=== PATIENT | male | born 1950 | race Caucasian/White ===

== ENCOUNTER 2019-05-10 00:56 | Emergency (ER) | payer OTHER, SELFPAY ==
--- NOTE | ~2019-05-10 | XR_ITS ---
EXAMINATION: XR chest 2V DATE: 05/10/2019 01:45 INDICATION: Left-sided chest pain TECHNIQUE: PA and lateral views of the chest are obtained. COMPARISON: 01/15/2016 FINDINGS: The lungs are free of acute opacities. There is no pleural effusion or pneumothorax. The ca rdiomediastinal silhouette is normal. There is mild thoracic spondylosis. IMPRESSION: 1. No acute cardiopulmonary abnormality. Reviewed, dictated and finalized at location A. 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
--- NOTE | 2019-05-10 01:11 | ECG_ITS ---
Measurements Intervals [place] Rate: 75 P: 42 MT: 184 QRS: -68 QRSD: 162 T: 20 QT: 414 QTc: 463 Interpretive Statements SINUS RHYTHM RIGHT BUNDLE BRANCH BLOCK LEFT ANTERIOR FASCICULAR BLOCK VOLTAGE CRITERIA FOR LVH CANNOT RULE OUT SEPTAL INFARCT, AGE INDETERMINATE LATERAL INFARCT, AGE INDETERMINATE BASELINE ARTIFACT- V6 ABNORMAL ECG Electronically Signed On 05-10-2019 7:11:28 WIRE TRANSFER CLERK by Sid Chen D.O.
[2019-05-10 01:12] VITALS: BP 138/76; PULSE 84; RESP 18; TEMP 36.6; O2SAT 98
[2019-05-10] MEDS: ASPIRIN 81 MG CHEWABLE TABLET 324 MG PO (01:23)
--- NOTE | 2019-05-10 01:23 | ED.CHESTPAIN ---
HPI - Chest Pain General Chief Complaint: Chest Pain <Melchor Deal MD - Last Filed: 05/10/19 01:37> Stated Complaint: electrical chest pains <Melchor Deal MD - Last Filed: 05/10/19 01:37> Time Seen by Provider: 05/10/19 01:20 <Melchor Deal MD - Last Filed: 05/10/19 01:37> Source: patient and RN notes reviewed <Melchor Deal MD - Last Filed: 05/10/19 01:37> Mode of arrival: ambulatory <Melchor Deal MD - Last Filed: 05/10/19 01:37> Limitations: no limitations <Melchor Deal MD - Last Filed: 05/10/19 01:37> History of Present Illness HPI narrative: Pt is an 69 male who presents to the ED with c/o left-sided chest pain which began at 2030 tonight. He states he was going to bed when the pain occurred. However, the pain lasted for about 6-10 seconds and radiated to his LUE before alleviating. He reports he just went to bed. Pt states he woke up at 0030 with the same chest pain occurring which prompted him to come to the ED. He denies SOB, nausea, or vomiting. He also denies any chest pain currently in the ED bed. Pt reports he has recently had a surgery performed 3 days ago for his cancer. Pt reports his PCP is Dr. Igor Ashton in [place]. Pt reports a PMHx of hyperlipidemia and HTN. <Melchor Deal MD - Last Filed: 05/10/19 01:37> MD complaint: chest pain (left-sided) <Melchor Deal MD - Last Filed: 05/10/19 01:37> Pertinent past history: coronary artery disease <Melchor Deal MD - Last Filed: 05/10/19 01:37> Onset (ago): hour(s) (first episode occurred at 2030 tonight) <Melchor Deal MD - Last Filed: 05/10/19 01:37> Timing of current episode: episodic <Melchor Deal MD - Last Filed: 05/10/19 01:37> Prior episodes: No <Melchor Deal MD - Last Filed: 05/10/19 01:37> Onset: during rest (going into bed) <Melchor Deal MD - Last Filed: 05/10/19 01:37> Pain location: left chest <Melchor Deal MD - Last Filed: 05/10/19 01:37> Pain radiation: left arm <Melchor Deal MD - Last Filed: 05/10/19 01:37> Relieving factors: nothing <Melchor Deal MD - Last Filed: 05/10/19 01:37> Exacerbating factors: nothing <Melchor Deal MD - Last Filed: 05/10/19 01:37> Associated symptoms: other (none) <Melchor Deal MD - Last Filed: 05/10/19 01:37> Related Data Allergies/Adverse Reactions: Allergies Allergy/AdvReac Type Severity Reaction Status Date / Time No Known Allergies Allergy Unverified 10/28/14 11:41 <Melchor Deal MD - Last Filed: 05/10/19 01:37> Review of Systems Review of Systems: All systems reviewed & are unremarkable except as noted in HPI and below <Melchor Deal MD - Last Filed: 05/10/19 01:37> Cardiovascular: Cardiovascular: Reports chest pain (left-sided chest pain ) and Reports radiating jaw, neck or arm pain (radiating into LUE) <Melchor Deal MD - Last Filed: 05/10/19 01:37> Respiratory: Respiratory: Denies dyspnea <Melchor Deal MD - Last Filed: 05/10/19 01:37> Gastrointestinal: Gastrointestinal: Denies nausea and Denies vomiting <Melchor Deal MD - Last Filed: 05/10/19 01:37> PMFSH Past Medical History Medical History: Medical History (Updated 05/10/19 @ 05:04 by Kimo Claire MD) Diabetes Hypercholesterolemia Hypertension <Melchor Deal MD - Last Filed: 05/10/19 01:37> Surgical History Surgical History: Surgical History (Updated 05/10/19 @ 01:31 by Deysi Childs) H/O cardiac catheterization <Melchor Deal MD - Last Filed: 05/10/19 01:37> Social History Social History: Social History (Updated 05/10/19 @ 01:31 by Deysi Childs) Smoking status: Never smoker Gender identity (if verbalized by the patient): Male <Melchor Deal MD - Last Filed: 05/10/19 01:37> Exam Narrative: Exam Narrative: GENERAL: Well-appearing, well-nourished, and in no acute distress. HEAD: Normocephalic, atraumatic. EYES: PER
[2019-05-10 01:28] LABS: Basophils Absolute Auto 0.1 K/mm3 (0.0-0.1); Basophils Percent Auto 0.8 % (0.2-1.2); Eosinophils Absolute Auto 0.1 K/mm3 (0-0.3); Eosinophils Percent Auto 1.2 % (0-4.4); Hematocrit 43.8 % (42.0-52.0); Hemoglobin 14.7 g/dL (14.0-18.0); Immature Granulocyte Absolute 0.03 K/mm3 (0.00-0.031); Immature Granulocyte Percent A 0.5 % (0-0.5); Lymphocytes Absolute Auto 1.35 K/mm3 (0.9-3.2); Mean Corpuscular HGB Conc 33.6 g/dl (32-36); Mean Corpuscular Hemoglobin 30.1 pg (26-34); Mean Corpuscular Volume 89.8 fl (80-100); Mean Platelet Volume 11.3 fl (7.4-10.4); Monocytes Absolute Auto 0.6 K/mm3 (0.1-0.6); Monocytes Percent Auto 9.8 % (2.6-8.5); Neutrophils Absolute Auto 4.3 K/mm3 (1.3-6.7); Neutrophils Percent Auto 66.7 % (45.5-73.1); Platelet Count Result 186 k/mm3 (150-375); Red Blood Count 4.88 M/mm3 (4.6-6.20); Red Cell Distribution Width 12.5 % (11.5-14.5); White Blood Count 6.4 K/mm3 (4.5-10.0)
[2019-05-10 01:32] LABS: INR 0.9; Partial Thromboplastin Time 25.8 SECONDS (22.3-36.8); Prothrombin Time 11.7 Seconds (11.1-14.7)
[2019-05-10 01:34] LABS: Blood Urea Nitrogen 21 mg/dL (9-20); Calcium 9.9 mg/dL (8.4-10.2); Carbon Dioxide 30 mmol/L (22-30); Chloride 98 mmol/L (98-107); Estimated Glomerular Filt Rate > 60; Glucose 140 mg/dL (75-110); Potassium 3.7 mmol/L (3.4-5.0); Sodium 140 mmol/L (137-145)
[2019-05-10 01:46] LABS: Troponin I < 0.012 ng/mL (0.000-0.034)
[2019-05-10 02:47] VITALS: BP 143/89; PULSE 84; RESP 14; O2SAT 98
[2019-05-10 04:38] LABS: Troponin I < 0.012 ng/mL (0.000-0.034)
[2019-05-10 05:02] VITALS: BP 122/77; PULSE 77; RESP 18; O2SAT 98
== END 2019-05-10 05:08 | disposition home or self-care (01) ==
PROVIDERS: Emergency Medicine; Emergency Provider Family Medicine
DX: R07.2 Precordial pain (principal); C80.1 Malignant (primary) neoplasm, unspecified; E11.9 Type 2 diabetes mellitus without complications; E78.00 Pure hypercholesterolemia, unspecified; I10 Essential (primary) hypertension; I45.2 Bifascicular block; R94.31 Abnormal electrocardiogram [ECG] [EKG]; I25.10 Atherosclerotic heart disease of native coronary artery without angina pectoris
CPT/HCPCS: 36415; 71046; 80048; 84484; 85025; 85610; 85730; 93005; 99284; A9270

== ENCOUNTER 2021-07-21 12:33 | Emergency (ER) | payer MEDICARE, SELFPAY ==
[2021-07-21 12:42] VITALS: BP 150/78; PULSE 112; RESP 18; TEMP 36.4; O2SAT 98
--- NOTE | 2021-07-21 13:25 | ED.HA ---
HPI - Headache General Chief Complaint: Headache Stated Complaint: pain in face Time Seen by Provider: 07/21/21 12:53 Source: patient History of Present Illness HPI Narrative: Patient presents with jaw pain. Reports he has jaw pain for the past few days. When initially started he went to his dentist was told his teeth look good and was treated for a sinus infection. Since then his pain is gotten progressively worse and his pain is localizing around his left upper molar and he notes that when pushing on the tooth and when chewing. His pain is now radiating to his left face he was concerned so he came to the ER for further evaluation. Denies any fevers, chills, nausea, vomiting, difficulty breathing, difficulty swallowing Related Data Allergies Allergy/AdvReac Type Severity Reaction Status Date / Time No Known Allergies Allergy Unverified 10/28/14 11:41 Review of Systems Review of Systems: CONSTITUTIONAL: Denies fever, chills, or sweats. EYES: Denies visual changes, redness, or discharge. ENT: Denies rhinorrhea, congestion, sore throat, or otalgia. CARDIOVASCULAR: Denies chest pain, palpitations, or edema. RESPIRATORY: Denies cough or dyspnea. GASTROINTESTINAL: Denies abdominal pain, nausea, vomiting, or diarrhea. GENITOURINARY: Denies dysuria or hematuria. SKIN: Denies rash or itching. MUSCULOSKELETAL: Denies back pain, joint pain, or myalgia. NEUROLOGIC: Denies headache, numbness, dizziness, or weakness. PSYCHIATRIC: Denies anxiety or depression. All systems reviewed & are unremarkable except as noted in HPI and below PMFSH Past Medical History Medical History Diabetes Hypercholesterolemia Hypertension Surgical History Surgical History H/O cardiac catheterization Social History Social History Smoking status: Never smoker Gender identity (if verbalized by the patient): Male Exam Narrative: GENERAL: Well-appearing, well-nourished, and in no acute distress. HEAD: Normocephalic, atraumatic. EYES: PERRLA and EOMI. ENT: Nares clear, no rhinorrhea or epistaxis. Mucous membranes moist. Pain is palpation on tooth 15 no obvious swelling or edema around the tooth there is mild erythema on the left cheek. No tenderness to percussion on his sinuses EXTREMITIES: Normal range of motion. No edema. SKIN: Warm, dry, no rash. NEURO: No focal deficits. Alert and oriented x3. PSYCH: Normal mood and affect. Course Vital Signs Vital signs: Vital Signs Temperature 36.4 C L 07/21/21 12:42 Pulse Rate 112 H 07/21/21 12:42 Respiratory Rate 18 07/21/21 12:42 Blood Pressure 150/78 H 07/21/21 12:42 Pulse Oximetry 98 07/21/21 12:42 Temperature 36.4 C L 07/21/21 12:42 Pulse Rate 112 H 07/21/21 12:42 Respiratory Rate 18 07/21/21 12:42 Blood Pressure 150/78 H 07/21/21 12:42 Pulse Oximetry 98 07/21/21 12:42 MDM - Headache MDM Narrative Medical decision making narrative: H&P as above, vss, pt looks clinically well, exam with tenderness to tooth 15, labs/img considered, symptomatic relief available as needed, on reevaluation pt continues to looks clinically well. Suspect dental abscess, dns necrotizing soft tissue infection, severe sepsis, airway compromise, low with angina plan to tx/monitor as op w/ dental f/u findings/plan discussed with pt, pt agree/comfortable with plan, return precautions given Discharge Plan Discharge Clinical Impression: Dental abscess Patient Disposition: Home, Self-Care Condition: Improved Instructions: Antibiotic Form, Dental Abscess (ED) Additional Instructions: Please return if your symptoms worsen or fail to improve. If you develop a fever, can not eat/drink anything or if you have any other concerns. Please follow-up with your dentist for repeat evaluation Prescriptions: New amoxicillin-pot cla
== END 2021-07-21 13:40 | disposition home or self-care (01) ==
PROVIDERS: Emergency Provider Emergency Medicine
DX: K04.7 Periapical abscess without sinus (principal); E11.9 Type 2 diabetes mellitus without complications; E78.00 Pure hypercholesterolemia, unspecified; I10 Essential (primary) hypertension
CPT/HCPCS: 99283

== ENCOUNTER 2021-07-30 07:14 | Emergency (ER) | payer MEDICARE, SELFPAY ==
--- NOTE | ~2021-07-30 | CT_ITS ---
EXAMINATION: CT abdomen pelvis w con EXAM DATE: 07/30/2021 08:14 INDICATION: LLQ abd pain TECHNIQUE: Spiral CT of the abdomen and pelvis was performed following intravenous injection of 100 m L Omnipaque 350. Axial, coronal and sagittal images of the abdomen and pelvis were reviewed. The do se-length product (DLP) for this examination was 1162.95 mGy-cm. The exposure was tailored according to patient size (auto mA exposure control), and iterative reconstruction (ASIR) was used as addition al dose reduction technique. Comparison is made to prior examination from 10/22/2012. FINDINGS: There is rather extensive left perinephric fat stranding, mild to moderate right perinephri c fat stranding. Equivocal enhancing left renal pelvic urothelium. Correlate with urinalysis for poss ible upper urinary tract infection. Findings could also be from recently passed left ureteral stone g iven the 3 mm bladder stone in dependent aspect. The liver, spleen, adrenal glands and pancreas are u nremarkable. Gallbladder is unremarkable. No biliary obstruction. There is mild prostatomegaly. Sma ll bilateral inguinal fat-containing hernias. There is no retroperitoneal or pelvic lymphadenopathy. There is mild scattered arteriosclerotic disease. The appendix is normal. The stomach and small bowel are unremarkable. There is expected amount of c olonic stool. No free intraperitoneal gas. The heart is normal in size. There are no pericardial or pleural effusions. The lung bases are unremarkable. There are no osteoblastic or osteolytic les ions identified. Chronic L5 spondylolysis with grade 2 anterolisthesis L5 on S1. IMPRESSION: 1. Left perinephric fat stranding, mild UPJ urothelial enhancement, and small bladder stone. Could b e recently passed stone or upper UTI, correlate with urinalysis. 2. Mild prostatomegaly. 3. Small inguinal hernias. 4. Chronic L5 spondylolysis, spondylolisthesis. Reviewed, dictated and finalized at location A. IMPRESSION: 1. Left perinephric fat stranding, mild UPJ urothelial enhancement, and small bladder stone. Could be recently passed stone or upper UTI, correlate with urin alysis. 2. Mild prostatomegaly. 3. Small inguinal hernias. 4. Chronic L5 spondylolysis, spondylolisthesis.
[2021-07-30 07:19] VITALS: BP 158/73; PULSE 61; RESP 18; TEMP 36.3; O2SAT 100
--- NOTE | 2021-07-30 07:33 | ED.ABDPAIN ---
HPI - Abdominal Pain General Chief Complaint: Abdominal Pain Stated Complaint: Abdominal pain with nausea Time Seen by Provider: 07/30/21 07:26 Source: patient History of Present Illness HPI narrative: Patient presents with left lower quadrant abdominal pain has been present for approximately 7 hours and appears to be getting worse. Symptoms are associated with nausea. He also reports a sensation of needing to go to the bathroom is not able to do so he denies any diarrhea or urinary symptoms denies any fevers or chills reports yesterday he was feeling well or recent travel outside the area. He has no known sick contacts. Related Data Home Medications Medication Instructions Recorded Confirmed amlodipine 10 mg DAILY 07/30/21 07/30/21 atorvastatin 40 mg DAILY 07/30/21 07/30/21 diltiazem HCl 240 mg PO DAILY 07/30/21 07/30/21 hydrochlorothiazide 25 mg DAILY 07/30/21 07/30/21 metformin 1,000 mg BID 07/30/21 07/30/21 nateglinide 120 mg DAILY 07/30/21 07/30/21 Allergies Allergy/AdvReac Type Severity Reaction Status Date / Time No Known Allergies Allergy Verified 07/30/21 07:29 Review of Systems Review of Systems: CONSTITUTIONAL: Denies fever, chills, or sweats. EYES: Denies visual changes, redness, or discharge. ENT: Denies rhinorrhea, congestion, sore throat, or otalgia. CARDIOVASCULAR: Denies chest pain, palpitations, or edema. RESPIRATORY: Denies cough or dyspnea. GASTROINTESTINAL: Abdominal pain and nausea GENITOURINARY: Denies dysuria or hematuria. SKIN: Denies rash or itching. MUSCULOSKELETAL: Denies back pain, joint pain, or myalgia. NEUROLOGIC: Denies headache, numbness, dizziness, or weakness. PSYCHIATRIC: Denies anxiety or depression. All systems reviewed & are unremarkable except as noted in HPI and below PMFSH Past Medical History Medical History Diabetes Hypercholesterolemia Hypertension Surgical History Surgical History H/O cardiac catheterization Social History Social History Smoking status: Never smoker Gender identity (if verbalized by the patient): Male Exam Narrative: GENERAL: Well-appearing, well-nourished, and in no acute distress. HEAD: Normocephalic, atraumatic. EYES: PERRLA and EOMI. ENT: Nares clear, no rhinorrhea or epistaxis. Mucous membranes moist. NECK: Supple. No masses. No JVD CHEST: Clear to auscultation. No respiratory distress. No wheezes rales or rhonchi HEART: Regular rate and rhythm. No murmur heard. Normal peripheral pulses. ABDOMEN: Mild tenderness with palpation in the left lower quadrant no rebound or guarding soft, nondistended, EXTREMITIES: Normal range of motion. No edema. SKIN: Warm, dry, no rash. NEURO: No focal deficits. Alert and oriented x3. PSYCH: Normal mood and affect. Course Reevaluation(s) Reevaluation #1: Patient reported feeling much improved at the time of CT scan labs and imaging reviewed with patient. Patient is comfortable with outpatient plan Date: 07/30/21 Time: 08:34 Vital Signs Vital signs: Vital Signs Temperature 36.3 C L 07/30/21 07:19 Pulse Rate 61 07/30/21 07:19 Respiratory Rate 18 07/30/21 07:19 Blood Pressure 158/73 H 07/30/21 07:19 Pulse Oximetry 100 07/30/21 07:19 Temperature 36.3 C L 07/30/21 07:19 Pulse Rate 61 07/30/21 07:19 Respiratory Rate 18 07/30/21 07:19 Blood Pressure 158/73 H 07/30/21 07:19 Pulse Oximetry 100 07/30/21 07:19 MDM - Abdominal Pain MDM Narrative Medical decision making narrative: H&P as above, vss, pt looks clinically well, exam with left-sided abdominal pain, labs with hematuria otherwise clinically unremarkable, img with stone in the bladder and inflammation left kidney, additional labs/img considered, symptomatic relief available as needed, on reevaluation pt continues to looks clinically well. Vinicio
[2021-07-30] MEDS: SODIUM CHLORIDE 0.9% IV 1,000 ML 999 ML IV CONT (07:36)
[2021-07-30 07:48] LABS: Basophils Absolute Auto 0.1 K/mm3 (0.0-0.1); Basophils Percent Auto 0.6 % (0.2-1.2); Eosinophils Absolute Auto 0.1 K/mm3 (0-0.3); Eosinophils Percent Auto 0.6 % (0-4.4); Hematocrit 47.1 % (42.0-52.0); Hemoglobin 15.3 g/dL (14.0-18.0); Immature Granulocyte Absolute 0.04 K/mm3 (0.00-0.031); Immature Granulocyte Percent A 0.5 % (0-0.5); Lymphocytes Absolute Auto 0.99 K/mm3 (0.9-3.2); Lymphocytes Percent Auto 11.5 % (18.3-44.2); Mean Corpuscular HGB Conc 32.5 g/dl (32-36); Mean Corpuscular Hemoglobin 30.3 pg (26-34); Mean Corpuscular Volume 93.3 fl (80-100); Mean Platelet Volume 10.8 fl (7.4-10.4); Monocytes Absolute Auto 0.6 K/mm3 (0.1-0.6); Monocytes Percent Auto 6.8 % (2.6-8.5); Neutrophils Absolute Auto 6.9 K/mm3 (1.3-6.7); Platelet Count Result 159 k/mm3 (150-375); Red Blood Count 5.05 M/mm3 (4.6-6.20); Red Cell Distribution Width 12.4 % (11.5-14.5); White Blood Count 8.6 K/mm3 (4.5-10.0)
[2021-07-30 07:53] LABS: Alanine Aminotransferase 18 U/L (4-50); Albumin Level 4.5 g/dL (3.5-5.1); Alkaline Phosphatase 59 U/L (38-126); Anion Gap 9 mmol/L (8-16); Aspartate Amino Transferase 24 U/L (17-59); Bilirubin,Total 0.7 mg/dL (0.2-1.3); Blood Urea Nitrogen 19 mg/dL (9-20); Calcium 9.5 mg/dL (8.4-10.2); Carbon Dioxide 29 mmol/L (22-30); Chloride 100 mmol/L (98-107); Estimated CRCL calculation 57 ml/min; Estimated Glomerular Filt Rate 55; Glucose 178 mg/dL (65-110); Lipase 41 U/L (23-300); Potassium 3.9 mmol/L (3.4-5.0); Sodium 138 mmol/L (137-145)
[2021-07-30 08:14] LABS: Appearance Urine Slightly Cloudy (Clear); Bilirubin Urine Negative (Negative); Blood Urine 2+ (Negative); Color Urine Yellow (Yellow); Glucose Urine UA Negative (Negative); Ketones Urine Trace mg/dL (Negative); Leukocyte Esterase Ur Negative LEU/UL (Negative); Nitrate Urine Negative (Negative); Protein Urine 1+ mg/dL (Negative); Specific Grav Ur >= 1.030 (1.001-1.035); Urobilinogen Urine 0.2 mg/dL (<2.0)
[2021-07-30] MEDS: KETOROLAC 15 MG/ML VIAL (*BKC) IV PUSH (08:14)
[2021-07-30 08:31] LABS: Calcium Oxalate Crystals Urine Present /hpf; RBC Urine 21-50 /hpf (0-2); WBC Urine 0-3 /hpf
[2021-07-30 08:32] LABS: Add Urine Microscopic? YES
== END 2021-07-30 08:48 | disposition home or self-care (01) ==
PROVIDERS: Emergency Provider Emergency Medicine
DX: N20.0 Calculus of kidney (principal); E11.9 Type 2 diabetes mellitus without complications; E78.00 Pure hypercholesterolemia, unspecified; I10 Essential (primary) hypertension; Z79.84 Long term (current) use of oral hypoglycemic drugs; N40.0 Benign prostatic hyperplasia without lower urinary tract symptoms; K40.90 Unilateral inguinal hernia, without obstruction or gangrene, not specified as recurrent; M43.16 Spondylolisthesis, lumbar region
CPT/HCPCS: 36415; 74177; 80053; 81001; 83690; 85025; 96374; 99284; J1885; J7030; Q9967

== ENCOUNTER 2022-02-02 13:56 | Emergency (ER) | payer MEDICARE, SELFPAY ==
--- NOTE | ~2022-02-02 | CT_ITS ---
EXAMINATION: CT facial & cervical spine wo DATE: 02/02/2022 15:54 INDICATION: Fullness spine the left ear and neck pain TECHNIQUE: Computed tomography (CT) of the maxillofacial region and cervical spine was performed with out intravenous contrast. The dose-length product (DLP) was 420.03 mGy-cm. Automated exposure control and iterative reconstruction technique were employed. COMPARISON: 12/01/2015 FINDINGS: MAXILLOFACIAL CT: No facial fracture is identified. The facial soft tissues are unremarkable. No correlate is identifie d for the patient's reported pain behind the left ear. CERVICAL SPINE CT: There is no fracture, dislocation, or subluxation. The vertebral body heights are normal. There are u nchanged mild loss of intervertebral disc space height at C5-6. The odontoid is intact. Small degener ative osteophytes project from the anterior endplates of multiple vertebral bodies. There is mild mul tilevel facet and uncovertebral joint osteoarthritis. IMPRESSION: 1. No acute facial abnormality and no CT correlate is identified for the patient's reported left ear pain. 2. Mild cervical spondylosis without acute findings. Reviewed, dictated and finalized at location F. IMPRESSION: 1. No acute facial abnormality and no CT correlate is identified for the patien t's reported left ear pain. 2. Mild cervical spondylosis without acute findings.
--- NOTE | ~2022-02-02 | CT_ITS ---
EXAMINATION: CT brain wo con INDICATION: Sensation of fullness behind the left ear at the base of the skull with neck pain COMPARISON: 12/01/2015 TECHNIQUE: Standard unenhanced head CT. The dose-length product (DLP) was 605.33 mGy-cm. The mA was a djusted according to patient size. Iterative reconstruction technique was employed. FINDINGS: There is no acute intraparenchymal hemorrhage. No evidence of mass lesion. No evidence of a cute infarction. There is mild periventricular and subcortical hypodensity probably related to small vessel ischemic disease. There is mild prominence of the sulci and ventricles related to cerebral atr ophy. Intracranial calcified cerebral atherosclerosis is noted. There are no extra-axial collections. There is no mass effect or midline shift. The orbits and soft tissues are unremarkable. The visualiz ed sinuses and mastoid air cells are well aerated. No specific correlate is identified for the patien t's reported left ear pain. IMPRESSION: 1. No acute intracranial abnormality. 2. Age related findings. 2. No specific correlate identified for the patient's left ear pain. Reviewed, dictated and finalized at location F.
[2022-02-02 14:04] VITALS: BP 150/70; PULSE 66; RESP 20; TEMP 36.6; O2SAT 100
--- NOTE | 2022-02-02 15:31 | ED.NECK ---
HPI - Neck Pain/Injury General Chief Complaint: Neck Pain/Injury Stated Complaint: sharp pain in left neck Time Seen by Provider: 02/02/22 14:28 History of Present Illness HPI Narrative: Patient is a healthy 72-year-old male here for evaluation of intermittent throbbing/sharp sensation behind his left ear for the past 3 days. States the patient was at rest when he developed the pain. Denies inciting event including recent exertion. Pain will come at random times without warning and last for seconds at a time and then resolved without intervention. He has not attempted any medication for the pain. He denies any fevers, chills, nausea, vomiting, dizziness, headaches, vision changes. Has never had a similar sensation in the past. Patient did have his left ear irrigated at [facility] 2 weeks ago for cerumen impaction. Related Data Home Medications Medication Instructions Recorded Confirmed amlodipine 10 mg tablet 10 mg DAILY 07/30/21 07/30/21 atorvastatin 40 mg tablet 40 mg DAILY 07/30/21 07/30/21 diltiazem HCl 240 mg 240 mg PO DAILY 07/30/21 07/30/21 capsule,extended release 24 hr hydrochlorothiazide 25 mg tablet 25 mg DAILY 07/30/21 07/30/21 metformin 500 mg tablet 1,000 mg BID 07/30/21 07/30/21 nateglinide 120 mg tablet 120 mg DAILY 07/30/21 07/30/21 Allergies Allergy/AdvReac Type Severity Reaction Status Date / Time No Known Allergies Allergy Verified 07/30/21 07:29 Review of Systems Review of Systems: Gen.: Denies fevers or chills Eyes: Denies eye pain or visual change ENT: Denies congestion Respiratory: Denies shortness of breath or cough CV: Denies chest pain or palpitations GI: Denies abdominal pain nausea, emesis or diarrhea denies burning, urgency, frequency or hematuria Musculoskeletal: Reports left-sided neck pain. Denies back pain or muscle pain Neuro: Denies numbness, tingling, weakness or focal weakness Skin: Denies rash Except as documented, all other systems reviewed and negative [facility] Past Medical History Medical History Diabetes Hypercholesterolemia Hypertension Surgical History Surgical History H/O cardiac catheterization Social History Social History Smoking status: Never smoker Gender identity (if verbalized by the patient): Male Exam Narrative: APPEARANCE: Well appearing, no pain in distress, well-nourished. Head: No tenderness over area of reported pain. Normocephalic and atraumatic. EYES: PERRLA/EOMI, conjunctivae clear NOSE: No nasal drainage EARS: TMs are clear bilaterally. No mastoid tenderness. External ear normal in appearance THROAT: Oropharynx is clear. Mucous membranes are moist. NECK: No midline tenderness along C-spine. Supple. No adenopathy, no masses. RESPIRATORY: Airway patent, respirations nonlabored. Clear to auscultation bilaterally, no rales, rhonchi, wheezing. CARDIOVASCULAR: Regular rate and rhythm without murmurs, rubs, or gallops. ABDOMINAL: Normoactive bowel sounds. Soft, nontender, nondistended. No rebound tenderness or guarding. MUSCULOSKELETAL: Extremities are warm and well-perfused. Moves all extremities well. No edema. NEURO: Normal speech. No focal neurologic deficits. SKIN: Skin is warm and dry. No rashes. PSYCHIATRIC: Normal affect/mood.. Course Vital Signs Vital signs: Vital Signs Temperature 97.9 F 02/02/22 14:04 Pulse Rate 66 02/02/22 14:04 Respiratory Rate 20 02/02/22 14:04 Blood Pressure 150/70 H 02/02/22 14:04 Pulse Oximetry 100 02/02/22 14:04 Oxygen Delivery Room Air 02/02/22 14:04 Temperature 97.9 F 02/02/22 14:04 Pulse Rate 66 02/02/22 14:04 Respiratory Rate 20 02/02/22 14:04 Blood Pressure 150/70 H 02/02/22 14:04 Pulse Oximetry 100 02/02/22 14:04 Oxygen Delivery Room Air 02/02/22 14:04
== END 2022-02-02 17:15 | disposition home or self-care (01) ==
PROVIDERS: Emergency Provider Emergency Medicine
DX: R51.9 Headache, unspecified (principal); E11.9 Type 2 diabetes mellitus without complications; E78.00 Pure hypercholesterolemia, unspecified; I10 Essential (primary) hypertension; Z79.84 Long term (current) use of oral hypoglycemic drugs; M47.812 Spondylosis without myelopathy or radiculopathy, cervical region
CPT/HCPCS: 70450; 70486; 72125; 99284

== ENCOUNTER 2022-12-14 00:17 | Emergency (ER) | payer MEDICARE, SELFPAY ==
--- NOTE | ~2022-12-14 | XR_ITS ---
EXAMINATION: XR chest 1V portable INDICATION: Cough TECHNIQUE: Portable AP chest at 0427 hours COMPARISON: 05/10/2019 FINDINGS: There are minimal airspace opacities of the right lung base. No pleural effusion or pneumot horax. The cardiomediastinal silhouette is normal. IMPRESSION: 1. Minimal right basilar airspace opacity, consistent with atelectasis versus pneumonia. Reviewed, dictated and finalized at location A. IMPRESSION: 1. Minimal right basilar airspace opacity, consistent with atelectasis versus p neumonia.
[2022-12-14 00:38] VITALS: BP 145/84; PULSE 95; RESP 16; TEMP 36.9; O2SAT 98
[2022-12-14 02:31] VITALS: O2SAT 99
[2022-12-14 02:35] VITALS: BP 147/96; PULSE 90; RESP 18; O2SAT 100
[2022-12-14 02:46] VITALS: BP 148/84; PULSE 89; RESP 21; O2SAT 94
[2022-12-14 03:34] LABS: Influenza A QL RT-PCR Positive (Negative); Influenza B QL RT-PCR Negative (Negative); RSV RNA, RT-PCR Negative (Negative); SARS-CoV-2 RNA PCR Negative (Negative)
--- NOTE | 2022-12-14 04:03 | ECG_ITS ---
Measurements Intervals [place] Rate: 86 P: 22 [place]: 178 QRS: -73 QRSD: 166 T: 18 QT: 389 QTc: 465 Interpretive Statements SINUS RHYTHM RIGHT BUNDLE BRANCH BLOCK LEFT ANTERIOR FASCICULAR BLOCK VOLTAGE CRITERIA FOR LVH CANNOT RULE OUT SEPTAL INFARCT, AGE INDETERMINATE BASELINE ARTIFACT- II, III, AVF ABNORMAL ECG COMPARED TO ECG 05/10/2019 01:02:41 NO SIGNIFICANT CHANGES Electronically Signed On 12-14-2022 7:19:26 CDT by Sid Chen D.O.
--- NOTE | 2022-12-14 04:51 | ED.GENADULT ---
HPI - General Adult General Chief complaint: Upper Respiratory Infection Stated complaint: URI Time Seen by Provider: 12/14/22 03:10 History of Present Illness HPI narrative: 72-year-old male presenting ED with chief complaint of flu-like symptoms. Patient was on a cruise in [place], 36 hours ago he started to have headaches sore throat cough body aches and fatigue. Denies fever chills, shortness of breath abdominal pain nausea vomiting or diarrhea. Related Data Home Medications Medication Instructions Recorded Confirmed amlodipine 10 mg tablet 10 mg DAILY 07/30/21 07/30/21 atorvastatin 40 mg tablet 40 mg DAILY 07/30/21 07/30/21 diltiazem HCl 240 mg 240 mg PO DAILY 07/30/21 07/30/21 capsule,extended release 24 hr hydrochlorothiazide 25 mg tablet 25 mg DAILY 07/30/21 07/30/21 metformin 500 mg tablet 1,000 mg BID 07/30/21 07/30/21 nateglinide 120 mg tablet 120 mg DAILY 07/30/21 07/30/21 Allergies Allergy/AdvReac Type Severity Reaction Status Date / Time No Known Allergies Allergy Verified 07/30/21 07:29 [facility] Past Medical History Medical History Diabetes Hypercholesterolemia Hypertension Surgical History Surgical History H/O cardiac catheterization Social History Social History Smoking status: Never smoker Gender identity (if verbalized by the patient): Male Exam Narrative: APPEARANCE: No apparent distress. well-appearing Head: atraumatic. EYES: EOMI, NOSE: Atraumatic NECK: Trachea midline RESPIRATORY: No increased rate of breathing , CTAB CARDIOVASCULAR: RRR, no peripheral edema ABDOMINAL: Non-distended soft nontender no guarding rebound MUSCULOSKELETAl: No obvious deformities NEURO: Alert. Moving 4/4 extremities SKIN:: Warm, dry. Normal color PSYCHIATRIC: Normal affect Course Vital Signs Vital signs: Vital Signs Temperature 98.5 F 12/14/22 00:38 Pulse Rate 95 12/14/22 00:38 Respiratory Rate 16 12/14/22 00:38 Blood Pressure 145/84 H 12/14/22 00:38 Pulse Oximetry 98 12/14/22 00:38 Oxygen Delivery Room Air 12/14/22 00:38 Temperature 98.5 F 12/14/22 00:38 Pulse Rate 89 12/14/22 02:46 Respiratory Rate 21 H 12/14/22 02:46 Blood Pressure 148/84 H 12/14/22 02:46 Pulse Oximetry 94 12/14/22 02:46 Oxygen Delivery Room Air 12/14/22 02:31 Medical Decision Making MDM Narrative Medical decision making narrative: -Course: 72-year-old male presenting with flu-like symptoms. Found to have flu A. discussed risks of benefits of Tamiflu and the patient has opted to take the medication. Vital signs are stable and he is well appearing. Patient will be discharged with symptomatic treatment and return precautions. 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 Independent EKG interpretation: Rhythm [sinus], Rate [86], [place] -[normal], [place] -[178ms], QRS [ Wide], QTC [normal], T waves -[negative for concerning inversions], ST Segments - [Negative for concerning elevations] Final interpretations: [Normal Sinus Rhythm] -Shared decision making / Disposition: Discharged -RX Tamiflu, Motrin, Tylenol, Robitussin, zyrtec Vital Signs Vital Signs: Vital Signs Temperature 98.5 F 12/14/22 00:38 Pulse Rate 95 12/14/22 00:38 Respiratory Rate 16 12/14/22 00:38 Blood Pressure 145/84 H 12/14/22 00:38 Pulse Oximetry 98 12/14/22 00:38 Oxygen Delivery Room Air 12/14/22 00:38 Temperature 98.5 F 12/14/22 00:38 Pulse Rate 89 12/14/22 02:46 Respiratory Rate 21 H 12/14/22 02:46 Blood Pressure 148
[2022-12-14 04:53] VITALS: BP 133/91; PULSE 88; RESP 15; O2SAT 100
== END 2022-12-14 06:14 | disposition home or self-care (01) ==
PROVIDERS: Emergency Provider Emergency Medicine
DX: J10.1 Influenza due to other identified influenza virus with other respiratory manifestations (principal); Z20.822 Contact with and (suspected) exposure to COVID-19; E11.9 Type 2 diabetes mellitus without complications; E78.00 Pure hypercholesterolemia, unspecified; I10 Essential (primary) hypertension; Z79.84 Long term (current) use of oral hypoglycemic drugs; I45.2 Bifascicular block; R94.31 Abnormal electrocardiogram [ECG] [EKG]
CPT/HCPCS: 71045; 87637; 93005; 99283

== ENCOUNTER 2024-04-06 15:34 | Emergency (ER) | payer MEDICARE, SELFPAY ==
--- NOTE | ~2024-04-06 | XR_ITS ---
EXAMINATION: XR chest 2V DATE: 04/06/2024 18:49 INDICATION: Upper respiratory infection. TECHNIQUE: Frontal and lateral views of the chest were obtained. COMPARISON: Chest single view 12/14/2022 FINDINGS: There is no pneumonia, pleural effusion, or pneumothorax. The heart size is normal. IMPRESSION: 1. No acute cardiopulmonary disease. Reviewed, dictated and finalized at location A. ING ENGINEER
[2024-04-06 15:36] VITALS: BP 149/63; PULSE 114; RESP 18; TEMP 36.7; O2SAT 98
[2024-04-06 17:59] VITALS: BP 142/70; PULSE 109; RESP 18; TEMP 37; O2SAT 99
--- NOTE | 2024-04-06 18:31 | ED_ITS ---
HPI - Nausea/Vomiting/Diarrhea General Chief complaint: Nausea/Vomiting/Diarrhea Stated complaint: flulike s/s onset today Time Seen by Provider: 04/06/24 17:40 Source: patient Mode of arrival: ambulatory Limitations: no limitations History of Present Illness HPI Narrative: Patient is a 74-year-old male who presents to the with report of body aches. Patient reports he woke up this morning feeling unwell. Reports having diffuse myalgias, malaise, decreased appetite. Did also have an episode of emesis prior to arrival. Denies currently feeling nauseous. Reports some minimal abdominal discomfort. Reports very mild cough. Denies congestion, sore throat, known fevers. Denies chest pain or shortness of breath. Did take Tylenol earlier today without improvement. Has had some sick contacts. Related Data Home Medications ?Medication ?Instructions ?Recorded ?Confirmed ?Last Taken ?Type amlodipine 10 mg tablet 10 mg DAILY 07/30/21 07/30/21 Unknown History atorvastatin 40 mg tablet 40 mg DAILY 07/30/21 07/30/21 Unknown History diltiazem HCl 240 mg 240 mg PO DAILY 07/30/21 07/30/21 Unknown History capsule,extended release 24 hr hydrochlorothiazide 25 mg tablet 25 mg DAILY 07/30/21 07/30/21 Unknown History metformin 500 mg tablet 1,000 mg BID 07/30/21 07/30/21 Unknown History nateglinide 120 mg tablet 120 mg DAILY 07/30/21 07/30/21 Unknown History Allergies Allergy/AdvReac Type Severity Reaction Status Date / Time No Known Allergies Allergy Verified 07/30/21 07:29 Review of Systems 2 Review of Systems: All systems reviewed & are unremarkable except as noted in HPI. All systems reviewed & are unremarkable except as noted in HPI and below PMFSH Past Medical History Medical History Diabetes Hypertension Hypercholesterolemia Surgical History Surgical History H/O cardiac catheterization Social History Social History Smoking status: Never smoker Gender identity (if verbalized by the patient): Male Exam 2 Narrative: GENERAL: Elderly but well appearing, well-nourished, non-toxic, in no acute distress. HEAD: Normocephalic, atraumatic. RESPIRATORY: Airway patent, respirations nonlabored. Clear to auscultation bilaterally, no rales, rhonchi, wheezing. No focal lung sounds. CARDIOVASCULAR: Tachycardic with regular rhythm without murmurs, rubs, or gallops. ABDOMINAL: Soft, no significant tenderness throughout abdomen, nondistended. Normoactive BS. MUSCULOSKELETAL: Moves all extremities. No gross deformities. SKIN: Warm, dry, normal color. NEURO: A&O X3. Speech clear. Cranial nerves II-XII grossly intact. Steady gait. No ataxic movements. No focal deficits. PSYCHIATRIC: Appropriate mood and affect. Normal interaction. Course Vital Signs Vital signs: Vital Signs Temperature 98.0 F 04/06/24 15:36 Pulse Rate 114 H 04/06/24 15:36 Respiratory Rate 18 04/06/24 15:36 Blood Pressure 149/63 H 04/06/24 15:36 Pulse Oximetry 98 04/06/24 15:36 Oxygen Delivery Room Air 04/06/24 15:36 Temperature 98.3 F 04/06/24 19:47 Pulse Rate 98 04/06/24 19:47 Respiratory Rate 20 04/06/24 19:47 Blood Pressure 120/65 04/06/24 19:47 Pulse Oximetry 97 04/06/24 19:47 Oxygen Delivery Room Air 04/06/24 15:36 MDM - Nausea/Vomiting/Diarrhea MDM Narrative Medical decision making narrative: Patient presented to ED feeling unwell since this morning, reporting diffuse body aches, malaise, decreased appetite, nausea with 1 episode of vomiting. Patient tachycardic upon arrival. Afebrile. Laboratory studies are fairly unremarkable. No leukocytosis. Differential does show 87% neutrophils with 3% bands. Stable H&H. Electrolytes are mostly stable. Sodium slightly low. Stable kidney function. Fluids ongoing. Lactic minimal at 2.1. UA is clear. No signs of infection. EKG with normal sinus rhythm, right bundle-branch block, no significant ST changes. Patient denies any chest pain or shortness of breath. Viral swabs are negative. Chest x-ray is clear. Discussed lab and imaging findings, overall reassuring workup with patient and family at bedside. Patient is feeling significantly better after fluids and Tylenol. His heart rate did normalize. Vital signs have remained stable. Discussed likelihood of viral infection, possible early covid or flu. Feel patient is safe for discharge home with close outpatient follow-up. Discussed supportive therapy, [id number] therapies to try, recommended follow-up with PCP for further evaluation. Patient given strict return precautions. Patient is in agreement with this plan, he feels very reassured by the workup. Discharged in stable condition. Medical Records Attestation: I reviewed the patient's medical records. Lab Data Attestation: I reviewed the patient's lab results. 04/06/24 18:24 04/06/24 18:24 Labs: Lab Results 04/06/24 Range/Units 18:24 WBC 7.7 (4.5-10.0) K/mm3 RBC 4.82 (4.6-6.20) M/mm3 Hgb 14.4 (14.0-18.0) g/dL Hct 42.1 (42.0-52.0) % MCV 87.3 (80-100) fl MCH 29.9 (26-34) pg MCHC 34.2 (32-36) g/dl RDW 12.7 (11.5-14.5) % Plt Count 170 (150-375) k/mm3 MPV 10.6 H (7.4-10.4) fl Immature Gran % (Auto) Not Reportable Neut % (Auto) Not Reportable Lymph % (Auto) Not Reportable [place] % (Auto) Not Reportable Eos % (Auto) Not Reportable Baso % (Auto) Not Reportable Lymph # (Auto) Not Reportable [place] # (Auto) Not Reportable Eos # (Auto) Not Reportable Baso # (Auto) Not Reportable Abs Immat Gran (auto) Not Reportable Absolute Neuts (auto) Not Reportable Absolute Nucleated RBC Not Reportable Total Counted 100 Neutrophils % (Manual) 87 H (46-73) % Band Neutrophils % 3 (0-6) % Lymphocytes % (Manual) 6.0 L (18-44) % Monocytes % (Manual) 4 (3-9) % Nucleated RBC % Not Reportable Abs Neuts (Manual) 6.93 H (1.3-6.7) K/mm3 Abs Lymphs (Manual) 0.46 L (1.1-4.5) K/mm3 Abs Monocytes (Manual) 0.30 (0.1-0.90) K/mm3 Platelet Estimate Adequate (Adequate) Schistocytes None seen Sodium 134 L (137-145) mmol/L Potassium 3.7 (3.4-5.0) mmol/L Chloride 103 (98-107) mmol/L Carbon Dioxide 24 (22-30) mmol/L Anion Gap 7 (4-12) mmol/L BUN 20 (9-20) mg/dL Creatinine 1.20 (0.7-1.3) mg/dL Estim Creat Clear Calc 54 ml/min Estimated GFR 60 (59 - ) Glucose 170 H (65-110) mg/dL Lactic Acid 2.1 H (0.7-2.0) mmol/L Calcium 9.9 (8.4-10.2) mg/dL Total Bilirubin 1.1 (0.2-1.3) mg/dL AST 22 (17-59) U/L ALT 20 (6-50) U/L Alkaline Phosphatase 60 (38-126) U/L Total Protein 8.0 (6.3-8.2) g/dL Albumin 4.7 (3.5-5.1) g/dL Lipase 168 (23-300) U/L Urine Color Dark yellow (Yellow) Urine Appearance Clear (Clear) Urine pH 5.0 (5.0-9.0) Ur Specific [place] 1.027 (1.001-1.035) Urine Protein Trace (Negative) mg/dL Urine Glucose (UA) Negative (Negative) mg/dL Urine Ketones Negative (Negative) mg/dL Ur Blood (Man) Negative (Negative) Urine Nitrate Negative (Negative) Urine Bilirubin 1+ H (Negative) Urine Urobilinogen 0.2 (<2.0) mg/dL Leukocyte Esterase Rfl Negative (Negative) [place]/UL Urine RBC 0-2 (0-2) /hpf Urine WBC 0-5 (0-3) /hpf Ur Squamous Epith Cells None seen (Few) /hpf Urine Bacteria None seen /hpf Urine Casts 0-2 Influenza A (RT-PCR) Negative (Negative) Influenza B (RT-PCR) Negative (Negative) RSV (RT-PCR) Negative (Negative) SARS-CoV-2 RNA (RT-PCR) Negative (Negative) Imaging Data Attestation: I personally reviewed and interpreted this imaging study as follows: Radiologist's impression: ITS Impressions Chest X-Ray 04/06/24 18:52 IMPRESSION: 1. No acute cardiopulmonary disease. ECG Data EKG #1: Attestation: I personally reviewed and interpreted this ECG as follows: ECG completion date: 04/06/24 ECG completion time: 19:42 EKG Interpretation: normal rate (94), sinus rhythm, non-specific ST changes and RBBB Discharge Plan Discharge Clinical Impression: Myalgia, Acute viral syndrome, Dehydration Patient Disposition: Home, Self-Care Condition: Stable Instructions: Antibiotic Form, Dehydration (ED), Upper Respiratory Infection (ED), Viral Syndrome (ED) Additional Instructions: Your workup here was reassuring. It is possible you may have a viral infection. Continue to monitor symptoms. Stay well-hydrated at home. Recommend electrolyte rich fluids, Gatorade, Pedialyte, body armor. Zofran as needed for nausea. Tessalon Perles as needed for cough. Tylenol and Ibuprofen for discomfort and/or fevers. Recommend [id number] cough and cold medicines for symptom relief, Delsym, Mucinex, DayQuil, NyQuil, Sudafed, Robitussin, TheraFlu. Follow with primary care doctor upon resolution of symptoms. Return to the ED if you experience chest pain, difficulty breathing, unable to keep down food or drink, severe pain, persistent fevers, or any other symptoms of concern. Patient Language: Thai Prescriptions: New benzonatate 200 mg capsule 200 mg PO TID PRN (Reason: cough) Qty: 15 0RF ondansetron 4 mg tablet,disintegrating 4 mg PO Q8H PRN (Reason: nausea and vomiting) Qty: 15 0RF No Action nateglinide 120 mg tablet 120 mg DAILY atorvastatin 40 mg tablet 40 mg DAILY metformin 500 mg tablet 1,000 mg BID diltiazem HCl 240 mg capsule,extended release 24hr 240 mg PO DAILY amlodipine 10 mg tablet 10 mg DAILY hydrochlorothiazide 25 mg tablet 25 mg DAILY Robitussin Cough-Chest [place] DM 10-200 mg capsule 1 tab-cap PO ONCE PRN (Reason: cough) Qty: 18 0RF acetaminophen 500 mg tablet 1,000 mg PO TID PRN (Reason: veronika) 7 Days Qty: 42 0RF Zyrtec 10 mg capsule 10 mg PO DAILY PRN (Reason: allergy symptoms) Qty: 14 0RF oseltamivir [Tamiflu] 75 mg capsule 75 mg PO Q12H 5 Days Qty: 10 0RF ibuprofen 800 mg tablet 800 mg PO TID PRN (Reason: pain) 7 Days Qty: 21 0RF Follow-up/Referrals: PHYSICIAN,SENIOR ACCOUNT DIRECTOR [Primary Care Provider] - Time of Disposition: 20:44
[2024-04-06 18:34] LABS: Hematocrit 42.1 % (42.0-52.0); Hemoglobin 14.4 g/dL (14.0-18.0); Mean Corpuscular HGB Conc 34.2 g/dl (32-36); Mean Corpuscular Hemoglobin 29.9 pg (26-34); Mean Corpuscular Volume 87.3 fl (80-100); Mean Platelet Volume 10.6 fl (7.4-10.4); Platelet Count Result 170 k/mm3 (150-375); Red Blood Count 4.82 M/mm3 (4.6-6.20); Red Cell Distribution Width 12.7 % (11.5-14.5); White Blood Count 7.7 K/mm3 (4.5-10.0)
[2024-04-06] MEDS: SODIUM CHLORIDE 0.9% IV 1,000 ML 999 ML IV CONT (18:35)
--- NOTE | 2024-04-06 18:35 | ECG_ITS ---
Test Date: 2024-04-06 19:42:19 Measurements Intervals [place] Rate: 94 P: 42 MT: 194 QRS: -72 QRSD: 165 T: 50 QT: 399 QTc: 499 Interpretive Statements SINUS RHYTHM RIGHT BUNDLE BRANCH BLOCK [120+ ms QRS DURATION, UPRIGHT V1, 40+ ms S IN I/aVL/V4/V5/V6] LEFT ANTERIOR FASCICULAR BLOCK [QRS AXIS <= -45, QR IN I, RS IN II] MODERATE VOLTAGE CRITERIA FOR LVH, CONSIDER NORMAL VARIANT [MEETS CRITERIA IN ONE OF: R(aVL), S(V1), R(V5), R(V5/V6)+S(V1)] No previous ECG available for comparison Electronically Signed On 04-06-2024 20:37:49 DISTRICT BRANCH MANAGER by Alexander Bingham M.D.
[2024-04-06 18:48] LABS: Alanine Aminotransferase 20 U/L (6-50); Albumin Level 4.7 g/dL (3.5-5.1); Alkaline Phosphatase 60 U/L (38-126); Anion Gap 7 mmol/L (4-12); Aspartate Amino Transferase 22 U/L (17-59); Bilirubin,Total 1.1 mg/dL (0.2-1.3); Blood Urea Nitrogen 20 mg/dL (9-20); Calcium 9.9 mg/dL (8.4-10.2); Carbon Dioxide 24 mmol/L (22-30); Chloride 103 mmol/L (98-107); Estimated CRCL calculation 54 ml/min; Estimated Glomerular Filt Rate 60; Glucose 170 mg/dL (65-110); Lipase 168 U/L (23-300); Potassium 3.7 mmol/L (3.4-5.0); Sodium 134 mmol/L (137-145)
[2024-04-06 18:50] LABS: Lactic Acid Reflex 2.1 mmol/L (0.7-2.0)
[2024-04-06 18:51] LABS: Add Urine Microscopic? YES; Appearance Urine Clear (Clear); Bacteria Urine None Seen /hpf; Band Neutrophils Percent 3 % (0-6); Bilirubin Urine 1+ (Negative); Blood Urine Negative (Negative); Color Urine Dark Yellow (Yellow); Glucose Urine UA Negative (Negative); Ketones Urine Negative (Negative); Leukocyte Esterase Ur Negative LEU/UL (Negative); Lymphocytes Absolute Manual 0.46 K/mm3 (1.1-4.5); Monocytes Percent Manual 4 % (3-9); Neutrophils Absolute Manual 6.93 K/mm3 (1.3-6.7); Neutrophils Percent Manual 87 % (46-73); Nitrate Urine Negative (Negative); Non Pathogenic Casts 0-2; Platelet Estimate Adequate (Adequate); Protein Urine Trace mg/dL (Negative); RBC Urine 0-2 /hpf (0-2); Specific Grav Ur 1.027 (1.001-1.035); Squamous Epithelial Cell Urine None Seen /hpf (Few); Total Cells Counted 100; Urobilinogen Urine 0.2 mg/dL (<2.0); WBC Urine 0-5 /hpf (0-3)
[2024-04-06 18:52] LABS: Schistocytes None Seen
[2024-04-06 19:11] LABS: Influenza A QL RT-PCR Negative (Negative); Influenza B QL RT-PCR Negative (Negative); RSV RNA, RT-PCR Negative (Negative); SARS-CoV-2 RNA PCR Negative (Negative)
[2024-04-06] MEDS: ACETAMINOPHEN 500 MG TABLET 1000 MG PO (19:44)
[2024-04-06 19:47] VITALS: BP 120/65; PULSE 98; RESP 20; TEMP 36.8; O2SAT 97
[2024-04-06 21:31] LABS: Reflex Lactic Acid Yes or No Add Lactic
--- OUTSIDE RECORDS SUMMARY | 2024-04-13 18:30 | XMS_ITS | Data Portability ---
Author Organization [place] [facility], [place] [facility] Address [address] [place] [address] Assessment Encounter Date Assessment Date Assessment LastModified by Organization Details LastModified Time 01/20/2022 01/20/2022 70 year old male patient presents with right peroneal brevis insertional tendonitis. The patient reports a history of an old injury in 2002. Pain has been increasing within the last 2 weeks. On exam, pain to palpation at the level of the fifth metatarsal base. Pain with resisted eversion. Prominent 5th metatarsal base noted. Right foot x-rays showed no fractures or dislocations noted. Educated patient on current diagnosis, prognosis and treatment options. 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 Reviewed with patient RICE therapy (rest, ice, compression, elevation), NSAIDs, steroids, Tylenol. Educated patient on proper shoe-gear with arch support. Patient would be good candidate for CFOs in the future which will help to realign the foot structure. Recommended to patient that due to fifth metatarsal base being prominent, would recommend shoes with a wide toe box to reduce pressure to the site. Recommended stretching exercises to reduce stress and strain of the peroneal tendons at the site. Corticosteroid injection was completed at the level of the fifth metatarsal base of the right foot. The patient tolerated the procedure well. Dispensed ankle brace for right foot to be worn during periods of ambulation for next 2 weeks and then slowly wean off. Restart stretching exercises tomorrow as tolerated. Follow up in 3 weeks 30 minutes total time on the date of this encounter including the tmvh-xs-jzmr and awr-wqqo-mr-face time physician personally spent before, during, and after the visit on the same day. Time included: care coordination, counseling and educating the patient about Peroneal tendonitis , documenting clinical information in the electronic health record, reviewing and/or getting separately obtained history from patient, performing medically appropriate exam and evaluation. [email or web address] Not available 01/20/2022 13:31:41 02/13/2023 02/13/2023 73-year-old male patient presents with right foot pain due to porokeratotic lesions. On exam, note 2 mm (X4) nucleated lesions to the plantar aspect of the fifth metatarsal base. Pain with lateral compression. Disruption of skin lines present. Prominent fifth metatarsal base, right. No pain noted along the dorsal lateral aspect of the fifth metatarsal base. Pain noted to be centralized to the nucleated lesions. Discussed diagnosis, prognosis, treatment options and alternative for dermal/epidermal lesions today. Differentiate pressure lesions (porokeratosis) vs true viral warts vs other skin lesions (neoplasm, fibrous, inflammatory, cystic). Options include shave removal, curettage, chemo cautery, cryosurgery. Recalcitrant lesion or recurrent lesion treatments include electrosurgery, needling technique, surgical excision and flap. Discuss the procedure, post op course and risks, performed curettage with application of Salinocaine. Immediate improvement noted. Site was dressed with Salinocaine with occlusive moleskin dressing. Dressing to remain clean dry and intact for 3 days. Then wash with soap and water. If note an open lesion then cover with antibiotic ointment and a Band-Aid. If not, okay to open to air. Educated patient that he may note peeling to the site which is normal. Discussed calluses being formed from biomechanical deformity and abnormal weight bearing pressure. Recommend trimming the calluses at home wtih an emery board when they are dry or using a pumice stone when they are wet. Recommend daily applications of moisturing cream/lotion and urea after bathing. Recommend getting new supportive shoes with good biomechanical control for activites and not walking barefoot to reduce biomechanical friction on the foot surfaces. Educated patient that it is important to provide accommodative shoe gear due to prominent fifth metatarsal base. Follow up in 4 weeks 30 minutes total time on the date of this encounter including the hgli-lp-shba and tld-mbiz-ob-face time physician personally spent before, during, and after the visit on the same day. Time included: care coordination, counseling and educating the patient about porokeratosis, prominent fifth metatarsal base, right foot pain, documenting clinical information in the electronic health record, reviewing and/or getting separately obtained history from pcp, performing medically appropriate exam and evaluation, and communicating with PCP [email or web address] Not available 02/15/2023 15:54:10 07/20/2023 07/20/2023 73 yo DMII male patient presents with right great toe pain due to transverse split of the nail. On exam, R1 nail noted to be thick and dystrophic. transverse split noted to distal-medial aspect of nail. POP. Onycholysis noted distally. Nail noted to be very elongated. NO erythema or edema. No drainage. Debrided distal aspect of R1 nail at site of onycholysis and split. Patient tolerated procedure well. Educated to patient that split was likely the result of his elongated nails pushing against the end of his shoes. Recommended regular debridement of nails for prevention. I discussed the effects of diabetes with the patient and stressed regular visits for screening of foot pathology or deformities, to evaluate for any neurological changes, to check for any circulatory changes, patient instruction sheet on footcare was given. Discuss diabetes, the triad of angiopathy, neuropathy and structural issues, the risk of loss of the extremities, slow healing, Charcot collapse, etc. Sugar control is paramount to slowing the progression of the disease itself and lower extremity related complications. Should check feet daily including plantar and between toes. If any s/s infection, call immediately. Follow up annually for diabetic foot exam. 30 minutes total time on the date of this encounter including the vmkf-vw-xybf and uaa-eqdm-rh-face time physician personally spent before, during, and after the visit on the same day. Time included: care coordination, counseling and educating the patient about Transverse Split of Nail, Pain in R1 , documenting clinical information in the electronic health record, reviewing and/or getting separately obtained history from pcp, performing medically appropriate exam and evaluation, and communicating with PCP [email or web address] Not available 07/23/2023 00:24:17 12/21/2023 12/21/2023 73-year-old male patient presents with right foot pain due to porokeratotic lesions. On exam, note 2 mm (X3) nucleated lesions to the plantar aspect of the fifth metatarsal base. Pain with lateral compression. Disruption of skin lines present. Prominent fifth metatarsal base, right. No pain noted along the dorsal lateral aspect of the fifth metatarsal base. Pain noted to be centralized to the nucleated lesions. Discussed diagnosis, prognosis, treatment options and alternative for dermal/epidermal lesions today. Differentiate pressure lesions (porokeratosis) vs true viral warts vs other skin lesions (neoplasm, fibrous, inflammatory, cystic). Options include shave removal, curettage, chemo cautery, cryosurgery. Recalcitrant lesion or recurrent lesion treatments include electrosurgery, needling technique, surgical excision and flap. Discuss the procedure, post op course and risks, performed curettage with application of Salinocaine. Immediate improvement noted. Site was dressed with Salinocaine with occlusive moleskin dressing. Dressing to remain clean dry and intact for 24 hours. Discussed calluses being formed from biomechanical deformity and abnormal weight bearing pressure. Recommend trimming the calluses at home wtih an emery board when they are dry or using a pumice stone when they are wet. Recommend daily applications of moisturing cream/lotion and urea after bathing. Recommend getting new supportive shoes with good biomechanical control for activites and not walking barefoot to reduce biomechanical friction on the foot surfaces. Educated patient that it is important to provide accommodative shoe gear due to prominent fifth metatarsal base. Follow up in 2-3 weeks 30 minutes total time on the date of this encounter including the qpgw-aa-pppo and eij-futi-eb-face time physician personally spent before, during, and after the visit on the same day. Time included: care coordination, counseling and educating the patient about porokeratosis, prominent fifth metatarsal base, right foot pain, documenting clinical information in the electronic health record, reviewing and/or getting separately obtained history from pcp, performing medically appropriate exam and evaluation, and communicating with PCP Not available 12/31/2023 00:39:14 01/20/2024 01/20/2024 73-year-old male patient presents for f/u of right foot pain due to porokeratotic lesions. Patient is status post Salinocaine treatment. Patient also presents with NEW PROBLEM of Planter fasciitis to the right foot. POROKERATOSIS S/p Salinocaine treatment. Patient reports he is doing well. Denies pain to lesion sites. He states that there are some callus at the site with peeling but he states he feels a lot better. Post debridement noted 100% epithelialized tissue with no nucleated lesions identified. Discussed calluses being formed from biomechanical deformity and abnormal weight bearing pressure. Recommend trimming the calluses at home wtih an emery board when they are dry or using a pumice stone when they are wet. Recommend daily applications of moisturing cream/lotion and urea after bathing. Recommend getting new supportive shoes with good biomechanical control for activities and not walking barefoot to reduce biomechanical friction on the foot surfaces. Educated patient that it is important to provide accommodative shoe gear due to prominent fifth metatarsal base. RT PLANTAR FASCIITIS On exam, pain to palpation to the plantar medial and central calcaneal tubercle. Ankle joint range of motion decreased with knee extended no pain to palpation with activation of the windlass mechanism or maximum dorsiflexion of the foot. Right foot x-rays previously obtained at last visit was negative for fractures and dislocations, but noted small calcaneal spur. Educated patient on plantar fasciitis as well as prognosis and available treatment options. Reviewed with patient plantar fasciitis as well as conservative treatment options including stretching, ice, rest, orthotics, supportive shoes, night splint, physical therapy and corticosteriod injections. Dispensed patient information sheet with exercises included. Will consider corticosteroid injection in the future. Follow-up in 2 weeks. 30 minutes total time on the date of this encounter including the wzom-ld-mutj and thr-swye-vc-face time physician personally spent before, during, and after the visit on the same day. Time included: care coordination, counseling and educating the patient about Plantar fasciitis, porokeratosis, prominent fifth metatarsal base, right foot pain, documenting clinical information in the electronic health record, reviewing and/or getting separately obtained history from pcp, performing medically appropriate exam and evaluation, and communicating with PCP [email or web address] Not available 02/10/2024 02:13:53 Plan of Treatment Reminders Order Date Submit Date Provider Last Modified By Organization Details Last Modified Time Details Appointments None record ed. Lab None record ed. Referral None record ed. Procedures None record ed. Surgeries None record ed. Imaging None record ed. Medication Orders None record ed. Patient TargetsNo targets recorded. Patient Instructions Encounter Date Encounter Id Patient Instructions Last Modified By Organization Details Last Modified Time 01/20/2022 [id number] peroneal tendon strain: rehab exercises [email or web address] Not available 01/20/2022 13:34:54 07/20/2023 [id number] type 2 diabetes: care instructions [email or web address] Not available 07/23/2023 00:24:57 01/20/2024 [id number] plantar fasciitis: care instructions [email or web address] Not available 02/10/2024 02:14:53 plantar fasciitis: exercises [email or web address] Not available 02/10/2024 02:14:53 Reason for Referral None Reported. Results Created Date Observation Date Name Description Value Unit Range Abnormal Flag Note LastModifiedBy Organization Detail LastModifiedTime 01/17/2001/15/2022 XR, foot, 3 or more view No observ ation record ed. [email or web address] [place] [address] [address], [address], 01/20/2022 14:59:42 01/21/20 22 XR, foot, 3 or more view No observ ation record ed. [email or web address] [facility] [address], [address], 01/20/2022 01:52:18 01/21/20 22 XR, foot, 3 or more view No observ ation record ed. [email or web address] [facility] [address], [address], 01/20/2022 01:52:19 01/21/20 22 XR, foot, 3 or more view No observ ation record ed. [email or web address] [facility] [address] [place], [address], 01/20/2022 01:52:19 01/21/20 22 XR, foot, 3 or more view No observ ation record ed. [email or web address] [facility] [address] [place], [address], 01/20/2022 01:52:20 01/21/20 22 XR, foot, 3 or more view No observ ation record ed. [facility] [address] [place], [address], 01/20/2022 01:52:20 01/21/20 22 XR, foot, 3 or more view No observ ation record ed. [email or web address] [facility] [address] [place], [address], 01/20/2022 01:52:21 Result Notes None recorded. Problems Name Problem SNOMED Code Status Onset Date Resolution Date Notes Provider Name and Address Organization Details Recorded Time Peroneal tendiniti s of right lower limb 783954031897 109 Completed 202007/22/2023 Destinee Greer DPM [address] [facility], [place], [address], [facility] 4 00:23:08 Closed fracture of fifth metatarsa l bone 55261014 Completed 202007/22/2023 Destinee Greer DPM [address] [facility], [place], [address], [facility] 4 00:22:58 Pain in right foot 437974509494 107 Completed 202007/22/2023 Destinee Greer DPM [address] [facility], [place], [address], [facility] 4 00:23:05 Porokerat osis 018649849 Completed 202207/22/2023 Destinee Greer DPM [address] [facility], [place], [address], [facility] 4 00:23:16 Disorder of bone 79051717 Completed 202207/22/2023 Destinee Greer DPM [address] [facility], [place], [address], [place] [facility] 4 00:23:03 Transvers e split nail 858140578 Active 2023 Destinee Greer DPM [address], [place], [address], [facility] 4 00:23:19 Pain of toe of right foot 726419140220 101 Active 2023 MEOL Ledesma [place], [place], [address], [facility] 4 00:23:21 Problem Notes None recorded. Procedures Surgical History Date Name Laterality Status Provider Name and Address Organization Details Recorded Time 12/21/19 24 31023 Wart-Curettage completed Destinee Greer DPM [address] [place], [address], [facility] 12/31/2023 00:39:47 02/14/20 23 59475 Wart-Curettage completed MELO Ledesma [place], [place], [address], [facility] 02/15/2023 15:49:23 01/21/20 22 L1906- Multiligamentous ankle brace completed Destinee Greer DPM [address] [place], [address], [facility] 01/20/2022 13:26:46 01/21/20 22 87404 Tendon Injection [place], [address], [facility] 01/20/2022 13:25:16 01/11/20 21 61485 X-rays 2v Feet Normal completed MELO Ledesma [place], [place], [address], [facility] 01/15/2021 01:46:42 09/30/ Tendon Injection completed Destinee Greer DPM [address] [facility], [place], [address], [place] [facility] 01/15/2021 01:48:59 01/21/20 03 Foot Surgery completed Destinee Greer DPM [address] [facility], [place], [address], [facility] 01/14/2021 22:14:07 11/20/18 91 Other completed Destinee Greer DPM [address] [facility], [place], [address], [facility] 01/14/2021 22:14:07 Imaging Results Imaging Date Name Status LastModified by Kari [facility] Details LastModified Time 01/15/2022 XR, foot, 3 or more view completed [email or web address] [facility] [address] [place] [address], [address], 01/20/2022 14:59:42 01/20/2022 XR, foot, 3 or more view completed [email or web address] [facility] [address] [place], [address], 01/20/2022 01:52:18 01/20/2022 XR, foot, 3 or more view completed [email or web address] [facility] [address] [place], [address], 01/20/2022 01:52:19 01/20/2022 XR, foot, 3 or more view completed [email or web address] [facility] [address] [address], [address], 01/20/2022 01:52:19 01/20/2022 XR, foot, 3 or more view completed [email or web address] [facility] [address] [place], [address], 01/20/2022 01:52:20 01/20/2022 XR, foot, 3 or more view completed [facility] [address] [place], [address], 01/20/2022 01:52:20 01/20/2022 XR, foot, 3 or more view completed [facility] [address] [facility], [place], [address], 01/20/2022 01:52:21 Procedure Notes None recorded. Medical Equipment None Reported. Allergies No known drug allergies Medications Name Sig Start Date Stop Date Status Note LastModified by Organization Details LastModified Time nateglinide 120 mg tablet TAKE 1 TABLET BY MOUTH EVERY DAY active Not Available Not Available No t Available atorvastatin 40 mg tablet TAKE 1 TABLET BY MOUTH EVERY DAY active Not Available Not Available No t Available metformin 500 mg tablet 2 tablets by oral route. active Not Available Not Available No t Available ketoconazole 2 % shampoo USE ON TRUNK DAILY DIRECTED active Not Available Not Available Not Available sildenafil 50 mg tablet 3 tablets as needed by oral route. 2020 active Not Available Not Available Not Avai lable cetirizine 10 mg tablet TAKE 1 TABLET BY MOUTH ONCE DAILY NEEDED FOR ALLERGY SYMPTOMS. active Not Available Not Available No t Available azithromycin 250 mg tablet TAKE 2 TABLETS BY MOUTH TODAY, THEN TAKE 1 TABLET DAILY FOR 4 DAYS DIRECTED active Not Available Not Available No t Available ibuprofen 800 mg tablet TAKE 1 TABLET BY MOUTH THREE TIMES DAILY FOR 7 DAYS NEEDED FOR PAIN active Not Available Not Available No t Available Lidocaine Viscous 2 % mucosal solution SWISH & SPIT 5 ML EVERY 6 HOURS *MAY USE UP TO 4 TIMES DAILY FOR TOOTH PAIN DO NOT SWALLOW active Not Available Not Available No t Available diltiazem CD 240 mg capsule,exte nded release 24 hr active Not Available Not Available Not Available famotidine 40 mg tablet TAKE 1 TABLET BY MOUTH NIGHTLY NEEDED FOR HEARTBURN. active Not Available Not Available N ot Available fluorouracil 5 % topical cream active Not Available Not Available Not Available clobetasol 0.05 % topical cream APPLY TO SCALP DAILY active Not Available Not Available Not Available triamcinolon e acetonide 0.5 % topical ointment APPLY 1 APPLICATION ONTO THE AFFECTED AREA(S) ON THE SKIN TWICE DAILY active Not Available Not Available Not Available acyclovir 400 mg tablet TAKE 1 TABLET BY MOUTH TWICE A DAY active Not Available Not Available No t Available valacyclovir 500 mg tablet TAKE 1 TABLET BY MOUTH TWICE A DAY FOR 7 DAYS. DRINK PLENTY OF FLUIDS, START OF DAY OF TREATMENT active Not Available Not Available No t Available hydrocodone 10 mg-acetamino phen 325 mg tablet TAKE ONE-HALF (1/2) TABLET BY MOUTH EVERY 6 HOURS NEEDED FOR PAIN active Not Available Not Available No t Available tramadol 50 mg tablet TAKE 1 TABLET BY MOUTH EVERY 4 TO 6 HOURS NEEDED FOR PAIN active Not Available Not Available No t Available acetaminophe n 500 mg tablet TAKE 2 TABLETS BY MOUTH THREE TIMES DAILY NEEDED FOR PAIN. active Not Available Not Available No t Available chlorpromazi ne 10 mg tablet TAKE 1 TABLET BY MOUTH THREE TIMES A DAY NEEDED active Not Available Not Available No t Available terbinafine HCl 250 mg tablet TAKE 1 TABLET BY MOUTH EVERY DAY FOR 7 DAYS active Not Available Not Available No t Available methocarbamo l 750 mg tablet TAKE 1 TABLET (750 MG TOTAL) BY MOUTH 2 (TWO) TIMES A DAY NEEDED FOR MUSCLE SPASMS active Not Available Not Available No t Available oxycodone-ac etaminophen 10 mg-325 mg tablet TAKE 1 TABLET BY MOUTH TWICE A DAY MAX DAILY DOSE OF 2 TABS FOR CHRONIC PAIN active Not Available Not Available No t Available tamsulosin 0.4 mg capsule TAKE 1 CAPSULE BY MOUTH EVERYDAY AT BEDTIME active Not Available Not Available No t Available amlodipine 10 mg tablet 1 tablet by oral route. active Not Available Not Available Not Available benzonatate 100 mg capsule TAKE 1 CAPSULE BY MOUTH THREE TIMES A DAY NEEDED FOR COUGH active Not Available Not Available No t Available econazole 1 % topical cream APPLY TO FEET TWICE DAILY active Not Available Not Available No t Available oseltamivir 75 mg capsule TAKE 1 CAPSULE BY MOUTH EVERY 12 HOURS FOR 5 DAYS active Not Available Not Available N ot Available clotrimazole -betamethaso ne 1 %-0.05 % topical cream APPLY TOPICALLY 2 TIMES A DAY X2 WEEKS active Not Available Not Available No t Available lidocaine 5 % topical patch PLACE 1 PATCH ON THE SKIN DAILY REMOVE & DISCARD PATCH WITHIN 12 HOURS OR DIRECTED BY active Not Available Not Available No t Available gabapentin 300 mg capsule TAKE 1 CAPSULE BY MOUTH EVERY DAY FOR CHRONIC PAIN active Not Available Not Available No t Available hydroxyzine HCl 25 mg tablet TAKE 1 TABLET BY MOUTH THREE TIMES A DAY active Not Available Not Available Not Available bisacodyl 5 mg tablet,delay ed release 4 TABS ORALLY DIRECTED active Not Available Not Available No t Available hydrochlorot hiazide 25 mg tablet 1 tablet every day by oral route. active Not Available Not Available No t Available Baby Aspirin 81 mg chewable tablet 1 tablet every day by oral route. 2017 active Not Available Not Available Not Avai lable mupirocin 2 % topical ointment APPLY TO SPOT TWICE DAILY active Not Available Not Available No t Available methylpredni solone 4 mg tablets in a dose pack TAKE 6 TABLETS ON DAY 1 DIRECTED ON PACKAGE AND DECREASE BY 1 TAB EACH DAY FOR A TOTAL OF 6 DAYS active Not Available Not Available No t Available ketoconazole 2 % topical cream APPLY TO AFFECTED AREA TWICE A DAY active Not Available Not Available No t Available fluticasone propionate 50 mcg/actuatio n nasal spray,suspen taylor INSTILL 2 SPRAYS INTO EACH NOSTRIL ONCE A DAY NEEDED active Not Available Not Available No t Available metronidazol e 0.75 % topical gel active Not Available Not Available Not Available doxycycline hyclate 100 mg tablet TAKE 1 TABLET BY MOUTH EVERY DAY active Not Available Not Available No t Available diazepam 5 mg tablet TAKE 1 TABLET BY MOUTH EVERY 6 HOURS NEEDED FOR MUSCLE SPASMS. active Not Available Not Available No t Available amoxicillin 875 mg-potassium clavulanate 125 mg tablet TAKE 1 TABLET BY MOUTH TWICE A DAY UNTIL GONE active Not Available Not Available No t Available clindamycin 1 % lotion APPLY TO SCALP EVERY DAY active Not Available Not Available No t Available atorvastatin active Not Available Not Available Not Available GaviLyte-G 236 gram-22.74 gram-6.74 gram-5.86 gram oral solution TAKE DIRECTED active Not Available Not Available No t Available OneTouch Verio test strips USE TO CHECK BLOOD SUGAR TWICE A DAY active Not Available Not Available No t Available OneTouch Delica Plus Lancet 33 gauge USE TO CHECK BLOOD SUGAR TWICE A DAY active Not Available Not Available No t Available ID NOW COVID-19 Test Kit TEST DIRECTED active Not Available Not Available No t Available COVID-19 test specimen collection TEST DIRECTED active Not Available Not Available No t Available Ozempic 1 mg/dose (4 mg/3 mL) subcutaneous pen injector 1 mg every week by sub-q route. active Not Available Not Available No t Available Vitals Date Recorded Body height Body mass index (BMI) Body weight Provider Name and Address Organization Details Last Updated DateTime 01/20/2022 182.88 cm 30.1 kg/m2 582681.51 g Raya Schwab [facility] 01/20/2022 10:08:48 Date Recorded Body height Body mass index (BMI) Body weight Provider Name and Address Organization Details Last Updated DateTime 02/13/2023 182.88 cm 30.1 kg/m2 366083.51 g Amarilys Lang [facility] 02/13/2023 09:14:20 Date Recorded Body height Body mass index (BMI) Body weight Provider Name and Address Organization Details Last Updated DateTime 07/20/2023 182.88 cm 30.1 kg/m2 650300.51 g Amarilys Lang [facility] 07/20/2023 12:09:05 Date Recorded Body height Body mass index (BMI) Body weight Provider Name and Address Organization Details Last Updated DateTime 12/21/2023 182.88 cm 30.1 kg/m2 035071.51 g Tawnya Contreras [facility] 12/21/2023 14:14:19 Date Recorded Body height Body mass index (BMI) Body weight Provider Name and Address Organization Details Last Updated DateTime 01/20/2024 182.88 cm 30.1 kg/m2 188958.51 g Leslie Raycraft [facility] 01/20/2024 12:30:03 Social History Question Answer Notes LastModified by Organizat ion Details LastModified Time Tobacco Smoking Status Never Smoker Destinee Greer DPM [address] [place], [address] 01/14/2021 22:14:01 Which Illicit Or Recreational Drugs Have You Used? None [email or web address] Information not available 01/14/2021 What Is Your Occupation? Retired Information not available 01/14/2021 Size Of Shoes 12 [email or web address] Information not available 01/14/2021 What Types Of Sporting Activities Do You Participate In? Exercise Weights Biking [employer] Information not available 01/14/2021 Sex: Unknown Functional Status Question Answer Note LastModified by Organization D etails LastModified Time What is your exercise level? Heavy Information not available 01/14/2021 Mental Status None recorded. Family History Relationship Description Onset Age of this Age Resolved Age Notes LastModified by Organization Details LastModified Time Father No current problems or disability [email or web address] Not available 01/19 12:27:05 Father Heart disease 62 90 [email or web address] Not available 2020 22:13:48 Mother No current problems or disability [email or web address] Not available 01/19 12:27:05 Mother Heart disease 80 85 Not available 2020 22:13:48 Medical History Condition Response Tuberculosis or TB N Coronary Artery Disease N HIV or AIDS N Ulcers on Legs or Feet N Heart Problems N Gout N Seizure Disorder N High Blood Pressure Y Clot in Lung or Pulmonary Embolism N Menopause N Lung Condition N Phlebitis or Venous Blood Clot N Migraines N Depression N Pacemaker N Anemia N Back Pain Y Sciatica N Neurologic Disease N Heart Attack (NE) N Anxiety Disorder N Urinary Tract Infections N Diabetes Y Bleeding Disorder N Arthritis Y Abuse of Alcohol or Drugs N Back injury N Ear Problems N Cancer N Stroke N Eye Problems N Dementia N Stomach Problems N Peripheral Vascular Disease N Sinus Conditions N High Cholesterol Y Thyroid Disorder N Broken Bone N Hepatitis N Liver Disease N Heart Disease N Rheumatoid Arthritis N Rash N Osteoporosis N Kidney Disease N Past Encounters Encounter ID Performer Location Encounter Start Date Encounter Closed Date Diagnosis/Indication Diagnosis SNOMED-CT Code Diagnosis ICD10 Code [id number] MELO Ledesma [address] [place] [address] 01/10/2021 10:22:23 01/10/2021 11:03:12 Peroneal tendinitis of right lower limb 1176132000 28170 M76.71 Closed fra cture of fifth metatarsal bone 54975142 S92.354A Pain in right foot 31518 86132 41979 M79.671 [id number] MELO Ledesma [address] [place] [address] 02/26/2021 11:26:01 02/26/2021 11:51:47 Pain in right foot 1267084926 52211 M79.671 Peroneal t endinitis of right lower limb 3508901532 70583 M76.71 Closed fra cture of fifth metatarsal bone 74313610 S92.354K [id number] CHIRAG MOTA DPM [address] [address] 10/17/2021 10:47:13 10/17/2021 11:01:33 Sciatica 18101129 M54.32 Left foot neuritis 56504 69303 35415 G57.82 [id number] Destinee Greer DPM [address] [place] [address] 01/20/2022 09:59:03 01/20/2022 10:58:33 Pain in right foot 4874725129 85293 M79.671 Peroneal t endinitis of right lower limb 9663771377 73111 M76.71 [id number] MELO Ledesma [address] [place] [address] 02/13/2023 08:52:27 02/13/2023 09:37:41 Pain in right foot 9123931988 57496 M79.671 Disorder of bone 8389710 3 M89.9 Porokeratosis 340536215 L85.1 [id number] SVEN LedesmaBella KOHLI [address]RA [address] [place] [address] 07/20/2023 12:06:03 07/20/2023 12:26:41 Pain of toe of right foot 4066739198 67042 M79.674 Transverse split nail 29 4234018 L60.8 Type 2 eb betes mellitus without complication 476665440 E11.9 [id number] SVEN LedesmaBella GRIFFINCOLLEEN [address] [place] [address] 12/21/2023 14:10:34 12/21/2023 14:42:29 Porokeratosis 751720417 L85.1 Disorder of bone 8945965 3 M89.9 Pain in right foot 78198 37320 71823 M79.671 [id number] MELO Ledesma [address] [place] [address] 01/20/2024 12:26:55 01/20/2024 12:41:34 Pain in right foot 7538830248 10549 M79.671 Porokeratosis 993799494 L85.1 Plantar fasciitis 417837 003 M72.2 Health Concerns Section Related Observation LastModified by Organization Detai ls LastModified Time None Recorded Concern Status LastModified by Organization Details LastModified Time None Recorded Advance Directives Directive None Recorded Payers Encounter Date Sequence Insurance Name Policy Number Policy Samuel Covered Member ID Samuel Member ID Guarantor Name 01/20/2022 1 [facility] (MEDICARE REPLACEMENT/A DVANTAGE - PPO) Jeffrey Grajeda [id number] Jeffrey Grajeda 02/13/2023 1 [employer] (MEDICARE REPLACEMENT PPO) [id number] 1 Jeffrey Grajeda [id number] Jeffrey Grajeda 07/20/2023 1 [employer] (MEDICARE REPLACEMENT PPO) [id number] Jeffrey Grajeda [id number] Jeffrey Grajeda 12/21/2023 1 [employer] (MEDICARE REPLACEMENT PPO) [id number] 1 Jeffrey Grajeda [id number] Jeffrey Grajeda 01/20/2024 1 [employer] (MEDICARE REPLACEMENT PPO) [id number] 1 Jeffrey Grajeda [id number] Jeffrey Grajeda Notes Date Note Type Note Provider Name and Address Organization Details Recorded Time 01/20/2022 text/html Foot Pain--Repor ross bypatient.Location:r ight midfoot at the lateral side Quality:aching; sharp; worsening Severity:moderate; pain level 6/10 Duration:2.5 weeks; Increasing pain within the last 6 weeks. Timing:abrupt when ; daytime when active walking Context:abrupt; Patient reports history of injury to the right foot in 2002. Alleviating Factors:rest; stretching Aggravating Factors:cannot identify; walking; weightbearing; pressure Associated Symptoms:swelling;ac john Previous Surgery:none Prior Imaging:none Previous Injections:helped temporarily Previous Treatments:helped significantly (Corticosteriod injection 01/10/21) Destinee Greer DPM [address] [place], [address], [facility] 01/20/2022 13:34:57 02/13/2023 text/html Foot Pain--Repor ross bypatient.Location:r ight midfoot at the lateral side Quality:aching; sharp; worsening Severity:moderate; pain level 6/10 Duration:2.5 weeks Timing:abrupt when ; daytime when active walking Context:abrupt; Patient reports history of injury to the right foot in 2002. Alleviating Factors:rest; stretching Aggravating Factors:cannot identify; walking; weightbearing; pressure Associated Symptoms:swelling;ac john Previous Surgery:none Prior Imaging:none Previous Injections:helped temporarily Previous Treatments:helped significantly (Corticosteriod injection 01/10/21)Notes: 3 - Patient presents with returning right foot pain. Patient states he received cortisone injections in the past, which helped a lot. He states that it feels very hard underneath the site.[place]/ Callus / UlcersReported bypatient.Location:f oot: right: midfoot Quality:aching; raised; firm Current Severity:moderate Duration:x weeks Onset/Timing:pain: worse with weightbearing Context:deformity (prominent 5th metatarsal base.); discomfort Aggravating factors:standing; going from sit to stand; pressure; walking; weightbearing; shoes Alleviating factors:rest Destinee Greer DPM [facility] [place], [address], [facility] 02/15/2023 15:55:08 07/20/2023 text/html Nails--Reported bypatient.Location:t oenails right 1, , , , Nature:occasional sharp or shooting pain Severity:mild Duration:A couple days Onset:all shoes apply uncomfortable pressure Aggravating Factors:pressure Course:getting worse Previous Treatment:self trimmingNotes:07/20/23 - Patient presents with R1 toenail pain. Patient states his nail split going across and now he's in a lot of pain, making it hard to wear tennis shoes and play golf. Destinee Greer DPM [address] [place], [address], [facility] 07/23/2023 00:25:00 12/21/2023 text/html [place]/ Callus / UlcersReported bypatient.Location:f oot: right: midfoot (lateral) Quality:aching; raised; firm; deep Current Severity:moderate Duration:x weeks Onset/Timing:pain: worse with weightbearing Context:deformity (prominent 5th metatarsal base.); discomfort Aggravating factors:standing; going from sit to stand; pressure; walking; weightbearing; shoes Alleviating factors:rest Destinee Greer DPM [address] [place], [address], [facility] 12/31/2023 00:42:44 01/20/2024 text/html Heel Pain--Repor ross bypatient.Location:r ight bottom of the heel Nature of Pain:sharp and stabbing; pain level /10 Duration:2 weeks Onset:denies any injury; just started to hurt all of the sudden one day; Playing golf Aggravating Factors:weightbearin g; barefoot; pain is worst when getting up out of bed in the morning; standing up after a period of rest Allevating Factors:rest Prior Imaging:noneCorn/ Callus / UlcersReported bypatient.Location:f oot: right: midfoot (lateral) Quality:aching; raised; firm; deep Current Severity:moderate Duration:x weeks Onset/Timing:pain: worse with weightbearing Context:deformity (prominent 5th metatarsal base.); discomfort Aggravating factors:standing; going from sit to stand; pressure; walking; weightbearing; shoes Alleviating factors:restNotes: - Patient presents s/p Salinocaine treatment. Reports no issues. States pain resolved. Destinee Greer DPM [address] [place], [address], [facility] 02/10/2024 02:14:56
--- OUTSIDE RECORDS SUMMARY | 2024-04-13 18:30 | XMS_ITS ---
Author Organization [facility] qagan tayagungin-Andres Address [facility] [place] [address] Care Team Providers Care Physician Interventional Cardiologist Name Role Phone Igor Ferrera Primary Care Provider UnavailNancy Nolan Unavailable [phone] REASON FOR VISIT 6 mos f/u Encounters Encounter Location Date Provider Diagnosis [facility] [address] [place] [address] 05/13/2023 Nancy Srivastava Plan Of Treatment No Information Progress Notes * Jeffrey GRAJEDADOB:[birth year] (74 yo M)Acc No.[id number]:05/13/2023 Progress Notes Patient:?Jeffrey GRAJEDA Provider:?Nancy Srivastava MD :1950???Age:73 Y???Sex:Male Ambrosio e:05/13/2023 [address] [facility] Pcp:Igor Ferrera Subjective: * Chief Complaints: * ???1. 6 mos f/u. * Medical History:? Objective: * Vitals:? Assessment: Plan: * Treatment: * * Electronic signature of Andres Srivastava MD on 04/13/2024 at 01:48 PM CRYOGENICS ENGINEER Sign off status: Pending * Provider:José Miguel Srivastava MD Date:?04/15 Generated for Krissy gould/Radha/eTransmitting on:?04/13/2024 01:48 PM CRYOGENICS ENGINEER
--- OUTSIDE RECORDS SUMMARY | 2024-04-13 18:30 | XMS_ITS | Patient Health Record ---
Author Organization [facility] Address [address] [place] [address] Care Team Providers Care Vascular Technologist Sonographer Name Role Phone Iban Igor Primary Care Provider Nancy Pickard Unavailable [phone] Allergies No Known Allergies Reason For Referral No Information Medications Medication SIG (Take, Route, Frequency, Duration) Notes Start Date End Date Status Doxycycline Hyclate 100 MG 1 capsule Ora lly Once a day for 10 day(s) Active dilTIAZem HCl ER Coated Bead s 240 MG TAKE 1 CAPSULE BY MOUTH ONCE DAILY for 90 Active Acyclovir 400 MG 1 tablet Oral Twice a day Active Tamsulosin HCl 0.4 MG 1 capsule Orally O nce a day Active Ozempic (1 MG/DOSE) 4 MG/3ML as directed Subcutaneous Active hydroCHLOROthiazide 25 MG 1 tablet in th e morning Orally Once a day Active Sildenafil Citrate 100 MG 1 tablet as ne eded Orally Once a day prn Active Atorvastatin Calcium 40 MG 1 tablet Oral ly Once a day Active metFORMIN HCl 500 MG 2 tablet a meal Ora lly bid Active Nateglinide 60 MG 1 tablet before meal s Orally Three times a day Unknown Aspirin 81 MG 1 tablet Orally Once a day for 30 day(s) Active Problems Problem Type SNOMED Code ICD Code Onset Dates Problem Status W/U Status Risk Notes Problem Hyperglycemia due to type 2 diabetes mellitus (641821008759769) Type 2 diabetes mellitus with hyperglycemia (E11.65) Active confirmed Problem Essential hypertension (46551364) Essential (primary) hypertension (I10) Active confirmed Plan Of Treatment Pending Test Test Name Order Date Stress Mibi [place] 05/23/2019 Stress Mibi [place] 05/20/2021 Echocardiogram 09/15/2022 Echocardiogram 05/20/2021 EKG 05/20/2021 Magnesium, Serum 05/20/2021 Lipid Panel 05/20/2021 CBC, BMP 05/20/2021 TSH reflex to T4F 05/20/2021 Insurance Providers Payer Name Payer Address Payer Phone Subscriber Number Group Number Insured Name Patient Relationship to Insured Coverage Start Date Coverage End Date [employer] MEDICARE PPO [address] [place] [phone] [id number] Jeffrey Davis Self - patient is the insured Medical (General) History Medical History History ICD Code Chest pain, unspecified R07.9 Sciatica, left side M54.32 Nocturia R35.1 Male erectile dysfunction, unspecified N 52.9 Hyperlipidemia, unspecified E78.5 Essential (primary) hypertension I10 Type 2 diabetes mellitus without complic ations E11.9 Obesity, unspecified E66.9 Surgical History Surgery Date(Month/Year) hemorrhoid surgery knee arthroscopic surgery right & left tonsillectomy R Hand Cancer Removal
--- OUTSIDE RECORDS SUMMARY | 2024-04-13 18:31 | XMS_ITS | Encounter Summary ---
Author Organization [facility] Address [address] [place] [address] Care Team Providers Care Drafter Seismograph Name Role Phone Unavailable Primary Care Provider Unavailabl e Encounter Details Date Type Department Care Team (Late st Contact Info) Description 05/08/2023 Lab Requisition [facility] [address] [facility] [place] [address] Sunitha Portillo MD [address] DEPT [place] [address] Social History Tobacco Use Types Packs/Day Years Used Date Smoking Tobacco: Never Smokeless Tobacco: Never Alcohol Use Standard Drinks/Week Comments Yes 0 (1 standard drink = 0.6 oz pur e alcohol) Socially Sex and Gender Information Value Date Recorded Sex Assigned at Not on file Gender Identity Not on file Sexual Orientation Not on file documented as of this encounter Plan of Treatment Not on file documented as of this encounter Procedures Procedure Name Priority Date/Time Associated Diagnosis Comments DERMATOPATHOLOGY Routine 05/08/2023 9:14 AM CONCRETE PLACEMENT EQUIPMENT OPERATOR documented in this encounter Results * DERMATOPATHOLOGY (05/08/2023 9:14 AM CONCRETE PLACEMENT EQUIPMENT OPERATOR) Case Report Dermatopathology Report ? Case: [id number] ? Authorizing Provider: ??Sunitha Portillo MD ? Collected: ? 05/08/2023 09:14 AM ? Ordering Location: ? [facility] DermPath Lab ? Received: ?05/11/2023 12:54 PM ? Pathologist: ? Bobbi Hickey, ? MD ? Specimen: ?Skin, mid ant scalp ? 4 4:19 PM [facility] DERMATOPATHOLOGY LABORATORY Final Diagnosis Specimen A. SKIN, mid ant scalp: SQUAMOUS PROLIFERATION (D48.5) (see microscopic description and comment) 4 4:19 PM [facility] DERMATOPATHOLOGY LABORATORY Clinical History R/O HAK vs. SCC 4 4:19 PM [facility] DERMATOPATHOLOGY LABORATORY Gross Description Specimen A: Received is one formalin filled container labeled with the patient's name and designated mid ant scalp. The specimen consists of a shave biopsy measuring [id number] mm. Jar 0. 4 4:19 PM [facility] DERMATOPATHOLOGY LABORATORY Microscopic Description Specimen A. SKIN, mid ant scalp: Sections show a small focus of epidermis demonstrating maturational disarray and nuclear pleomorphism of keratinocytes extending throughout the full thickness of the specimen. Overlying the epidermis there is scale-crust and foci of parakeratosis and orthokeratosis. The base of this lesion is not visualized. Additional deeper sections were obtained and reviewed. COMMENT: The histological differential diagnosis includes an irritated and inflamed benign keratosis, an actinic keratosis, and squamous cell carcinoma. 4 4:19 PM [facility] DERMATOPATHOLOGY LABORATORY Disclaimer An external and internal positive and negative controls are appropriate for the histochemical, immunohistochemical and immunofluorescence stain(s) in this case (if any), except where stated explicitly. The performance characteristics of the stain(s) cited in this report were developed and its performance characteristic determined by the Dermatopathology Laboratory at [facility], directed by Dr. Parker Mir. These tests need not be, and therefore are not, approved by the [place] Food and Drug Administration. The tests are used for clinical purposes. Billing Codes Specimen Charges Stain Charges 50741 1 4 4:19 PM [facility] DERMATOPATHOLOGY LABORATORY Embedded Images 4 4:19 PM [facility] DERMATOPATHOLOGY LABORATORY Pathology/Cytolo gy TISSUE SPECIMEN FROM SKIN / Unknown 05/08/2023 9:14 AM CONCRETE PLACEMENT EQUIPMENT OPERATOR 05/11/2023 12:54 PM CONCRETE PLACEMENT EQUIPMENT OPERATOR Sunitha Portillo MD LAB - PATHOLOGY/CYT OLOGY ORDERABLES DERMATOPATHOLOGY LABORATORY [facility] Department of Dermatology [address], [address] [phone] documented in this encounter Visit Diagnoses Not on filedocumented in this encounter
--- OUTSIDE RECORDS SUMMARY | 2024-04-13 18:31 | XMS_ITS | Encounter Summary ---
Author Organization [facility] Address [address] [place] [address] Care Team Providers Care Pattern Finisher Name Role Phone Unavailable Primary Care Provider Unavailabl e Encounter Details Date Type Department Care Team (Late st Contact Info) Description 04/10/2021 1:30 PM HOG KILLER Rapid Evaluation [place] [facility] [address] [address] Social History Tobacco Use Types Packs/Day Years Used Date Smoking Tobacco: Never Assessed Sex and Gender Information Value Date Recorded Sex Assigned at Not on file Legal Sex Male 1:23 PM HOG KILLER Gender Identity Not on file Sexual Orientation Not on file documented as of this encounter Plan of Treatment Not on file documented as of this encounter Visit Diagnoses Not on filedocumented in this encounter
--- OUTSIDE RECORDS SUMMARY | 2024-04-13 18:31 | XMS_ITS | Encounter Summary ---
Author Organization [facility] Address [facility] [place] [address] Care Team Providers Care Insurance Agency Owner Name Role Phone Unavailable Primary Care Provider Unavailabl e Reason for Visit * Reason Comments Establish Care Ear Problem Hearing Problem WAX IN EAR Encounter Details Date Type Department Care Team (Late st Contact Info) Description 01/14/2022 10:00 AM CDT Office Visit [facility] [address] [place] [id number] Victor M Zamarripa, MEAL PACKER-[facility] [address] [facility] [address] [place] [address] Chronic diffuse otitis externa of both ears (Primary Dx); Impacted cerumen of left ear; Excessive cerumen in ear canal, right; Ear itching; Ear fullness, left Social History Tobacco Use Types Packs/Day Years Used Date Smoking Tobacco: Never Smokeless Tobacco: Never Alcohol Use Standard Drinks/Week Comments Yes 0 (1 standard drink = 0.6 oz pur e alcohol) Socially Sex and Gender Information Value Date Recorded Sex Assigned at Not on file Gender Identity Not on file Sexual Orientation Not on file documented as of this encounter Last Filed Vital Signs Vital Sign Reading Time Taken Comments Blood Pressure 138/69 01/14/2022 10:10 AM CDT Pulse 62 01/14/2022 10:10 AM CDT Temperature - - Respiratory Rate - - Oxygen Saturation - - Inhaled Oxygen Concentration - - Weight 105.2 kg (232 lb) 01/14/2022 10:10 AM CDT Height 180.3 cm (5' 11 ) 01/14/2022 10:10 AM CDT Body Mass Index 32.36 01/14/2022 10:10 AM CDT documented in this encounter Patient Instructions * Patient Instructions* Jenni Hdz - 01/14/2022 10:15 AM CDT Thank you for visiting [facility]. We appreciate your confidence in allowing us to participate in your health care. You may receive a survey about your visit with us today. Making our patients happy isn???t just happy talk; it???s ourmission. Please tell us if we made the right impression on you- and how we can serve you better. Please SAVE the information below, it will assist you when it???s time for you to contact us. To MAKE - CHANGE - CANCEL an office appointment If you become ill, need to be seen before your next scheduled appointment, or need to cancel or reschedule an appointment, please call our office at [phone] Thursday through Thursday from 8:30 am to4:30 pm. You can also request a routine appointment through your [employer] account. Prescription Refills Contact your pharmacy to request all refills. The pharmacy will need to fax the request to us at . Please allow a minimum of 48-72 hours for your prescription to be completed. Your pharmacy will notify you when your prescription is ready to be picked up. Medical Emergency / After Hours Contact Information If you have a medical emergency, please call 911 or go to the nearest emergency room. For urgent medical calls which cannot wait until the office opens, please call the medical exchangeat and ask the temperature logging operator to page the ENT physician educational assistant. *Caller ID blocking service will need to be turned off for your call to be returned. We also specialize in Hearing Aids, Allergy testing, swallowing disorders, voice problems, cancer diagnosis, and so much more. Visit our website at [email or web address] for information about our practice and an interactive health encyclopedia. Thank you for visiting [facility]. We appreciate your confidence in allowing us to participate in your health care. You may receive a survey about your visit with us today. Making our patients happy isn???t just happy talk; it???s ourmission. Please tell us if we made the right impression on you- and how we can serve you better. Please SAVE the information below, it will assist you when it???s time for you to contact us. To MAKE - CHANGE - CANCEL an office appointment If you become ill, need to be seen before your next scheduled appointment, or need to cancel or reschedule an appointment, please call our office at [phone] Thursday through Thursday from 8:00 am to4:30 pm. You can also request a routine appointment through your [employer] account. Prescription Refills Contact your pharmacy to request all refills. The pharmacy will need to fax the request to us at . Please allow a minimum of 48-72 hours for your prescription to be completed. Medical Emergency / After Hours Contact Information If you have a medical emergency, please call 911 or go to the nearest emergency room. For urgent medical calls, which cannot wait until the office opens, please call the medical exchange at and ask the temperature logging operator to page the ENT physician educational assistant. *Caller ID blocking service will need to be turned off for your call to be returned. We also specialize in Hearing Aids, Allergy testing, swallowing disorders, voice problems, cancer diagnosis, and so much more. Visit our website at [email or web address] for information about our practice and an interactive health encyclopedia. Thank you for visiting [facility]. We appreciate your confidence in allowing us to participate in your health care. You may receive a survey about your visit with us today. Making our patients happy isn???t just happy talk; it???s ourmission. Please tell us if we made the right impression on you- and how we can serve you better. Please SAVE the information below, it will assist you when it???s time for you to contact us. To MAKE - CHANGE - CANCEL an office appointment If you become ill, need to be seen before your next scheduled appointment, or need to cancel or reschedule an appointment, please call our office at [phone] Thursday through Thursday from 8:00 am to4:30 pm. You can also request a routine appointment through your [employer] account. Prescription Refills Contact your pharmacy to request all refills. The pharmacy will need to fax the request to us at . Please allow a minimum of 48-72 hours for your prescription to be completed. Medical Emergency / After Hours Contact Information If you have a medical emergency, please call 911 or go to the nearest emergency room. For urgent medical calls, which cannot wait until the office opens, please call the medical exchange at and ask the temperature logging operator to page the ENT physician educational assistant. *Caller ID blocking service will need to be turned off for your call to be returned. We also specialize in Hearing Aids, Allergy testing, swallowing disorders, voice problems, cancer diagnosis, and so much more. Visit our website at [email or web address] for information about our practice and an interactive health encyclopedia. documented in this encounter Progress Notes * Victor M Zamarripa, MEAL PACKER-IMPREGNATING TANK OPERATOR - 01/14/2022 9:48 AM CDT Images from the original note were not included. Chief Complaint: Left ear fullness History of Present Illness: 71 year old with a h/o T2DM, HTN, HLD who presents for 1) Left ear fullness 2) Left ear itching 3) Left muffled hearing 4) Bilateral non-pulsatile tinnitus This is a new pt (very pleasant) who reports left aural fullness, muffled hearing and non-pulsatiletinnitus after waking up Thursday morning 01/10/2022. Also reports left ear itching. Went to an who tried irrigating both ears with partial success. Since then he does report some improvement in hissymptoms but continues to have left ear fullness, intermittent non-pulsatile tinnitus and itching. Uses q-tips intermittently. No OTC ear drops. Does not use ear phones or ear pods. Denies otalgia, otorrhea, or vertigo. 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 No past medical history on file. PSH: has no past surgical history on file. Current Outpatient Medications Medication Sig Dispense Refill ??? acyclovir (Zovirax) 400 MG tablet Take 400 mg by mouth once daily ??? aspirin EC (Ecotrin) 81 MG tablet Take 81 mg by mouth once daily ??? atorvastatin (Lipitor) 40 MG tablet Take 40 mg by mouth once daily ??? dilTIAZem coated beads 24hr (Cardizem CD) 240 MG capsule Take 240 mg by mouth once daily ??? doxycycline hyclate (Vibramycin) 100 MG tablet Take 100 mg by mouth once daily ??? hydroCHLOROthiazide (Hydrodiuril) 25 MG tablet Take 25 mg by mouth once daily ??? metFORMIN (Glucophage) 500 MG tablet Take 500 mg by mouth 2 times daily ??? metroNIDAZOLE (Metrogel) 0.75 % gel ??? nateglinide (Starlix) 120 MG tablet Take 120 mg by mouth as needed ??? OneTouch Verio test strip ??? sildenafil (Revatio) 20 MG tablet Take 100 mg by mouth as needed ??? tamsulosin (Flomax) 0.4 MG capsule Take 0.4 mg by mouth once daily No current facility-administered medications for this visit. Allergies Patient has no known allergies. Social History Tobacco Use ??? Smoking status: Never Smoker ??? Smokeless tobacco: Never Used Vaping Use ??? Vaping Use: Never used Substance Use Topics ??? Alcohol use: Yes Comment: Socially ??? Drug use: Never No family history on file. BP 138/69 Pulse 62 Ht 5' 11 (1.803 m) Wt 232 lb (105.2 kg) Physical Exam: Constitutional: Alert, No acute Distress; Well developed/well nourished Neuro:cranial nerves III-XII grossly intact CV/Pulm: Normal respirations and peripheral pulses. Eyes: PERRL, EOMI Face/Skin: normal appearance, no lesions/masses Ears: Right Ear: Mastoid and tragus non-tender, pinna WNL without lesion, EAC with excessive cerumen buildup, TM intact with appropriate landmarks, middle ear space aerated Left Ear: Mastoid non-tender and tragus, pinna WNL without lesion, EAC with complete cerumen impaction (see procedure note) Nose: patent bilaterally,Turbinates intact, Mucosal membranes intact, septum is midline externally Mouth and oropharynx: symmetric tongue mobility, no lesions/masses/ulcers, no erythema or exudate Neck: supple, no lymphadenopathy, no masses Voice: strong MusculoSkeletal: moves all extremities well Due to the findings on physical examination, in correlation with the patient's symptomatology, the decision was made to perform a procedure today in clinic. Consent obtained prior to starting procedure. Procedure note: Pre Op Dx: Impacted cerumen, bilateral Post Op: same Procedure: Cerumen removal, bilateral with microscope and instrumentation Clinician: MURIEL Zamarripa After consent was obtained, the microscope was introduced and an shena speculum of appropriate size was placed. Using a combination of a wax curette and micro-suction, the cerumen was carefully removed under direct visualization. The bilateral TM's were found to be intact. KATIUSKA bilaterally. Boric acid powder applied bilaterally. I (Victor M Zamarripa NP), was present for the entire procedure and can verify that the patient tolerated the procedure well. Audiogram 01/14/2022: Normal Hearing Bilaterally, Tymps: Type As bilaterally, WRS: 100/100 Assessment and Plan: Jeffrey Grajeda is a 71 year old male who presented today with 1) Left cerumen impaction 2) Rightexcessive cerumen builup 3) Bilateral low grade chronic otitis externa After explaining the contributing factors in the differential diagnosis, the disease process was explained in great detail. All questions were answered. -Applied boric acid powder one time application to bilateral ears for chronic low grade otitis externa -The importance of aural toilet were discussed in detail with the patient. The patient understands that a vera aspect of this otologic therapy is keeping the ear dry and to avoid q-tips. The patient will utilize a cotton ball with Vaseline on both sides whenever the ear may get wet and to abstain from swimming. Additionally, they will utilize a men's custom hair piece consultant for 20-30 seconds on low/medium heat afterremoving the cotton ball to control any moisture. Follow up as needed Victor M Zamarripa APRN-IMPREGNATING TANK OPERATOR 01/14/2022 11:14 AM documented in this encounter Procedure Notes * Victor M Zamarripa APRN-CNP - 01/14/2022 10:55 AM CDTAssociated Order(s): PROC CERUMEN REMOVAL Procedure(s): DE REMOVE CERUMEN IMPACTED W INSTR ALONSO Pre-Procedure Diagnose(s): Impacted cerumen of left ear; Excessive cerumen in ear canal, right; Earitching; Ear fullness, left Due to the findings on physical examination, in correlation with the patient's symptomatology, the decision was made to perform a procedure today in clinic. Consent obtained prior to starting procedure. Procedure note: Pre Op Dx: Impacted cerumen, bilateral Post Op: same Procedure: Cerumen removal, bilateral with microscope and instrumentation Clinician: MURIEL Zamarripa After consent was obtained, the microscope was introduced and an shena speculum of appropriate size was placed. Using a combination of a wax curette and micro-suction, the cerumen was carefully removed under direct visualization. The bilateral TM's were found to be intact. KATIUSKA bilaterally. Boric acid powder applied bilaterally. I (Victor M Zamarripa NP), was present for the entire procedure and can verify that the patient tolerated the procedure well. documented in this encounter Plan of Treatment Not on file documented as of this encounter Procedures Procedure Name Priority Date/Time Associated Diagnosis Comments DE REMOVE CERUMEN IMPACTED W INSTR ALONSO Routine 01/14/2022 10:55 AM CDT Impacted cerumen of left ear Excessive cerumen in ear canal, right Ear itching Ear fullness, left documented in this encounter Results * DE REMOVE CERUMEN IMPACTED W INSTR ALONSO (01/14/2022 10:55 AM CDT) Narrative Victor M Zamarripa APRN-CNP - 01/14/2022 10:55 AM CDT Victor M Zamarripa APRN-CNP ? 01/14/2022 11:14 AM Due to the findings on physical examination, in correlation with the patient's symptomatology, the decision was made to perform a procedure today in clinic. Consent obtained prior to starting procedure. Procedure note: Pre Op Dx: Impacted cerumen, bilateral Post Op: same Procedure: Cerumen removal, bilateral with microscope and instrumentation Clinician: MURIEL Zamarripa After consent was obtained, the microscope was introduced and an shena speculum of appropriate size was placed. Using a combination of a wax curette and micro-suction, the cerumen was carefully removed under direct visualization. The bilateral TM's were found to be intact. KATIUSKA bilaterally. Boric acid powder applied bilaterally. I (Victor M Zamarripa NP), was present for the entire procedure and can verify that the patient tolerated the procedure well. Victor M Zamarripa MEAL PACKER-IMPREGNATING TANK OPERATOR PROCEDURE/ MINOR SURGICAL ORDERABLES documented in this encounter Visit Diagnoses Diagnosis Chronic diffuse otitis externa of both ears- Primary Impacted cerumen of left ear Impacted cerumen Excessive cerumen in ear canal, right Ear itching Unspecified pruritic disorder Ear fullness, left documented in this encounter
--- OUTSIDE RECORDS SUMMARY | 2024-04-13 18:31 | XMS_ITS | Continuity of Care Document ---
Author Organization [facility] Address [address] [facility] [address] [place] [address] Insurance Providers Payer Plan Claims Address Claims Phone Policy Number Group Number Relation Employer Guarantor Name Guarantor Guarantor Address Guarantor Phone [employer] [facility] [employer], [address] [address], [place] [address] tel:[phone] Self Jeffrey Grajeda 1950 [address], [place] [address] [employer] GENER [place] [id number] Self Jeffrey Grajeda 1950 [address], [place] [address] [employer] [address], [place] [address] tel:[phone] Self Jeffrey Grajeda 1950 [address], [place] [address] Problems Condition ICD9 code ICD10 code SNOMED code Start Date End Date S tatus Encounter for screening for malignant neoplasm of colon Z12.11 Working Results No Results Allergies, adverse reactions, alerts No known allergies and adverse reactions Medications No administered medications reported Vital Signs No vital signs reported Social History No smoking Hx information available
--- OUTSIDE RECORDS SUMMARY | 2024-04-13 18:31 | XMS_ITS | Encounter Summary ---
Author Organization [facility] Address [address] [place] [address] Care Team Providers Care Senior Software Project Manager Name Role Phone Unavailable Primary Care Provider Unavailabl e Encounter Details Date Type Department Care Team (Late st Contact Info) Description 04/11/2020 8:30 AM AUTO TUNE UP MECHANIC Rapid Evaluation [place] [facility] [address] [address] Social History Tobacco Use Types Packs/Day Years Used Date Smoking Tobacco: Never Assessed Sex and Gender Information Value Date Recorded Sex Assigned at Not on file Legal Sex Male 1:23 PM AUTO TUNE UP MECHANIC Gender Identity Not on file Sexual Orientation Not on file documented as of this encounter Plan of Treatment Not on file documented as of this encounter Visit Diagnoses Not on filedocumented in this encounter
--- OUTSIDE RECORDS SUMMARY | 2024-04-13 18:31 | XMS_ITS | Encounter Summary ---
Author Organization [facility] Address [address] [place] [id number] Care Team Providers Care Fig Bar Machine Operator Name Role Phone Unavailable Primary Care Provider Unavailabl e Encounter Details Date Type Department Care Team (Late st Contact Info) Description 03/07/2020 Lab Requisition [facility] Community Testing [facility] [address] [place] [address] [place] [address] [place] [address] Social History Tobacco Use Types Packs/Day Years Used Date Smoking Tobacco: Never Assessed Sex and Gender Information Value Date Recorded Sex Assigned at Not on file Legal Sex Male 1:23 PM GROUP RESERVATIONS COORDINATOR Gender Identity Not on file Sexual Orientation Not on file documented as of this encounter Plan of Treatment Not on file documented as of this encounter Procedures Procedure Name Priority Date/Time Associated Diagnosis Comments SARS-COV-2 PCR [facility] ONLY Routine 03/07/2020 1:25 PM GROUP RESERVATIONS COORDINATOR documented in this encounter Visit Diagnoses Not on filedocumented in this encounter
--- OUTSIDE RECORDS SUMMARY | 2024-04-13 18:31 | XMS_ITS | Encounter Summary ---
Author Organization [facility] Address [address] [place] [address] Care Team Providers Care Grain Weigher Name Role Phone Unavailable Primary Care Provider Unavailabl e Encounter Details Date Type Department Care Team (Late st Contact Info) Description 08/03/2023 Lab Requisition [facility] [address] [facility] [place] [address] Sunitha Portillo MD [address] [place] [address] Social History Tobacco Use Types Packs/Day Years [...] Priority Date/Time Associated Diagnosis Comments DERMATOPATHOLOGY Routine 08/03/2023 8:11 AM CDT documented in this encounter Results * DERMATOPATHOLOGY (08/03/2023 8:11 AM CDT) Case Report Dermatopathology Report ? Case: [id number] ? Authorizing Provider: ??Sunitha Portillo MD ? Collected: ? 08/03/2023 08:11 AM ? Ordering Location: ? [facility] - ??Received: ?08/04/2023 12:37 PM ? DermPath Lab ? Pathologist: ? Kourtney Jain MD ? Specimen: ?Skin, anterior mid scalp ? 4 3:06 PM CDT DERMATOPATHOLOGY LABORATORY Final Diagnosis Specimen A. SKIN, anterior mid scalp: ULCER WITH SUPERFICIAL DERMAL NECROSIS AND IMPETIGINIZED INFLAMED SERUM SCALE CRUST WITH FUNGAL YEAST FORMS (L98.499) FIBROSING GRANULATION TISSUE (L90.5) DERMAL SCAR SQUAMOUS CELL CARCINOMA NOT IDENTIFIED (L90.5) (see microscopic description and comment) 4 3:06 PM CDT DERMATOPATHOLOGY LABORATORY Clinical History R/O SCC, growing. 4 3:06 PM CDT DERMATOPATHOLOGY LABORATORY Gross Description Specimen A: Received is one formalin filled container labeled with the patient's name and designated anterior mid scalp. The specimen consists of a shave biopsy measuring 30a99d6 mm. Jar 0. 4 3:06 PM CDT DERMATOPATHOLOGY LABORATORY Microscopic Description Specimen A. SKIN, anterior mid scalp: There is an ulcer, beneath which there are vascular proliferation, fibroblasts, and an edematous stroma. The overlying inflamed serum scale crust contains collections of bacteria highlighted by a Gram stain as well as fungal yeast forms that are highlighted by a GMS stain. There are an increased number of fibroblasts and collagen bundles oriented parallel to the skin surface, dilated blood vessels some of which are oriented perpendicular to the skin surface, and a mixed inflammatory cell infiltrate in an edematous stroma. No squamous cell carcinoma is identified. Mib-1 stain highlights proliferating keratinocytes confined to the basilar epidermis. Additional deeper sections were obtained and reviewed. 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 4 3:06 PM CDT DERMATOPATHOLOGY LABORATORY Disclaimer An external and internal positive and negative controls are appropriate for the histochemical, immunohistochemical and immunofluorescence stain(s) in this case (if any), except where stated explicitly. The performance characteristics of the stain(s) cited in this report were developed and its performance characteristic determined by the Dermatopathology Laboratory at [facility], directed by Dr. Parker Mir. These tests need not be, and therefore are not, approved by the [place] Food and Drug Administration. The tests are used for clinical purposes. Billing Codes Specimen Charges Stain Charges 09579 1 [id number] 1 1 1 4 3:06 PM CDT DERMATOPATHOLOGY LABORATORY Embedded Images 4 3:06 PM CDT DERMATOPATHOLOGY LABORATORY Pathology/Cytolo gy TISSUE SPECIMEN FROM SKIN / Unknown 08/03/2023 8:11 AM CDT 08/04/2023 12:37 PM CDT Sunitha Portillo MD LAB - PATHOLOGY/CYT OLOGY ORDERABLES DERMATOPATHOLOGY LABORATORY [facility] - Department of Dermatology [address] [phone] documented in this encounter Visit Diagnoses Not on filedocumented in this encounter
--- OUTSIDE RECORDS SUMMARY | 2024-04-13 18:31 | XMS_ITS | Encounter Summary ---
Author Organization [facility] Address [address] [facility] [address] Care Team Providers Care Migratory Farm Hand Name Role Phone Unavailable Primary Care Provider Unavailabl e Encounter Details Date Type Department Care Team (Late st Contact Info) Description 01/14/2022 10:30 AM CDT Testing Visit [facility] [address] [facility], [place] [phone] Kaylie Kunz AuD [address] [facility] [address] [place] [address] Tinnitus of both ears Social History Tobacco Use Types Packs/Day Years [...] Procedure Name Priority Date/Time Associated Diagnosis Comments AUDIOLOGY/TYMPANOME TRY ORDER Routine 01/14/2022 10:43 AM CDT documented in this encounter Results * AUDIOLOGY/TYMPANOMETRY ORDER (01/14/2022 10:43 AM CDT) Narrative Kaylie Kunz AuD - 01/14/2022 11:03 AM CDT History: Jeffrey Grajeda arrived for a hearing evaluation. ??Patient reports issues with tinnitus. Prior to having his ears cleaned, he noticed hearing loss and a tunnel sound, particularly in the left ear. After wax removal, he felt he could hear much better and no longer was experiencing the tunnel sound. He denies dizziness and otalgia. There is a history of noise exposure. There is not a family history of hearing loss. ??There is not a history of surgery on either ear(s). Results: Puretone air/bone conduction testing revealed normal hearing in both ears. Speech understanding was excellent in the right ear and excellent in the left ear. ?? Immittance measures revealed a Type As tympanogram in the right ear, indicating shallow middle ear function. ??Results for the left ear revealed a Type As tympanogram, indicating shallow middle ear function in that ear. These results were discussed in detail with the patient and all pertinent questions were answered. Recommendations: 1) ENT consult. 2) Hearing evaluation per medical recommendation or if a change in hearing is suspected. Aileen Kumar. [facility] ([facility])-A Clinical Washerette Machine Operator [facility]-Department of Otolaryngology/Audiology [facility] [address] [place] [address] ([facility]) [place] [address] Kaylie Gallagher AUDIOLOGY SERVICES O HIRENERACORTNEY documented in this encounter Visit Diagnoses Diagnosis Tinnitus of both ears- Primary Unspecified tinnitus documented in this encounter
--- OUTSIDE RECORDS SUMMARY | 2024-04-13 18:31 | XMS_ITS | Encounter Summary ---
Author Organization [facility] Address [address] [place] [address] Care Team Providers Care Delineator Name Role Phone Unavailable Primary Care Provider Unavailabl e Encounter Details Date Type Department Care Team (Late st Contact Info) Description 03/07/2020 2:00 PM DATA DESIGNER Rapid Evaluation [place] [facility] Community Testing [facility] [address] [place] [address] Social History Tobacco Use Types Packs/Day Years Used Date Smoking Tobacco: Never Assessed Sex and Gender Information Value Date Recorded Sex Assigned at Not on file 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
--- OUTSIDE RECORDS SUMMARY | 2024-04-13 18:31 | XMS_ITS | Clinical Summary ---
Author Organization 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 Gender Identity Not on file Sexual Orientation Not on file Plan of Treatment Health Maintenance Due Date Last Done Comments Hepatitis C Virus (HCV) Screening 1950 Colonoscopy 01/23/1997 Colorectal Cancer Screening 01/23/1997 Cologuard 01/23/2002 Immunochemical Fecal Occult Blood 01/23/2002 Pneumococcal Immunization (50+ years) (1 of 1 - PCV) 01/23/2017 Zoster Immunization (2 of 2) 09/15/2017 07/21/2017 SARS-COV-2 Immunization ( season) 2022 11/28/2020, 06/15/2020, 05/18/2020 Influenza Immunization (Season Ended) 2023 12/21/2020, 02/13/2019, 12/31/2017, Additional history exists DTaP/Tdap/Td Immunization Discontinued 08/10/2015 TdaP Immunization Completed 08/10/2015 Hepatitis B Immunization Aged Out No longer eligible based on patient's age to complete this topic Meningococcal Immunization (ACWY) Aged Out No longer eligible based on patient's age to complete this topic Rotavirus Immunization Aged Out No lo nger eligible based on patient's age to complete this topic Insurance [employer] on file
--- OUTSIDE RECORDS SUMMARY | 2024-04-13 18:31 | XMS_ITS | Encounter Summary ---
Author Organization [facility] Address [address] [facility] [place] [address] Care Team Providers Care Snowmaker Name Role Phone Unavailable Primary Care Provider Unavailabl e Encounter Details Date Type Department Care Team (Late st Contact Info) Description 05/09/2019 Lab Requisition [facility] [address] [facility], [place] [phone] Wilda Gray MD [address] [facility] 3 [place] [address] Social History Tobacco Use Types Packs/Day Years Used Date Smoking Tobacco: Never Assessed Sex and Gender Information Value Date Recorded Sex Assigned at Not on file Gender Identity Not on file Sexual Orientation Not on file documented as of this encounter Plan of Treatment Not on file documented as of this encounter Procedures Procedure Name Priority Date/Time Associated Diagnosis Comments DERMATOPATHOLOGY Routine 05/06/2019 12:0 0 AM MARINE ENGINE MACHINIST APPRENTICE documented in this encounter Results * DERMATOPATHOLOGY (05/06/2019 12:00 AM MARINE ENGINE MACHINIST APPRENTICE) Case Report Dermatopathology Report ? Case: [id number] ? Authorizing Provider: ??Wilda Gray MD ?Collected: ? 05/06/2019 12:00 AM ? Ordering Location: ? [facility] ?Received: ?05/09/2019 07:01 AM ? Pathologist: ? Bella Mir MD ? Specimen: ?Skin, right dorsal hand ? 0 11:24 AM [facility] Final Diagnosis Specimen A. SKIN, right dorsal hand: DERMAL SCAR RESIDUAL SQUAMOUS CELL CARCINOMA NOT IDENTIFIED (L90.5) 0 11:24 AM [facility] Clinical History R/O SCC, well differentiated, bx proven. Previous Bx: [id number]. 0 11:24 AM [facility] Gross Description Specimen A: Received is one formalin filled container labeled with the patient's name and designated right dorsal hand.The specimen consists of an ellipse measuring [id number] and is oriented with the notch at the 12 o'clock position, not labeled on the requisition. The 12 to 6 o'clock margin is inked green. The 6 o'clock to 12 o'clock margin is inked black. The 12 o'clock tip is submitted in cassette 1. The 6 o'clock tip is submitted in cassette 2. The remainder of the ellipse is serially sectioned and submitted in cassettes 3-4. Jar 0. 0 11:24 AM [facility] Microscopic Description Specimen A. SKIN, right dorsal hand: There are fibroblasts and collagen bundles oriented parallel to the skin surface. There are elongated blood vessels, some of which are oriented perpendicular to the skin surface. No residual squamous cell carcinoma is identified. 0 11:24 AM [facility] Disclaimer An external and internal positive and negative controls are appropriate for the histochemical, immunohistochemical and immunofluorescence stain(s) in this case (if any), except where stated explicitly. The performance characteristics of the stain(s) cited in this report were developed and its performance characteristic determined by the Dermatopathology Laboratory at [facility], directed by Dr. Parker Mir. These tests need not be, and therefore are not, approved by the [place] Food and Drug Administration. The tests are used for clinical purposes. Billing Codes Specimen Charges Stain Charges 29154 1 0 11:24 AM [facility] Embedded Images 0 11:24 AM [facility] Pathology/Cytolog y TISSUE SPECIMEN FROM SKIN / Unknown 05/06/2019 05/09/2019 7:01 AM MARINE ENGINE MACHINIST APPRENTICE Wilda Gray MD LAB - PATHOLOGY/CYTO LOGY ORDERABLES DERMATOPATHOLOGY LABORATORY [facility] - Department of Dermatology [address] [facility], 5th [place] [address], [facility] [phone] documented in this encounter Visit Diagnoses Not on filedocumented in this encounter
--- OUTSIDE RECORDS SUMMARY | 2024-04-13 18:31 | XMS_ITS | Encounter Summary ---
Author Organization [facility] Address [address] [facility] [place] [address] Care Team Providers Care Rehab Manager Name Role Phone Unavailable Primary Care Provider Unavailabl e Encounter Details Date Type Department Care Team (Late st Contact Info) Description 03/30/2019 Lab Requisition [facility] [address] [facility], [place] [phone] Sunitha Portillo MD [address] [facility] 3 [place] [address] Social History Tobacco Use Types Packs/Day Years Used Date Smoking Tobacco: Never Assessed Sex and Gender Information Value Date Recorded Sex Assigned at Not on file Gender Identity Not on file Sexual Orientation Not on file documented as of this encounter Plan of Treatment Not on file documented as of this encounter Procedures Procedure Name Priority Date/Time Associated Diagnosis Comments DERMATOPATHOLOGY Routine 03/29/2019 12:0 0 AM TALENT RECRUITER documented in this encounter Results * DERMATOPATHOLOGY (03/29/2019 12:00 AM TALENT RECRUITER) Case Report Dermatopathology Report ? Case: [id number] ? Authorizing Provider: ??Sunitha Portillo MD ? Collected: ? 03/29/2019 12:00 AM ? Ordering Location: ? [facility] ?Received: ?03/30/2019 07:40 AM ? Pathologist: ? Kourtney Jain MD ? Specimen: ?Skin, right dorsal hand ? 11:07 AM [facility] DERMATOPATHOLOGY LABORATORY Final Diagnosis Specimen A. SKIN, right dorsal hand: SQUAMOUS CELL CARCINOMA, WELL DIFFERENTIATED (C44.622) 11:07 AM [facility] DERMATOPATHOLOGY LABORATORY Clinical History R/O SCC, irritated, non-healing. 11:07 AM [facility] DERMATOPATHOLOGY LABORATORY Gross Description Specimen A: Received is one formalin filled container labeled with the patient's name and designated right dorsal hand. The specimen consists of a shave measuring [id number]. Jar 0. 11:07 AM [facility] DERMATOPATHOLOGY LABORATORY Microscopic Description Specimen A. SKIN, right dorsal hand: Arising in the epidermis and extending into the dermis there are irregularly shaped aggregates of keratinocytes showing evidence of premature cornification. 11:07 AM [facility] DERMATOPATHOLOGY LABORATORY Disclaimer An external and internal positive and negative controls are appropriate for the histochemical, immunohistochemical and immunofluorescence stain(s) in this case (if any), except where stated explicitly. The performance characteristics of the stain(s) cited in this report were developed and its performance characteristic determined by the Dermatopathology Laboratory at [facility], directed by Dr. Parker Mir. These tests need not be, and therefore are not, approved by the [place] Food and Drug Administration. The tests are used for clinical purposes. Billing Codes Specimen Charges Stain Charges 79933 1 9 11:07 AM TALENT RECRUITER DERMATOPATHOLOGY LABORATORY Embedded Images 9 11:07 AM TALENT RECRUITER DERMATOPATHOLOGY LABORATORY Pathology/Cytolog y TISSUE SPECIMEN FROM SKIN / Unknown 03/29/2019 03/30/2019 7:40 AM TALENT RECRUITER Sunitha Portillo MD LAB - PATHOLOGY/CYT OLOGY ORDERABLES DERMATOPATHOLOGY LABORATORY [facility] - Department of Dermatology [address] [place] [address], 5th Floor Lab [address] [phone] documented in this encounter Visit Diagnoses Not on filedocumented in this encounter
--- OUTSIDE RECORDS SUMMARY | 2024-04-13 18:31 | XMS_ITS | Encounter Summary ---
Author Organization [facility] Address [address] [facility] [place] [address] Care Team Providers Care Teaching Artist Name Role Phone Unavailable Primary Care Provider Unavailabl e Encounter Details Date Type Department Care Team (Late st Contact Info) Description 05/27/2018 Lab Requisition [facility] [address] [facility], [place] [phone] Sunitha Portillo MD [address] [facility] 3 [place] [address] Social History Tobacco Use Types Packs/Day Years Used Date Smoking Tobacco: Never Assessed Sex and Gender Information Value Date Recorded Sex Assigned at Not on file Gender Identity Not on file Sexual Orientation Not on file documented as of this encounter Plan of Treatment Not on file documented as of this encounter Procedures Procedure Name Priority Date/Time Associated Diagnosis Comments DERMATOPATH TECHNICAL REPORT Routine 05/25/2018 12:00 AM BIN TRIPPER OPERATOR documented in this encounter Results * DERMATOPATH TECHNICAL REPORT (05/25/2018 12:00 AM BIN TRIPPER OPERATOR) Case Report Dermatopathology Report ? Case: [id number] ? Authorizing Provider: ??Sunitha Portillo MD ? Collected: ? 05/25/2018 12:00 AM ? Pathologist: ? Bella Mir MD ? Received: ?05/27/2018 07:17 AM ? Specimen: ?Skin, left cheek ? 2:33 PM [facility] DERMATOPATHOLOGY [facility]ORATORY Clinical History [facility] vs [facility] 2:33 PM [facility] DERMATOPATHOLOGY LABORATORY Gross Description Specimen A: Received is one formalin filled container labeled with the patient's name and designated left cheek. The specimen consists of a shave biopsy measuring 6x5x[address] [facility] Dermatopathology Laboratory performed the technical component only. 2:33 PM [facility] DERMATOPATHOLOGY LABORATORY Embedded Images 2:33 PM [facility] DERMATOPATHOLOGY LABORATORY DISCLAIMER An external and internal positive and negative controls are appropriate for the histochemical, immunohistochemical and immunofluorescence stain(s) in this case (if any), except where stated explicitly. The performance characteristics of the stain(s) cited in this report were developed and its performance characteristic determined by the Dermatopathology Laboratory at [facility], directed by Dr. Parker Mir. These tests need not be, and therefore are not, approved by the [place] Food and Drug Administration. The tests are used for clinical purposes. 2:33 PM [facility] DERMATOPATHOLOGY LABORATORY Pathology/Cytolog y TISSUE SPECIMEN FROM SKIN / Unknown 05/25/2018 05/27/2018 7:17 AM BIN TRIPPER OPERATOR Sunitha Portillo MD LAB - PATHOLOGY/CYT OLOGY ORDERABLES DERMATOPATHOLOGY LABORATORY [facility] - Department of Dermatology [address] [place] [address] [address] [phone] documented in this encounter Visit Diagnoses Not on filedocumented in this encounter
--- OUTSIDE RECORDS SUMMARY | 2024-04-13 18:31 | XMS_ITS | Clinical Summary ---
Author Organization [facility] Address [address] [facility] [place] [address] Care Team Providers Care Regional Branch Manager Name Role Phone Unavailable Primary Care Provider Unavailabl e Source Comments [facility],non-owned Affiliates and Associated Physician Practices is amultiple site organization consisting of ambulatory clinics and hospital sitesin [place], [place], [place] and [place]. This disclosure is being madepursuant to the Care Everywhere program and may not contain all information available regarding this patient. Last updated 18.[facility] Allergies No known active allergies Medications * Be aware that medications may not be up to date on this document. Alwaysverify current medications with the patient. Medication Sig Dispensed Refills Start Date End Date Status acyclovir (Zovirax) 400 MG tablet Take 400 mg by mouth once daily 12/09/2021 Active doxycycline hyclate (Vibramycin) 100 MG tablet Take 100 mg by mouth once daily 01/01/2022 Active aspirin EC (Ecotrin) 81 MG tablet Take 81 mg by mouth once daily Active atorvastatin (Lipitor) 40 MG tablet Take 40 mg by mouth once daily 10/29/2021 Active dilTIAZem coated beads 24hr (Cardizem CD) 240 MG capsule Take 240 mg by mouth once daily 05/20/2021 Active OneTouch Verio test strip 05/15/2021 Active hydroCHLOROthiazide (Hydrodiuril) 25 MG tablet Take 25 mg by mouth once daily 01/03/2022 Active metFORMIN (Glucophage) 500 MG tablet Take 500 mg by mouth 2 times daily Active metroNIDAZOLE (Metrogel) 0.75 % gel 05/20/2021 Act ayo nateglinide (Starlix) 120 MG tablet Take 120 mg by mouth as needed 12/09/2021 Active sildenafil (Revatio) 20 MG tablet Take 100 mg by mouth as needed Active tamsulosin (Flomax) 0.4 MG capsule Take 0.4 mg by mouth once daily 01/08/2022 Active Active Problems No known active problems Social History Tobacco Use Types Packs/Day Years Used Date Smoking Tobacco: Never Smokeless Tobacco: Never Alcohol Use Standard Drinks/Week Comments Yes 0 (1 standard drink = 0.6 oz pur e alcohol) Socially Sex and Gender Information Value Date Recorded Sex Assigned at Not on file Gender Identity Not on file Sexual Orientation Not on file Last Filed Vital Signs Vital Sign Reading [...] Mass Index 32.36 01/14/2022 10:10 AM CDT Plan of Treatment Health Maintenance Due Date Last Done Comments COLOGUARD (AGES 45-75) - COL ON CA SCREENING 1950 COLON MONITORING 1950 COLONOSCOPY - COLON CA SCREENING 1950 CT COLONOGRAPHY - COLON CA SCREENING 1950 Colorectal Cancer Screening 1950 FIT - COLON CA SCREENING 1950 FLEX SIG - COLON CA SCREENING 1950 HEPATITIS C SCREENING 01/19/1970 DTAP/TDAP/TD VACCINES (1 - Tdap) 01/23/1971 ZOSTER VACCINE (1 of 2) 01/23/2002 PNEUMOCOCCAL VACCINE 65+ (1 of 1 - PCV) 01/23/2017 SCREENING FOR DIABETES 01/14/2022 DEPRESSION SCREENING 04/13/2023 MEDICARE AWV ? CALENDAR YEAR 2023 COVID-19 VACCINE (1 - 2023-2 5 season) 2023 INFLUENZA VACCINE (#1) 2023 Respiratory Syncytial Virus (RSV) Vaccine Pt: or over 60 yrs (1 - 1-dose 75+ series) 01/23/2027 HEPATITIS B VACCINE Aged Out No longe r eligible based on patient's age to complete this topic HIB VACCINE Aged Out No longer eligi ble based on patient's age to complete this topic HPV VACCINE Aged Out No longer eligi ble based on patient's age to complete this topic MENINGOCOCCAL VACCINE Aged Out No marilee kavin eligible based on patient's age to complete this topic Jeffrey Grajeda Personal/Family Self 1950 [facility] [address] [place] [address]
--- OUTSIDE RECORDS SUMMARY | 2024-04-13 18:31 | XMS_ITS | Continuity of Care Document ---
Author Organization NICOLLE Grayson MD, Main Office Address [address] [place] [address] [address] [place] [address] Care Team Providers Care Gear Room Keeper Name Role Phone PREETI YANG Primary Care Provider Assessment No assessment recorded. Plan of Treatment Reminders Order Date Submit Date Provider Last Modified By Organization Details Last Modified Time Details Appointments [facility] 08:45A Bella Grayson M.D. Not available Not available Not available Lab None recorded. Referral None recorded. Procedures None recorded. Surgeries None recorded. Imaging None recorded. Medication Orders None recorded. Patient TargetsNo targets recorded. Patient InstructionsNo instructions recorded. Reason for Referral None Reported. Problems Name Problem SNOMED Code Status Onset Date Resolution Date Notes Provider Name and Address Organization Details Recorded Time Uncontrolled type 2 diabetes mellitus 752028629 Active 2017 NICOLLE Golden MD 8 12:39:38 Hypertensive disorder 59982615 Active 2017 NICOLLE Golden MD 8 12:39:43 Hyperlipidemia 13059807 Active 2017 NICOLLE Golden MD 8 12:39:48 Chronic low back pain 897326197 Active 2022 NICOLLE Bell MD 3 15:17:54 Problem Notes None recorded. Medical Equipment None Reported. Allergies No known drug allergies Medications Name Sig Start Date Stop Date Status Note LastModified by Organization Details LastModified Time amoxicillin 500 mg capsule 09/14 completed Not Available Not Available Not Available nateglinide 120 mg tablet TAKE 1 TABLET BY MOUTH WITH DINNER 01/28 completed Not Available Not Available Not Available atorvastati n 40 mg tablet TAKE 1 TABLET BY MOUTH EVERY DAY active Not Available Not Available No t Available metformin 500 mg tablet TAKE 1 TABLETS TWICE A DAY active Not Available Not Available No t Available prednisone 10 mg tablet 09/14 completed Not Available Not Available Not Available ketoconazol e 2 % shampoo USE ON TRUNK DAILY DIRECTED 09/14 completed Not Available Not Available Not Available tizanidine 2 mg tablet 09/14 completed Not Available Not Available Not Available cetirizine 10 mg tablet TAKE 1 TABLET BY MOUTH ONCE DAILY NEEDED FOR ALLERGY SYMPTOMS. 01/28 completed Not Available Not Available Not Available azithromyci n 250 mg tablet TAKE 2 TABLETS BY MOUTH TODAY, THEN TAKE 1 TABLET DAILY FOR 4 DAYS DIRECTED 03/08 completed Not Available Not Available Not Available ibuprofen 800 mg tablet TAKE 1 TABLET BY MOUTH THREE TIMES DAILY FOR 7 DAYS NEEDED FOR PAIN 01/28 completed Not Available Not Available Not Available Lidocaine Viscous 2 % mucosal solution SWISH & SPIT 5 ML EVERY 6 HOURS *MAY USE UP TO 4 TIMES DAILY FOR TOOTH PAIN DO NOT SWALLOW 01/28 completed Not Available Not Available Not Available diltiazem CD 240 mg capsule,ext ended release 24 hr active Not Available Not Available Not Available glipizide ER 10 mg tablet, extended release 24 hr 09/14 completed Not Available Not Available Not Available famotidine 40 mg tablet TAKE 1 TABLET BY MOUTH NIGHTLY NEEDED FOR HEARTBURN . 01/28 completed Not Available Not Available Not Available fluorouraci l 5 % topical cream active Not Available Not Available Not Available glipizide ER 5 mg tablet, extended release 24 hr 09/14 completed Not Available Not Available Not Available pimecrolimu s 1 % topical cream 09/14 completed Not Available Not Available Not Available clobetasol 0.05 % topical cream APPLY TO SCALP DAILY active Not Available Not Available No t Available triamcinolo ne acetonide 0.5 % topical ointment APPLY 1 APPLICATI ON ONTO THE AFFECTED AREA(S) ON THE SKIN TWICE DAILY active Not Available Not Available No t Available acyclovir 400 mg tablet TAKE 1 TABLET BY MOUTH TWICE A DAY active Not Available Not Available No t Available valacyclovi r 500 mg tablet 01/28 completed Not Available Not Available Not Available hydrocodone 10 mg-acetamin ophen 325 mg tablet TAKE ONE-HALF (1/2) TABLET BY MOUTH EVERY 6 HOURS NEEDED FOR PAIN 01/28 completed Not Available Not Available Not Available tramadol 50 mg tablet TAKE 1 TABLET BY MOUTH EVERY 4 TO 6 HOURS NEEDED FOR PAIN 01/28 completed Not Available Not Available Not Available acetaminoph en 500 mg tablet TAKE 2 TABLETS BY MOUTH THREE TIMES DAILY NEEDED FOR PAIN. 01/28 completed Not Available Not Available Not Available chlorpromaz ine 10 mg tablet TAKE 1 TABLET BY MOUTH THREE TIMES A DAY NEEDED 01/28 completed Not Available Not Available Not Available terbinafine HCl 250 mg tablet TAKE 1 TABLET BY MOUTH EVERY DAY FOR 7 DAYS active Not Available Not Available No t Available amoxicillin 875 mg tablet 09/14 completed Not Available Not Available Not Available methocarbam ol 750 mg tablet TAKE 1 TABLET (750 MG TOTAL) BY MOUTH 2 (TWO) TIMES A DAY NEEDED FOR MUSCLE SPASMS 01/28 completed Not Available Not Available Not Available oxycodone-a cetaminophe n 10 mg-325 mg tablet TAKE 1 TABLET BY MOUTH TWICE A DAY MAX DAILY DOSE OF 2 TABS FOR CHRONIC PAIN active Not Available Not Available No t Available tamsulosin 0.4 mg capsule TAKE 1 CAPSULE BY MOUTH EVERYDAY AT BEDTIME active Not Available Not Available No t Available amlodipine 10 mg tablet 01/28 completed Not Available Not Available Not Available benzonatate 100 mg capsule TAKE 1 CAPSULE BY MOUTH THREE TIMES A DAY NEEDED FOR COUGH 01/28 completed Not Available Not Available Not Available econazole 1 % topical cream APPLY TO FEET TWICE DAILY 09/14 completed Not Available Not Available Not Available oseltamivir 75 mg capsule TAKE 1 CAPSULE BY MOUTH EVERY 12 HOURS FOR 5 DAYS 01/28 completed Not Available Not Available Not Available clotrimazol e-betametha sone 1 %-0.05 % topical cream APPLY TOPICALLY 2 TIMES A DAY X2 WEEKS active Not Available Not Available No t Available lidocaine 5 % topical patch PLACE 1 PATCH ON THE SKIN DAILY REMOVE & DISCARD PATCH WITHIN 12 HOURS OR DIRECTED BY 01/28 completed Not Available Not Available Not Available valsartan 320 mg tablet 09/14 completed Not Available Not Available Not Available minocycline 50 mg capsule 01/28 completed Not Available Not Available Not Available gabapentin 300 mg capsule TAKE 1 CAPSULE BY MOUTH EVERY DAY FOR CHRONIC PAIN active Not Available Not Available No t Available hydroxyzine HCl 25 mg tablet TAKE 1 TABLET BY MOUTH THREE TIMES A DAY active Not Available Not Available No t Available bisacodyl 5 mg tablet,wesly yed release 4 TABS ORALLY DIRECTED active Not Available Not Available No t Available hydrochloro thiazide 25 mg tablet active Not Available Not Available No t Available mupirocin 2 % topical ointment APPLY TO SPOT TWICE DAILY 09/14 completed Not Available Not Available Not Available methylpredn isolone 4 mg tablets in a dose pack TAKE 6 TABLETS ON DAY 1 DIRECTED ON PACKAGE AND DECREASE BY 1 TAB EACH DAY FOR A TOTAL OF 6 DAYS active Not Available Not Available No t Available ketoconazol e 2 % topical cream APPLY TO AFFECTED AREA TWICE A DAY active Not Available Not Available No t Available fluticasone propionate 50 mcg/actuati on nasal spray,suspe nsion INSTILL 2 SPRAYS INTO EACH NOSTRIL ONCE A DAY NEEDED 01/28 completed Not Available Not Available Not Available metronidazo le 0.75 % topical gel 01/28 completed Not Available Not Available Not Available doxycycline hyclate 100 mg tablet TAKE 1 TABLET BY MOUTH EVERY DAY active Not Available Not Available No t Available diazepam 5 mg tablet TAKE 1 TABLET BY MOUTH EVERY 6 HOURS NEEDED FOR MUSCLE SPASMS. 01/28 completed Not Available Not Available Not Available amoxicillin 875 mg-potassiu m clavulanate 125 mg tablet TAKE 1 TABLET BY MOUTH TWICE A DAY UNTIL GONE 01/28 completed Not Available Not Available Not Available clindamycin 1 % lotion APPLY TO SCALP EVERY DAY active Not Available Not Available No t Available tadalafil 10 mg tablet 09/14 completed Not Available Not Available Not Available metronidazo le 1 % topical gel 09/14 completed Not Available Not Available Not Available ketoconazol e 2 % topical foam 09/14 completed Not Available Not Available Not Available Exforge HCT 10 mg-320 mg-25 mg tablet 09/14 completed Not Available Not Available Not Available GaviLyte-G 236 gram-22.74 gram-6.74 gram-5.86 gram oral solution TAKE DIRECTED active Not Available Not Available No t Available OneTouch Verio test strips USE TO CHECK BLOOD SUGAR TWICE A DAY active Not Available Not Available No t Available Ozempic 0.25 mg or 0.5 mg (2 mg/1.5 mL) subcutaneou s pen injector Inject 0.5 mg every week by subcutane ous route for 90 days. 01/28 completed Not Available Not Available Not Available OneTouch Delica Plus Lancet 33 gauge use to check bs bid active Not Available Not Available No t Available ID NOW COVID-19 Test Kit TEST DIRECTED 09/14 completed Not Available Not Available Not Available COVID-19 test specimen collection TEST DIRECTED TODAY 01/28 completed Not Available Not Available Not Available Athletic Standard COVID-19 Vaccine (PF) 30 mcg/0.3 mL IM susp (purple) ADMINISTE R 0.3ML IN THE MUSCLE DIRECTED 09/14 completed Not Available Not Available Not Available Ozempic 1 mg/dose (4 mg/3 mL) subcutaneou s pen injector INJECT 1MG SUBCUTANE OUSLY EVERY WEEK 2023 active Not Available Not Available Not Avai lable Vitals Date Recorded Body height Body mass index (BMI) Body weight Systolic blood pressure Diastolic blood pressure Provider Name and Address Organization Details Last Updated DateTime 01/29/2024 182.88 cm 29.2 kg/m2 23844.36 g 140 mm[Hg] 62 mm[Hg] Martine Grayson MD 11:39:08 Social History None recorded. Functional Status None recorded. Mental Status None recorded. Family History Nothing Reported. Medical History No medical history recorded. Immunizations Vaccine Type Date Status Note Provider Nam e and Address Organization Details Recorded Time SARS-COV-2 (COVID-19) vaccine, UNSPECIFIED 06/11/2020 completed NICOLLE Brooks MD 09/14/2020 12:57:25 Past Encounters Encounter ID Performer Location Encounter Start Date Encounter Closed Date Diagnosis/Indication Diagnosis SNOMED-CT Code Diagnosis ICD10 Code [id number] Martine Akers Main Office [address] [place] [address] 01/29/2024 09:44:22 01/29/2024 10:33:17 Uncontrolled type 2 diabetes mellitus 190933582 E11.65 Hypertensive disorder 38 646171 I10 Hyperlipidemia 94501867 E78.2 Chronic low back pain 27 5219321 M54.50 Health Concerns Section Related Observation LastModified by Organization Detai ls LastModified Time None Recorded Concern Status LastModified by Organization Details LastModified Time None Recorded Payers Encounter Date Sequence Insurance Name Policy Number Policy Samuel Covered Member ID Samuel Member ID Guarantor Name 01/29/2024 1 [employer] ([employer]) [id number] 1 Jeffrey Grajeda [id number] Jeffrey Grajeda Notes Date Note Type Note Provider Name and Address Organization Details Recorded Time 01/29/2024 text/html Diabetes F/UReported bypatient.Contex t:normal range of home blood sugars (in the low 100s); seeing eye doctor regularly; checking feet regularly Associated Symptoms:no weight gain; no weight loss; no dizziness; no sweats; no headaches; no confusion; no increased thirst; no increased appetite; no increased urination; no blurred vision; no numbness of feet; no calluses on feet NICOLLE Rodriguez - Ann Grayson MD 01/29/2024 11:42:08
--- OUTSIDE RECORDS SUMMARY | 2024-04-13 18:31 | XMS_ITS | Encounter Summary ---
Author Organization [facility] Address [address] [place] [id number] Care Team Providers Care Adoption Social Worker Name Role Phone Unavailable Primary Care Provider Unavailabl e Encounter Details Date Type Department Care Team (Late st Contact Info) Description 04/10/2021 Lab Requisition [facility] Testing [facility] [address] [place] [address] James Tripathi MD [address] [place] [address] [place] [address] Social History Tobacco Use Types Packs/Day Years Used Date Smoking Tobacco: Never Assessed Sex and Gender Information Value Date Recorded Sex Assigned at Not on file Legal Sex Male 1:23 PM [employer] Gender Identity Not on file Sexual Orientation Not on file documented as of this encounter Plan of Treatment Not on file documented as of this encounter Procedures Procedure Name Priority Date/Time Associated Diagnosis Comments SARS-COV-2 PCR [facility] ONLY Routine 04/10/2021 1:52 PM [employer] documented in this encounter Visit Diagnoses Not on filedocumented in this encounter
--- OUTSIDE RECORDS SUMMARY | 2024-04-13 18:31 | XMS_ITS | Data Portability ---
Author Organization NICOLLE Grayson MD, [facility] Address [address] [facility] NICOLLE Paz [address] Care Team Providers Care Spray Ii Painter Name Role Phone TREYUSPREETI Primary Care Provider [phone] Assessment Encounter Date Assessment Date Assessment LastModified by Organization Details LastModified Time 01/09/2023 01/09/2023 Patient is here for follow up of DM, he is doing well with BS levels. He lost 7lbs since last visit. Explained to patient to keep his weight between 200-250 and not to go below 200. Has increased chronic lower back pain due to spinal stenosis and Dihydropyrimidine dehydrogenase deficiency . Now seeing pain management doctor. Not available 01/12/2023 15:17:34 04/03/2023 04/03/2023 Patient is doing very well with following meal plan, also HbA1c now below 6.0. Will adjust medication dose. Not available 04/03/2023 12:44:32 10/09/2023 10/09/2023 For short period of time was on a temporary dose of prednisone after had a bee sting which increased hi BS level. Otherwise doing well and no increase in weight since last visit. [email or web address] Not available 10/09/2023 12:12:53 Plan of Treatment Reminders Order Date Submit Date Provider Last Modified By Organization Details Last Modified Time Details Appointments Reggie Appointme nts 2024 08:45A Bella Grayson M.D. Not available Not available Not available Lab glucose, fingersti ck, blood 2022 023 [place]appingto [place]1 [place], [address] [facility], [address], [place], [address], 01/12/2023 15:24:06 HbA1c (hemoglob in A1c), blood 2022 023 [place], [address], [address], [place], [address], 01/12/2023 15:24:06 glucose, fingersti ck, blood 2022 023 [place], [address], [address], [place], [address], 04/03/2023 12:45:27 HbA1c (hemoglob in A1c), blood 2022 023 [place], [address], [address], [place], [address], 04/03/2023 12:45:28 Referral None recorded. Procedures None recorded. Surgeries None recorded. Imaging None recorded. Medication Orders metformin 500 mg tablet [address] [facility] [place], [address], 07/06/2023 10:40:32 Ozempic 1 mg/dose (4 mg/3 mL) subcutane ous pen injector [address] [facility], [place], [address], 07/06/2023 10:40:32 Patient TargetsNo targets recorded. Patient Instructions Encounter Date Encounter Id Patient Instructions Last Modified By Organization Details Last Modified Time 07/03/2023 [id number] type 2 diabetes: care instructions [email or web address] Not available 07/06/2023 10:40:30 Reason for Referral None Reported. Results Created Date Observation Date Name Description Value Unit Range Abnormal Flag Note LastModifiedBy Organization Detail LastModifiedTime 01/13/20 23 01/12/2023 HbA1c (hemo globi n A1c), blood HbA1c 6.0 [place] [address] [facility] [address], [place], [address], 01/12/2023 15:18:59 01/13/20 23 01/12/2023 gluco se, finge rstic k, blood Glucose 132 [place] [address] [facility] [address], [place], [address], 01/12/2023 15:18:58 04/03/20 23 04/03/2023 HbA1c (hemo globi n A1c), blood HbA1c 5.7 [place] [address] [facility] [address], [place], [address], 04/03/2023 12:45:00 04/03/20 23 04/03/2023 gluco se, finge rstic k, blood Glucose 127 [place] [address] [facility] [address], [place], [address], 04/03/2023 12:44:59 Result Notes None recorded. Problems Name Problem SNOMED Code Status Onset Date Resolution Date Notes Provider Name and Address Organization Details Recorded Time Uncontrolled type 2 diabetes mellitus 275250290 Active 2017 NICOLLE Golden MD 8 12:39:38 Hypertensive disorder 54840709 Active 2017 NICOLLE Golden MD 8 12:39:43 Hyperlipidemia 56902982 Active 2017 NICOLLE Golden MD 8 12:39:48 Chronic low back pain 875160324 Active 2022 NICOLLE Bell MD 15:17:54 Problem Notes None recorded. Medical Equipment [...] completed Not Available Not Available Not Available [employer] COVID-19 Vaccine (PF) 30 mcg/0.3 mL IM [...] and Address Organization Details Last Updated DateTime 01/09/2023 182.88 cm 27.9 kg/m2 55780.03 g 134 mm[Hg] 70 mm[Hg] Mya Grayson MD 3 15:12:37 Date Recorded Body height Body mass index (BMI) Body weight Systolic blood pressure Diastolic blood pressure Provider Name and Address Organization Details Last Updated DateTime 04/03/2023 182.88 cm 28.3 kg/m2 36677.81 g 134 mm[Hg] 82 mm[Hg] Mya Grayson MD 3 12:43:51 Date Recorded Body height Body mass index (BMI) Body weight Systolic blood pressure Diastolic blood pressure Provider Name and Address Organization Details Last Updated DateTime 07/03/2023 182.88 cm 28.5 kg/m2 72897.4 g 122 mm[Hg] 65 mm[Hg] Josephine Grayson MD 4 10:38:28 Date Recorded Body height Body mass index (BMI) Body weight Systolic blood pressure Diastolic blood pressure Provider Name and Address Organization Details Last Updated DateTime 10/09/2023 182.88 cm 28.5 kg/m2 99736.4 g 118 mm[Hg] 70 mm[Hg] Cher Yeager NICOLLE Grayson MD 4 12:10:46 Date Recorded Body height Body mass index (BMI) Body weight Systolic blood pressure Diastolic blood pressure Provider Name and Address Organization Details Last Updated DateTime 01/29/2024 182.88 cm 29.2 kg/m2 38677.36 g 140 mm[Hg] 62 mm[Hg] Martine Akers NICOLLE Grayson MD 4 11:39:08 Social History None recorded. Functional Status [...] Diagnosis/Indication Diagnosis SNOMED-CT Code Diagnosis ICD10 Code [id number] Ann Grayson MD Main Office [address] [place] [address] 03/12/2018 09:48:59 03/12/2018 10:51:56 Uncontrolled type 2 diabetes mellitus 054773157 E11.65 Hypertensive disorder 38 117249 I10 Hyperlipidemia 77701605 E78.2 16188 MD Paola Matt. Peters [address] [facility] [address] [facility] [address] [place] [address] 03/18/2018 15:03:45 03/18/2018 16:27:20 Uncontrolled type 2 diabetes mellitus 257680824 E11.65 59588 Ann Grayson MD Main Office [address] [place] [address] 04/23/2018 09:47:44 04/23/2018 10:20:09 Uncontrolled type 2 diabetes mellitus 244626905 E11.65 99639 Ann Grayson MD Main Office [email or web address] [place] [address] 06/11/2018 09:56:15 06/11/2018 11:03:38 Uncontrolled type 2 diabetes mellitus 865195331 E11.65 94786 Ann Grayson MD Main Office [address] [place] [address] 09/17/2018 09:49:32 09/17/2018 10:44:16 Uncontrolled type 2 diabetes mellitus 960776433 E11.65 32439 Ann Grayson MD Main Office [address] [place] [address] 12/17/2018 10:01:11 12/17/2018 10:25:29 Uncontrolled type 2 diabetes mellitus 457520894 E11.65 45898 Ann Grayson MD Main Office [address] [place] [address] 03/21/2019 11:51:19 03/21/2019 13:31:58 Uncontrolled type 2 diabetes mellitus 743492074 E11.65 42495 Ann Grayson MD Main Office [email or web address] [place] [address] 07/01/2019 10:42:24 07/01/2019 11:51:59 Uncontrolled type 2 diabetes mellitus 080215144 E11.65 93328 Ann Grayson MD [place] [address] [facility] [address] [place] [address] 10/06/2019 16:40:35 10/06/2019 17:11:05 Uncontrolled type 2 diabetes mellitus 764137606 E11.65 40275 Ann Grayson MD Main Office [address] [place] [address] 01/06/2020 09:44:22 01/06/2020 10:51:45 Uncontrolled type 2 diabetes mellitus 659818121 E11.65 96630 Ann Grayson MD Main Office [email or web address] [place] [address] 04/20/2020 09:43:18 04/20/2020 10:36:18 Uncontrolled type 2 diabetes mellitus 499607122 E11.65 50249 Ann Grayson MD Main Office [address] [place] [address] 09/14/2020 10:35:57 09/14/2020 10:56:55 Uncontrolled type 2 diabetes mellitus 823634972 E11.65 Hypertensive disorder 38 677032 I10 Hyperlipidemia 43035095 E78.2 47866 Ann Grayson MD Main Office [address] [place] [address] 12/21/2020 10:21:09 12/21/2020 10:55:01 Uncontrolled type 2 diabetes mellitus 476610827 E11.65 38707 Ann Grayson MD Main Office [address] [place] [address] 03/22/2021 09:46:52 03/22/2021 10:12:42 Uncontrolled type 2 diabetes mellitus 985838727 E11.65 58543 Maggie Clayton Main Office [address] [place] [address] 06/21/2021 10:20:22 06/21/2021 10:52:25 Uncontrolled type 2 diabetes mellitus 469410612 E11.65 10797 Ann Grayson MD Main Office [address] [place] [address] 09/27/2021 11:12:13 09/27/2021 11:13:45 Uncontrolled type 2 diabetes mellitus 831825274 E11.65 Hypertensive disorder 38 002620 I10 Hyperlipidemia 00392950 E78.2 01542 Maggie Clayton Main Office [address] [place] [address] 12/30/2021 10:59:00 12/30/2021 11:38:21 Uncontrolled type 2 diabetes mellitus 921069816 E11.65 02332 Maggie Clayton Main Office [address] [place] [address] 03/28/2022 10:17:44 03/28/2022 11:22:36 Uncontrolled type 2 diabetes mellitus 650190070 E11.65 62950 Ann Grayson MD Main Office [address] [place] [address] 06/27/2022 09:50:57 06/27/2022 10:31:47 Uncontrolled type 2 diabetes mellitus 488360803 E11.65 93974 Ann Grayson MD Main Office [address] [place] [address] 10/10/2022 10:45:26 10/10/2022 11:33:44 Uncontrolled type 2 diabetes mellitus 731458008 E11.65 32036 Ann Grayson MD Main Office [address] [place] [address] 01/09/2023 10:41:41 01/09/2023 11:20:19 Uncontrolled type 2 diabetes mellitus 624097095 E11.65 Hypertensive disorder 38 482043 I10 Hyperlipidemia 87158220 E78.2 57781 Ann Grayson MD Main Office [address] [place] [address] 04/03/2023 10:38:39 04/03/2023 11:08:47 Uncontrolled type 2 diabetes mellitus 878753838 E11.65 Hypertensive disorder 38 753000 I10 Hyperlipidemia 14355487 E78.2 97283 Josephine Marie Main Office [address] [place] [address] 07/03/2023 10:46:01 07/03/2023 11:33:14 Uncontrolled type 2 diabetes mellitus 503184712 E11.65 57455 Cher Yeager Main Office [address] [place] [address] 10/09/2023 10:43:47 10/09/2023 11:15:44 Uncontrolled type 2 diabetes mellitus 562722015 E11.65 Hypertensive disorder 38 667239 I10 Hyperlipidemia 24342133 E78.2 Chronic low back pain 27 9530410 M54.50 25390 Martine Akers Main Office [address] [place] [address] 01/29/2024 09:44:22 01/29/2024 10:33:17 Uncontrolled type 2 diabetes mellitus 544494282 E11.65 Hypertensive disorder 38 892334 I10 Hyperlipidemia 58931897 E78.2 Chronic low back pain 27 0193648 M54.50 Health Concerns Section Related Observation LastModified by Organization Detai ls LastModified Time None Recorded Concern Status LastModified by Organization Details LastModified Time None Recorded Advance Directives Directive None Recorded Payers Encounter Date Sequence Insurance Name Policy Number Policy Samuel Covered Member ID Samuel Member ID Guarantor Name 01/09/2023 1 [employer] (PPO) [id number] 1 Jeffrey Grajeda [id number] Jeffrey Grajeda 04/03/2023 1 [employer] (PPO) [id number] 1 Jeffrey Grajeda [id number] Jeffrey Grajeda 07/03/2023 1 [employer] (PPO) [id number] 1 Jeffrey Grajeda [id number] Jeffrey Grajeda 10/09/2023 1 [employer] (PPO) [id number] 1 Jeffrey Grajeda [id number] Jeffrey Grajeda 01/29/2024 1 [employer] (PPO) [id number] 1 Jeffrey Grajeda [id number] Jeffrey Grajeda Notes Date Note Type Note Provider Name and Address Organization Details Recorded Time 07/03/2023 text/html DiabetesReported bypatient.Control:usua lly well controlled; improved since last visit; normal range of home blood sugars (in the low 100s) Compliance:compliant with medications; compliant with follow-up visits; compliant with diet; compliant with home glucose monitoring Self Care:monitoring glucose ; seeing eye doctor regularly; checking feet regularly Associated Symptoms:no weight gain; no weight loss; no dizziness; no sweats; no headaches; no confusion; no increased thirst; no increased appetite; no increased urination; no blurred vision; no numbness of feet; no calluses on feet NICOLLE Nicholson MD 07/06/2023 10:41:36 10/09/2023 text/html DiabetesReported bypatient.Control:usua lly well controlled; improved since last visit; normal range of home blood sugars (in the low 100s) Compliance:compliant with medications; compliant with follow-up visits; compliant with diet; compliant with home glucose monitoring Self Care:monitoring glucose ; seeing eye doctor regularly; checking feet regularly Associated Symptoms:no weight gain; no weight loss; no dizziness; no sweats; no headaches; no confusion; no increased thirst; no increased appetite; no increased urination; no blurred vision; no numbness of feet; no calluses on feet NICOLLE Grant MD 10/09/2023 12:15:52 01/29/2024 text/html Diabetes F/URepo rted bypatient.Context:norm al range of home blood sugars (in the low 100s); seeing eye doctor regularly; checking feet regularly Associated Symptoms:no weight gain; no weight loss; no dizziness; no sweats; no headaches; no confusion; no increased thirst; no increased appetite; no increased urination; no blurred vision; no numbness of feet; no calluses on feet NICOLLE Rodriguez MD 01/29/2024 11:42:08
--- OUTSIDE RECORDS SUMMARY | 2024-04-13 18:31 | XMS_ITS | Continuity of Care Document ---
Author Organization [place] [facility], [employer] Address [address] [place] [address] Assessment Encounter Date Assessment Date Assessment LastModified by Organization Details LastModified Time 01/20/2024 01/20/2024 73-year-old male patient presents for [...] the date of this encounter including the thnh-pe-qgir and dsc-iexd-pd-face time physician personally spent before, during, and after the visit on the same day. Time included: care coordination, counseling and educating the patient about Plantar fasciitis, porokeratosis, prominent fifth metatarsal base, right foot pain, documenting clinical information in the electronic health record, reviewing and/or getting separately obtained history from pcp, performing medically appropriate exam and evaluation, and communicating with PCP [email or web address] Not available 02/10/2024 02:13:53 Plan of Treatment [...] Modified By Organization Details Last Modified Time 01/20/2024 [id number] plantar fasciitis: care instructions Not available 02/10/2024 02:14:53 plantar fasciitis: exercises [email or web address] Not available 02/10/2024 02:14:53 Reason for Referral None Reported. Problems Name Problem SNOMED Code Status Onset Date Resolution Date Notes Provider Name and Address Organization Details Recorded Time Peroneal tendiniti s of right lower limb 765572866643 109 Completed 202007/22/2023 Destinee Greer DPM [address] [place] [address], [address] 4 00:23:08 Closed fracture of fifth metatarsa l bone 51330362 Completed 202007/22/2023 Destinee Greer DPM [address] [place] [address], [address] [place] [address] 4 00:22:58 Pain in right foot 732757341520 107 Completed 202007/22/2023 MELO Ledesma [facility], [place], [address], [facility] 4 00:23:05 Madan wilcox [id number] Completed 202207/22/2023 MELO Ledesma [facility], [place], [address], [facility] 4 00:23:16 Disorder of bone 30995995 Completed 202207/22/2023 [facility] [place], [address], [facility] 4 00:23:03 Transvers e split nail 506544797 Active 2023 MELO Ledesma [facility], [place], [address], [facility] 4 00:23:19 Pain of toe of right foot 087088270293 101 Active 2023 MELO Ledesma [facility], [place], [address], [facility] 4 00:23:21 Problem Notes None recorded. Procedures Surgical History Date Name Laterality Status Provider Name and Address Organization Details Recorded Time 12/21/19 24 76609 Wart-Curettage [place], [address], [facility] 12/31/2023 00:39:47 02/14/20 23 62353 Wart-Curettage [place], [address], [facility] 02/15/2023 15:49:23 01/21/20 22 L1906- Multiligamentous ankle brace completed MELO Led[facility], [facility] [place] [place], [address], [facility] 01/20/2022 13:26:46 01/21/20 22 77883 Tendon Injection completed Destinee Greer DPM [address] [facility], [facility] [place], [address], [facility] 01/20/2022 13:25:16 01/11/20 21 63703 X-rays 2v Feet Normal completed Destinee Greer DPM [address] [facility], [facility] [place], [address], [facility] 01/15/2021 01:46:42 01/11/20 21 83898 Tendon Injection completed Destinee Greer DPM [address] [facility], [facility] [place], [address], [facility] 01/15/2021 01:48:59 01/21/20 03 Foot Surgery completed Destinee Greer DPM [address] [facility], [facility] [place], [address], [facility] 01/14/2021 22:14:07 11/20/18 91 Other completed Destinee Greer DPM [address] [facility], [facility], [address], [facility] 01/14/2021 22:14:07 Imaging Results None recorded. Procedure Notes None recorded. Medical Equipment None [...] PATCH WITHIN 12 HOURS OR DIRECTED BY MD active Not Available Not Available No t [...] Updated DateTime 01/20/2024 182.88 cm 30.1 kg/m2 611095.51 g Leslie Raycraft [facility] 01/20/2024 12:30:03 Social History Question Answer Notes LastModified by Organizat ion Details LastModified Time Tobacco Smoking Status Never Smoker Destinee Greer DPM [address] [place], [address] 01/14/2021 22:14:01 Which Illicit Or Recreational Drugs Have You Used? None Information not available 01/14/2021 What Is Your Occupation? Retired Information not available 01/14/2021 Size Of Shoes 12 [email or web address] Information not available 01/14/2021 What Types Of Sporting Activities Do You Participate In? Exercise Weights Biking [employer] [email or web address] Information not available 01/14/2021 Sex: Unknown Functional [...] 01/19 12:27:05 Father Heart disease 62 90 [email or web address] Not available 2020 22:13:48 Mother No current problems or disability [email or web address] Not available 01/19 12:27:05 Mother Heart disease 80 85 [email or web address] Not available 2020 22:13:48 Medical History Condition Response Tuberculosis or TB N Heart Problems N Ulcers on Legs or Feet N HIV or AIDS N Coronary Artery Disease N Gout N Seizure Disorder N High Blood Pressure Y Clot in Lung or Pulmonary Embolism N Menopause N Lung Condition N Phlebitis or Venous Blood Clot N Migraines N Depression N Pacemaker N Anemia N Back Pain Y Neurologic Disease N Sciatica N Heart Attack ([place]) N Urinary Tract Infections N Anxiety Disorder N Diabetes Y Bleeding Disorder N Arthritis Y Abuse of Alcohol or Drugs N Back injury N Ear Problems N Cancer N Eye Problems N Stroke N Dementia N Stomach Problems N Peripheral Vascular Disease N Sinus Conditions N High Cholesterol Y Thyroid Disorder N Broken Bone N Hepatitis N Liver Disease N Heart Disease N Rheumatoid Arthritis N Rash N Osteoporosis N Kidney Disease N Past Encounters Encounter ID Performer Location Encounter Start Date Encounter Closed Date Diagnosis/Indication Diagnosis SNOMED-CT Code Diagnosis ICD10 Code [id number] Destinee Greer DPM [address] [address] [place] [address] 12/21/2023 14:10:34 12/21/2023 14:42:29 Porokeratosis 622375235 L85.1 Disorder of bone 3011020 3 M89.9 Pain in right foot 93805 16897 57644 M79.671 [id number] Destinee Greer DPM [address] [place] [address] 01/20/2024 12:26:55 01/20/2024 12:41:34 Pain in right foot 2997755967 17585 M79.671 Porokeratosis 010671153 L85.1 Plantar fasciitis 859547 003 M72.2 Health Concerns Section Related Observation LastModified by Organization Detai ls LastModified Time None Recorded Concern Status LastModified by Organization Details LastModified Time None Recorded Payers Encounter Date Sequence Insurance Name Policy Number Policy Samuel Covered Member ID Samuel Member ID Guarantor Name 01/20/2024 1 [employer] (MEDICARE REPLACEMENT PPO) [id number] 1 Jeffrey Grajeda [id number] Jeffrey Grajeda Notes Date Note Type Note Provider Name and Address Organization Details Recorded Time 01/20/2024 text/html Heel Pain--Repor ross bypatient.Location:r ight bottom of the heel Nature of Pain:sharp and stabbing; pain level 04/22 Duration:2 weeks Onset:denies any injury; just started [...] States pain resolved. Destinee Greer DPM [address] [place], [address], [facility] 02/10/2024 02:14:56
--- OUTSIDE RECORDS SUMMARY | 2024-04-13 18:31 | XMS_ITS | Encounter Summary ---
Author Organization [facility] Address [address] [place] [address] Care Team Providers Care Health Type Technician Name Role Phone Unavailable Primary Care Provider Unavailabl e Encounter Details Date Type Department Care Team (Late st Contact Info) Description 04/11/2020 Lab Requisition [facility] [address] [place] [address] [place], [place] [address] [address] [place] [address] Social History Tobacco Use Types Packs/Day Years Used Date Smoking Tobacco: Never Assessed Sex and Gender Information Value Date Recorded Sex Assigned at Not on file Legal Sex Male 1:23 PM [employer] Gender Identity Not on file Sexual Orientation Not on file documented as of this encounter Plan of Treatment Not on file documented as of this encounter Procedures Procedure Name Priority Date/Time Associated Diagnosis Comments SARS-COV-2 PCR [facility] ONLY Routine 04/11/2020 8:14 AM [employer] documented in this encounter Visit Diagnoses Not on filedocumented in this encounter
--- OUTSIDE RECORDS SUMMARY | 2024-04-13 18:31 | XMS_ITS | Patient Health Summary ---
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 This disclosure is being madepursuant to the Care Everywhere program and may not contain all information available regarding this patient. Last updated 18.[facility] Allergies No known active allergies Medications * Be aware that medications may not be up to date on this document. Alwaysverify current medications with the patient. * acyclovir (Zovirax) 400 MG tablet(Started 12/09/2021) Take 400 mg by mouth once daily * doxycycline hyclate (Vibramycin) 100 MG tablet(Started 01/01/2022) Take 100 mg by mouth once daily * aspirin EC (Ecotrin) 81 MG tablet Take 81 mg by mouth once daily * atorvastatin (Lipitor) 40 MG tablet(Started 10/29/2021) Take 40 mg by mouth once daily * dilTIAZem coated beads 24hr (Cardizem CD) 240 MG capsule(Started 05/20/2021) Take 240 mg by mouth once daily * OneTouch Verio test strip(Started 05/15/2021) * hydroCHLOROthiazide (Hydrodiuril) 25 MG tablet(Started 01/03/2022) Take 25 mg by mouth once daily * metFORMIN (Glucophage) 500 MG tablet Take 500 mg by mouth 2 times daily * metroNIDAZOLE (Metrogel) 0.75 % gel(Started 05/20/2021) * nateglinide (Starlix) 120 MG tablet(Started 12/09/2021) Take 120 mg by mouth as needed * sildenafil (Revatio) 20 MG tablet Take 100 mg by mouth as needed * tamsulosin (Flomax) 0.4 MG capsule(Started 01/08/2022) Take 0.4 mg by mouth once daily Active Problems No known active problems Social [...] Mass Index 32.36 01/14/2022 10:10 AM CDT Procedures * DERMATOPATHOLOGY(Performed 08/03/2023) * DERMATOPATHOLOGY(Performed 05/08/2023) * IN REMOVE CERUMEN IMPACTED W INSTR ALONSO(Performed 01/14/2022) Performed for Impacted cerumen of left ear, Excessive cerumen in ear canal, right, Ear itching, Earfullness, left * AUDIOLOGY/TYMPANOMETRY ORDER(Performed 01/14/2022) * DERMATOPATHOLOGY(Performed 05/06/2019) * DERMATOPATHOLOGY(Performed 03/29/2019) * DERMATOPATH TECHNICAL REPORT(Performed 05/25/2018) Results * DERMATOPATHOLOGY (08/03/2023 8:11 AM CDT) Only the most recent of4 resultswithin the time period is included. Case Report Dermatopathology Report ? Case: [id number] ? Authorizing Provider: ??Sunitha Portillo MD ? Collected: ? 08/03/2023 08:11 AM ? Ordering Location: ? [facility] - ??Received: ?08/04/2023 12:37 PM [...] specimen consists of a shave biopsy measuring 54y20u3 mm. Jar 0. 4 3:06 PM CDT [...] determined by the Dermatopathology Laboratory at [facility], directed by Dr. Parker Mir. These tests need not be, and therefore are not, approved by the [place] Food and Drug Administration. The tests are used for clinical purposes. Billing Codes Specimen Charges Stain Charges 89996 1 [id number] 1 1 1 4 3:06 PM CDT DERMATOPATHOLOGY LABORATORY Embedded Images 4 3:06 PM CDT DERMATOPATHOLOGY LABORATORY Pathology/Cytolo gy TISSUE SPECIMEN FROM SKIN / Unknown 08/03/2023 8:11 AM CDT 08/04/2023 12:37 PM CDT Sunitha Portillo MD LAB - PATHOLOGY/CYT OLOGY ORDERABLES DERMATOPATHOLOGY LABORATORY [facility] - Department of Dermatology [address], [address] [phone] * IN REMOVE CERUMEN IMPACTED W INSTR ALONSO (01/14/2022 [...] patient tolerated the procedure well. Victor M TESFAYE PROCEDURE/ MINOR SURGICAL ORDERABLES * AUDIOLOGY/TYMPANOMETRY ORDER (01/14/2022 10:43 AM CDT) Narrative RonniemykeNandaKaylieAileen - 01/14/2022 11:03 AM CDT History: Jeffrey [...] change in hearing is suspected. Aileen Kumar. [facility]-A Clinical Hand Glove Cleaner [facility]-Department of Otolaryngology/Audiology [facility] [address] [place] [address] ([facility]) [place] [address] Kaylie Kunz Aileen AUDIOLOGY SERVICES O RDERABLES * DERMATOPATH TECHNICAL REPORT (05/25/2018 12:00 AM RED LEADER) Case Report Dermatopathology Report ? Case: [id number] ? Authorizing Provider: ??Sunitha Portillo MD ? Collected: ? 05/25/2018 12:00 AM ? Pathologist: ? Bella Mir MD ? Received: ?05/27/2018 07:17 AM ? Specimen: ?Skin, left cheek ? 9 2:33 PM [facility] DERMATOPATHOLOGY LABORATORY Clinical History [facility] vs [facility] 9 2:33 PM [facility] DERMATOPATHOLOGY LABORATORY Gross Description Specimen A: Received is one formalin filled container labeled with the patient's name and designated left cheek. The specimen consists of a shave biopsy measuring 6x5x2 mm. Jar 0. [facility] Dermatopathology Laboratory performed the technical component only. 9 2:33 PM [facility] DERMATOPATHOLOGY LABORATORY Embedded Images 9 2:33 PM [facility] DERMATOPATHOLOGY LABORATORY DISCLAIMER An external and internal positive and negative controls are appropriate for the histochemical, immunohistochemical and immunofluorescence stain(s) in this case (if any), except where stated explicitly. The performance characteristics of the stain(s) cited in this report were developed and its performance characteristic determined by the Dermatopathology Laboratory at [facility], directed by Dr. Parker Mir. These tests need not be, and therefore are not, approved by the [place] Food and Drug Administration. The tests are used for clinical purposes. 9 2:33 PM [facility] DERMATOPATHOLOGY LABORATORY Pathology/Cytolog y TISSUE SPECIMEN FROM SKIN / Unknown 05/25/2018 05/27/2018 7:17 AM RED LEADER Sunitha Portillo MD LAB - PATHOLOGY/CYT OLOGY ORDERABLES DERMATOPATHOLOGY LABORATORY [facility] - Department of Dermatology [address] [place] [address] 5th Floor Lab [place], [place] [id number] [place] [address]
--- OUTSIDE RECORDS SUMMARY | 2024-04-13 18:31 | XMS_ITS | Referral Summary ---
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 This disclosure is being madepursuant to the Care Everywhere program and may not contain all information available regarding this patient. Last updated 18.[facility] Allergies No known active allergies Medications * [...] 01/14/2022 10:10 AM CDT Plan of Treatment Not on file
--- OUTSIDE RECORDS SUMMARY | 2024-04-13 18:32 | XMS_ITS | Encounter Summary ---
Author Organization [facility] Healthcare Address [address] [place] [id number] Care Team Providers Care Medical Records Auditor Name Role Phone Igor Ferrera MD Primary Care Provider [phone] Reason for Visit * Auth/Cert (Routine) Specialty Diagnoses / Procedures Referred By Opal vasques Referred To Contact Diagnoses Special screening for malignant neoplasms, colon Z12.11 colon screening for malignant neoplasms Procedures COLONOSCOPY Referral ID Status Reason Start Date Expiration Date Visits Re quested Visits Authorized [id number] 1 1 Encounter Details Date Type Department Care Team (Late st Contact Info) Description 11/05/2023 12:00 PM CDT - 11/05/2023 12:30 PM CDT Surgery [facility] [address] [place] [address] Sandy Bateman MD [address] [place] [address] COLON REMOVAL SNARE Surgery Details Date/Time Status Location OR Service Patient Class Case Class Case Type Trauma Case? 11/05/2023 12:00 PM Posted ENDOSCOPY GI 2 Gastroenterology Outpatient Elective Panel 1 Procedure LRB Anes Op Region Wound Class Comments COLON REMOVAL SNARE N/A Choice Colon Surgeon Surgeon Role Service Panel Sandy Bateman MD Primary Gastroenterology 1 documented in this encounter Social History Tobacco Use Types Packs/Day Years Used Date Smoking Tobacco: Never Smokeless Tobacco: Never Alcohol Use Standard Drinks/Week Comments Yes 0 (1 standard drink = 0.6 oz pur e alcohol) AUDIT-C Answer Date Recorded Q1: How often do you have a drink containing alcohol? Never 11/05/2023 Q2: How many drinks containi ng alcohol do you have on a typical day when you are drinking? Patient does not drink 4 Q3: How often do you have si x or more drinks on one occasion? Never 11/05/2023 Personal Safety Answer Date Recorded Have you ever been in or are you currently in a harmful physical or emotional relationship or is someone making you feel afraid or unsafe? 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 Gender Identity Not on file Sexual Orientation Not on file documented as of this encounter Last Filed Vital Signs Vital Sign Reading Time Taken Comments Blood Pressure 136/76 11/05/2023 12:09 PM CDT Pulse 71 11/05/2023 12:09 PM CDT Temperature 37 ??C (98.6 ??F) 11/05/2023 12:09 PM CDT Respiratory Rate 12 11/05/2023 12:09 PM CDT Oxygen Saturation 97% 11/05/2023 12:09 PM CDT Inhaled Oxygen Concentration - - Weight 96.6 kg (213 lb) 11/05/2023 12:09 PM CDT Height 177.8 cm (5' 10 ) 11/05/2023 12:09 PM CDT Body Mass Index 30.56 11/05/2023 12:09 PM CDT documented in this encounter Discharge Instructions * Discharge Instructions* Dee Dee Puckett RN - 11/05/2023 2:02 PM CDT Activity Restrictions for the rest of today. 1. Do not drive a car or operate heavy machinery. 2. Do not consume alcohol. 3. Do not engage in hazardous activity. Activity Restrictions for the rest of today. documented in this encounter Medications at Time of Discharge acyclovir (ZOVIRAX) 400 mg tablet daily aspirin 81 mg enteric coated tablet daily atorvastatin (LIPITOR) 40 mg tablet Take 1 tablet (40 mg total) by mouth nightly dilTIAZem CD 240 mg 24 hr capsule Take 1 capsule (240 mg total) by mouth daily 90 capsule 3 06/05/2023 5 fluorouraciL (EFUDEX) 5 % cream Apply topically daily 05/08/2023 hydroCHLOROthiaz charmaine (HYDRODIURIL) 25 mg tablet Take 1 tablet (25 mg total) by mouth nightly metFORMIN (GLUCOPHAGE) 500 mg tablet Take 2 tablets (1,000 mg total) by mouth 2 (two) times a day nateglinide (STARLIX) 120 mg tabletIndication s:type 2 diabetes mellitus Take 1 tablet (120 mg total) by mouth nightly Ozempic 1 mg/dose (4 mg/3 mL) pen injector injection 06/26/2022 sildenafiL, pulm.hypertensio n, (REVATIO) 20 mg tablet Take 5 tablets (100 mg total) by mouth as needed tamsulosin (FLOMAX) 0.4 mg extended release capsule Take 1 capsule (0.4 mg total) by mouth daily 01/08/2022 documented as of this encounter Discharge Disposition Disposition Code Departure Means Destination Comment s Discharge to home or self care documented in this encounter H&P Notes * Sandy Bateman MD - 11/05/2023 1:25 PM CDT History & Physical Note Patient Identification Jami Grajeda is a 73 y.o. male. : 1950 Admit Date: 11/05/2023 Attending Provider: Sandy Bateman MD Primary Care Physician: Igor Ferrera MD Admitting Diagnosis: Special screening for malignant neoplasms, colon [Z12.11] Subjective Reason for Procedure: Screening colonoscopy History of Present Illness: This is a 73-year-old gentleman came for screening colonoscopy. Past Medical History: Diagnosis Date Diabetes (HCC) GERD (gastroesophageal reflux disease) HLD (hyperlipidemia) HTN (hypertension) Wears glasses Past Surgical History: Procedure Laterality Date CARDIAC CATHETERIZATION HAND SURGERY TONSILLECTOMY No Known Allergies Social History Tobacco Use Smoking status: Never Smokeless tobacco: Never Substance and Sexual Activity Drug use: Never Sexual activity: None Alcohol Use: Not At Risk (11/05/2023) AUDIT-C Frequency of Alcohol Consumption: Never Average Number of Drinks: Patient does not drink Frequency of Binge Drinking: Never Family History Problem Relation Age of Onset Coronary artery disease Father Hypertension Father Stroke Father Medications: HOME MEDICATIONS : acyclovir (ZOVIRAX) 400 mg tablet aspirin 81 mg enteric coated tablet dilTIAZem CD 240 mg 24 hr capsule fluorouraciL (EFUDEX) 5 % cream hydroCHLOROthiazide (HYDRODIURIL) 25 mg tablet metFORMIN (GLUCOPHAGE) 500 mg tablet Ozempic 1 mg/dose (4 mg/3 mL) pen injector injection tamsulosin (FLOMAX) 0.4 mg extended release capsule atorvastatin (LIPITOR) 40 mg tablet gabapentin (NEURONTIN) 300 mg capsule lidocaine (LIDODERM) 5 % nateglinide (STARLIX) 120 mg tablet sildenafiL, pulm.hypertension, (REVATIO) 20 mg tablet Review of Systems Constitutional: Negative for appetite change, chills, fatigue, fever and unexpected weight change. Respiratory: Negative for apnea, cough, chest tightness, shortness of breath and wheezing. Cardiovascular: Negative for chest pain, palpitations and leg swelling. Gastrointestinal: Positive for constipation. Negative for abdominal distention, abdominal pain, anal bleeding, blood in stool, diarrhea, nausea, rectal pain and vomiting. Objective Arrival vitals: BP 136/76 Pulse 71 Temp 37 ??C (98.6 ??F) (Skin) Resp 12 Ht 177.8 cm (5' 10 ) Wt 96.6 kg (213 lb) SpO2 97% BMI 30.56 kg/m?? Physical Exam: Constitutional: Pt is oriented to person, place, and time. Pt appears well- developed and well-nourished. No distress. Cardiovascular: Normal rate, regular rhythm, normal heart sounds and intact distal pulses. Exam reveals no gallop and no friction rub. No murmur heard. Pulmonary/Chest: Effort normal and breath sounds normal. No respiratory distress. Pt has no wheezes. Pt has no rales. Pt exhibits no tenderness. Abdominal: Soft. Bowel sounds are normal. Pt exhibits no shifting dullness, no distension, no abdominal bruit, no ascites and no mass. There is no tenderness. There is no rebound and no guarding. Assessment/Plan: Screening colonoscopy Sandy Bateman MD documented in this encounter Procedure Notes * Sandy Bateman MD - 11/05/2023 1:30 PM CDTAssociated Order(s): COLONOSCOPY [facility] Patient Name: Jami Grajeda Procedure Date: 11/05/2023 1:30 PM Date of : 1950 Admit Type: Outpatient Age: 73 Gender: Male Note Status: Finalized Attending MD: Sandy Bateman M.D. Procedure Date: 11/05/2023 Procedure: Colonoscopy Indications: Screening for colorectal malignant neoplasm Providers: Sandy Bateman M.D., PACO Elias (Anesthesia Staff), Kourtney Olivares RN, Doni Morgan, Backside Grinder Referring MD: Igor Ferrera M.D. Medicines: Monitored Anesthesia Care Complications: No immediate complications. Estimated Blood Loss: Estimated blood loss: none. Procedure: Pre-Anesthesia Assessment: - Prior to the procedure, a History and Physical was performed, and patient medications, allergies and sensitivities were reviewed. The patient's tolerance of previous anesthesia was reviewed. - The risks and benefits of the procedure and the sedation options and risks were discussed with the patient. All questions were answered and informed consent was obtained. - ASA Grade Assessment: II - A patient with mild systemic disease. After I obtained informed consent, the scope was passed under direct vision. Throughout the procedure, the patient's blood pressure, pulse, and oxygen saturations were monitored continuously. The scope was passed under direct vision. The Colonoscope was introduced through the anus and advanced to the the cecum, identified by appendiceal orifice and ileocecal valve. The colonoscopy was performed with ease. The patient tolerated the procedure well. The quality of the bowel preparation was good. The bowel preparation used was GoLYTELY via split dose instruction. Bowel prep was administered using a split dose. Findings: Three sessile polyps were found in the sigmoid colon and transverse colon. The polyps were 5 to 8 mm in size. These polyps were removed with a hot snare. Resection and retrieval were complete. Impression: - Three 5 to 8 mm polyps in the sigmoid colon and in the transverse colon, removed with a hot snare. Resected and retrieved. Recommendation: - Await pathology results. - Repeat colonoscopy in 5 years for surveillance. - Return to my office in 2 weeks. Procedure Code(s): --- Professional --- 81507, Colonoscopy, flexible; with removal of tumor(s), polyp(s), or other lesion(s) by snare technique Diagnosis Code(s): --- Professional --- Z12.11, Encounter for screening for malignant neoplasm of colon D12.5, Benign neoplasm of sigmoid colon D12.3, Benign neoplasm of transverse colon (hepatic flexure or splenic flexure) CPT copyright 2020 [employer]. All rights reserved. The codes documented in this report are preliminary and upon guest advisor review may be revised to meet current compliance requirements. This report is electronically signed by Dr Bradford Bateman Sandy Bateman M.D. 11/05/2023 2:03:42 PM This report has been electronically signed by the physician. Number of Addenda: 0 Note Initiated On: 11/05/2023 1:30 PM documented in this encounter Plan of Treatment Not on file documented as of this encounter Procedures Procedure Name Priority Date/Time Associated Diagnosis Comments COLONOSCOPY 11/05/2023 1:30 PM CDT COLON REMOVAL SNARE 11/05/2023 1 :27 PM CDT Special screening for malignant neoplasms, colon POCT GLUCOSE DEVICE Routine 11/05/2023 1 1:56 AM CDT SURGICAL PATHOLOGY Routine 11/05/2023 9: 31 AM CDT Special screening for malignant neoplasms, colon documented in this encounter Results * Colonoscopy (11/05/2023 1:30 PM CDT) Anatomical Region Laterality Modality Other Narrative Procedure Note Sandy Bateman MD - 11/05/2023 1:30 PM CDT [facility] Patient Name: Jami Grajeda Procedure Date: 11/05/2023 1:30 PM Date of : 1950 Admit Type: Outpatient Age: 73 Gender: Male Note Status: Finalized Attending MD: Sandy Bateman M.D. Procedure Date: 11/05/2023 Procedure: Colonoscopy Indications: Screening for colorectal malignant neoplasm Providers: Sandy Bateman M.D., PACO Elias (Anesthesia Staff), Kourtney Olivares RN, Sergey, Backside Grinder Referring MD: Igor Ferrera M.D. Medicines: Monitored Anesthesia Care Complications: No immediate complications. Estimated Blood Loss: Estimated blood loss: none. Procedure: Pre-Anesthesia Assessment: - Prior to the procedure, a History and Physicalwas performed, and patient medications, allergies and sensitivities were reviewed. The patient'stolerance of previous anesthesia was reviewed. - The risks and benefits of the procedure and the sedation options and risks were discussed with the patient. All questions were answered and informed consent was obtained. - ASA Grade Assessment: II - A patient with mild systemic disease. After I obtained informed consent, the scope was passed under direct vision. Throughout theprocedure, the patient's blood pressure, pulse, and oxygen saturations were monitored continuously. The scopewas passed under direct vision. The Colonoscope was introduced through the anus and advanced to the the cecum, identified by appendiceal orifice andileocecal valve. The colonoscopy was performed with ease. The patient tolerated the procedure well. The qualityof the bowel preparation was good. The bowelpreparation used was GoLYTELY via split dose instruction. Bowel prep was administered using a split dose. Findings: Three sessile polyps were found in the sigmoid colon and transverse colon. The polyps were 5 to 8 mm in size. These polyps were removedwith a hot snare. Resection and retrieval were complete. Impression: - Three 5 to 8 mm polyps in the sigmoid colon andin the transverse colon, removed with a hot snare. Resected and retrieved. Recommendation: - Await pathology results. - Repeat colonoscopy in 5 years for surveillance. - Return to my office in 2 weeks. Procedure Code(s): --- Professional --- 11200, Colonoscopy, flexible; with removal of tumor(s), polyp(s), or other lesion(s) by snare technique Diagnosis Code(s): --- Professional --- Z12.11, Encounter for screening for malignantneoplasm of colon D12.5, Benign neoplasm of sigmoid colon D12.3, Benign neoplasm of transverse colon (hepatic flexure or splenic flexure) CPT copyright 2020 [employer]. All rights reserved. The codes documented in this report are preliminary and upon guest advisor reviewmay be revised to meet current compliance requirements. This report is electronically signed by Dr Bradford Bateman Sandy Bateman M.D. 11/05/2023 2:03:42 PM This report has been electronically signed by the physician. Number of Addenda: 0 Note Initiated On: 11/05/2023 1:30 PM Sandy Bateman MD ENDOSCOPY PROCEDURES Final Result * POCT glucose (11/05/2023 11:56 AM CDT) Glucose, POC 125 70 - 199 mg/dL Blood 11/05/2023 11:5 6 AM CDT 11/05/2023 11:56 AM CDT Sandy Bateman MD LAB POCT ORDERABLES - [facility] Final Result Performing Organization Address City/State/RUST Co de Phone Number [facility] [address] [place] [address] * Surgical pathology (11/05/2023 9:31 AM CDT) Tissue (Polyp(s), colon/colorectal, esophageal, gastric) 11/05/2023 1:50 PM CDT Narrative PATHOLOGY CH - 11/09/2023 1:04 PM CDT EPIC results best viewed via link to PDF [facility] Department of Pathology [address] [place] [id number] Note to Patients: This report may contain a detailed description of human tissue sent by a health care provider to the laboratory for pathologic evaluation. The content of this report is essential for diagnosis and may provide important critical findings. This information may be unfamiliar to patients to review without a medical professional present. It is advised that the patient review this report in the presence of a health care provider who can answer questions and explain the details. Final Report Patient Name: ??JAMI GRAJEDA Address: ??[address], ??[place], [place] [address] Gender: ??M : ??1950 (Age: 73) Service: ??Gastro Location: ?? GI Lab Hospital #: ??[id number] Patient Type: ?? SDS Accession # ?[id number] Taken: ??11/05/2023 Received: ??11/06/2023 Accessioned: ??11/06/2023 Reported: ??11/09/2023 Physician(s):Murali Nicolas M.D. Diagnosis: Colon, polyps, polypectomy: ? - Fragments of tubular adenoma ? - No evidence of high-grade dysplasia or malignancy Erik Edwards M.D. Report Electronically Reviewed and Signed Out By ??Erik Edwards M.D. ??11/09/2023 13:04:01 Specimen(s) Received: A: Colon polyps Microscopic Description: Microscopic examination substantiates the above cited diagnosis. Clinical History: Special screening for malignant neoplasm, colon Gross Description: The specimen is submitted in a single formalin filled container labeled JAMI GRAJEDA and colon polyps . ??It is 2 bruce tissue fragments between 1 and 2 mm and an approximate 0.1 cc aggregate of fecal matter and food particles. ??Tissue A1, food particles A2 Chacho Tiwari R.N., P.A./Tanesha Feldman M.D. REPORT IMAGES AND SCANNED DOCUMENTS, IF INCLUDED, ONLY VIEWABLE IN PDF VERSION OF REPORT The performance characteristics of some immunohistochemical stains, fluorescence in-situ hybridization tests and immunophenotyping by flow cytometry cited in this report (if any) were determined by the Surgical Pathology Department at [facility] as part of an ongoing quality control program and in compliance with federally mandated regulations drawn from the Clinical Laboratory Improvement Act of 1988 (CLIA '88). ??Some of these tests rely on the use of analyte specific reagents and are subject to specific labeling requirements by the US Food and Drug Administration. ??Such diagnostic tests may only be performed in a facility that is certified by the Department of Health and Human Services as a high complexity laboratory under CLIA '88. The FDA has determined that such clearance or approval is not necessary. ??This test is used for clinical purposes. ??It should not be regarded as investigational or for research. ??Nevertheless, federal rules concerning the medical use of analyte specific reagents require that the following disclaimer be attached to the report: This test was developed and its performance characteristics determined by the Surgical Pathology Department [facility]. ??It has not been cleared or approved by the U. S. Food and Drug Administration. Note for decalcified specimens: This assay has not been validated on decalcified tissues. Results should be interpreted with caution given the possibility of false negativity on decalcified specimens Sandy Bateman MD LAB PATHOLOGY ORDERABLES F inal Result PATHOLOGY [address] [place] [address] documented in this encounter Visit Diagnoses Diagnosis Special screening for malignant neoplasms, colon Special screening for malignant neoplasms, colon documented in this encounter Orders Discharge Count Last Ordered Date First Orde red Date DISCHARGE PATIENT 1 11/05/2023 documented in this encounter Care Teams Medical Records Auditor Relationship Specialty Start Date End Date Igor Ferrera MD PCP - General 09/12/18 documented as of this encounter
--- OUTSIDE RECORDS SUMMARY | 2024-04-13 18:32 | XMS_ITS | Clinical Summary ---
Author Organization [place] [id number] Address [facility] [place] [address] Care Team Providers Care Position Clerk Name Role Phone Igor Ferrera MD Primary Care Provider [phone] Allergies No known active allergies Medications hydroCHLOROthia zide (HYDRODIURIL) 25 mg tablet Take 1 tablet (25 mg total) by mouth nightly Active metFORMIN (GLUCOPHAGE) 500 mg tablet Take 2 tablets (1,000 mg total) by mouth 2 (two) times a day Active nateglinide (STARLIX) 120 mg tabletIndicatio ns:type 2 diabetes mellitus Take 1 tablet (120 mg total) by mouth nightly Active atorvastatin (LIPITOR) 40 mg tablet Take 1 tablet (40 mg total) by mouth nightly Active gabapentin (NEURONTIN) 300 mg capsule Take 1 capsule (300 mg total) by mouth nightly 30 capsule 11 9 Active acyclovir (ZOVIRAX) 400 mg tablet daily Active lidocaine (LIDODERM) 5 % Place 1 patch on the skin daily Remove & discard patch within 12 hours or as directed by . 30 patch 3 Active tamsulosin (FLOMAX) 0.4 mg extended release capsule Take 1 capsule (0.4 mg total) by mouth daily 2 Active sildenafiL, pulm.hypertensi on, (REVATIO) 20 mg tablet Take 5 tablets (100 mg total) by mouth as needed Active Ozempic 1 mg/dose (4 mg/3 mL) pen injector injection 3 Active aspirin 81 mg enteric coated tablet daily Active fluorouraciL (EFUDEX) 5 % cream Apply topically daily 4 Active dilTIAZem CD 240 mg 24 hr capsule Take 1 capsule (240 mg total) by mouth daily 90 capsule 3 4 06/04/19 Active Active Problems Problem Noted Date Diagnosed Date Precordial pain 05/20/2023 Type 2 diabetes mellitus without complication (C MS/HCC) 05/20/2023 Primary hypertension 08/14/2022 08/14/2022 Type 2 diabetes mellitus with hyperglycemia (CMS /HCC) 08/14/2022 08/14/2022 Immunizations Name Administration Dates Next Due Influenza, Quadrivalent, Hig h Dose, Preservative Free, Intrr 01/02/2022,12/21/2020 Influenza, Trivalent, High D ose, Split, Preservative Free, Intramuscular 02/13/2019,12/31/2017 Influenza, Trivalent, Preservative Free, Intramu scular 05/26/2016,02/15/2015 Tdap 08/10/2015 ZOSTER Recombinant 07/21/2017 Surgical History Surgery Date Site/Laterality Comments CARDIAC CATHETERIZATION HAND SURGERY TONSILLECTOMY Medical History Medical History Date Comments HTN (hypertension) Diabetes (HCC) GERD (gastroesophageal reflux disease) HLD (hyperlipidemia) Wears glasses Family History Medical History Relation Name Comments Coronary artery disease Father Hypertension Father Stroke Father Relation Name Status Comments Father Social History Tobacco Use Types Packs/Day Years Used Date Smoking Tobacco: Never Smokeless Tobacco: Never Tobacco Cessation:Counseling Given: Not Answered Alcohol Use Standard Drinks/Week Comments Yes 0 (1 standard drink = 0.6 oz pur e alcohol) AUDIT-C Answer Date Recorded Q1: How often do you have a drink containing alcohol? Never 11/05/2023 Q2: How many drinks containi ng alcohol do you have on a typical day when you are drinking? 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 Gender Identity Not on file Sexual Orientation Not on file Obstetrics History Last Filed Vital Signs Vital Sign Reading Time Taken Comments Blood Pressure 104/72 11/05/2023 2:20 PM CDT Pulse 71 11/05/2023 2:20 PM CDT Temperature 37 ??C (98.6 ??F) 11/05/2023 12:09 PM CDT Respiratory Rate 23 11/05/2023 2:20 PM CDT Oxygen Saturation 99% 11/05/2023 2:20 PM CDT Inhaled Oxygen Concentration - - Weight 96.6 kg (213 lb) 11/05/2023 12:09 PM CDT Height 177.8 cm (5' 10 ) 11/05/2023 12:09 PM CDT Body Mass Index 30.56 11/05/2023 12:09 PM CDT Plan of Treatment Health Maintenance Due Date Last Done Comments Albumin Creatinine Ratio, Urine 1950 Depression Screening 1950 Hemoglobin A1C 1950 Hepatitis C Screening 1950 Dilated Eye Exam 1950 Foot Exam 1950 Lipid Panel 1950 Pneumococcal vaccine 65+ (1 of 2 - PCV) 01/23/1958 Hepatitis B Screening 01/23/1970 Well Visit 65+ 01/23/2017 Zoster Vaccine (2 of 2) 09/15/2017 07/21/2017 eGFR 06/10/2023 06/10/2022, 09/13/2018 Covid-19 Vaccine ( - 2023-2 5 season) 2023 01/19/2022, 07/16/2021, 11/28/2020, Additional history exists Influenza Vaccine (#1) 2023 , 12/21/2020, 02/13/2019, Additional history exists Fall Risk Assessment 11/04/2024 11/05/2023 DTaP/Tdap/Td Vaccine (2 - Td or Tdap) 08/09/2025 08/10/2015 Colon Cancer Screening-Colonoscopy 11/04/2033 11/05/2023, 11/04/2013 Colon Cancer Screening-CT Colonography Discontinued 11/05/2023, 08/01/2015, 11/04/2013 Colon Cancer Screening-DNA Stool Discontinued 11/05/2023, 08/01/2015, 11/04/2013 Colon Cancer Screening-FIT Discontinued 11/04, 08/01/2015, 11/04/2013 Colon Cancer Screening-Sigmoidoscopy Discontinued 11/05/2023, 08/01/2015, 11/04/2013 Procedures Procedure Name Priority Date/Time Associated Diagnosis Comments COLONOSCOPY 11/05/2023 1:30 PM CDT EGFR STAT 06/10/2022 11:52 PM RADAR OPERATOR from Last 3 Months or Most Recently Relevant to Health Maintenance Results * Colonoscopy (11/05/2023 1:30 PM CDT) Anatomical Region Laterality Modality Other Narrative Procedure Note Sandy Bateman MD - 11/05/2023 1:30 PM CDT [facility] Patient Name: Jeffrey Grajeda Procedure Date: 11/05/2023 1:30 PM Date of : 1950 Admit Type: Outpatient Age: 73 Gender: Male Note Status: Finalized Attending MD: Sandy Bateman M.D. Procedure Date: 11/05/2023 Procedure: Colonoscopy Indications: Screening for colorectal malignant neoplasm Providers: Sandy Bateman M.D., PACO Elias (Anesthesia Staff), Kourtney Olivares RNSergey, Maintenance Carpenter Referring MD: Igor Ferrera M.D. Medicines: Monitored [...] 2 weeks. Procedure Code(s): --- Professional --- 40873, Colonoscopy, flexible; with removal of tumor(s), polyp(s), or other lesion(s) by snare technique Diagnosis Code(s): --- Professional --- Z12.11, Encounter for screening for malignantneoplasm of colon D12.5, Benign neoplasm of sigmoid colon D12.3, Benign neoplasm of transverse colon (hepatic flexure or splenic flexure) CPT copyright 2020 [employer] [place] [employer]. All rights reserved. The codes documented in this report are preliminary and upon sheep or calf grader reviewmay be revised to meet current compliance requirements. This report is electronically signed by Dr Bradford Bateman Sandy Bateman M.D. 11/05/2023 2:03:42 PM This report has been electronically signed by the physician. Number of Addenda: 0 Note Initiated On: 11/05/2023 1:30 PM Sandy Bateman MD ENDOSCOPY PROCEDURES Final Result * eGFR (06/10/2022 11:52 PM RADAR OPERATOR) eGFR 87 mL/min/1. 73 m2 [facility] Comment: Interpretive Data Reference Interval Normal ?>/= 90 mL/min/1.73m2 Mildly decreased* ? 60 - 89 mL/min/1.73m2 Mildly to moderately decreased ?45 - 59 mL/min/1.73m2 Moderately to severely decreased ??30 - 44 mL/min/1.73m2 Severely decreased ?15 - 29 mL/min/1.73m2 Kidney Failure ?< 15 ??mL/min/1.73m2 *Relative to young adult level Estimated glomerular filtration rate is determined by the 2020 CKD-EPI equation recommended by the National Kidney Foundation (A Unifying Approach to GFR Estimation: Recommendations of the NKF-ASK Task Force on Reassessing the Inclusion of Race in Diagnosing Kidney Disease, JASN 2020). The CKD-EPI equation should not be used for patients with unstable renal function and has not been validated in children and those over 70. Current interpretive data was last reviewed 2021. Blood 06/10/2022 11:5 2 PM RADAR OPERATOR 06/10/2022 11:57 PM RADAR OPERATOR Angel Lomeli MD LAB BLOOD ORDERABLES Final R esult [facility] [address] Department [place] [address] from Last 3 Months or Most Recently Relevant to Health Maintenance Insurance [facility] MEDICARE [facility] CHOICE PLUS MEDICARE MEDICARE [employer]ET[employer] MEDICARE AET MEDICARE Advance Directives For more information, please contact: [phone] * Full Code (Latest Code Status on File) Date Activated Date Inactivated Comments 09/12/2018 8:52 PM 09/14/2018 9:20 PM Care Teams Position Clerk Relationship Specialty Start Date End Date Igor Ferrera MD PCP - General 09/12/18
--- OUTSIDE RECORDS SUMMARY | 2024-04-13 18:32 | XMS_ITS | Encounter Summary ---
Author Organization [facility] Address [address] [place] [address] Phone Care Team Providers Care Team Guide Name Role Phone Igor Ferrera MD Primary Care Provider [phone] Encounter Details Date Type Department Care Team (Latest Contact Info) Description 08/14/2022 9:30 AM CDT Office Visit [facility] Neuro[facility] Medical Office Building [address] [place] [address] Kevyn Logan PA [address] [place], [place] [id number] Spondylolisthesis of lumbar region (Primary Dx) Social History Tobacco Use Types Packs/Day Years Used Date Smoking Tobacco: Never Smokeless Tobacco: Never Alcohol Use Standard Drinks/Week Comments Yes 0 (1 standard drink = 0.6 oz pur e alcohol) Sex and Gender Information Value Date Recorded Sex Assigned at Not on file 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 Gender Identity Not on file Sexual Orientation Not on file documented as of this encounter Last Filed Vital Signs Vital Sign Reading Time Taken Comments Blood Pressure 154/91 08/14/2022 9:23 AM CDT Pulse 76 08/14/2022 9:23 AM CDT Temperature - - Respiratory Rate - - Oxygen Saturation - - Inhaled Oxygen Concentration - - Weight 98.7 kg (217 lb 9.6 oz) 08/14/2022 9:23 A M CDT Height 180.3 cm (5' 11 ) 08/14/2022 9:23 AM CDT Body Mass Index 30.35 08/14/2022 9:23 AM CDT documented in this encounter Progress Notes * Kevyn Logan, IVONNE - 08/14/2022 9:30 AM CDT NEW PATIENT VISIT Subjective CHIEF COMPLAINT Low back Pain/leg pain HISTORY OF PRESENT ILLINESS Jeffrey Grajeda is a very pleasant 72-year-old male coming in today with multiyear history of low back pain, bilateral leg pain. Patient reports chronic low back pain that seems to flare up every couple of months. He is an active individual and works out in the [employer] often and golfs as well. He reports completing physical therapy, chiropractic, and has had epidural injections over the past few yearsto keep his symptoms at [place]. He denies bowel/bladder incontinence, denies saddle anesthesia. His last MRI scan was from September 2018 showing a grade 1 spondylolisthesis at L5/S1 with advanced degenerative change and spinal canal narrowing. There is also significant facet arthropathy seen with possiblya synovial cyst on the right at L5/S1. He comes in today as his symptoms are progressively getting worse, more consistent, more severe. We are seeing him today for these findings. PAST MEDICAL HISTORY He has a past medical history of Diabetes (HCC), GERD (gastroesophageal reflux disease), HLD (hyperlipidemia), HTN (hypertension), and Wears glasses. PAST SURGICAL HISTORY He has a past surgical history that includes Cardiac catheterization; Hand surgery; and Tonsillectomy. FAMILY HISTORY His family history includes Coronary artery disease in his father; Hypertension in his father; Stroke in his father. MEDICATIONS Current Outpatient Medications: acetaminophen (TYLENOL) 325 mg tablet, Take 2 tablets (650 mg total) by mouth every 8 (eight) hours, Disp: 30 tablet, Rfl: acyclovir (ZOVIRAX) 400 mg tablet, daily, Disp: , Rfl: amLODIPine (NORVASC) 10 mg tablet, Take 10 mg by mouth nightly , Disp: , Rfl: atorvastatin (LIPITOR) 40 mg tablet, Take 40 mg by mouth nightly , Disp: , Rfl: chlorproMAZINE (THORAZINE) 10 mg tablet, Take 1 tablet (10 mg total) by mouth 3 (three) times a dayas needed (Hiccups), Disp: 10 tablet, Rfl: 0 diazePAM (VALIUM) 5 mg tablet, Take 1 tablet (5 mg total) by mouth every 6 (six) hours as needed for muscle spasms, Disp: 5 tablet, Rfl: 0 famotidine (PEPCID) 40 mg tablet, Take 1 tablet (40 mg total) by mouth nightly as needed for heartburn, Disp: 20 tablet, Rfl: 0 gabapentin (NEURONTIN) 300 mg capsule, Take 1 capsule (300 mg total) by mouth nightly, Disp: 30 capsule, Rfl: 11 hydroCHLOROthiazide (HYDRODIURIL) 25 mg tablet, Take 25 mg by mouth nightly, Disp: , Rfl: HYDROcodone-acetaminophen (NORCO) 5-325 mg per tablet, Take 1 tablet by mouth every 6 (six) hours as needed for pain, Disp: 6 tablet, Rfl: 0 lidocaine (LIDODERM) 5 %, Place 1 patch on the skin daily Remove & discard patch within 12 hours or as directed by MD., Disp: 30 patch, Rfl: 0 metFORMIN (GLUCOPHAGE) 500 mg tablet, Take 1,000 mg by mouth 2 (two) times a day , Disp: , Rfl: methocarbamoL (ROBAXIN) 750 mg tablet, Take 1 tablet (750 mg total) by mouth 2 (two) times a day asneeded for muscle spasms, Disp: 30 tablet, Rfl: 0 nateglinide (STARLIX) 120 mg tablet, Take 120 mg by mouth nightly , Disp: , Rfl: tadalafil (ADCIRCA) 10 mg tablet, Take 10 mg by mouth daily as needed for erectile dysfunction, Disp: , Rfl: ALLERGIES He has No Known Allergies. SOCIAL HISTORY He reports that he has never smoked. He has never used smokeless tobacco. He reports that he does not use drugs. No alcohol history on file. REVIEW OF SYSTEMS Review of Systems Constitutional: Negative. HENT: Negative. Eyes: Negative. Respiratory: Negative. Cardiovascular: Negative. Gastrointestinal: Negative. Endocrine: Negative. Genitourinary: Negative. Musculoskeletal: Positive for back pain. Skin: Negative. Allergic/Immunologic: Negative. Neurological: Positive for numbness. Hematological: Negative. Psychiatric/Behavioral: Negative. Objective VITAL SIGNS BP 154/91 Pulse 76 Ht 180.3 cm (5' 11 ) Wt 98.7 kg (217 lb 9.6 oz) BMI 30.35 kg/m?? PHYSICAL EXAM AOx3, pleasant mood, no distress Speech clear/fluent LLE 5/5 IP, 5/5 Q, 5/5/H, 5/5 DF, 5/5 PF, 5/5 EHL RLE 5/5 IP, 5/5 Q, 5/5/H, 5/5 DF, 5/5 PF, 5/5 EHL Sensation intact to pinprick in BUE/BLEno clonus Normal gait Negative SLR REVIEW OF IMAGES EOS: Comparison is made to 06/09/2022 and MRI 09/13/2018. Minimal long segment dextrocurvature of the thoracolumbar spine. Apparent positive sagittal imbalance may be positional. Coronal balance is neutral. No pelvic obliquity. Bilateral pars interarticularis defects at L5-S1 with grade 1 spondylolisthesis which worsened slightly with flexion. Moderate degenerative disc disease is seen at this level. The vertebral body heights are normal. IMPRESSION: 1. L5-S1 pars interarticularis defects with dynamic grade 1 spondylolisthesis which worsened slightly with flexion. 2. Moderate degenerative disc disease at L5-S1. 3. Minimal long segment thoracolumbar dextrocurvature. Assessment/Plan Plan Jeffrey Grajeda is a pleasant 72 year old male presenting today with chronic low back pain and bilateral S1 radiculopathy that progressively getting worse. His x-rays today demonstrate L5/S1 pars defects with a dynamic grade 1 slip. His MRI from 2019 also demonstrates similar findings. He is at a point where therapy, home exercises, epidurals, medications, are no longer helping. He has been following chiropractic exercises on his phone and daily for the past several months. He was able to show me the LEOBARDO today in all the strengthening stretch stretching exercises. Will plan to obtain a new lumbar MRI scan. If patient does want to pursue a surgical intervention he would likely benefit from an L5/S1 decompression and likely stabilization given the dynamic nature of the spondylolisthesis. Will plan to call him with the results. He would like to see Dr. Cullen or Dr. Lomeli. IVONNE Donahue documented in this encounter Plan of Treatment Not on file documented as of this encounter Visit Diagnoses Diagnosis Spondylolisthesis of lumbar region- Primary documented in this encounter Historical Medications * This list may reflect changes made after this encounter. aspirin 81 mg enteric coated tablet daily Ozempic 1 mg/dose (4 mg/3 mL) pen injector injection 06/26/2022 sildenafiL, pulm.hypertension , (REVATIO) 20 mg tablet Take 5 tablets (100 mg total) by mouth as needed tamsulosin (FLOMAX) 0.4 mg extended release capsule Take 1 capsule (0.4 mg total) by mouth daily 01/08/2022 dilTIAZem CD 240 mg 24 hr capsule 08/04/2022 06/05/19 24 added in this encounter Care Teams Team Guide Relationship Specialty Start Date End Date Igor Ferrera MD PCP - General 09/12/18 documented as of this encounter
--- OUTSIDE RECORDS SUMMARY | 2024-04-13 18:32 | XMS_ITS | Encounter Summary ---
Author Organization [facility] Healthcare Address [address] [place] [address] Care Team Providers Care Clipper Automatic Name Role Phone Igor Ferrera MD Primary Care Provider [phone] Reason for Visit * Reason Comments Follow-up Encounter Details Date Type Department Care Team ([facility] st Contact Info) Description 05/20/2023 3:00 PM SENIOR TELECOMMUNICATIONS SPECIALIST Office Visit [facility] Medical Group Cardiology at [address] [place] [address] [place] [address] Nancy Srivastava MD [address] [place] [address] Precordial pain (Primary Dx); Primary hypertension; Type 2 diabetes mellitus without complication, unspecified whether fci insulin use (HCC) Social History Tobacco Use Types Packs/Day Years Used Date Smoking Tobacco: Never Smokeless Tobacco: Never Tobacco Cessation:Counseling Given: Not Answered Alcohol Use Standard Drinks/Week Comments Yes 0 (1 standard drink = 0.6 oz pur e alcohol) Personal Safety Answer Date Recorded Getting School Help Needed Denies 03/31 Sex and Gender Information Value Date Recorded Sex Assigned at Not on file Legal Sex Male 1:39 PM SENIOR TELECOMMUNICATIONS SPECIALIST Gender Identity Not on file Sexual Orientation Not on file documented as of this encounter Last Filed Vital Signs Vital Sign Reading Time Taken Comments Blood Pressure 122/78 05/20/2023 3:27 PM SENIOR TELECOMMUNICATIONS SPECIALIST Pulse 64 05/20/2023 3:27 PM SENIOR TELECOMMUNICATIONS SPECIALIST Temperature - - Respiratory Rate 16 05/20/2023 3:27 PM SENIOR TELECOMMUNICATIONS SPECIALIST Oxygen Saturation 98% 05/20/2023 3:27 PM SENIOR TELECOMMUNICATIONS SPECIALIST Inhaled Oxygen Concentration - - Weight 96.6 kg (213 lb) 05/20/2023 3:27 PM SENIOR TELECOMMUNICATIONS SPECIALIST Height 180.3 cm (5' 10.98 ) 05/20/2023 3:[address] Body Mass Index 29.72 05/20/2023 3:27 PM SENIOR TELECOMMUNICATIONS SPECIALIST documented in this encounter Progress Notes * Nancy Srivastava MD - 05/20/2023 3:00 PM CST Images from the original note were not included. Patient Name: Jeffrey Grajeda : 1950 Referring: Referral CHIEF COMPLAINT: Follow-up HISTORY OF PRESENT ILLNESS: A pleasant 73 y.o. male staying very active without any chest pain breathing is good no dizziness or syncope. PREVIOUS CARDIOVASCULAR PROCEDURES ALLERGY Patient has no known allergies. MEDICATIONS Outpatient Encounter Medications as of 05/20/2023 Medication Sig Dispense Refill acyclovir (ZOVIRAX) 400 mg tablet daily aspirin 81 mg enteric coated tablet daily atorvastatin (LIPITOR) 40 mg tablet Take 1 tablet (40 mg total) by mouth nightly dilTIAZem CD 240 mg 24 hr capsule fluorouraciL (EFUDEX) 5 % cream Apply topically daily hydroCHLOROthiazide (HYDRODIURIL) 25 mg tablet Take 1 tablet (25 mg total) by mouth nightly lidocaine (LIDODERM) 5 % Place 1 patch on the skin daily Remove & discard patch within 12 hoursor as directed by . 30 patch 0 metFORMIN (GLUCOPHAGE) 500 mg tablet Take 2 tablets (1,000 mg total) by mouth 2 (two) times a day Ozempic 1 mg/dose (4 mg/3 mL) pen injector injection sildenafiL, pulm.hypertension, (REVATIO) 20 mg tablet Take 5 tablets (100 mg total) by mouth as needed tamsulosin (FLOMAX) 0.4 mg extended release capsule Take 1 capsule (0.4 mg total) by mouth daily [DISCONTINUED] bisacodyl EC (DULCOLAX EC) 5 mg EC tablet Take 1 tablet (5 mg total) by mouth daily as needed gabapentin (NEURONTIN) 300 mg capsule Take 1 capsule (300 mg total) by mouth nightly 30 capsule 11 nateglinide (STARLIX) 120 mg tablet Take 120 mg by mouth nightly [DISCONTINUED] acetaminophen (TYLENOL) 325 mg tablet Take 2 tablets (650 mg total) by mouth every 8(eight) hours 30 tablet [DISCONTINUED] amLODIPine (NORVASC) 10 mg tablet Take 10 mg by mouth nightly [DISCONTINUED] chlorproMAZINE (THORAZINE) 10 mg tablet Take 1 tablet (10 mg total) by mouth 3 (three) times a day as needed (Hiccups) 10 tablet 0 [DISCONTINUED] diazePAM (VALIUM) 5 mg tablet Take 1 tablet (5 mg total) by mouth every 6 (six) hours as needed for muscle spasms 5 tablet 0 [DISCONTINUED] famotidine (PEPCID) 40 mg tablet Take 1 tablet (40 mg total) by mouth nightly as needed for heartburn 20 tablet 0 [DISCONTINUED] HYDROcodone-acetaminophen (NORCO) 5-325 mg per tablet Take 1 tablet by mouth every 6(six) hours as needed for pain 6 tablet 0 [DISCONTINUED] methocarbamoL (ROBAXIN) 750 mg tablet Take 1 tablet (750 mg total) by mouth 2 (two) times a day as needed for muscle spasms 30 tablet 0 [DISCONTINUED] tadalafil (ADCIRCA) 10 mg tablet Take 10 mg by mouth daily as needed for erectile dysfunction No facility-administered encounter medications on file as of 05/20/2023. PAST MEDICAL HISTORY Past Medical History: Diagnosis Date Diabetes (HCC) GERD (gastroesophageal reflux disease) HLD (hyperlipidemia) HTN (hypertension) Wears glasses FAMILY HISTORY Family History Problem Relation Age of Onset Coronary artery disease Father Hypertension Father Stroke Father SOCIAL HISTORY Social History Tobacco Use Smoking status: Never Smokeless tobacco: Never Substance and Sexual Activity Drug use: Never Sexual activity: None Alcohol Use: Not on file REVIEW OF SYSTEMS: General: No fever, chills, malaise or fatigue Eyes: No alterations in visual acuity ENT: No alterations in auditory acuity, no sore throat Pulmonary: No dyspnea, cough or hemoptysis Cardiac: No chest pain, orthopnea, PND or palpitations GI: No nausea, vomiting, diarrhea or constipation Musculoskeletal: No myalgias or arthralgias Skin: no rashes Neuro: No headaches, parathesias or focal neurological complaints Endocrine: No cold or heat intolerance Heme: no excessive bleeding or bruising PHYSICAL EXAM: BP 122/78 (BP Location: Left arm, Patient Position: Sitting) Pulse 64 Resp 16 Ht 180.3 cm (5' 10.98 ) Wt 96.6 kg (213 lb) SpO2 98% BMI 29.72 kg/m?? General: Well appearing, No pain or distress, well nourished Eyes: XOCHITL/EOMI, Conjuctiva Clear ENT: External ears/nose normal Neck: Supple Respiratory: Clear to ausculation bilaterally; no wheezing/rales/rhonchi; respirations nonlabored Cardiovascular: RRR, normal S1 and S2. No S3 or S4. No murmurs or rubs. Carotid upstrokes brisk bilaterally and without bruits. Gastrointestinal: soft, non-tender abdomen Extremities: no cyanosis or clubbing or edema Skin: no obvious rash or bruising Psychiatric: normal affect Neurologic: awake/alert, no focal deficits ASSESSMENT & PLAN: There are no diagnoses linked to this encounter. Precordial pain: Active without any chest pain or shortness of breath Echo 09/02: EF 60% with mild LVH and mild mean gradient 6 Stress Test 06/04 MPI normal with EF 68% On aspirin, atorvastatin, diltiazem 240 daily and HCTZ Essential hypertension Blood pressure good on above medications Keep log at home 3. Type 2 diabetes mellitus Most recent A1c was 5.7 Andres Srivastava MD, FSCAI OR TELECOMMUNICATIONS SPECIALIST documented in this encounter Plan of Treatment Not on file documented as of this encounter Visit Diagnoses Diagnosis Precordial pain- Primary Primary hypertension Unspecified essential hypertension Type 2 diabetes mellitus without complication, unspecified whether fci insulin use (HCC) documented in this encounter Discontinued Medications Medication Sig Discontinue Reason Start Date End Da te HYDROcodone-acetaminop hen (NORCO) 5-325 mg per tabletIndications:Pain Take 1 tablet by mouth every 6 (six) hours as needed for pain Therapy completed 06/08/2022 05/20/2023 tadalafil (ADCIRCA) 10 mg tablet Take 10 mg by mouth daily as needed for erectile dysfunction Therapy completed 05/20/2023 methocarbamoL (ROBAXIN) 750 mg tablet Take 1 tablet (750 mg total) by mouth 2 (two) times a day as needed for muscle spasms Therapy completed 06/08/2022 05/20/2023 famotidine (PEPCID) 40 mg tablet Take 1 tablet (40 mg total) by mouth nightly as needed for heartburn Therapy completed 06/10/2022 05/20/2023 diazePAM (VALIUM) 5 mg tabletIndications:Musc le Spasm Take 1 tablet (5 mg total) by mouth every 6 (six) hours as needed for muscle spasms Therapy completed 06/10/2022 05/20/2023 chlorproMAZINE (THORAZINE) 10 mg tabletIndications:Intr actable Hiccups Take 1 tablet (10 mg total) by mouth 3 (three) times a day as needed (Hiccups) Therapy completed 06/11/2022 05/20/2023 bisacodyl EC (DULCOLAX EC) 5 mg EC tablet Take 1 tablet (5 mg total) by mouth daily as needed Therapy completed 05/15/2023 05/20/2023 amLODIPine (NORVASC) 10 mg tablet Take 10 mg by mouth nightly Therapy completed 05/20/2023 acetaminophen (TYLENOL) 325 mg tablet Take 2 tablets (650 mg total) by mouth every 8 (eight) hours Therapy completed 09/14/2018 05/20/2023 documented as of this encounter Historical Medications * This list may reflect changes made after this encounter. fluorouraciL (EFUDEX) 5 % cream Apply topically daily 05/08/2023 bisacodyl EC (DULCOLAX EC) 5 mg EC tablet Take 1 tablet (5 mg total) by mouth daily as needed 05/15/2023 added in this encounter Care Teams Clipper Automatic Relationship Specialty Start Date End Date Igor Ferrera MD PCP - General 09/12/18 documented as of this encounter
--- OUTSIDE RECORDS SUMMARY | 2024-04-13 18:32 | XMS_ITS | Encounter Summary ---
Author Organization [facility] Healthcare Address [address] [place] [address] Care Team Providers Care Produce Specialist Name Role Phone Igor Ferrera MD Primary Care Provider [phone] Encounter Details Date Type Department Care Team (Latest Contact Info) Description 06/30/2022 5:24 PM CDT - 06/30/2022 11:59 PM CDT Hospital Encounter [facility] [address] [place] [address] Discharge Disposition: Discharge to home or self care Social History Tobacco Use Types Packs/Day Years Used Date Smoking Tobacco: Never Smokeless Tobacco: Never Alcohol Use Standard Drinks/Week Comments Yes 0 (1 standard drink = 0.6 oz pur e alcohol) Sex and Gender Information Value Date Recorded Sex Assigned at Not on file Legal Sex Male 1:39 PM PHARMACY TECH Gender Identity Not on file Sexual Orientation Not on file documented as of this encounter Medications at Time of Discharge acyclovir (ZOVIRAX) 400 mg tablet daily atorvastatin (LIPITOR) 40 mg tablet Take 1 tablet (40 mg total) by mouth nightly hydroCHLOROthiaz charmaine (HYDRODIURIL) 25 mg tablet Take 1 tablet (25 mg total) by mouth nightly lidocaine (LIDODERM) 5 % Place 1 patch on the skin daily Remove & discard patch within 12 hours or as directed by . 30 patch 06/08/2022 metFORMIN (GLUCOPHAGE) 500 mg tablet Take 2 tablets (1,000 mg total) by mouth 2 (two) times a day nateglinide (STARLIX) 120 mg tabletIndication s:type 2 diabetes mellitus Take 1 tablet (120 mg total) by mouth nightly Ozempic 1 mg/dose (4 mg/3 mL) pen injector injection 06/26/2022 tamsulosin (FLOMAX) 0.4 mg extended release capsule Take 1 capsule (0.4 mg total) by mouth daily 01/08/2022 acetaminophen (TYLENOL) 325 mg tablet Take 2 tablets (650 mg total) by mouth every 8 (eight) hours 30 tablet 09/14/2018 4 amLODIPine (NORVASC) 10 mg tablet Take 10 mg by mouth nightly 4 chlorproMAZINE (THORAZINE) 10 mg tabletIndication s:Intractable Hiccups Take 1 tablet (10 mg total) by mouth 3 (three) times a day as needed (Hiccups) 10 tablet 06/11/2022 4 diazePAM (VALIUM) 5 mg tabletIndication s:Muscle Spasm Take 1 tablet (5 mg total) by mouth every 6 (six) hours as needed for muscle spasms 5 tablet 06/10/2022 4 famotidine (PEPCID) 40 mg tablet Take 1 tablet (40 mg total) by mouth nightly as needed for heartburn 20 tablet 06/10/2022 4 HYDROcodone-acet aminophen (NORCO) 5-325 mg per tabletIndication s:Pain Take 1 tablet by mouth every 6 (six) hours as needed for pain 6 tablet 06/08/2022 4 methocarbamoL (ROBAXIN) 750 mg tablet Take 1 tablet (750 mg total) by mouth 2 (two) times a day as needed for muscle spasms 30 tablet 06/08/2022 4 tadalafil (ADCIRCA) 10 mg tablet Take 10 mg by mouth daily as needed for erectile dysfunction 4 documented as of this encounter Discharge Disposition Disposition Code Departure Means Destination Discharge to home or self care documented in this encounter Plan of Treatment Not on file documented as of this encounter Procedures Procedure Name Priority Date/Time Associated Diagnosis Comments XR TRANSFER OF OUTSIDE FILMS Routine 06/30/2022 5:24 PM CDT Diagnosis unknown documented in this encounter Results * XR Outside Reference (06/30/2022 5:24 PM CDT) Impressions [facility] - 06/30/2022 5:24 PM CDT These images are for Reference purposes only and have not been reviewed by [facility] Radiology. ??There will be no report generated by a [facility] Radiologist. Narrative [facility] - 06/30/2022 5:24 PM CDT EXAMINATION: ??Images For Reference Purposes Only Kevyn CORONADO IMG XR PROCEDURES Maty l Result [facility] documented in this encounter Visit Diagnoses Not on filedocumented in this encounter Care Teams Produce Specialist Relationship Specialty Start Date End Date Igor Ferrera MD PCP - General 09/12/18 documented as of this encounter
--- OUTSIDE RECORDS SUMMARY | 2024-04-13 18:32 | XMS_ITS | Encounter Summary ---
Author Organization [facility] Address [address] [place] [address] Phone Care Team Providers Care Landscape Painter Name Role Phone Igor Ferrera MD Primary Care Provider [phone] Encounter Details Date Type Department Care Team (Late st Contact Info) Description 10/12/2023 Telephone [facility] Neurosurgery [address] [facility] Advanced Medicine 6th [place] [address] [place] [address] Kevyn Logan PA [address] [place] [address] Social History Tobacco Use Types Packs/Day Years Used Date Smoking Tobacco: Never Smokeless Tobacco: Never Alcohol Use Standard Drinks/Week Comments Yes 0 (1 standard drink = 0.6 oz pur e alcohol) Personal Safety Answer Date Recorded Getting School Help Needed Not on file 06/12 Sex and Gender Information Value Date Recorded Sex Assigned at Not on file Legal Sex Male 1:39 PM PHYSICIAN OFFICE REP Gender Identity Not on file Sexual Orientation Not on file documented as of this encounter Miscellaneous Notes * Telephone Encounter - Mark Little - 10/12/2023 9:34 AM CDT Imaging uploaded to [email or web address] and pushed to PACS. documented in this encounter Plan of Treatment Not on file documented as of this encounter Visit Diagnoses Not on filedocumented in this encounter Care Teams Landscape Painter Relationship Specialty Start Date End Date Igor Ferrera MD PCP - General 09/12/18 documented as of this encounter
--- OUTSIDE RECORDS SUMMARY | 2024-04-13 18:32 | XMS_ITS | Encounter Summary ---
Author Organization [facility] Address [address] [place] [address] Phone Care Team Providers Care Shotgun Shell Assembly Machine Adjuster Name Role Phone Igor Ferrera MD Primary Care Provider [phone] Encounter Details Date Type Department Care Team (Late st Contact Info) Description 08/28/[address] [place] [id number] [facility] Medical Office Building [address] [place] [address] Kevyn Logan PA [address] [place], [place] [id number] Social History Tobacco Use Types Packs/Day Years Used Date Smoking Tobacco: Never Smokeless Tobacco: Never Alcohol Use Standard Drinks/Week Comments Yes 0 (1 standard drink = 0.6 oz pur e alcohol) Sex and Gender Information Value Date Recorded Sex Assigned at Not on file Legal Sex Male 1:39 PM SENIOR COST ACCOUNTANT Gender Identity Not on file Sexual Orientation Not on file documented as of this encounter Miscellaneous Notes * Telephone Encounter - Jodi Saunders RN - 12/18/2022 7:56 AM CDT 08/28 MRI Lspine report faxed to [facility] per request for continuation of care * Telephone Encounter - Tammi Varghese - 12/18/2022 5:04 AM CDT Request for MRI Lumbar Spine WO Contrast Scanned into Chart For Continuation of Care Addressed to . * Telephone Encounter - Farideh Melo - 11/13/2022 10:31 AM CDT Returning pt of ACCOUNTING SPECIALIST - Kevyn Logan, Last OV 08/14/2022 with ACCOUNTING SPECIALIST - Kevyn Logan. Pt diagnosis is Back Pain Plan: [employer] Pt called schedule Reason for visit: Return Pt Date: 01/02/2023 Time: 14:30pm Location: [facility] ([facility]) Provider MURIEL Logan Routed: Directly to ACCOUNTING SPECIALIST Patient is wondering if he can be seen any sooner and also is wondering if any pain medications canbe prescribed to him as his symptoms have gotten worse? Thank you * Telephone Encounter - Kevyn Logan PA - 08/28/2022 2:39 PM CDT Reviewed lumbar MRI scan with patient over the phone. Patient is doing better from a clinical standpoint and has minimal complaints now. We will plan to continue him on a conservative path. Patient does have these chronic findings in his back including a L5/S1 spondylolisthesis with pars defects. However his pains are minimal and he is able to play golf and do all the activities that he enjoys thus we will try to avoid a surgical intervention. He will call us if anything changes in the interim or if any symptoms worsen. Kevyn Logan PA-C [facility] Neurosurgery documented in this encounter Plan of Treatment Not on file documented as of this encounter Visit Diagnoses Not on filedocumented in this encounter Care Teams Shotgun Shell Assembly Machine Adjuster Relationship Specialty Start Date End Date Igor Ferrera MD PCP - General 09/12/18 documented as of this encounter
--- OUTSIDE RECORDS SUMMARY | 2024-04-13 18:32 | XMS_ITS | Encounter Summary ---
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 ??There will be no report generated by a [facility] Radiologist. Narrative [facility] - 10/12/2023 9:43 PM CDT EXAMINATION: ??Images For Reference Purposes Only Kevyn CORONADO IMG XR PROCEDURES Maty l Result [facility] documented in this encounter Visit Diagnoses Not on filedocumented in this encounter Care Teams Water Softener Installer Relationship Specialty Start Date End Date Igor Ferrera MD PCP - General 09/12/18 documented as of this encounter
--- OUTSIDE RECORDS SUMMARY | 2024-04-13 18:32 | XMS_ITS | Encounter Summary ---
Author Organization [facility] Address [address] [place] [address] Phone Care Team Providers Care Construction Checker Name Role Phone Igor Ferrera MD Primary Care Provider [phone] Encounter Details Date Type Department Care Team (Late st Contact Info) Description 06/26/2022 Telephone [facility] Scheduling [address], [place] [id number] Emelyn Small Social History Tobacco Use Types Packs/Day Years Used Date Smoking Tobacco: Never Smokeless Tobacco: Never Alcohol Use Standard Drinks/Week Comments Yes 0 (1 standard drink = 0.6 oz pur e alcohol) Sex and Gender Information Value Date Recorded Sex Assigned at Not on file Legal Sex Male 1:39 PM HEEL SEAT POUNDER Gender Identity Not on file Sexual Orientation Not on file documented as of this encounter Miscellaneous Notes * Telephone Encounter - Jade Medina - 06/26/2022 9:54 AM CDT Records for x rays from [facility] and pt records from [facility] requested. * Telephone Encounter - Jade Medina - 06/26/2022 8:21 AM CDT Department of Neurological Surgery at [facility] Spine Intake 06/26/22 Jeffrey Garjeda 1950 [id number] Igor Ferrera MD Referring physician Self Referred to: Asked For Dr. Lomeli and Dr Cullen Second Opinion: No Insurance: Yes: Type of insurance Medicare Litigation: No Has the patient had spinal surgery within the last year? No Diagnosis: Back Pain Location (Spinal Area): Lumbar Imaging Done within Last Year: Yes List ALL X Ray June 2022 Imaging Location: [facility] [place] [id number] FAX [id number] Records Requested: Yes HT: 5,11 WT: 217 BMI: 30.3 Weakness: No Numbness: No Spinal Pain: Dull pain, Shooting Pain, lower extremity(ies)both , lower back, and both leg(s) Incontinence: No Duration of symptoms: past few months Spine surgery - within last 10 years: No Physical therapy within last year Yes Location: [facility] [place] [id number] FAX Records Requested: Yes Injections within last year No Are you a current smoker: No Reason for visit: New Pt Appt Date: 08/14/2022 Time: 9:30am Location: [facility] ([facility]) Provider COMPONENT ENGINEER - Kevyn Logan Routed: Directly to COMPONENT ENGINEER documented in this encounter Plan of Treatment Not on file documented as of this encounter Visit Diagnoses Not on filedocumented in this encounter Care Teams Construction Checker Relationship Specialty Start Date End Date Igor Ferrera MD PCP - General 09/12/18 documented as of this encounter
--- OUTSIDE RECORDS SUMMARY | 2024-04-13 18:32 | XMS_ITS | Encounter Summary ---
Author Organization [facility] Healthcare Address [address] [place] [address] Care Team Providers Care Superintendent Greens Name Role Phone Igor Ferrera MD Primary Care Provider [phone] Reason for Visit * Auth/Cert (Routine) Specialty Diagnoses / Procedures Referred By Opal vasques Referred To Contact Diagnoses Special screening for malignant neoplasms, colon Z12.11 colon screening for malignant neoplasms Procedures COLONOSCOPY Referral ID Status Reason Start Date Expiration Date Visits Re quested Visits Authorized [id number] 1 1 Encounter Details Date Type Department Care Team (Late st Contact Info) Description 11/05/2023 1:26 PM CDT Anesthesia Event [facility] [address] [place] [address] Jed Sevilla Jr., MD [address] [facility] [address] [place] [address] Satish Oneil, [address] [facility] [address] [place] [id number] Anesthesia Record Procedure Summary Procedure Name Responsible Anesthesiologist Anesthesia Start Time Anesthesia Stop Time COLON REMOVAL SNARE (Colon) Jed Sevilla Jr., MD 11/05/23 1326 11/05/23 1402 Events Date Time Event Comment 11/05/2023 1222 1326 An Start 1326 An Start Data 1327 In Room 1327 Start Supplemental O2 1330 Patient Positioned Laterally 1332 An Induction The patient was reevaluated immediately before moderate or deep sedation use and before anesthesia induction. 1332 Anesthesia Ready 1358 Out of Room 1358 an stop data 1402 Handoff to RN I completed my handoff to the receiving nurse during which we: 1. Patient identified 2. Responsible provider identified 3. Pertinent medical history reviewed 4. Procedure type and surgical course discussed 5. Intraoperative anesthetic management and any significant issues discussed 6. Expectations and concerns for postop period discussed 7. Questions solicited from receiving nurse 8. Patient disposition at the time of handoff: No value filed. 1402 An Stop Meds Name Total propofol 300 mg lidocaine 2 % 100 mg NS 0.9% 400 mL * Agents Name O2 * Blood No blood administrations on file. 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 Gender Identity Not on file Sexual Orientation Not on file documented as of this encounter OR Notes * Anesthesia Postprocedure Evaluation - Jed Sevilla Jr., MD - 11/13/2023 9:04 AM CDT Patient: Jeffrey Grajeda Procedure Summary Date: 11/05/23 Room / Location: ENDOSCOPY ROOM 2 / ENDOSCOPY Anesthesia Start: 1326 Anesthesia Stop: 1402 Procedure: COLON REMOVAL SNARE (Colon) Diagnosis: Special screening for malignant neoplasms, colon (Z12.11 colon screening for malignant neoplasms) Providers: Sandy Bateman MD Responsible Provider: Jed Sevilla Jr., MD Anesthesia Type: general TIVA ASA Status: 2 Anesthesia Type: general TIVA Last vitals BP 104/72 Pulse 71 Temp 37 ??C (98.6 ??F) (Skin) Resp 23 SpO2 99% Anesthesia Post Evaluation Patient location during evaluation: PACU Patient participation: complete - patient participated Level of consciousness: arouses hand stoner Pain score: 0 Pain management: adequate Airway patency: adequate Evidence of recall: no Cardiovascular status: acceptable Respiratory status: acceptable Hydration status: acceptable Pt is: normothermic Nausea/Vomiting status: none No notable events documented. * Anesthesia Preprocedure Evaluation - Jed Sevilla Jr., MD - 11/05/2023 12:13 PM CDT Images from the original note were not included. Anesthesia Evaluation Jeffrey Grajeda is a 73 y.o. male COLONOSCOPY (Colon) Pre-Op Diagnosis Codes: * Special screening for malignant neoplasms, colon [Z12.11] HISTORY Past Medical History Information obtained from: patient and chart. Cardiovascular + Hypertension + Hyperlipidemia Gastrointestinal + GERD Endocrine / Other + Diabetes mellitus - Diabetes type 2. Patient Active Problem List Diagnosis Date Noted Precordial pain 05/20/2023 Type 2 diabetes mellitus without complication (CMS/HCC) (HCC) 05/20/2023 Primary hypertension 08/14/2022 Type 2 diabetes mellitus with hyperglycemia (CMS/HCC) (HCC) 08/14/2022 Past Medical History: Diagnosis Date Diabetes (HCC) GERD (gastroesophageal reflux disease) HLD (hyperlipidemia) HTN (hypertension) Wears glasses Past Surgical History: Procedure Laterality Date CARDIAC CATHETERIZATION HAND SURGERY TONSILLECTOMY No Known Allergies Taking? Last Dose Start Date End Date Provider acyclovir (ZOVIRAX) 400 mg tablet Past Week -- -- Monique Weinstein MD aspirin 81 mg enteric coated tablet Past Week -- -- Monique Weinstein MD atorvastatin (LIPITOR) 40 mg tablet Unknown -- -- oMnique Weinstein MD dilTIAZem CD 240 mg 24 hr capsule Past Week 06/05/23 06/04/24 Nancy Srivastava MD Take 1 capsule (240 mg total) by mouth daily fluorouraciL (EFUDEX) 5 % cream Past Week 05/08/23 -- Monique Weinstein MD gabapentin (NEURONTIN) 300 mg capsule () -- 09/14/18 09/14/19 Bradford Wallis MD Take 1 capsule (300 mg total) by mouth nightly hydroCHLOROthiazide (HYDRODIURIL) 25 mg tablet Past Week -- -- Monique Weinstein MD lidocaine (LIDODERM) 5 % () -- 06/08/22 05/20/[address] 1 patch on the skin daily Remove & discard patch within 12 hours or as directed by . metFORMIN (GLUCOPHAGE) 500 mg tablet Past Week -- -- Monique Weinstein MD nateglinide (STARLIX) 120 mg tablet Unknown -- -- Monique Weinstein MD Ozempic 1 mg/dose (4 mg/3 mL) pen injector injection Past Week 06/26/22 -- Monique Weinstein MD sildenafiL, pulm.hypertension, (REVATIO) 20 mg tablet Unknown -- -- Monique Weinstein MD tamsulosin (FLOMAX) 0.4 mg extended release capsule Past Week 01/08/22 -- Monique Weinstein MD No current facility-administered medications for this encounter. Social History Tobacco Use Smoking Status Never Smokeless Tobacco Never Alcohol Use: Not At Risk (11/05/2023) AUDIT-C Frequency of Alcohol Consumption: Never Average Number of Drinks: Patient does not drink Frequency of Binge Drinking: Never Substance and Sexual Activity Drug Use Never Family History Problem Relation Age of Onset Coronary artery disease Father Hypertension Father Stroke Father Vitals: 11/05/23 1209 BP: 136/76 Pulse: 71 Resp: 12 Temp: 37 ??C (98.6 ??F) SpO2: 97% PT: No results found for requested labs within last 30 days. INR: No results found for requested labs within last 30 days. APTT: No results found for requested labs within last 30 days. Hgb A1C: No results found for requested labs within last 30 days. CBC RBC: No results found for requested labs within last 30 days. RDW: No results found for requested labs within last 30 days. MCHC: No results found for requested labs within last 30 days. MCH: No results found for requested labs within last 30 days. MCV: No results found for requested labs within last 30 days. Hct: No results found for requested labs within last 30 days. Hgb: No results found for requested labs within last 30 days. WBC: No results found for requested labs within last 30 days. MPV: No results found for requested labs within last 30 days. Platelets: No results found for requested labs within last 30 days. RDW CV: No results found for requested labs within last 30 days. RDW Sd: No results found for requested labs within last 30 days. BMP Glucose: 11/05/2023: 125 mg/dL Calcium: No results found for requested labs within last 30 days. Sodium: No results found for requested labs within last 30 days. Potassium: No results found for requested labs within last 30 days. CO2: No results found for requested labs within last 30 days. Chloride: No results found for requested labs within last 30 days. BUN: No results found for requested labs within last 30 days. Creatinine: No results found for requested labs within last 30 days. STOP-Bang Total Score: 3 DOS Physical Exam Medical history, medications, and allergies reviewed. Attestation: This PAT evaluation 11/05/2023. Airway Exam: Mallampati: I Cervical ROM: FROM TM distance: normal Cardiovascular Exam: Rate: regular Rhythm: regular Pulmonary Exam: LCTA, bilat EENT Exam: trachea midline Dental Exam: Appears intact Skin Exam: Skin is warm. Capillary refill is < 3 seconds. Turgor is normal. Current state: Patient's current state is cooperative and interactive. Anesthesia Plan ASA 2 Planned anesthesia: General TIVA Induction: Induction: intravenous. Postoperative Plan: No plan for postoperative opioid use. No postoperative mechanical ventilation intended. Patient's planned disposition post procedure is Outpatient. Informed Consent: Discussed plan with PULP ROLLER, attending and AA. Anesthesia plan and risks discussed with patient. Consent and Attending signature: I and/or my designee have discussed the anesthesia plan, benefits, possible alternatives, parental presence at time of induction (if indicated), and clinically relevant risks that may include dental injury, unintentional awareness, and/or other complications. The patient and/or parent/legal guardian understand, and agree to proceed. All questions answered. documented in this encounter Plan of Treatment Not on file documented as of this encounter Visit Diagnoses Not on filedocumented in this encounter Administered Medications Inactive Administered Medications - up to 3 most recent administrations Medication Order MAR Action Action Date Dose Rate Site lidocaine (PF) (XYLOCAINE) 20 mg/mL (2 %) preservative free injection intravenous, As needed, Starting on Stephanie 11/05/23 at 1332, Anesthesia Intra-op Given 11/05/2023 1:32 PM CDT 100 mg propofoL (DIPRIVAN) 10 mg/mL IV intravenous, As needed, Starting on Stephanie 11/05/23 at 1332, Anesthesia Intra-op Given 11/05/2023 1:54 PM CDT 20 mg Given 11/05/2023 1:52 PM CDT 20 mg Given 11/05/2023 1:50 PM CDT 20 mg sodium chloride 0.9% infusion intravenous, Continuous PRN, Starting on Stephanie 11/05/23 at 1326, Anesthesia Intra-op New Bag 11/05/2023 1:26 PM CDT documented in this encounter Care Teams Superintendent Greens Relationship Specialty Start Date End Date Igor Ferrera MD PCP - General 09/12/18 documented as of this encounter
--- OUTSIDE RECORDS SUMMARY | 2024-04-13 18:32 | XMS_ITS | Encounter Summary ---
Author Organization [facility] Healthcare Address [address] [place] [address] Care Team Providers Care Molded Frames Assembler Name Role Phone Igor Ferrera MD Primary Care Provider [phone] Reason for Referral * MRI/CAT/PET Scan (Routine) - Closed Specialty Diagnoses / Procedures Referred By Contac t Referred To Contact Radiology Diagnoses Spondylolisthesis of lumbar region Procedures MRI Lumbar Spine WO Contrast Kevyn Logan PA [address] [place] [address] Phone: tel: fax: [address] [phone] Referral ID Status Reason Start Date Expiration Date Visits Re quested Visits Authorized [id number] Closed 08/15/2022 02/11/2023 1 1 Reason for Visit * MRI/CAT/PET Scan (Routine) - Closed Specialty Diagnoses / Procedures Referred By Contac t Referred To Contact Radiology Diagnoses Spondylolisthesis of lumbar region Procedures MRI Lumbar Spine WO Contrast Kevyn Logan PA [address] [place] [address] Phone: tel: fax: [address] [phone] Referral ID Status Reason Start Date Expiration Date Visits Re quested Visits Authorized [id number] Closed 08/15/2022 02/11/2023 1 1 Encounter Details Date Type Department Care Team (Latest Contact Info) Description 08/28/2022 11:55 AM CDT - 08/28/2022 11:59 PM CDT Hospital Encounter [facility] MRI [address] [place] [address] Spondylolisthesis of lumbar region Discharge Disposition: Discharge to home or self care Social History Tobacco Use Types Packs/Day Years Used Date Smoking Tobacco: Never Smokeless Tobacco: Never Alcohol Use Standard Drinks/Week Comments Yes 0 (1 standard drink = 0.6 oz pur e alcohol) Sex and Gender Information Value Date Recorded Sex Assigned at Not on file 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 30 patch 06/08/2022 metFORMIN (GLUCOPHAGE) 500 mg [...] for muscle spasms 5 tablet 06/10/2022 4 dilTIAZem CD 240 mg 24 hr capsule 08/04/2022 06/05/19 2 4 famotidine (PEPCID) 40 mg tablet Take [...] Procedure Name Priority Date/Time Associated Diagnosis Comments MRI LUMBAR SPINE WO CONTRAST Schedule Routine, Read Routine (OP Routine) 08/28/2022 12:41 PM CDT Spondylolisthesis of lumbar region documented in this encounter Results * MRI Lumbar Spine WO Contrast (08/28/2022 12:41 PM CDT) Anatomical Region Laterality Modality Spine N/A Magnetic Resonan ce 08/28/2022 1:56 PM CDT Narrative 08/28/2022 2:07 PM CDT EXAM DESCRIPTION: ?? MRI LUMBAR SPINE WO CONTRAST REASON FOR STUDY: ?? Back pain or radiculopathy, > 6 wks ?? Pt states intermittent chronic back pain x 15 years. Lower back pain returned in June and radiates into right lower extremity. Pain has subsided recently. ?? TECHNIQUE: ??Sagittal and Axial imaging includes T1, T2, STIR sequences. ? COMPARISON: ?? Lumbar spine MRI dated 09/13/2018 FINDINGS: SEGMENTATION: ?? 5 pse-ilh-znyjave lumbar type vertebral bodies. ALIGNMENT: ?? Chronic bilateral L5 pars defect with grade 1 anterolisthesis of L5 on S1. VERTEBRAE: ?? No acute compression fracture in the lumbar spine. ??Endplate degenerative changes and marginal spur formation is most noticeable at L5-S1. ?? Mid to lower lumbar predominant facet arthropathy. ??The L4 vertebral body inferior margin T2/STIR hyperintense, T1 intermediate signal is nonspecific but similar when compared to the previous MRI of 09/13/2018 and could reflect an atypical intraosseous hemangioma. ??Elsewhere the rounded T1 and T2 hyperintense foci including in the L2 vertebral body and left posterior margin of S1 segment in keeping with intraosseous hemangiomas. DISC HEIGHT: ?? Disc desiccation and height loss favoring L5-S1. HARDWARE: ?? None in the spine. CORD/CAUDA: ?? Conus medullaris terminates at T12-L1. LOWER THORACIC: ?? Incompletely imaged. No high-grade spinal canal stenosis. INDIVIDUAL DISC LEVELS: L1-L2: Significant disc bulge, spinal canal or neural foraminal narrowing there is bilateral facet arthropathy with trace facet joint effusion L2-L3: Disc bulge with thickened ligamentum flavum and bilateral facet arthropathy. ??Flattening of the ventral thecal sac. ??No significant neural foraminal narrowing. L3-L4: Disc bulge with superimposed bilateral neural foraminal disc protrusions. ??Thickened ligamentum flavum and facet arthropathy. ??At least moderate spinal canal stenosis. ??Lateral recess effacement on both sides. ?? Mild right and ssbp-ay-qzaqtxqt left neural foraminal narrowing. ??Portion of the disc contacting the undersurface of the exiting L3 nerve roots. L4-L5: Disc bulge with marginal spur formation. ??Thickened ligamentum flavum and facet arthropathy. ??Zion-px-avdpddrx spinal canal stenosis. ??Left greater than right lateral recess effacement. ??Mild bilateral neural foraminal narrowing. L5-S1: Anterolisthesis of L5 on S1 with unroofing of the disc. ??Bilateral facet arthropathy. ??No significant spinal canal stenosis. ??Right greater than left lateral recess effacement with disc and facet arthropathy contacting the descending S1 nerve roots. ??Severe bilateral neural foraminal narrowing with mass effect on the exiting L5 nerve roots. OTHER: Left renal medial margin rounded T2 hyperintense signal is incompletely characterized on this MRI and could reflect a cyst. ??The need for dedicated imaging as clinically indicated. IMPRESSION: ?? 1. ?? The multilevel lumbar degenerative changes have slightly progressed when compared to the previous MRI of 09/13/2018 as described. ??The spinal canal narrowing is most noticeable at L3-L4 and L4-L5. 2. ?? Varying degrees of bilateral neural foraminal stenosis ranging up to severe at L5-S1. 3. ?? Chronic bilateral L5 pars defect with grade 1 anterolisthesis of L5 on S1 and additional findings as above. THIS IS AN ELECTRONICALLY VERIFIED FINAL REPORT 08/28/2022 2:07 PM - Electronically signed by ??Shashank LOONEY D: ??08/28/2022 2:07 PM T: Report ID: [id number] Reading Location: ??[id number] Procedure Note Shashank Childs, DO - 08/28/2022 EXAM DESCRIPTION: MRI LUMBAR SPINE WO CONTRAST REASON FOR STUDY: Back pain or radiculopathy, > 6 wks Pt states intermittent chronic back pain x 15 years. Lower back painreturned in June and radiates into right lower extremity. Pain has subsidedrecently. TECHNIQUE: Sagittal and Axial imaging includes T1, T2, STIR sequences. COMPARISON: Lumbar spine MRI dated 09/13/2018 FINDINGS: SEGMENTATION: 5 cct-wae-zfrrmqg lumbar type vertebral bodies. ALIGNMENT: Chronic bilateral L5 pars defect with grade 1 anterolisthesisof L5 on S1. VERTEBRAE: No acute compression fracture in the lumbar spine. Endplate degenerative changes and marginal spur formation is most noticeable atL5-S1. Mid to lower lumbar predominant facet arthropathy. The L4 vertebral body inferior margin T2/STIR hyperintense, T1 intermediate signal isnonspecific but similar when compared to the previous MRI of 09/13/2018 and couldreflect an atypical intraosseous hemangioma. Elsewhere the rounded T1 and T2 hyperintense foci including in the L2 vertebral body and left posteriormargin of S1 segment in keeping with intraosseous hemangiomas. DISC HEIGHT: Disc desiccation and height loss favoring L5-S1. HARDWARE: None in the spine. CORD/CAUDA: Conus medullaris terminates at T12-L1. LOWER THORACIC: Incompletely imaged. No high-grade spinal canalstenosis. INDIVIDUAL DISC LEVELS: L1-L2: Significant disc bulge, spinal canal or neural foraminal narrowing there is bilateral facet arthropathy with trace facet joint effusion L2-L3: Disc bulge with thickened ligamentum flavum and bilateral facet arthropathy. Flattening of the ventral thecal sac. No significant neural foraminal narrowing. L3-L4: Disc bulge with superimposed bilateral neural foraminal disc protrusions. Thickened ligamentum flavum and facet arthropathy. At least moderate spinal canal stenosis. Lateral recess effacement on both sides. Mild right and chij-ep-evnrozlo left neural foraminal narrowing. Portionof the disc contacting the undersurface of the exiting L3 nerve roots. L4-L5: Disc bulge with marginal spur formation. Thickened ligamentumflavum and facet arthropathy. Fyeb-cw-xwkpjryv spinal canal stenosis. Leftgreater than right lateral recess effacement. Mild bilateral neural foraminal narrowing. L5-S1: Anterolisthesis of L5 on S1 with unroofing of the disc. Bilateral facet arthropathy. No significant spinal canal stenosis. Right greaterthan left lateral recess effacement with disc and facet arthropathy contactingthe descending S1 nerve roots. Severe bilateral neural foraminal narrowingwith mass effect on the exiting L5 nerve roots. OTHER: Left renal medial margin rounded T2 hyperintense signal isincompletely characterized on this MRI and could reflect a cyst. The need fordedicated imaging as clinically indicated. IMPRESSION: 1. The multilevel lumbar degenerative changes have slightly progressedwhen compared to the previous MRI of 09/13/2018 as described. The spinal canal narrowing is most noticeable at L3-L4 and L4-L5. 2. Varying degrees of bilateral neural foraminal stenosis ranging up to severe at L5-S1. 3. Chronic bilateral L5 pars defect with grade 1 anterolisthesis of L5on S1 and additional findings as above. THIS IS AN ELECTRONICALLY VERIFIED FINAL REPORT 08/28/2022 2:07 PM - Electronically signed by Shashank LOONEY T: Report ID: [id number] Reading Location: [id number] [facility] MRI PROCEDURES Fin al Result documented in this encounter Visit Diagnoses Diagnosis Spondylolisthesis of lumbar region documented in this encounter Care Teams Molded Frames Assembler Relationship Specialty Start Date End Date Igor Ferrera MD PCP - General 09/12/18 documented as of this encounter
--- OUTSIDE RECORDS SUMMARY | 2024-04-13 18:32 | XMS_ITS | Encounter Summary ---
Author Organization [facility] Address [address] [place] [address] Phone Care Team Providers Care Treatment Manager Name Role Phone Igor Ferrera MD Primary Care Provider [phone] Encounter Details Date Type Department Care Team (Late st Contact Info) Description 11/18/2022 Orders Only [facility] Neurosurgery [address] [facility] Advanced Medicine 6th [place] [address] [place] [id number] Kevyn Logan PA [address] [place] [address] Social History Tobacco Use Types Packs/Day Years Used Date Smoking Tobacco: Never Smokeless Tobacco: Never Alcohol Use Standard Drinks/Week Comments Yes 0 (1 standard drink = 0.6 oz pur e alcohol) Sex and Gender Information Value Date Recorded Sex Assigned at Not on file 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
--- OUTSIDE RECORDS SUMMARY | 2024-04-13 18:32 | XMS_ITS | Encounter Summary ---
Author Organization [facility] Healthcare Address [address] [place] [address] Care Team Providers Care Rehabilitation Caseworker Name Role Phone Igor Ferrera MD Primary Care Provider [phone] Reason for Referral * Diagnostic Imaging (Routine) - Closed Specialty Diagnoses / Procedures Referred By Contac t Referred To Contact Diagnoses Low back pain, non-specific Procedures XR Scoliosis 6 or More Views Kevyn Logan PA [address] [place] [address] Phone: tel: fax: [address] [address] Referral ID Status Reason Start Date Expiration Date Visits Re quested Visits Authorized [id number] Closed 08/05/2022 09/04/2023 1 1 Reason for Visit * Diagnostic Imaging (Routine) - Closed Specialty Diagnoses / Procedures Referred By Contac t Referred To Contact Diagnoses Low back pain, non-specific Procedures XR Scoliosis 6 or More Views Kevyn Logan PA [address] [place] [address] Phone: tel: fax: [address] [place] [address] Referral ID Status Reason Start Date Expiration Date Visits Re quested Visits Authorized [id number] Closed 08/05/2022 09/04/2023 1 1 Encounter Details Date Type Department Care Team (Latest Contact Info) Description 08/14/2022 8:51 AM CDT - 08/14/2022 11:59 PM CDT Hospital Encounter [id number] [address] [facility] [address] [place] [address] Low back pain, non-specific Discharge Disposition: Discharge to home or self care Social History Tobacco Use Types Packs/Day Years Used Date Smoking Tobacco: Never Smokeless Tobacco: Never Alcohol Use Standard Drinks/Week Comments Yes 0 (1 standard drink = 0.6 oz pur e alcohol) Sex and Gender Information Value Date Recorded Sex Assigned at Not on file Legal Sex 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 2. ??Moderate degenerative disc disease at L5-S1. 3. Minimal long segment thoracolumbar dextrocurvature. Dictated by: Fidel Alvarez M.D. The radiology attending physician has personally reviewed this study, and had reviewed and/or edited this written report and agrees with it. Electronically signed by: Isaias Bach MD Narrative 08/14/2022 9:43 AM CDT EXAMINATION: ??XR SCOLIOSIS ??6 OR MORE VIEWS HISTORY: ??Back pain FINDINGS: ?? Comparison is made to 06/09/2022 and MRI 09/13/2018. Minimal long segment dextrocurvature of the thoracolumbar spine. Apparent positive sagittal imbalance may be positional. ??Coronal balance is neutral. ??No pelvic obliquity. Bilateral pars interarticularis defects at L5-S1 with grade 1 spondylolisthesis which worsened slightly with flexion. ??Moderate degenerative disc disease is seen at this level. ??The vertebral body heights are normal. Procedure Note Isaias Bach MD - 08/14/2022 EXAMINATION: XR SCOLIOSIS 6 OR MORE VIEWS HISTORY: Back pain FINDINGS: Comparison is made to 06/09/2022 and MRI [...] L5-S1. 3. Minimal long segment thoracolumbar dextrocurvature. Dictated by: Fidel Alvarez M.D. The radiology attending physician has personally reviewed this study, and had reviewed and/or edited this written report and agrees with it. Electronically signed by: Isaias Bach MD Kevyn CORONADO IMG XR PROCEDURES Maty l Result documented in this encounter Visit Diagnoses Diagnosis Low back pain, non-specific documented in this encounter Care Teams Rehabilitation Caseworker Relationship Specialty Start Date End Date Igor Ferrera MD PCP - General 09/12/18 documented as of this encounter
--- OUTSIDE RECORDS SUMMARY | 2024-04-13 18:32 | XMS_ITS | Encounter Summary ---
Author Organization [facility] Healthcare Address [address] [place] [address] Care Team Providers Care Heating And Ventilating Worker Name Role Phone Igor Ferrera MD Primary Care Provider [phone] Reason for Visit * Reason Comments Hiccups Encounter Details Date Type Department Care Team (Late st Contact Info) Description 06/11/2022 12:41 AM PRESSURE TESTER OPERATOR - 06/11/2022 3:20 AM PRESSURE TESTER OPERATOR Emergency [facility] Emergency Department [address] [place] [address] Lenny Peralta MD [address] [place] [address] Kailey Marte MD [address] [place] [address] Hiccups (Primary Dx) Discharge Disposition: Discharge to home or self care Social History Tobacco Use Types Packs/Day Years Used Date Smoking Tobacco: Never Smokeless Tobacco: Never Alcohol Use Standard Drinks/Week Comments Yes 0 (1 standard drink = 0.6 oz pur e alcohol) Sex and Gender Information Value Date Recorded Sex Assigned at Not on file Legal Sex Male 1:39 PM PRESSURE TESTER OPERATOR Gender Identity Not on file Sexual Orientation Not on file documented as of this encounter Last Filed Vital Signs Vital Sign Reading Time Taken Comments Blood Pressure 133/83 06/11/2022 3:15 AM PRESSURE TESTER OPERATOR Pulse 69 06/11/2022 3:15 AM PRESSURE TESTER OPERATOR Temperature 36.3 ??C (97.4 ??F) 06/10/2022 10:[address] Respiratory Rate 16 06/11/2022 3:15 AM PRESSURE TESTER OPERATOR Oxygen Saturation 100% 06/11/2022 3:15 AM PRESSURE TESTER OPERATOR Inhaled Oxygen Concentration - - Weight 99.3 kg (219 lb) 06/10/2022 10:51 PM PRESSURE TESTER OPERATOR Height 180.3 cm (5' 11 ) 06/10/2022 10:51 PM PRESSURE TESTER OPERATOR Body Mass Index 30.54 06/10/2022 10:51 PM PRESSURE TESTER OPERATOR documented in this encounter Discharge Instructions * Attachments The following attachments cannot be sent through Care Everywhere. * Hiccups (AfterCare(R) Instructions(ER/ED)) ([place] Citizen) documented in this encounter Medications at Time [...] tablet (120 mg total) by mouth nightly tamsulosin (FLOMAX) 0.4 mg extended release capsule Take 1 capsule (0.4 mg total) by mouth daily 01/08/2022 methylPREDNISolo ne (MEDROL DOSEPACK) 4 mg Dosepack Take as directed on package 1 packet 06/08/2022 3 acetaminophen (TYLENOL) 325 mg tablet Take 2 [...] dysfunction 4 documented as of this encounter Ordered Prescriptions Prescription Sig Dispense Quantity Refills Last Filled Start Date End Date chlorproMAZINE (THORAZINE) 10 mg tabletIndications: Intractable Hiccups Take 1 tablet (10 mg total) by mouth 3 (three) times a day as needed (Hiccups) 10 tablet 06/11/2022 05/20/2023 documented in this encounter Discharge Disposition Disposition Code Departure Means Destination Comment s Discharge to home or self care documented in this encounter ED Notes * Lenny Peralta MD - 06/11/2022 2:06 AM CST HPI Chief Complaint Patient presents with Hiccups Patient comes to the emergency room today with recurrence of hiccups. Patient states he was here earlier today with similar complaint. He states over the last several days he has had intermittently intractable hiccups. He denies any additional complaints of chest pain, shortness of breath, or abdominal pain. History provided by: Spouse Patient History: There are no problems to display for this patient. Past Medical History: Diagnosis Date Diabetes (HCC) GERD (gastroesophageal reflux disease) HLD (hyperlipidemia) HTN (hypertension) Wears glasses Past Surgical History: Procedure Laterality Date CARDIAC CATHETERIZATION HAND SURGERY TONSILLECTOMY Family History Problem Relation Age of Onset Coronary artery disease Father Hypertension Father Stroke Father Social History Tobacco Use Smoking status: Never Smokeless tobacco: Never Substance and Sexual Activity Alcohol use: Yes Drug use: Never Sexual activity: None Social History Social History Narrative Not on file Review of Systems Review of Systems Constitutional: Negative for chills and fever. HENT: Negative for ear pain and sore throat. Eyes: Negative for pain and visual disturbance. Respiratory: Negative for cough and shortness of breath. Cardiovascular: Negative for chest pain and palpitations. Gastrointestinal: Negative for abdominal pain and vomiting. Genitourinary: Negative for dysuria and hematuria. Musculoskeletal: Negative for arthralgias and back pain. Skin: Negative for color change and rash. Neurological: Negative for seizures and syncope. All other systems reviewed and are negative. Physical Exam ED Triage Vitals [06/10/22 2251] Temp Pulse Resp BP SpO2 36.3 ??C (97.4 ??F) 64 18 129/67 99 % Temp src Heart Rate Source Patient Position BP Location FiO2 (%) Oral -- -- -- -- Height Height Method Weight Weight Method 1.803 m (5' 11 ) Stated 99.3 kg (219 lb) Stated Physical Exam Vitals and nursing note reviewed. Constitutional: General: He is not in acute distress. Appearance: He is well-developed. He is not ill-appearing, toxic-appearing or diaphoretic. HENT: Head: Normocephalic and atraumatic. Eyes: Conjunctiva/sclera: Conjunctivae normal. Cardiovascular: Rate and Rhythm: Normal rate and regular rhythm. Pulses: Normal pulses. Heart sounds: No murmur heard. Pulmonary: Effort: Pulmonary effort is normal. No respiratory distress. Breath sounds: Normal breath sounds. Abdominal: General: Abdomen is flat. There is no distension. Palpations: Abdomen is soft. Tenderness: There is no abdominal tenderness. There is no right CVA tenderness, left CVA tenderness, guarding or rebound. Musculoskeletal: General: No swelling. Cervical back: Normal range of motion and neck supple. Skin: General: Skin is warm and dry. Capillary Refill: Capillary refill takes less than 2 seconds. Neurological: General: No focal deficit present. Mental Status: He is alert. Psychiatric: Mood and Affect: Mood normal. MDM Medical Decision Making Patient presents to the emergency department today with recurrence of hiccups. Prior to my evaluation, the patient received a GI cocktail while still in triage. He states that this was able to relieve his hiccups. We will initiate a diagnostic workup looking for occult emergencies causing hiccups. We will observe the patient in the emergency department to determine if he has achieved relief or needs further observation/treatment. I suspect that the patient will be safe for discharge with GI follow-up. Risk Prescription drug management. ED Course as of 06/13/222302 Time: 06/11 110 Comment: On my review, ECG shows a bifascicular block. It is unclear if this is new as there are noprior ECGs in our system. By: Lenny Peralta MD Time: 06/12 207 Comment: I reviewed the patient's prior records in chart review and care everywhere. By: Lenny Peralta MD Time: 06/12 315 Comment: Patient discharged by Dr. Peralta. 72 with hiccups. Hiccups resolved after GI cocktail. Currently awaiting DC home. By: Kailey Marte MD Final diagnoses: Hiccups Lenny Peralta MD 06/13/222302 SURE TESTER OPERATOR * Fernanda Perla, LUCIEN - 06/10/2022 10:50 PM CST Pt reports he was seen earlier today for hiccups and continues to hiccup. SURE TESTER OPERATOR documented in this encounter Plan of Treatment Not on file documented as of this encounter Procedures Procedure Name Priority Date/Time Associated Diagnosis Comments TROPONIN T HIGH-SENSITIVITY 2-HOUR Timed 06/11/2022 1:54 AM PRESSURE TESTER OPERATOR ECG 12-LEAD STAT 06/11/2022 12:06 AM PRESSURE TESTER OPERATOR TROPONIN T HIGH-SENSITIVITY SERIES (BASELINE, 2HR, 4HR, 6HR) STAT 06/10/2022 11:52 PM PRESSURE TESTER OPERATOR EGFR STAT 06/10/2022 11:52 PM PRESSURE TESTER OPERATOR DIFFERENTIAL AUTO STAT 06/10/2022 11: 52 PM PRESSURE TESTER OPERATOR CBC WITH AUTO DIFFERENTIAL STAT 06/10/2022 11:52 PM PRESSURE TESTER OPERATOR COMPREHENSIVE METABOLIC PANEL STAT 06/10/2022 11:52 PM PRESSURE TESTER OPERATOR documented in this encounter Results * Troponin T high-sensitivity 2-hour (06/11/2022 1:54 AM PRESSURE TESTER OPERATOR) Trop T hs 14 <=22 ng/L [facility] Comment: Interpretive Data For further hscTnT resources including the diagnostic algorithm and an aid in interpretation, copy and paste this link: https://nrl.testcatalog.org/show/hsTrop Current Interpretive Data last revised 2020. Trop T hs delta 1 ng/L [facility] Trop T hs interp Insignificant [facility] Blood 06/11/2022 1:54 AM PRESSURE TESTER OPERATOR 06/11/2022 2:01 AM PRESSURE TESTER OPERATOR us Lenny Peralta MD LAB BLOOD ORDERABLES Fin al Result [facility] [address] Department [place] [address] * ECG 12 lead (06/11/2022 12:06 AM PRESSURE TESTER OPERATOR) 06/11/2022 12:0 6 AM PRESSURE TESTER OPERATOR Narrative [facility] - 06/11/2022 11:13 AM PRESSURE TESTER OPERATOR Vent Rate: 63 bpm RR Interval: 946 msec WI Interval: 192 msec QRS Duration: 169 msec QT Interval: 438 msec QTC Interval: 445 msec P-R-T Marshall: 35 - -64 - 21 degrees SINUS RHYTHM RIGHT BUNDLE BRANCH BLOCK ??[120+ ms QRS DURATION, UPRIGHT V1, 40+ ms S IN I/aVL/V4/V5/V6] LEFT ANTERIOR FASCICULAR BLOCK ??[QRS AXIS <= -45, QR IN I, RS IN II] VOLTAGE CRITERIA FOR LVH ??[MEETS CRITERIA IN ONE OF: R(aVL), S(V1), R(V5), R(V5/V6)+S(V1)] ABNORMAL ECG Electronically Signed By: Satish Levin MD [facility] us Angel Lomeli MD ECG ORDERABLES Final Result [facility] * Troponin T high-sensitivity series (baseline, 2hr, 4hr, 6hr) (06/10/2022 11:52 PM PRESSURE TESTER OPERATOR) Trop T hs 13 <=22 ng/L [facility] Comment: Interpretive Data For further hscTnT resources including the diagnostic algorithm and an aid in interpretation, copy and paste this link: https://nrl.testcatalog.org/show/hsTrop Current Interpretive Data last revised 2020. Blood 06/10/2022 11:5 2 PM PRESSURE TESTER OPERATOR 06/10/2022 11:57 PM PRESSURE TESTER OPERATOR us Lenny Peralta MD LAB BLOOD ORDERABLES Fin al Result [facility] [address] Department [place] [address] * eGFR (06/10/2022 11:52 PM PRESSURE TESTER OPERATOR) eGFR 87 mL/min/1. 73 m2 [facility] Comment: Interpretive Data Reference Interval Normal ?>/= [...] reviewed 2021. Blood 06/10/2022 11:5 2 PM PRESSURE TESTER OPERATOR 06/10/2022 11:57 PM PRESSURE TESTER OPERATOR us Angel Lomeli MD LAB BLOOD ORDERABLES Final R esult [facility] [address] Department [place] [address] * Differential, auto (06/10/2022 11:52 PM PRESSURE TESTER OPERATOR) Pathologist [facility] Neutrophil abs 4.7 1.7 - 6.5 K/cumm [facility] Imm gran abs 0.0 0.0 - 0.1 K/cumm [facility] Lymphocyte abs 1.9 0.8 - 3.3 K/cumm [facility] Monocyte abs 0.5 0.2 - 0.8 K/cumm [facility] Eosinophil abs 0.0 0.0 - 0.5 K/cumm [facility] Basophil abs 0.0 0.0 - 0.1 K/cumm [facility] Neutrophil pct 65.0 % [facility] Comment: Interpretive Data Percent cell count reference ranges are not reported, since discordance with absolute values may lead to misinterpretation of CBC data. Current Interpretive Data was last revised on 2017. Imm gran pct 0.6 % [facility] Comment: Interpretive Data Percent cell count reference ranges are not reported, since discordance with absolute values may lead to misinterpretation of CBC data. Current Interpretive Data was last revised on 2017. Lymphocyte pct 26.1 % [facility] Comment: Interpretive Data Percent cell count reference ranges are not reported, since discordance with absolute values may lead to misinterpretation of CBC data. Current Interpretive Data was last revised on 2017. Monocyte pct 7.3 % [facility] Comment: Interpretive Data Percent cell count reference ranges are not reported, since discordance with absolute values may lead to misinterpretation of CBC data. Current Interpretive Data was last revised on 2017. Eosinophil pct 0.6 % [facility] Comment: Interpretive Data Percent cell count reference ranges are not reported, since discordance with absolute values may lead to misinterpretation of CBC data. Current Interpretive Data was last revised on 2017. Basophil pct 0.4 % [facility] Comment: Interpretive Data Percent cell count reference ranges are not reported, since discordance with absolute values may lead to misinterpretation of CBC data. Current Interpretive Data was last revised on 2017. Blood 06/10/2022 11:5 2 PM PRESSURE TESTER OPERATOR 06/10/2022 11:57 PM PRESSURE TESTER OPERATOR us Angel Lomeli MD LAB BLOOD ORDERABLES Final R esult [facility] [address] Department [place] [address] * Comprehensive metabolic panel (06/10/2022 11:52 PM PRESSURE TESTER OPERATOR) Sodium 138 135 - 145 mmol/L [facility] Potassium, pl 3.9 3.3 - 4.9 mmol/L [facility] Chloride 98 97 - 110 mmol/L [facility] CO2 25 22 - 32 mmol/L [facility] Anion gap 15 2 - 15 mmol/L [facility] BUN 15 8 - 25 mg/dL [facility] Creatinine 0.94 0.80 - 1.30 mg/dL [facility] Glucose 146 70 - 199 mg/dL [facility] Comment: Interpretive Data Fasting glucose >/= 126 mg/dl is diagnostic for diabetes. ?? Fasting is defined as no caloric intake for at least 8 hours. Fasting glucose between 100 mg/dl to 125 mg/dl is diagnostic of prediabetes. In a patient with classic symptoms of hyperglycemia or hyperglycemic crisis, a random glucose >/= 200 mg/dl is diagnostic for diabetes. In the absence of unequivocal hyperglycemia, results should be confirmed by repeat testing. The classification and Diagnosis of Diabetes Diabetes Care 2021; 46: S19-S40. Current interpretive data was last revised 2022. Calcium 9.4 8.5 - 10.3 mg/dL [facility] Bilirubin, total 0.5 0.1 - 1.2 mg/dL [facility] Protein, pl 6.5 6.5 - 8.5 g/dL [facility] Albumin 4.4 3.5 - 5.0 g/dL [facility] Alk phos 52 40 - 130 Units/L [facility] ALT 17 7 - 55 Units/L [facility] AST 21 10 - 50 Units/L [facility] Comment:Slightly Hemolyzed S pecimen Blood 06/10/2022 11:5 2 PM PRESSURE TESTER OPERATOR 06/10/2022 11:57 PM PRESSURE TESTER OPERATOR us Angel Lomeli MD LAB BLOOD ORDERABLES Final R esult [facility] [address] Department [place] [address] * CBC with auto differential (06/10/2022 11:52 PM PRESSURE TESTER OPERATOR) WBC 7.2 3.8 - 9.9 K/cumm [facility] Hgb 13.7 13.0 - 17.5 g/dL [facility] Hct 41.6 38.9 - 50.3 % [facility] Plt 178 150 - 400 K/cumm [facility] MPV 10.5 9.1 - 12.3 fL [facility] RBC 4.40 4.30 - 5.80 M/cumm [facility] MCV 94.5 81.3 - 96.4 fL [facility] MCH 31.1 27.1 - 33.3 pg [facility] MCHC 32.9 32.3 - 35.7 g/dL [facility] RDW CV 12.7 11.1 - 14.9 % [facility] RDW SD 44.0 35.7 - 48.1 fL [facility] NRBC abs 0.00 0.00 - 0.01 K/cumm [facility] Blood 06/10/2022 11:5 2 PM PRESSURE TESTER OPERATOR 06/10/2022 11:57 PM PRESSURE TESTER OPERATOR us Angel Lomeli MD LAB BLOOD ORDERABLES Final R esult [facility] [address] Department [place] [address] documented in this encounter Visit Diagnoses Diagnosis Hiccups- Primary documented in this encounter Administered Medications Inactive Administered Medications - up to 3 most recent administrations Medication Order MAR Action Action Date Dose Rate Site al & mag hydroxide simethicone-lidocaine oral suspension mixture 40 mL, oral, Once, On Thu06/10/22 at 2255, For 1 dose Given 06/11/2022 12:02 AM PRESSURE TESTER OPERATOR 40 mL sodium chloride 0.9% bolus 1,000 mL 1,000 mL, intravenous, at 1,000 mL/hr, Administer over 1 Hours, Once, On Thu06/10/22 at 2336, For 1 dose New Bag 06/11/2022 12:01 AM PRESSURE TESTER OPERATOR 1,000 mL 1000 mL/hr documented in this encounter Active and Recently Administered Medications Times are shown in PRESSURE TESTER OPERATOR. Scheduled Medication Order 06/09/2022 06/10/2022 06/11/2022 al & mag hydroxide simethicone-lidocaine oral suspension mixture (COMPLETED) 40 mL, oral, Once, On Thu06/10/22 at 2255, For 1 dose 0002 (Given - Provid er: Fernanda Perla, LUCIEN) sodium chloride 0.9% bolus 1,000 mL (COMPLETED) 1,000 mL, intravenous, at 1,000 mL/hr, Administer over 1 Hours, Once, On Thu06/10/22 at 2336, For 1 dose 0001 (New Bag - Prov ider: Fernanda Perla RN)[id number] (Stopped - Provider: Shayy Mckeon RN) documented in this encounter Orders Lab Orders Without Results Count Last Ordered D ate First Ordered Date POCT GLUCOSE DEVICE 1 06/10/2022 Nursing Count Last Ordered Date First Orde red Date MISCELLANEOUS NURSING CARE ORDER (SPECIFY) 1 06/10/2022 documented in this encounter Care Teams Heating And Ventilating Worker Relationship Specialty Start Date End Date Igor Ferrera MD PCP - General 09/12/18 documented as of this encounter
--- OUTSIDE RECORDS SUMMARY | 2024-04-13 18:32 | XMS_ITS | Encounter Summary ---
Author Organization [facility] Address [address] [place] [address] Phone Care Team Providers Care Pulverizing And Sifting Operator Name Role Phone Igor Ferrera MD Primary Care Provider [phone] Reason for Referral * Diagnostic Imaging (Routine) - Closed Specialty Diagnoses / Procedures Referred By Contac t Referred To Contact Diagnoses Low back pain, non-specific Procedures XR Scoliosis 6 or More Views Kevyn Logan PA [address] [place] [address] Phone: tel: fax: [address] [address] Referral ID Status Reason Start Date Expiration Date Visits Re quested Visits Authorized [id number] Closed 08/05/2022 09/04/2023 1 1 Encounter Details Date Type Department Care Team (Late st Contact Info) Description 08/05/2022 Orders Only [facility] Neurosurgery [address] [facility] [address] [place] [address] Kevyn Logan PA [address] [place] [address] Low back pain, non-specific (Primary Dx) Social History Tobacco Use Types Packs/Day Years Used Date Smoking Tobacco: Never Smokeless Tobacco: Never Alcohol Use Standard Drinks/Week Comments Yes 0 (1 standard drink = 0.6 oz pur e alcohol) Sex and Gender Information Value Date Recorded Sex Assigned at Not on file Legal Sex Male 1:39 PM BUSINESS 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 Electronically signed by: Isaias Bach MD [facility] Matt CORONADO IMG XR PROCEDURES Maty l Result documented in this encounter Visit Diagnoses Diagnosis Low back pain, non-specific- Primary Low back pain, non-specific documented in this encounter Care Teams Pulverizing And Sifting Operator Relationship Specialty Start Date End Date Igor Ferrera MD PCP - General 09/12/18 documented as of this encounter
--- OUTSIDE RECORDS SUMMARY | 2024-04-13 18:32 | XMS_ITS | Encounter Summary ---
Author Organization [facility] Healthcare Address [address] [place] [address] Care Team Providers Care Bilingual Customer Service Name Role Phone Igor Ferrera MD Primary Care Provider [phone] Reason for Visit * Auth/Cert (Routine) Specialty Diagnoses / Procedures Referred By Opal vasques Referred To Contact Diagnoses Special screening for malignant neoplasms, colon Z12.11 colon screening for malignant neoplasms Procedures COLONOSCOPY Referral ID Status Reason Start Date Expiration Date Visits Re quested Visits Authorized [id number] 1 1 Encounter Details Date Type Department Care Team (Latest Contact Info) Description 11/05/2023 10:46 AM CDT - 11/05/2023 2:30 PM CDT Hospital Encounter [facility] [address] [place] [address] Sandy Bateman MD [address] [place] [address] Special screening for malignant neoplasms, colon Discharge Disposition: Discharge to home or self [...] on file 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 Endoscopy Lab Patient Name: Jami Grajeda Procedure Date: 11/05/2023 1:30 PM Date of : 1950 Admit Type: Outpatient Age: 73 Gender: Male Note Status: Finalized Attending MD: Sandy Bateman M.D. Procedure Date: 11/05/2023 Procedure: Colonoscopy Indications: Screening for colorectal malignant neoplasm Providers: Sandy Bateman M.D., PACO Elias (Anesthesia Staff), Kourtney Olivares RN, Doni Morgan, Belting And Webbing Inspector Referring MD: Igor Ferrera M.D. Medicines: Monitored [...] 2 weeks. Procedure Code(s): --- Professional --- 99889, Colonoscopy, flexible; with removal of tumor(s), polyp(s), or other lesion(s) by snare technique Diagnosis Code(s): --- Professional --- Z12.11, Encounter for screening for malignant neoplasm of colon D12.5, Benign neoplasm of sigmoid colon D12.3, Benign neoplasm of transverse colon (hepatic flexure or splenic flexure) CPT copyright 2020 [employer]. All rights reserved. The codes documented in this report are preliminary and upon input output clerk review may be revised to meet current [...] Bateman MD - 11/05/2023 1:30 PM CDT [facility] Endoscopy Lab Patient Name: Jami Grajeda Procedure Date: 11/05/2023 1:30 PM Date of : 1950 Admit Type: Outpatient Age: 73 Gender: Male Note Status: Finalized Attending MD: Sandy Bateman M.D. Procedure Date: 11/05/2023 Procedure: Colonoscopy Indications: Screening for colorectal malignant neoplasm Providers: Sandy Bateman M.D., PACO Elias (Anesthesia Staff), Kourtney Olivares RN, Sergey, Belting And Webbing Inspector Referring MD: Igor Ferrera M.D. Medicines: Monitored [...] 2 weeks. Procedure Code(s): --- Professional --- 39146, Colonoscopy, flexible; with removal of tumor(s), polyp(s), or other lesion(s) by snare technique Diagnosis Code(s): --- Professional --- Z12.11, Encounter for screening for malignantneoplasm of colon D12.5, Benign neoplasm of sigmoid colon D12.3, Benign neoplasm of transverse colon (hepatic flexure or splenic flexure) CPT copyright 2020 [employer]. All rights reserved. The codes documented in this report are preliminary and upon input output clerk reviewmay be revised to meet current compliance [...] [facility] Final Result Performing Organization Address [facility]/State/[facility] Co de Phone Number [address] [place] [address] * Surgical pathology (11/05/2023 9:31 AM CDT) Tissue (Polyp(s), colon/colorectal, esophageal, gastric) 11/05/2023 1:50 PM CDT Narrative PATHOLOGY CH - 11/09/2023 1:04 PM CDT EPIC results best viewed via link to PDF [facility] Department of Pathology [address] [place] [id number] Note to Patients: This report may [...] Final Report Patient Name: ??JAMI GRAJEDA Address: ??[address] [place] [address], ??[place], [place] [address] Gender: ??M : ??1950 (Age: 73) Service: ??Gastro Location: ?? GI Lab Hospital #: ??[id number] Patient Type: ??[facility] Accession # ?[id number] Taken: ??11/05/2023 Received: ??11/06/2023 Accessioned: ??11/06/2023 Reported: ??11/09/2023 Physician(s):Murali Nicolas M.D. Diagnosis: Colon, polyps, polypectomy: ? - Fragments of tubular adenoma ? - No evidence of high-grade dysplasia or malignancy Erki Edwards M.D. Report Electronically Reviewed and Signed [...] determined by the Surgical Pathology Department at [facility] as part of an ongoing fiberglass quality technician program and in compliance with federally mandated [...] characteristics determined by the Surgical Pathology Department [facility]. ??It has not been cleared or approved by the U. S. Food and Drug Administration. Note for decalcified specimens: This assay has not been validated on decalcified tissues. Results should be interpreted with caution given the possibility of false negativity on decalcified specimens Sandy Bateman MD LAB PATHOLOGY [place] [address] [place] [id number] documented in this encounter Visit Diagnoses Diagnosis Special screening for malignant neoplasms, colon documented in this encounter Orders Discharge Count Last Ordered Date First Orde red Date DISCHARGE PATIENT 1 11/05/2023 documented in this encounter Care Teams Bilingual Customer Service Relationship Specialty Start Date End Date Igor Ferrera MD PCP - General 09/12/18 documented as of this encounter
--- OUTSIDE RECORDS SUMMARY | 2024-04-13 18:32 | XMS_ITS | Encounter Summary ---
Author Organization [facility] Address [address] [place] [address] Phone Care Team Providers Care Media Associate Name Role Phone Igor Ferrera MD Primary Care Provider [phone] Reason for Referral * MRI/CAT/PET Scan (Routine) - Closed Specialty Diagnoses / Procedures Referred By Contac t Referred To Contact Radiology Diagnoses Spondylolisthesis of lumbar region Procedures MRI Lumbar Spine WO Contrast Kevyn Logan PA [address] [place] [address] Phone: tel: fax: [address] [address] Referral ID Status Reason Start Date Expiration Date Visits Re quested Visits Authorized [id number] Closed 08/15/2022 02/11/2023 1 1 Encounter Details Date Type Department Care Team (Latest Contact Info) Description 08/14/[address] 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 5 mgy-wvg-jurchhv lumbar type vertebral bodies. ALIGNMENT: ?? Chronic [...] on both sides. ?? Mild right and gdcm-rj-awuxsycy left neural foraminal narrowing. ??Portion of the disc contacting the undersurface of the exiting L3 nerve roots. L4-L5: Disc bulge with marginal spur formation. ??Thickened ligamentum flavum and facet arthropathy. ??Mqcn-yo-ooykdlrm spinal canal stenosis. ??Left greater than right [...] D: ??08/28/2022 2:07 PM T: Report ID: [id number] Reading Location: ??[id number] Procedure Note Shashank Childs DO - 08/28/2022 EXAM DESCRIPTION: MRI LUMBAR SPINE WO CONTRAST REASON FOR STUDY: Back pain or radiculopathy, > 6 wks Pt states intermittent chronic back pain x 15 years. Lower back painreturned in June and radiates into right lower extremity. Pain has subsidedrecently. TECHNIQUE: Sagittal and Axial imaging includes T1, T2, STIR sequences. COMPARISON: Lumbar spine MRI dated 09/13/2018 FINDINGS: SEGMENTATION: 5 fkl-zhm-ffsjcpr lumbar type vertebral bodies. ALIGNMENT: Chronic bilateral [...] effacement on both sides. Mild right and oujn-jx-kolahnkm left neural foraminal narrowing. Portionof the disc contacting the undersurface of the exiting L3 nerve roots. L4-L5: Disc bulge with marginal spur formation. Thickened ligamentumflavum and facet arthropathy. Cicy-gw-zkvkcgsa spinal canal stenosis. Leftgreater than right lateral [...] signed by Shashank LOONEY T: Report ID: [id number] Reading Location: [id number] Kevyn Matt [facility] IMG MRI PROCEDURES Fin al Result documented in this encounter Visit Diagnoses Diagnosis Spondylolisthesis of lumbar region- Primary Spondylolisthesis of lumbar region documented in this encounter Care Teams Media Associate Relationship Specialty Start Date End Date Igor Ferrera MD PCP - General 09/12/18 documented as of this encounter
--- OUTSIDE RECORDS SUMMARY | 2024-04-13 18:32 | XMS_ITS | Referral Summary ---
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 Patient Name: Jeffrey Grajeda Procedure Date: 11/05/2023 1:30 PM Date of : 1950 Admit Type: Outpatient Age: 73 Gender: Male Note Status: Finalized Attending MD: Sandy Bateman M.D. Procedure Date: 11/05/2023 Procedure: Colonoscopy Indications: Screening for colorectal malignant neoplasm Providers: Sandy Bateman M.D., PACO Elias (Anesthesia Staff), Kourtney Olivares RN, Sergey, Piano Bench Assembler Referring MD: Igor Ferrera M.D. Medicines: Monitored [...] 2 weeks. Procedure Code(s): --- Professional --- 24051, Colonoscopy, flexible; with removal of tumor(s), polyp(s), or other lesion(s) by snare technique Diagnosis Code(s): --- Professional --- Z12.11, Encounter for screening for malignantneoplasm of colon D12.5, Benign neoplasm of sigmoid colon D12.3, Benign neoplasm of transverse colon (hepatic flexure or splenic flexure) CPT copyright 2020 [employer]. All rights reserved. The codes documented in this report are preliminary and upon industrial nurse reviewmay be revised to meet current compliance requirements. This report is electronically signed by Dr Bradford Bateman Sandy Bateman M.D. 11/05/2023 2:03:42 PM This report has been electronically signed by the physician. Number of Addenda: 0 Note Initiated On: 11/05/2023 1:30 PM Sandy Bateman MD ENDOSCOPY PROCEDURES Final Result * eGFR (06/10/2022 11:52 PM CEMENT TRUCK DRIVER) eGFR 87 mL/min/1. 73 m2 [facility] Comment: Interpretive Data Reference Interval Normal [...] reviewed 2021. Blood 06/10/2022 11:5 2 PM CEMENT TRUCK DRIVER 06/10/2022 11:57 PM CEMENT TRUCK DRIVER us Angel Lomeli MD LAB BLOOD ORDERABLES Final R esult [facility] [address] Department [place] [address] from Last 3 Months or Most Recently Relevant to Health Maintenance Insurance [facility] MEDICARE [facility] CHOICE PLUS MEDICARE MEDICARE FOR[facility] MEDICARE [facility] MEDICARE Address: [facility] [id number] [place] [address] [facility] MEDICARE Address: [facility] [id number] [place] [phone] Advance Directives For more information, please contact: [phone] * Full Code (Latest Code Status on File) Date Activated Date Inactivated Comments 09/12/2018 8:52 PM 09/14/2018 9:20 PM Care Teams Tong Setter Relationship Specialty Start Date End Date Igor Ferrera MD PCP - General 09/12/18
--- OUTSIDE RECORDS SUMMARY | 2024-04-13 18:33 | XMS_ITS | Encounter Summary ---
Author Organization 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
--- OUTSIDE RECORDS SUMMARY | 2024-04-13 18:33 | XMS_ITS | Encounter Summary ---
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
--- OUTSIDE RECORDS SUMMARY | 2024-04-13 18:33 | XMS_ITS | Encounter Summary ---
Author Organization [facility] Healthcare Address [address] [place] [address] Care Team Providers Care Customer Response Representative Name Role Phone Igor Ferrera MD Primary Care Provider [phone] Reason for Visit * Reason Comments Back Pain Leg Pain Hip Pain Encounter Details Date Type Department Care Team (Latest Contact Info) Description 11/01/2018 1:54 PM CDT - 11/01/2018 11:59 PM CDT Hospital Encounter [facility] [place] [id number] [facility] 1st [place] [phone] Ebony Santiago MD 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 Gender Identity Not on file Sexual Orientation Not on file documented as of this encounter Last Filed Vital Signs Vital Sign Reading Time Taken Comments Blood Pressure 151/94 11/01/2018 3:11 PM CDT Pulse 74 11/01/2018 3:11 PM CDT Temperature 36.7 ??C (98 ??F) 11/01/2018 2:00 PM CDT Respiratory Rate 16 11/01/2018 3:11 PM CDT Oxygen Saturation 99% 11/01/2018 3:11 PM CDT Inhaled Oxygen Concentration - - Weight 108.9 kg (240 lb) 11/01/2018 2:00 PM CDT Height 180.3 cm (5' 11 ) 11/01/2018 2:00 PM CDT Body Mass Index 33.47 11/01/2018 2:00 PM CDT documented in this encounter Discharge Instructions * Discharge Instructions* Nicole Rodrigues RN - 11/01/2018 3:18 PM CDT Please see attached post-procedure sheet: Lumbar Selective Nerve root block ??? May shower today. No swimming pools, hot tubs, bathtubs or soaking for 24 hours. Call if needed. Dr. Santiago can do a 3rd injection. Continue gabapentin for another month. documented in this encounter Medications at Time of Discharge acyclovir (ZOVIRAX) 400 mg tablet daily atorvastatin (LIPITOR) 40 mg tablet Take 1 tablet (40 mg total) by mouth nightly gabapentin (NEURONTIN) 300 mg capsule Take 1 capsule (300 mg total) by mouth nightly 30 capsule 11 09/14/2018 hydroCHLOROthiaz charmaine (HYDRODIURIL) 25 mg tablet Take 1 tablet (25 mg total) by mouth nightly metFORMIN (GLUCOPHAGE) 500 mg tablet Take 2 tablets (1,000 mg total) by mouth 2 (two) times a day nateglinide (STARLIX) 120 mg tabletIndication s:type 2 diabetes mellitus Take 1 tablet (120 mg total) by mouth nightly acetaminophen (TYLENOL) 325 mg tablet Take 2 tablets (650 mg total) by mouth every 8 (eight) hours 30 tablet 09/14/2018 4 amLODIPine (NORVASC) 10 mg tablet Take 10 mg by mouth nightly 4 tadalafil (ADCIRCA) 10 mg tablet Take 10 mg by mouth daily as needed for erectile dysfunction 4 documented as of this encounter Discharge Disposition Disposition Code Departure Means Destination Discharge to home or self care documented in this encounter Progress Notes * Ebony Santiago MD - 11/01/2018 1:54 PM CDT Pain Service Daily Progress Today 11/01/2018 HFV: Mr. Jeffrey Grajeda is a 68 y.o. male with past medical history significant for DM, GERD, and HTN; chronic low back pain radiating to left LE RTC for hospital follow up today. He was recently hospitalized in [facility] due to pain, pain was 4-10; affecting his ADL; he received L L4, L5 LSNRI on 09/14 with 90% pain relief. He is off hydrocodone and is able to golf now. Today he reports his pain is mild, 0-2, minimal shooting pain to left leg, mild numbness of left foot. Procedures: 11/01/2018 L L4, L5 LSNR 09/14/2018 L L4, l5 LSNR Last test results: MRI Lumbar Spine WO Contrast Narrative: EXAMINATION: Magnetic resonance imaging (MRI) of the lumbar spine without contrast ?? HISTORY: Left lumbar radiculopathy. ?? TECHNIQUE: Multiplanar multi-weighted MRI of the lumbar spine was performed without intravenous contrast using the standard lumbar spine protocol. ?? COMPARISON: None ?? FINDINGS: ?? Grade 1 anterolisthesis of L5 on S1. ?? No focal suspicious marrow replacing lesion. Bilateral L5 pars defects noted. Hemangioma noted in the left sacrum. Marrow edema noted adjacent at the bilateral L4-L5 facet joints. ?? Conus medullaris terminates at the level of T12-L1. Normal distal spinal cord signal intensity and morphology. ?? 1.6 cm right adrenal nodule noted, indeterminate. Otherwise, unremarkable visualized intra-abdominal contents. ?? L1-L2: Normal disc and facets. No spinal canal or foraminal stenosis. ?? L2-L3: Normal disc and facets. No spinal canal or foraminal stenosis. ?? L3-L4: Mild diffuse disc bulge, asymmetric to the left. Unremarkable facet joints. Mild degree of spinal canal stenosis. Mild right and mild/moderate left foraminal stenosis. ?? L4-L5: Unremarkable configuration of the disc. Mild/moderate bilateral facet arthropathy. Mild spinal canal stenosis. No foraminal stenosis. ?? L5-S1: Uncovered disc. Superimposed bulge. Mild bilateral facet arthropathy. Cystic lesion projects medially from the right facet joint, measuring 8-9 mm maximum dimension. This partially effaces the right lateral recess, possibly displacing the traversing right S1 nerve root. Mild degree of spinal canal stenosis at this level. Moderate/severe bilateral foraminal stenosis, left greater than right. Impression: 1. Bilateral L5 pars defects with grade 1 anterolisthesis of L5 on S1. Moderate/severe bilateral foraminal stenosis at this level, left greater than right. ?? 2. In addition, at L5-S1, there is a cystic lesion projecting medially from the right facet joint, favored to represent a synovial cyst. This partially effaces the right lateral recess, possibly displacing the traversing right S1 nerve root. Clinical correlation is recommended. ?? 3. Indeterminate 1.6 cm right adrenal nodule. Lab Results Component Value Date CREATININE 1.25 09/13/2018 No Known Allergies Past Medical History: Diagnosis Date ??? Diabetes (CMS/HCC) ??? GERD (gastroesophageal reflux disease) ??? HLD (hyperlipidemia) ??? HTN (hypertension) ??? Wears glasses Past Surgical History: Procedure Laterality Date ??? CARDIAC CATHETERIZATION ??? HAND SURGERY ??? TONSILLECTOMY Social History Socioeconomic History ??? Marital status: Spouse name: Not on file ??? Number of children: Not on file ??? Years of education: Not on file ??? Highest education level: Not on file Occupational History ??? Not on file Social Needs ??? Financial resource strain: Not on file ??? Food insecurity: Worry: Not on file Inability: Not on file ??? Transportation needs: Medical: Not on file Non-medical: Not on file Tobacco Use ??? Smoking status: Never Smoker ??? Smokeless tobacco: Never Used Substance and Sexual Activity ??? Alcohol use: Yes ??? Drug use: Never ??? Sexual activity: Not on file Lifestyle ??? Physical activity: Days per week: Not on file Minutes per session: Not on file ??? Stress: Not on file Relationships ??? Social connections: Talks on phone: Not on file Gets together: Not on file Attends christianity service: Not on file Active member of club or organization: Not on file Attends meetings of clubs or organizations: Not on file Relationship status: Not on file ??? Intimate partner violence: Fear of current or ex partner: Not on file Emotionally abused: Not on file Physically abused: Not on file Forced sexual activity: Not on file Other Topics Concern ??? Not on file Social History Narrative ??? Not on file Family History Problem Relation Age of Onset ??? Coronary artery disease Father ??? Hypertension Father ??? Stroke Father There is no problem list on file for this patient. Current medication: HOME MEDICATIONS : acetaminophen (TYLENOL) 325 mg tablet acyclovir (ZOVIRAX) 400 mg tablet amLODIPine (NORVASC) 10 mg tablet atorvastatin (LIPITOR) 40 mg tablet gabapentin (NEURONTIN) 300 mg capsule hydroCHLOROthiazide (HYDRODIURIL) 25 mg tablet metFORMIN (GLUCOPHAGE) 500 mg tablet nateglinide (STARLIX) 120 mg tablet tadalafil (ADCIRCA) 10 mg tablet ibuprofen (ADVIL,MOTRIN) 200 mg tab/cap tiZANidine (ZANAFLEX) 2 mg tablet Scheduled Medications: Objective Vitals: Most Recent : Vitals BP 170/87 Pulse 63 Temp 98 ??F (36.7 ??C) Resp 12 Ht 180.3 cm (5' 11 ) Wt 108.9 kg (240 lb) SpO2 99% BMI 33.47 kg/m?? ROS: Constitutional: Positive for fatigue. Negative for fever or chills. HENT: Head atraumatic. Negative for trouble swallowing. Eyes: Negative for change in vision. Respiratory: Negative for cough, hemoptysis and shortness of breath. Cardiovascular: Negative for chest pain. Gastrointestinal: Positive for constipation. Negative for diarrhea, nausea and vomiting. Genitourinary: Negative for difficulty urinating and hematuria. Musculoskeletal: Positive for back pain, joint pain, muscle aching Rudy/Onco: see HPI and problem lists, otherwise negative. Neurological: negative for gait problem, numbness. No B/B dysfunction. Negative for headaches. Endocrine: No sweating SKIN: negative for rashes or lesions Behavioral/Psych: Depression and anxiety Pain: Positive for: pain as stated in HPI. Physical Exam: General: No acute distress. HEENT: No pericranial tenderness. FRED & SON Tinel sign [] Positive [x] negative. PERR, ENT grossly normal. [] No face drop. [] No TN tenderness. [x] Mouth opening normal. [x] No TMJ tenderness. Respiratory: [x] Unlabored breathing Cardiovascular: [] Regular rate and rhythm. [x] No JVD, no peripheral edema. Abdomen: [] Soft, non-tender. [] Tenderness. MSK: [x] Gait Normal. [] Antalgic gait. [x] Slow gait. [] Unsteady gait. [] In Wheelchair. MOTOR: 5/5 Henry UE and LE SENSORY: normal to light touch Henry UE and LE Upper Extremity: no tenderness. C-spine: no tenderness, normal ROM T-spine: no paraspinal tenderness. L-SPINE:no paraspinal spasm, mild tenderness at L/S spinal region. SLE negative Henry, Lumbar facet loading positive Henry. Reduced ROM. Lower Extremity: no hip tenderness. Neurology: [x] No neurological changes. Please check the appropriate box(es) and fill in blanks as needed. Neurologic: [x] Alert and oriented x 3 [x] Cranial nerves grossly intact II-XII [x] Sensation intact bilaterally to gross touch Reflexes Wrist Biceps Triceps Knee Ankle Left [] [] [] [] [] Right [] [] [] [] [] Psychiatric: [x] Normal mood, affect, insight. Skin: [x] No rashes or lesions Lab/Radiology/Diagnostic Review: Lab and Radiology Findings reviewed, Clinical Significance noticed. ASSESSMENT: Encounter Diagnoses Name Primary? Chronic bilateral low back pain with left-sided sciatica Yes ??? Spondylosis of lumbar region without myelopathy or radiculopathy Chronic pain LBP with L sciatica LS spondylosis Lumbar spinal stenosis HTN DM The above note documents my personal evaluation of this patient. In addition, I have reviewed and confirmed with the patient and nurse the supportive information documented in today's scanned PatientHealth Questionnaire and Office Note. Plan: Intervention: -- Will repeat L L4-5, L5-S1 LNSR today #2 -- LESI PRN L5-S1 -- LMBB PRN Medications: -- Opioids not recommended -- Opioid compliance and SE of opioids discussed. CDC new opioid guidelines also informed. -- Tylenol OTC PRN -- NSAIDS: DC ibuprofen -- Cont [id number] QHS for one month, if pain controlled OK to DC it. Imaging: -- L-spine MRI reviewed -- No new images needed at this time. Referral: -- Physical therapy , HEP and phuong loss discussed. Follow-up: PRN for LSNR, patient to call. Ebony Santiago MD, RANDOLPH Tiller Man Director of Pain Medicine [facility] 11/01/2018 2:53 PM documented in this encounter Miscellaneous Notes * Addendum Note - Long Sargent R-RT - 11/01/2018 3:32 PM CDTEncounter addended by: RT Tiffany on: 11/01/2018 3:32 PM Actions taken: Charge Capture section accepted * Addendum Note - Long Sargent R-RT - 11/01/2018 3:30 PM CDTEncounter addended by: RT Tiffany on: 11/01/2018 3:30 PM Actions taken: Charge Capture section accepted, Procedure log completed * Op Note - Ebony Santiago MD - 11/01/2018 2:54 PM CDT Patient ID Patient Name: Jeffrey Grajeda : 1950 DOS: 11/01/2018 PCP: Igor Ferrera MD Surgeon SURGEON: Ebony Santiago MD, RANDOLPH VIDEOGAME DESIGNER SURGEON: None Procedures NAME OF PROCEDURE: Lumbar Transforaminal Epidural Steroid Injection (Selective Nerve Root Injection) at Left L4-L5, under Fluoroscopy. PRE-PROCEDURE DIAGNOSES: Other Chronic Pain, Lumbosacral Spondylosis, Lumbar Spinal Canal Stenosis,Displaced Lumbar Disc and LBP with Left Sciatica. POST-PROCEDURE DIAGNOSES: Other Chronic Pain, Lumbosacral Spondylosis, Lumbar Spinal Canal Stenosis, Displaced Lumbar Disc and LBP with Left Sciatica. . INDICATION FOR PROCEDURE: Other Chronic Pain, Lumbosacral Spondylosis, Lumbar Spinal Canal Stenosis, Displaced Lumbar Disc and LBP with Left Sciatica. . INFORMED CONSTENT: After reviewing the procedure with the patient, informed consent to proceed withthe injection was obtained. A procedural permit was also signed. DESCRIPTION OF PROCEDURE: The patient was placed in the prone position on the fluoroscopy table. Fluoroscopy was used to identify the left L4 level. The lumbar area was prepped with Chlorhexidine solution and draped with sterile towels. Sterile technique was used throughout. At the needle entry point for the injection at lumbar level above, the skin and subcutaneous tissues were infiltrated with 1% lidocaine. A 22-gauge B - bevel spinal needle was introduced and positioned with fluoroscopic imaging. The needle was advanced to the posterior margin of the neural foramen. Needle positioning wasverified with AP fluoroscopic images. Radiographic contrast (Omnipaque 300) was injected (volume 0.2 ml.), with injected contrast being spread in the anticipated path of the nerve root. There was no spread of contrast into the spinal canal., There was no intra-articular spread of contrast. and Radiographic contrast was seen to spread into the spinal canal. 1 ml Bupivacaine, 2.5 mg, with dexamethasone 5 mg, (for a total volume of 2 ml) were injected, resulting in dispersion of the previously injected contrast. No paresthesias were encountered during needle placement or injection of the solution. The above procedure was repeated at left L5-S1 level. The procedure was well tolerated, and there were no apparent complications. The patient had moderate relief of pain from the injected local anesthetic. DISPOSITION: Patient was discharged home in stable condition. I performed the procedure described above myself. Ebony Santiago MD, RANDOLPH Director of Pain Television News Photographer Professor [facility] documented in this encounter Plan of Treatment Not on file documented as of this encounter Visit Diagnoses Diagnosis Chronic bilateral low back pain with left-sided sciatica- Primary Spondylosis of lumbar region without myelopathy or radiculopathy documented in this encounter Administered Medications Inactive Administered Medications - up to 3 most recent administrations Medication Order MAR Action Action Date Dose Rate Site bupivacaine (MARCAINE) 0.25 % (2.5 mg/mL) preservative free injection As needed, Starting on Thu11/01/18 at 1503, Intra-Op Given 11/01/2018 3:03 PM CDT 3 mL dexamethasone (DECADRON) injection solution Administer over 2 Minutes, As needed, Starting on Thu11/01/18 at 1503, Intra-Op Given 11/01/2018 3:03 PM CDT 10 mg iohexol (OMNIPAQUE) 300 mg iodine/mL injection solution As needed, Starting on Thu11/01/18 at 1503, Intra-Op Given 11/01/2018 3:03 PM CDT 0.5 mL lidocaine PF (XYLOCAINE) 10 mg/mL (1 %) preservative free injection As needed, Starting on Thu11/01/18 at 1503, Intra-Op Given 11/01/2018 3:03 PM CDT 6 mL documented in this encounter Discontinued Medications Medication Sig Discontinue Reason Start Date End Da te tiZANidine (ZANAFLEX) 2 mg tablet Take 2 mg by mouth every 8 (eight) hours as needed for muscle spasms 11/01/2018 ibuprofen (ADVIL,MOTRIN) 200 mg tab/cap Take 800 mg by mouth every 8 (eight) hours as needed for pain 11/01/2018 documented as of this encounter Historical Medications * This list may reflect changes made after this encounter. acyclovir (ZOVIRAX) 400 mg tablet daily tadalafil (ADCIRCA) 10 mg tablet Take 10 mg by mouth daily as needed for erectile dysfunction 4 added in this encounter Care Teams Customer Response Representative Relationship Specialty Start Date End Date Igor Ferrera MD PCP - General 09/12/18 documented as of this encounter
--- OUTSIDE RECORDS SUMMARY | 2024-04-13 18:33 | XMS_ITS | Encounter Summary ---
Author Organization [facility] Healthcare Address [address] [place] [address] Care Team Providers Care Supervisor Heat Treating Name Role Phone Igor Ferrera MD Primary Care Provider [phone] Encounter Details Date Type Department Care Team (Late st Contact Info) Description 10/28/2018 Telephone [facility] [address] 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 Arrival 15 minutes prior to appointment ??? Discharge transportation needed ??? Able to eat,drink, and take medications as normal: ??? Call if on a new blood thinner, if fever present in the last seven days, or currently on antibiotics. documented in this encounter Plan of Treatment Not on file documented as of this encounter Visit Diagnoses Not on filedocumented in this encounter Care Teams Supervisor Heat Treating Relationship Specialty Start Date End Date Igor Ferrera MD PCP - General 09/12/18 documented as of this encounter
--- OUTSIDE RECORDS SUMMARY | 2024-04-13 18:33 | XMS_ITS | Encounter Summary ---
Author Organization [facility] Healthcare Address [address] [place] [address] Care Team Providers Care Low Pressure Firer Name Role Phone Igor Ferrera MD Primary Care Provider [phone] Reason for Visit * Reason Comments Hiccups Encounter Details Date Type Department Care Team (Late st Contact Info) Description 06/10/2022 4:38 PM OPERATING SYSTEMS PROGRAMMER - 06/10/2022 6:17 PM OPERATING SYSTEMS PROGRAMMER Emergency [facility] Emergency Department [address] [place] [address] Angel Lomeli MD [address] [place], [place] [id number] Hiccups (Primary Dx) Discharge Disposition: Discharge to home or self care Social History Tobacco Use Types Packs/Day Years Used Date Smoking Tobacco: Never Smokeless Tobacco: Never Alcohol Use Standard Drinks/Week Comments Yes 0 (1 standard drink = 0.6 oz pur e alcohol) Sex and Gender Information Value Date Recorded Sex Assigned at Not on file Legal Sex Male 1:39 PM OPERATING SYSTEMS PROGRAMMER Gender Identity Not on file Sexual Orientation Not on file documented as of this encounter Last Filed Vital Signs Vital Sign Reading Time Taken Comments Blood Pressure 154/74 06/10/2022 3:21 PM OPERATING SYSTEMS PROGRAMMER Pulse 67 06/10/2022 3:20 PM OPERATING SYSTEMS PROGRAMMER Temperature 36.7 ??C (98.1 ??F) 06/10/2022 3:22 PM CS T Respiratory Rate 18 06/10/2022 3:20 PM OPERATING SYSTEMS PROGRAMMER Oxygen Saturation 100% 06/10/2022 3:20 PM OPERATING SYSTEMS PROGRAMMER Inhaled Oxygen Concentration - - Weight 108.9 kg (240 lb) 06/10/2022 5:00 PM OPERATING SYSTEMS PROGRAMMER Height - - Body Mass Index 33.49 06/08/2022 1:21 PM OPERATING SYSTEMS PROGRAMMER documented in this encounter Discharge Instructions * Discharge Instructions* Angel Lomeli MD - 06/10/2022 5:43 PM OPERATING SYSTEMS PROGRAMMER Your hiccups could be related to recent steroids and acid reflux. Continue famotidine, 40 mg daily for the duration of your steroid taper. Please call your primary care doctor if your hiccups or occur. Return to the emergency room seek emergent medical care for any worsening symptoms, nausea, vomiting, or any other concerning symptoms you feel need to be emergently evaluated ATING SYSTEMS PROGRAMMER * Attachments The following attachments cannot be sent through Care Everywhere. * Hiccups (Discharge Care) (Monegasque) documented in this encounter Medications at Time [...] as needed (Hiccups) 10 tablet 06/11/2022 4 famotidine (PEPCID) 40 mg tablet Take [...] Refills Last Filled Start Date End Date diazePAM (VALIUM) 5 mg tabletIndications: Muscle Spasm Take 1 tablet (5 mg total) by mouth every 6 (six) hours as needed for muscle spasms 5 tablet 06/10/2022 4 famotidine (PEPCID) 40 mg tablet Take 1 tablet (40 mg total) by mouth nightly as needed for heartburn 20 tablet 06/10/2022 4 documented in this encounter Discharge Disposition Disposition Code Departure Means Destination Comment s Discharge to home or self care documented in this encounter ED Notes * Angel Lomeli MD - 06/10/2022 5:59 PM CST HPI Chief Complaint Patient presents with Hiccups Patient is a 72-year-old male presenting for intractable hiccups since yesterday. Patient was seen in the emergency room recently for back pain, started on a steroid taper. Patient states yesterday he woke up started with hiccups, patient's hiccups were intractable to the point where he is having di fficulty eating or drinking. Patient had difficulty sleeping secondary to hiccups. Hiccups persisted today therefore he re-presented to the emergency room. Patient denies any chest pain or difficultybreathing, denies any abdominal pain, no nausea or vomiting. Patient states his back pain has significantly improved and no longer has any back issues Patient History: There are no problems to display for this patient. Past Medical History: Diagnosis Date Diabetes (CMS/HCC) GERD (gastroesophageal reflux disease) HLD (hyperlipidemia) HTN (hypertension) Wears glasses Past Surgical History: Procedure Laterality Date CARDIAC CATHETERIZATION HAND SURGERY TONSILLECTOMY Family History Problem Relation Age of Onset Coronary artery disease Father Hypertension Father Stroke Father Social History Tobacco Use Smoking status: Never Smokeless tobacco: Never Substance and Sexual Activity Alcohol use: Yes Drug use: Never Sexual activity: Not on file Social History Social History Narrative Not on file Review of Systems Review of Systems Constitutional: Negative for fatigue and fever. All other systems reviewed and are negative. Physical Exam ED Triage Vitals Temp Pulse Resp BP SpO2 06/10/22 1522 06/10/22 1520 06/10/22 1520 06/10/22 1521 06/10/22 1520 36.7 ??C (98.1 ??F) 67 18 154/74 100 % Temp src Heart Rate Source Patient Position BP Location FiO2 (%) 06/10/22 1522 -- 06/10/22 1520 06/10/22 1520 -- Oral Sitting Left arm Height Height Method Weight Weight Method -- -- 06/10/22 1700 06/10/22 1700 108.9 kg (240 lb) Estimated Physical Exam Vitals and nursing note reviewed. Constitutional: General: He is not in acute distress. Appearance: He is well-developed. Comments: Alert, oriented, does not appear in acute distress, no hiccups observe HENT: Head: Normocephalic and atraumatic. Eyes: Extraocular Movements: Extraocular movements intact. Conjunctiva/sclera: Conjunctivae normal. Pupils: Pupils are equal, round, and reactive to light. Cardiovascular: Rate and Rhythm: Normal rate and regular rhythm. Heart sounds: No murmur heard. Pulmonary: Effort: Pulmonary effort is normal. No respiratory distress. Breath sounds: Normal breath sounds. Abdominal: Palpations: Abdomen is soft. Tenderness: There is no abdominal tenderness. Musculoskeletal: General: No swelling. Cervical back: Neck supple. Skin: General: Skin is warm and dry. Capillary Refill: Capillary refill takes less than 2 seconds. Neurological: General: No focal deficit present. Mental Status: He is alert and oriented to person, place, and time. Psychiatric: Mood and Affect: Mood normal. [facility] Medical Decision Making 72-year-old male presenting for intractable hiccups. Differential diagnosis includes acid reflux, steroid induced hiccups, low concern for ACS, low concern for infectious symptoms. Patient received a GI cocktail in the emergency room with resolution of his hiccups. Patient statesthat he feels much better, never had any chest pain or shortness of breath, did not have any dizziness or lightheadedness, no fevers or chills. Patient is in agreement that his steroid taper is likely the cause of his hiccups as he was able to do research online . Patient is having no symptoms at this time, symptoms have all resolved Patient's back pain has since resolved as well. Given the fact that the patient is having no chest pain, on my evaluation after receiving GI cocktail, he is having no hiccups, no shortness of breath,no dizziness or lightheadedness, feel it is appropriate to discharge the patient at this time. Patient is in agreement and does not feel further management or intervention is indicated. Patient does not have indications for EKG as he has had no chest pain symptoms. Amount and/or Complexity of Data Reviewed External Data Reviewed: notes. Details: Previous ER note reviewed Risk Prescription drug management. ED Course as of 06/10/222030 Time: 06/10 1739 Comment: Patient reassessed, no hiccups at this time. Patient is comfortable being observed in the emergency room for another 20-30 minutes with p.o. Pepcid to determine if hiccups returned. If they do not, the patient is comfortable being discharged. Patient's not feel further testing is indicatedas he has no symptoms at this time Patient and/or advocate if present were given additional return precautions for which the patient or advocate expressed understanding. The patient and advocate, if present, had the opportunity to askall questions. All questions were answered to the satisfaction of the patient and/or advocate. The patient and advocate, if present, were comfortable with the discharge plan and are in agreement. Any laboratory, imaging, and EKGs, if obtained, were personally reviewed prior to the patient's final disposition. Parts of the patient's medical record may contain some grammatical or inappropriate worderrors secondary to use of dictation software. By: Angel Lomeli MD Time: 06/10 1914 Comment: Patient calling to state that he had recurrence of his hiccups while at home. Patient states he was feeling well however they have recurred. Advised the patient to stop his steroid, patient is willing to try Maalox as well as oral diazepam. Patient does not feel he needs to be re-evaluatedat this time as he is just having hiccups. Advised the patient to seek emergent medical care if his symptoms worsen however will trial oral diazepam and Maalox at this time By: Angel Lomeli MD Final diagnoses: Hiccups Angel Lomeli MD 06/10/222030 ATING SYSTEMS PROGRAMMER ATING SYSTEMS PROGRAMMER * Fredy Ramos RN - 06/10/2022 5:46 PM CST D/c paperwork reviewed with pt including pain management and follow up. Pt verbalized understanding, esign not available d/t hospital wide covid precautions. Pt able to ambulate out of ER without anysign of distress. Fredy Ramos RN 06/10/22 013 ATING SYSTEMS PROGRAMMER * Wilda Ambriz RN - 06/10/2022 3:16 PM CST Patient to ED with reports of continuous hiccups starting yesterday morning around 0800. Patient airway intact, able to speak in full sentences during intake. Patient frequently hiccupping. ATING SYSTEMS PROGRAMMER documented in this encounter Plan of Treatment Not on file documented as of this encounter Visit Diagnoses Diagnosis Hiccups- Primary documented in this encounter Administered Medications Inactive Administered Medications - up to 3 most recent administrations Medication Order MAR Action Action Date Dose Rate Site al & mag hydroxide simethicone-lidocaine oral suspension mixture 40 mL, oral, Once, On Thu06/10/22 at 1626, For 1 dose Given 06/10/2022 5:03 PM OPERATING SYSTEMS PROGRAMMER 40 mL famotidine (PEPCID) tablet 40 mg 40 mg, oral, Once, On Thu06/10/22 at 1752, For 1 dose Given 06/10/2022 5:53 PM OPERATING SYSTEMS PROGRAMMER 40 mg documented in this encounter Active and Recently Administered Medications Times are shown in OPERATING SYSTEMS PROGRAMMER. Scheduled Medication Order 06/08/2022 06/09/2022 06/10/2022 al & mag hydroxide simethicone-lidocaine oral suspension mixture (COMPLETED) 40 mL, oral, Once, On Thu06/10/22 at 1626, For 1 dose 1703 (Given - Provid er: Fredy Ramos RN) famotidine (PEPCID) tablet 40 mg (COMPLETED) 40 mg, oral, Once, On Thu06/10/22 at 1752, For 1 dose 1753 (Given - Provid er: Fredy Ramos RN) documented in this encounter Care Teams Low Pressure Firer Relationship Specialty Start Date End Date Igor Ferrera MD PCP - General 09/12/18 documented as of this encounter
--- OUTSIDE RECORDS SUMMARY | 2024-04-13 18:33 | XMS_ITS | Encounter Summary ---
Author Organization [facility] Healthcare Address [address] [place] [address] Care Team Providers Care Chief Information Officer Name Role Phone Igor Ferrera MD Primary Care Provider [phone] Reason for Visit * Reason Comments Leg Pain Encounter Details Date Type Department Care Team (Late st Contact Info) Description 06/08/2022 1:27 PM COORDINATOR OF HEALTH SERVICES - 06/08/2022 3:35 PM COORDINATOR OF HEALTH SERVICES Emergency [facility] Emergency Department [address] [place] [address] Angel Lomeli MD [address] [place], [place] [id number] Sciatica of right side without back pain (Primary Dx); Lumbar disc disease Discharge Disposition: Discharge to home or self care Social History Tobacco Use Types Packs/Day Years Used Date Smoking Tobacco: Never Smokeless Tobacco: Never Alcohol Use Standard Drinks/Week Comments Yes 0 (1 standard drink = 0.6 oz pur e alcohol) Sex and Gender Information Value Date Recorded Sex Assigned at Not on file Legal Sex Male 1:39 PM COORDINATOR OF HEALTH SERVICES Gender Identity Not on file Sexual Orientation Not on file documented as of this encounter Last Filed Vital Signs Vital Sign Reading Time Taken Comments Blood Pressure 131/70 06/08/2022 3:33 PM COORDINATOR OF HEALTH SERVICES Pulse 70 06/08/2022 3:33 PM COORDINATOR OF HEALTH SERVICES Temperature 36.7 ??C (98.1 ??F) 06/08/2022 3:33 PM CS T Respiratory Rate 16 06/08/2022 3:33 PM COORDINATOR OF HEALTH SERVICES Oxygen Saturation 100% 06/08/2022 3:33 PM COORDINATOR OF HEALTH SERVICES Inhaled Oxygen Concentration - - Weight 108.9 kg (240 lb 1.3 oz) 06/08/2022 1:21 PM COORDINATOR OF HEALTH SERVICES Height 180.3 cm (5' 10.98 ) 06/08/2022 1:21 PM C Body Mass Index 33.5 06/08/2022 1:21 PM COORDINATOR OF HEALTH SERVICES documented in this encounter Discharge Instructions * Discharge Instructions* Angel Lomeli MD - 06/08/2022 3:14 PM COORDINATOR OF HEALTH SERVICES Your symptoms are most consistent with sciatic nerve pain which has resolved in the emergency room after medical therapy. Your physical exam did not show any life or limb threatening condition Continue Medrol Dosepak as prescribed. Use ibuprofen or Tylenol as needed for pain symptoms in addition to Robaxin for muscle relaxation as prescribed. Use lidocaine patch as indicated. Please follow-up with a spine surgeon from the number provided for outpatient follow-up. Return to the emergency room or seek emergent medical care for any worsening pain, difficulty walking, bowel or bladder incontinence, or any other concerning symptoms you feel need to be emergently evaluated. DINATOR OF HEALTH SERVICES * Attachments The following attachments cannot be sent through Care Everywhere. * Sciatica (Discharge Care) (Malagasy) documented in this encounter Medications at Time [...] Take 10 mg by mouth nightly 4 HYDROcodone-acet aminophen (NORCO) 5-325 mg per [...] Refills Last Filled Start Date End Date lidocaine (LIDODERM) 5 % Place 1 patch on the skin daily Remove & discard patch within 12 hours or as directed by . 30 patch 06/08/2022 HYDROcodone-acetam inophen (NORCO) 5-325 mg per tabletIndications: Pain Take 1 tablet by mouth every 6 (six) hours as needed for pain 6 tablet 06/08/2022 4 methylPREDNISolone (MEDROL DOSEPACK) 4 mg Dosepack Take as directed on package 1 packet 06/08/2022 3 methocarbamoL (ROBAXIN) 750 mg tablet Take 1 tablet (750 mg total) by mouth 2 (two) times a day as needed for muscle spasms 30 tablet 06/08/2022 4 documented in this encounter Discharge Disposition Disposition Code Departure Means Destination Comment s Discharge to home or self care documented in this encounter ED Notes * Angel Lomeli MD - 06/08/2022 3:35 PM CST HPI Chief Complaint Patient presents with Leg Pain 72-year-old male history of left sided lumbar disc disease presenting right buttock pain with radiation down right leg, progressively getting worse, no bowel/bladder accidents, no trauma, no weakness, no numbness of the legs, was feeling well at 2am when he urinated. Patient is ambulatory, no numbness, no fevers or chills, no dysuria, no hematuria. Patient states he is received steroid injections in the past. Patient has been doing well up until this morning when he started having symptoms. Patient History: There are no problems to [...] Triage Vitals Temp Pulse Resp BP SpO2 06/08/22 1321 06/08/22 1321 06/08/22 1321 06/08/22 1321 06/08/22 1321 36.7 ??C (98.1 ??F) 66 18 141/72 100 % Temp src Heart Rate Source Patient Position BP Location FiO2 (%) 06/08/22 1533 -- 06/08/22 1533 -- -- Temporal Sitting Height Height Method Weight Weight Method 06/08/22 1321 -- 06/08/22 1321 -- 1.803 m (5' 10.98 ) 108.9 kg (240 lb 1.3 oz) Physical Exam Vitals and nursing note reviewed. Constitutional: General: He is not in acute distress. Appearance: Normal appearance. He is well-developed. Comments: Well-appearing, no distress, speaks in full sentences HENT: Head: Normocephalic and atraumatic. Eyes: Extraocular Movements: Extraocular movements intact. Conjunctiva/sclera: Conjunctivae normal. Pupils: Pupils are equal, round, and reactive to light. Cardiovascular: Rate and Rhythm: Normal rate and regular rhythm. Heart sounds: No murmur heard. Pulmonary: Effort: Pulmonary effort is normal. No respiratory distress. Breath sounds: Normal breath sounds. Abdominal: General: There is no distension. Palpations: Abdomen is soft. Tenderness: There is no abdominal tenderness. Musculoskeletal: General: No swelling. Cervical back: Neck supple. Skin: General: Skin is warm and dry. Capillary Refill: Capillary refill takes less than 2 seconds. Neurological: General: No focal deficit present. Mental Status: He is alert and oriented to person, place, and time. Comments: 5/5 strength in lower extremities bilaterally, +2 patellar reflexes, rectal tone grossly intact, no saddle anesthesia, no tenderness on the C, T or L-spine Psychiatric: Mood and Affect: Mood normal. [facility] Medical Decision Making 72-year-old male presenting for right-sided back pain. Differential diagnosis includes sciatic backpain, low concern for herniation, no trauma, low concern for cord compression, low concern for cauda equina. Patient has negative straight leg test after medical therapy, no saddle anesthesia, rectaltone is grossly intact. No trauma. Patient's sees chiropractor as outpatient, sees wellness physician as outpatient. Will plan for oral pain control, reassessment Amount and/or Complexity of Data Reviewed Independent Historian: spouse Details: at bedside provides independent history External Data Reviewed: notes. Details: Pain management notes reviewed Risk OTC drugs. Prescription drug management. ED Course as of 06/08/221856 Time: 06/08 1855 Comment: No imaging indicated as the patient's symptoms are mild, no obvious evidence of saddle anesthesia, cord compression or cauda equina syndrome. Patient does not have any bowel or bladder incontinence. Patient's symptoms significantly improved after medical therapy in the emergency room. Patient is comfortable and stable for discharge, given strict return precautions which she expressed understanding. Patient's previous MRI was reviewed, patient's previous interventional pain notes reviewed. Shared decision-making was had with the patient and at the bedside and both are comfortable with the current treatment plan Patient and/or advocate if present were given [...] of dictation software. By: Angel Lomeli MD Final diagnoses: Sciatica of right side without back pain Lumbar disc disease Angel Lomeli MD 06/08/22 9027 DINATOR OF HEALTH SERVICES * Nickie Swan RN - 06/08/2022 1:39 PM CST Pt c/o sciatic type pn, sees chiropractor regularly, does stretching exercises regularly for low back and hamstring. PT awoke this morning with 10 out of 10 back/hamstring pn. Unable to get comfortable. Took 2 Ibuprophen at 0800 this morning with no relief. Nickie Swan, LUCIEN 06/08/22 1341 DINATOR OF HEALTH SERVICES * Anayeli Duque - 06/08/2022 1:20 PM CST Pt to ER with complaints of pain that starts in the right buttocks and radiates down his leg. Pt has pain in lower back as well. Pt reports it started at 7:00 this morning and is the first time in years it has flared up. DINATOR OF HEALTH SERVICES documented in this encounter Plan of Treatment Not on file documented as of this encounter Visit Diagnoses Diagnosis Sciatica of right side without back pain- Primary Lumbar disc disease Other and unspecified disc disorder of lumbar region documented in this encounter Administered Medications Inactive Administered Medications - up to 3 most recent administrations Medication Order MAR Action Action Date Dose Rate Site acetaminophen (TYLENOL) tablet 650 mg 650 mg, oral, Once, On 06/08/22 at 1422, For 1 dose Given 06/08/2022 2:31 PM COORDINATOR OF HEALTH SERVICES 650 mg dexAMETHasone (DECADRON) preservative free solution 10 mg 10 mg, intravenous, Administer over 2 Minutes, Once, On 06/08/22 at 1422, For 1 dose Given 06/08/2022 2:53 PM COORDINATOR OF HEALTH SERVICES 10 mg HYDROcodone-acetaminophen (NORCO) 5-325 mg per tablet 1 tablet 1 tablet, oral, Once, On 06/08/22 at 1422, For 1 dose, Indications: PainIndications:Pain Given 06/08/2022 2:31 PM COORDINATOR OF HEALTH SERVICES 1 tablet ketorolac (TORADOL) 30 mg/mL (1 mL) injection 15 mg 15 mg, intravenous, Once, On 06/08/22 at 1422, For 1 dose, For Adult IV push, administer over 15 seconds Given 06/08/2022 2:31 PM COORDINATOR OF HEALTH SERVICES 15 mg methocarbamoL (ROBAXIN) tablet 750 mg 750 mg, oral, Once, On 06/08/22 at 1422, For 1 dose Given 06/08/2022 2:53 PM COORDINATOR OF HEALTH SERVICES 750 mg documented in this encounter Active and Recently Administered Medications Times are shown in COORDINATOR OF HEALTH SERVICES. Scheduled Medication Order 06/06/2022 06/07/2022 06/08/2022 acetaminophen (TYLENOL) tablet 650 mg (COMPLETED) 650 mg, oral, Once, On 06/08/22 at 1422, For 1 dose 1431 (Given - Provid er: Nickie Swan RN) dexAMETHasone (DECADRON) preservative free solution 10 mg (COMPLETED) 10 mg, intravenous, Administer over 2 Minutes, Once, On 06/08/22 at 1422, For 1 dose 1453 (Given - Provid er: Nickie Swan RN) HYDROcodone-acetaminophen (NORCO) 5-325 mg per tablet 1 tablet (COMPLETED) 1 tablet, oral, Once, On 06/08/22 at 1422, For 1 dose, Indications: Pain 1431 (Given - Provid er: Nickie Swan RN) ketorolac (TORADOL) 30 mg/mL (1 mL) injection 15 mg (COMPLETED) 15 mg, intravenous, Once, On 06/08/22 at 1422, For 1 dose, For Adult IV push, administer over 15 seconds 1431 (Given - Provid er: Nickie Judaism, RN) methocarbamoL (ROBAXIN) tablet 750 mg (COMPLETED) 750 mg, oral, Once, On 06/08/22 at 1422, For 1 dose 1453 (Given - Provid er: Nickie Swan RN) documented in this encounter Care Teams Chief Information Officer Relationship Specialty Start Date End Date Igor Ferrera MD PCP - General 09/12/18 documented as of this encounter
--- OUTSIDE RECORDS SUMMARY | 2024-04-13 18:33 | XMS_ITS | Encounter Summary ---
Author Organization [facility] Healthcare Address [address] [place] [address] Care Team Providers Care Property Administrator Name Role Phone Igor Ferrera MD Primary Care Provider [phone] Encounter Details Date Type Department Care Team (Late st Contact Info) Description 09/14/2018 2:50 PM CDT Ancillary Procedure [address] [address] Ebony Santiago MD [address] [place] [id number] Social History Tobacco Use Types Packs/Day Years Used Date Smoking Tobacco: Never Alcohol Use Standard Drinks/Week Comments Yes 0 (1 standard drink = 0.6 oz pur e alcohol) Sex and Gender Information Value Date Recorded Sex Assigned at Not on file Legal Sex Male 1:39 PM BRAKESHOE REPAIRER Gender Identity Not on file Sexual Orientation Not on file documented as of this encounter Plan of Treatment Not on file documented as of this encounter Procedures Procedure Name Priority Date/Time Associated Diagnosis Comments FLUORO GUIDED NEEDLE PLACEMENT IP Routine 09/14/2018 3:50 PM CDT documented in this encounter Results * FL Fluoro Guided Needle Placement (09/14/2018 3:50 PM CDT) Narrative [facility] - 09/14/2018 3:50 PM CDT The images from this study are not interpreted by Radiology. ??Please refer to the physician's procedure / OR operative note. Ebony Santiago MD IMG FLUOROSCOPY PROCEDURES Final Result RAD_PACS[facility] documented in this encounter Visit Diagnoses Not on filedocumented in this encounter Care Teams Property Administrator Relationship Specialty Start Date End Date Igor Ferrera MD PCP - General 09/12/18 documented as of this encounter
--- OUTSIDE RECORDS SUMMARY | 2024-04-13 18:33 | XMS_ITS | Encounter Summary ---
Author Organization [facility] Healthcare Address [address] [place] [id number] Care Team Providers Care Electrolysis Engineer Name Role Phone Igor Ferrera MD Primary Care Provider [phone] Reason for Visit * Diagnostic Imaging (Routine) - Closed Specialty Diagnoses / Procedures Referred By Opal vasques Referred To Contact Diagnoses Low back pain Procedures FL Fluoro Guided Needle Placement Ebony Santiago MD Phone: tel: fax: [address] [phone] Referral ID Status Reason Start Date Expiration Date Visits Re quested Visits Authorized [id number] Closed 10/20/2018 04/30/2020 1 1 Encounter Details Date Type Department Care Team (Late st Contact Info) Description 11/01/2018 2:20 PM CDT Ancillary Procedure [facility] at [address] [id number] Ebony Santiago MD [address] [place] [id number] Low back pain Social History Tobacco Use Types Packs/Day Years Used Date Smoking Tobacco: Never Smokeless Tobacco: Never Alcohol Use Standard Drinks/Week Comments Yes 0 (1 standard drink = 0.6 oz pur e alcohol) Sex and Gender Information Value Date Recorded Sex Assigned at Not on file 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 Gender Identity Not on file Sexual Orientation Not on file documented as of this encounter Plan of Treatment Not on file documented as of this encounter Procedures Procedure Name Priority Date/Time Associated Diagnosis Comments FLUORO GUIDED NEEDLE PLACEMENT Schedule Routine, Read Routine (OP Routine) 11/01/2018 3:09 PM CDT Low back pain documented in this encounter Results * FL Fluoro Guided Needle Placement (11/01/2018 3:09 PM CDT) Narrative [facility] - 11/01/2018 3:10 PM CDT The images from this study are not interpreted by Radiology. ??Please refer to the physician's procedure / OR operative note. Ebony Santiago MD IMG FLUOROSCOPY PROCEDURES Final Result [facility] documented in this encounter Visit Diagnoses Diagnosis Low back pain Lumbago documented in this encounter Care Teams Electrolysis Engineer Relationship Specialty Start Date End Date Igor Ferrera MD PCP - General 09/12/18 documented as of this encounter
--- OUTSIDE RECORDS SUMMARY | 2024-04-13 18:33 | XMS_ITS | Encounter Summary ---
Author Organization [facility] Facility Care Team Providers Care Back Stayer Name Role Phone Unavailable Primary Care Provider Unavailabl e Encounter Details Date Type Department Care Team (Latest Contact Info) Description 11/04/2013 10:08 AM CDT - 11/04/2013 12:15 PM CDT Hospital Encounter [facility] Mihai Rivas MD [address] [place] [address] Blood in stool; Internal hemorrhoids; Essential hypertension; Type 2 or unspecified type diabetes mellitus; Esophageal reflux; Obesity; Encounter for long-term (current) use of other medications Social History Tobacco Use Types Packs/Day Years Used Date Smoking Tobacco: Never Assessed Sex and Gender Information Value Date Recorded Sex Assigned at Not on file 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 Gender Identity Not on file Sexual Orientation Not on file documented as of this encounter Plan of Treatment Not on file documented as of this encounter Procedures Procedure Name Priority Date/Time Associated Diagnosis Comments BLOOD GLUCOSE Routine 11/04/2013 11:02 AM CDT COLONOSCOPY REPORT 11/04/2013 DISCHARGE LABORATORY CUMULATIVE REPORT 11/04/2013 documented in this encounter Results * Blood glucose (11/04/2013 11:02 AM CDT) Glucose, POC, bld 117 70 - 140 mg/dl HISTORICAL RESULTS Blood specimen (specimen) 11/04/2013 11:02 AM CDT Mihai Summers MD LAB BLOOD ORDERABLES Final Resul t HISTORICAL RESULTS * DISCHARGE LABORATORY CUMULATIVE REPORT (11/04/2013) Narrative 11/04/2013 Ordered by an unspecified provider. [facility] Provider LAB BLOOD ORDERABLES Maty l Result * COLONOSCOPY REPORT (11/04/2013) Anatomical Region Laterality Modality Other Narrative 11/04/2013 Ordered by an unspecified provider. [facility] Provider GI PROCEDURE ORDERABLES F inal Result documented in this encounter Visit Diagnoses Diagnosis Blood in stool Internal hemorrhoids Internal hemorrhoids without mention of complication Essential hypertension Unspecified essential hypertension Type 2 or unspecified type diabetes mellitus Esophageal reflux Obesity Obesity, unspecified Encounter for long-term (current) use of other medications documented in this encounter
--- OUTSIDE RECORDS SUMMARY | 2024-04-13 18:33 | XMS_ITS | Encounter Summary ---
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 Name Role Phone Igor Ferrera MD Primary Care Provider [phone] Reason for Visit * Reason Comments Back Pain Encounter Details Date Type Department Care Team (Late st Contact Info) Description 09/12/2018 3:49 PM CDT - 09/14/2018 4:30 PM CDT Emergency [facility] [address] [place] [id number] Bradford Wallis MD [address] [place] [address] Lumbar radiculopathy (Primary Dx); Acute pain; Acute left-sided low back pain with left-sided sciatica; Muscle spasm Discharge Disposition: Discharge to home or self care Social History Tobacco Use Types Packs/Day Years Used Date Smoking Tobacco: Never Alcohol Use Standard Drinks/Week Comments Yes 0 (1 standard drink = 0.6 oz pur e alcohol) Sex and Gender Information Value Date Recorded Sex Assigned at Not on file 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 Gender Identity Not on file Sexual Orientation Not on file documented as of this encounter Last Filed Vital Signs Vital Sign Reading Time Taken Comments Blood Pressure 125/73 09/14/2018 1:28 PM CDT Pulse 59 09/14/2018 4:38 AM CDT Temperature 36.6 ??C (97.8 ??F) 09/14/2018 1:28 PM CD T Respiratory Rate 18 09/14/2018 1:28 PM CDT Oxygen Saturation 98% 09/14/2018 1:28 PM CDT Inhaled Oxygen Concentration - - Weight 108.3 kg (238 lb 11.2 oz) 2018 10:10 PM CDT Height 180.3 cm (5' 10.98 ) 09/12/2018 10:10 PM CDT Body Mass Index 33.31 09/12/2018 10:10 PM CDT documented in this encounter Discharge Summaries * Bradford Wallis MD - 09/14/2018 12:00 AM CDT Discharge Diagnoses 1. Acute back pain secondary to sciatica with lumbar radiculopathy, status post lumbar epidural steroid injections. 2. Diabetes. 3. Hypertension. 4. Hyperlipidemia. Hospital Course This is a 68-year-old gentleman who came to us with a complaint of low back pain on the left side with radiation towards the back of the left leg. Patient was treated with IV pain medications and also muscle relaxant and Pain Management has been consulted. Patient's symptoms improved. Patient underwent epidural steroid injection. After that patient is feeling better, wants to go home. So we are planning to send the patient home and will continue the following medications. Discharge Medications Please see the medication reconciliation forms. Physical Examination General: Patient examined bedside, in no acute distress. Vitals: Temperature 98.2, pulse 77, respirations 17, blood pressure 137/83. Eyes/ENT: Pupils equal, reactive to light. Head normocephalic. No signs of trauma. Neck: Supple. No JVD. No thyromegaly. No lymphadenopathy. Chest: Clear clinically. CVS: S1, S2. Abdomen: Bowel sounds positive. MICROECONOMICS PROFESSOR: Patient is alert, awake, oriented x3. There is no gross focal neurological deficit. Extremities: There is no pedal edema. Plan Will be to continue present medications, send the patient home, and follow up with primary care physician in 2 weeks. Job ID/VF Job ID: [id number] documented in this encounter Medications at Time of Discharge atorvastatin (LIPITOR) 40 mg tablet Take 1 tablet (40 mg total) by mouth nightly gabapentin (NEURONTIN) 300 mg capsule Take 1 capsule (300 mg total) by mouth nightly 30 capsule 09/14/2018 hydroCHLOROthiazi de (HYDRODIURIL) 25 mg tablet Take 1 tablet (25 mg total) by mouth nightly metFORMIN (GLUCOPHAGE) 500 mg tablet Take 2 tablets (1,000 mg total) by mouth 2 (two) times a day nateglinide (STARLIX) 120 mg tabletIndications :type 2 diabetes mellitus Take 1 tablet (120 mg total) by mouth nightly acetaminophen (TYLENOL) 325 mg tablet Take 2 tablets (650 mg total) by mouth every 8 (eight) hours 30 tablet 09/14/2018 05/20/2023 amLODIPine (NORVASC) 10 mg tablet Take 10 mg by mouth nightly 05/20/2023 ibuprofen (ADVIL,MOTRIN) 200 mg tab/cap Take 800 mg by mouth every 8 (eight) hours as needed for pain 11/01/2018 tiZANidine (ZANAFLEX) 2 mg tablet Take 2 mg by mouth every 8 (eight) hours as needed for muscle spasms 11/01/2018 documented as of this encounter Ordered Prescriptions Prescription Sig Dispense Quantity Refills Last Filled Start Date End Date gabapentin (NEURONTIN) 300 mg capsule Take 1 capsule (300 mg total) by mouth nightly 30 capsule 09/14/2018 acetaminophen (TYLENOL) 325 mg tablet Take 2 tablets (650 mg total) by mouth every 8 (eight) hours 30 tablet 09/14/2018 4 documented in this encounter Discharge Disposition Disposition Code Departure Means Destination Discharge to home or self care documented in this encounter Progress Notes * Jasmyne Wylie NP - 09/14/2018 2:31 PM CDT Pain Service Daily Progress Chief Complaint: Low back pain SUBJECTIVE: Interval History: Patient sitting in the chair this morning. He reports his pain has improved somewhat since yesterday. He reports low back pain with radiation of pain in the upper left buttocks today. He denies any further radiation of pain currently. He denies any numbness or weakness in the legs. Denies bowel or bladder incontinence. He thinks the current pain medications are helping his pain without side effects. Scheduled Medications: acetaminophen 650 mg oral Q8H LEDA amLODIPine 10 mg oral Nightly atorvastatin 40 mg oral Nightly enoxaparin 40 mg subcutaneous Daily-2099 gabapentin 300 mg oral Nightly hydroCHLOROthiazide 25 mg oral Nightly metFORMIN 1,000 mg oral BID nateglinide 120 mg oral Nightly Continuous Medications: PRN Medications: cyclobenzaprine ??? HYDROcodone-acetaminophen ??? ibuprofen ??? ondansetron ODT OR ondansetron ROS: Review of Systems Constitutional: Positive for activity change. HENT: Negative for trouble swallowing. Respiratory: Negative for shortness of breath. Cardiovascular: Negative for chest pain. Gastrointestinal: Negative for abdominal pain and nausea. Genitourinary: Negative for difficulty urinating and flank pain. Musculoskeletal: Positive for back pain and myalgias. Negative for gait problem. Neurological: Negative for speech difficulty, weakness and numbness. Psychiatric/Behavioral: Negative for agitation and confusion. OBJECTIVE: Vitals: 24hr Min/Max: Temp Min: 97.7 ??F (36.5 ??C) Max: 98.1 ??F (36.7 ??C) Pulse Min: 59 Max: 74 BP Min: 120/70 Max: 134/65 Resp Min: 16 Max: 18 SpO2 Min: 96 % Max: 98 % Most Recent : Vitals: 09/14/18 1328 BP: 125/73 Pulse: Resp: 18 Temp: 97.8 ??F (36.6 ??C) SpO2: 98% Physical Exam: Physical Exam Constitutional: He appears well-developed and well-nourished. No distress. HENT: Head: Normocephalic and atraumatic. Eyes: Conjunctivae are normal. PERR Cardiovascular: Normal rate. Pulmonary/Chest: Effort normal. No respiratory distress. Abdominal: Appears normal Musculoskeletal: He exhibits tenderness. Mild TTP lumbar spine, minimal TTP lumbar paraspinal muscles, Equal 5/5 strength BLE Neurological: He is alert. Normal sensation to light touch BLE Skin: Skin is warm and dry. Psychiatric: He has a normal mood and affect. His behavior is normal. Thought content normal. Nursing note and vitals reviewed. Labs/Radiology/Diagnostic Review: Recent Labs Lab Units 09/13/18 0536 WBC K/cumm 4.7 HEMOGLOBIN g/dL 14.0 HEMATOCRIT % 41.6 PLATELETS K/cumm 141* Recent Labs Lab Units 09/13/18 0536 SODIUM mmol/L 142 POTASSIUM PLASMA mmol/L 3.6 CHLORIDE mmol/L 100 CO2 mmol/L 31 ANIONGAP mmol/L 11 GLUCOSE mg/dL 150 BUN SERUM mg/dL 18 CREATININE mg/dL 1.25 CALCIUM mg/dL 9.3 MRI Lumbar Spine WO Contrast Narrative: EXAMINATION: Magnetic resonance imaging (MRI) of the lumbar spine without contrast HISTORY: Left lumbar radiculopathy. TECHNIQUE: Multiplanar multi-weighted MRI of the lumbar spine was performed without intravenous contrast using the standard lumbar spine protocol. COMPARISON: None FINDINGS: Grade 1 anterolisthesis of L5 on S1. No focal suspicious marrow replacing lesion. Bilateral L5 pars defects noted. Hemangioma noted in the left sacrum. Marrow edema noted adjacent at the bilateral L4-L5 facet joints. Conus medullaris terminates at the level of T12-L1. Normal distal spinal cord signal intensity and morphology. 1.6 cm right adrenal nodule noted, indeterminate. Otherwise, unremarkable visualized intra-abdominal contents. L1-L2: Normal disc and facets. No spinal canal or foraminal stenosis. L2-L3: Normal disc and facets. No spinal canal or foraminal stenosis. L3-L4: Mild diffuse disc bulge, asymmetric to the left. Unremarkable facet joints. Mild degree of spinal canal stenosis. Mild right and mild/moderate left foraminal stenosis. L4-L5: Unremarkable configuration of the disc. Mild/moderate bilateral facet arthropathy. Mild spinal canal stenosis. No foraminal stenosis. L5-S1: Uncovered disc. Superimposed bulge. Mild bilateral [...] at this level, left greater than right. 2. In addition, at L5-S1, there is a cystic lesion projecting medially from the right facet joint, favored to represent a synovial cyst. This partially effaces the right lateral recess, possibly displacing the traversing right S1 nerve root. Clinical correlation is recommended. 3. Indeterminate 1.6 cm right adrenal nodule. Electronically signed by: Fredrick Gasca MD ASSESSMENT: Acute pain Low back pain with LLE sciatica Lumbar radiculopathy Muscle spasm PLAN: -- Plan L L4, L5 LSNR today with Dr Santiago. -- PT -- Conitnue current pain regimen. [facility] opioids not indicated. -- Ok to d/c from our standpoint We will sign off, please call with questions. Thank you for allowing us to participate in the care of this patient Jasmyne Wylie NP 09/14/2018 2:31 PM Cosigned by Ebony Santiago MD at 09/14/2018 3:39 PM CDT Associated attestation - Ebony Santiago MD - 09/14/2018 3:39 PM CDT I saw and examed the patient by myself. I reviewed patient's chart, labs and image/result. I also evaluated the patient with Jasmyne Wylie NP; reviewed and agreed with A/P as stated above. Left L4, L5 LSNR done today. Follow up in [facility] as outpatient in 5-6 weeks. Ebony Santiago MD, RANDOLPH Conveyor Tender Director of Pain Medicine [facility] Department of Anesthesiology and Pain 3:39 PM 09/14/2018 documented in this encounter H&P Notes * Bradford Wallis MD - 09/13/2018 12:00 AM CDT Chief Complaint Back pain radiating towards the back of the left leg. History of Present Illness This is a 68-year-old gentleman with past medical history of diabetes, hypertension, hyperlipidemia, who started having left-sided back pain radiating down his left posterior leg. This started aroundEaster, seen by Dr. Igor Ferrera. Started on steroids for a few days. That did not help so patient was started on tizanidine which gave him some temporary relief, but this weekend the pain got worse so he came to the ER and was evaluated in the ER and admitted for an MRI and further management of the patient's condition. When I saw the patient today, patient states his pain comes and goes. Pain when it comes is very severe and in a scale of 1-10 pain level becomes around 10. Past Medical History Positive for history of diabetes, history of hypertension, hyperlipidemia, gastroesophageal reflux disease. Allergies No known drug allergies. Home Medications Include: 1. Norvasc 10 mg nightly. 2. Lipitor 40 mg nightly. 3. Hydrochlorothiazide 25 mg nightly. 4. Ibuprofen 800 mg every 8 hourly p.r.n. 5. Metformin 1000 mg twice daily. 6. Starlix 120 mg at night. 7. Zanaflex 2 mg every 8 hourly as needed for muscle spasms. Family History Noncontributory. Social History Lives at home. Does not smoke. Drinks socially. Review of Systems Other than back pain radiating down the left posterior leg patient denies any other complaint. Physical Examination Vitals: Temperature 97.3, pulse 72, respirations 16, blood pressure 130/74. HEENT: Pupils reactive to light. Head normocephalic. No signs of trauma. Neck: Supple. No JVD. No thyromegaly. No lymphadenopathy. Chest: Clear clinically. CVS: S1, S2. Abdomen: Soft. Bowel sounds positive. MICROECONOMICS PROFESSOR: Patient alert, awake, oriented x3. There is no gross focal neurological deficit. Extremities: There is no pedal edema. Labs Showing sodium is 142, potassium 3.6, chloride 100, CO2 is 31, BUN is 18, creatinine is 1.25, glucose 150, calcium is 9.3. CBC: WBC 4.7, hemoglobin of 14, hematocrit of 41.6, platelet count 141, neutrophil count of 57%. Assessment and Plan 1. Left-sided low back pain radiating down the left posterior leg. Symptoms look like sciatica. Will treat it with pain medications and will get an MRI. I will also ask Pain Management to see the patient. 2. Diabetes. Will continue metformin and Starlix. 3. Hypertension. 4. Hyperlipidemia. 5. Additionally will continue other home medications, supportive care. Discharge Plan Will be back to home once patient's condition has been evaluated and taken care of. Job ID/VF Job ID: [id number] documented in this encounter Consult Notes * Jasmyne Wylie, AGENT LICENSING CLERK - 09/13/2018 2:01 PM CDTAssociated Order(s): IP CONSULT TO PAIN MANAGEMENT Pain Service Consult Reason for Consult: back pain Requesting Provider: Dr Wallis CC: Chief Complaint Patient presents with ??? Back Pain HPI: Mr. Jeffrey Grajeda is a 68 y.o. male with past medical history significant for DM, GERD, and HTN. Patient reports left lower back pain that radiates down his left posterior leg to the bottom of the foot for the last 6 weeks. He reports a burning sensation in the left leg as well in this region. He also has occasional pain radiation to the left groin. He denies weakness or numbness in the legs.Denies bowel or bladder incontinence. He rates his pain 8/10. His pain is increased randomly. He was prescribed steroids, zanaflex without much benefit. He also was taking ibuprofen with minimal benefit. He currently is taking [place] 5/325 Q4H PRN, took 2 doses and flexeril 10mg TID Prn, took 2 doses . He feels these medications help some. He is awaiting MRI today of the L-spine. Past Medical History: Diagnosis Date ??? Diabetes (CMS/HCC) ??? GERD (gastroesophageal reflux disease) ??? HLD (hyperlipidemia) ??? HTN (hypertension) History reviewed. No pertinent surgical history. Medications Prior to Admission Medication Sig Dispense Refill Last Dose ??? amLODIPine (NORVASC) 10 mg tablet Take 10 mg by mouth nightly ??? atorvastatin (LIPITOR) 40 mg tablet Take 40 mg by mouth nightly ??? hydroCHLOROthiazide (HYDRODIURIL) 25 mg tablet Take 25 mg by mouth nightly ??? ibuprofen (ADVIL,MOTRIN) 200 mg tab/cap Take 800 mg by mouth every 8 (eight) hours as needed for pain ??? metFORMIN (GLUCOPHAGE) 500 mg tablet Take 1,000 mg by mouth 2 (two) times a day ??? nateglinide (STARLIX) 120 mg tablet Take 120 mg by mouth nightly ??? tiZANidine (ZANAFLEX) 2 mg tablet Take 2 mg by mouth every 8 (eight) hours as needed for musclespasms No Known Allergies Social History Tobacco Use ??? Smoking status: Never Smoker Substance Use Topics ??? Alcohol use: Yes No family history on file. Reviewed and Noncontributory Scheduled Medications: amLODIPine 10 mg oral Nightly atorvastatin 40 mg oral Nightly enoxaparin 40 mg subcutaneous Daily-2100 hydroCHLOROthiazide 25 mg oral Nightly metFORMIN 1,000 mg oral BID nateglinide 120 mg oral Nightly Continuous Medications: PRN Medications: cyclobenzaprine ??? HYDROcodone-acetaminophen ??? ibuprofen ??? ondansetron ODT OR ondansetron Review of Systems: Review of Systems Constitutional: Positive for activity change. Negative for appetite change. Respiratory: Negative for shortness of breath. Cardiovascular: Negative for chest pain. Gastrointestinal: Negative for abdominal pain, nausea and vomiting. Genitourinary: Negative for difficulty urinating and flank pain. Musculoskeletal: Positive for back pain and myalgias. Skin: Negative for rash. Neurological: Negative for speech difficulty, weakness and numbness. Psychiatric/Behavioral: Negative for agitation and confusion. OBJECTIVE: Vitals: 24hr Min/Max: Temp Min: 97.2 ??F (36.2 ??C) Max: 98.2 ??F (36.8 ??C) Pulse Min: 65 Max: 85 BP Min: 122/79 Max: 148/84 Resp Min: 16 Max: 18 SpO2 Min: 96 % Max: 98 % Most Recent : Vitals: 09/13/18 1100 BP: 139/76 Pulse: 65 Resp: 18 Temp: 97.2 ??F (36.2 ??C) SpO2: 97% No intake/output data recorded. I/O this shift: In: 1320 [P.O.:1320] Out: 2 [Urine:2] Physical Exam: Physical Exam Constitutional: He is oriented to person, place, and time. He appears well- developed and well-nourished. No distress. HENT: Head: Normocephalic and atraumatic. Eyes: Conjunctivae are normal. PERR Cardiovascular: Normal rate. Pulmonary/Chest: Effort normal. No respiratory distress. Abdominal: Appears normal Musculoskeletal: He exhibits tenderness. TTP lumbar spine, Minimal TTP SI joints. Neg SLR B, Neg NAVID B, Equal 5/5 strength B LE, minimal TTP R paraspinal muscles, mild TTP L paraspinal muscles Neurological: He is alert and oriented to person, place, and time. Normal sensation to light touch BLE Skin: Skin is warm and dry. Psychiatric: He has a normal mood and affect. His behavior is normal. Thought content normal. Nursing note and vitals reviewed. Labs/Radiology/Diagnostic Review: Recent Labs Lab Units 09/13/18 0536 WBC K/cumm 4.7 HEMOGLOBIN g/dL 14.0 HEMATOCRIT % 41.6 PLATELETS K/cumm 141* Recent Labs Lab Units 09/13/18 0536 SODIUM mmol/L 142 POTASSIUM PLASMA mmol/L 3.6 CHLORIDE mmol/L 100 CO2 mmol/L 31 ANIONGAP mmol/L 11 GLUCOSE mg/dL 150 BUN SERUM mg/dL 18 CREATININE mg/dL 1.25 CALCIUM mg/dL 9.3 ASSESSMENT: Acute pain Low back pain with LLE sciatica Lumbar radiculopathy Muscle spasm PLAN: -- Awaiting MRI lumbar spine to evaluate cause of his pain -- Add Gabapentin 300mg QHS -- Tylenol 650mg Q8H scheduled. 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 -- Hold any anticoagulation in the morning for possible injection tomorrow if indicated. We will continue to follow Jasmyne Wylie NP 09/13/2018 2:01 PM Cosigned by Ebony Santiago MD at 09/13/2018 4:01 PM CDT Associated attestation - Ebony Santiago MD - 09/13/2018 4:01 PM CDT I saw and examed the patient by myself. I reviewed patient's chart, labs and image/result. I also evaluated the patient with Jasmyne Wylie NP; reviewed and agreed with A/P as stated above. I reviewed his L-spine MRI. Consider left L4, L5 LSNR injection tomorrow. Ebony Santiago MD, RANDOLPH Conveyor Tender Director of Pain Medicine [facility] Department of Anesthesiology and Pain 4:00 PM 09/13/2018 documented in this encounter Nursing Notes * Farzad Marroquin RN - 09/14/2018 4:43 PM CDT Pt discharged to home and self-care. Pt had a lumbar nerve injection, pt received education on the procedure and post-procedure instructions. No IV to take out. Discharge information reviewed with pt, questions answered. Pt received prescription. Escorted out by staff. Transported home by . documented in this encounter ED Notes * Ashley Manning NP - 09/12/2018 6:08 PM CDT HPI Chief Complaint Patient presents with ??? Back Pain 68-year-old male history of diabetes, hypertension, and hyperlipidemia presents to the ED for evaluation of left-sided back pain radiating down his left posterior leg. He states this pain started around [place]. He was seen by his primary care doctor and started on steroids for roughly 8 days. He states he only got mild relief from this. He followed up with his primary care doctor week later was started on tizanidine. He states that this gave him temporary relief in addition to taking Advil. He states this weekend that his pain got worse. He spoke with his PCP on Thursday who referred him to pain management but unfortunately they cannot see him until September 29. He states that he cannot get into a position of comfort and cannot find any relief. He has not had any imaging at. The pain starts in the left low back and buttock and radiates down the left posterior leg all the way to the level ofthe foot. He states the pain that is in buttock is sharp and stabbing in sensation and then he feels electrical shock and tingling that radiates down the posterior leg. He denies any specific injury or trauma. He states that he has been doing exercises and stretches at [facility]. He denies any fevers or chills. He denies any chest pain, shortness of breath, abdominal pain, nausea, or vomiting. He denies any bowel or bladder incontinence. Patient History There are no active problems to display for this patient. Past Medical History: Diagnosis Date ??? Diabetes (CMS/HCC) ??? GERD (gastroesophageal reflux disease) ??? HLD (hyperlipidemia) ??? HTN (hypertension) History reviewed. No pertinent surgical history. No family history on file. Social History Tobacco Use ??? Smoking status: Never Smoker Substance Use Topics ??? Alcohol use: Yes ??? Drug use: Never Social History Social History Narrative ??? Not on file Review of Systems Review of Systems Constitutional: Negative for chills and fever. Respiratory: Negative for cough and shortness of breath. Cardiovascular: Negative for chest pain and palpitations. Gastrointestinal: Negative for abdominal pain, diarrhea, nausea and vomiting. Genitourinary: Negative for dysuria, frequency, hematuria and urgency. Musculoskeletal: Positive for back pain. Negative for myalgias. Skin: Negative for rash. Neurological: Negative for weakness, numbness and headaches. All other systems reviewed and are negative. Physical Exam ED Triage Vitals [09/12/18 1548] Temp Pulse Resp BP SpO2 36.7 ??C (98 ??F) 79 18 130/84 96 % Temp src Heart Rate Source Patient Position BP Location FiO2 (%) Oral -- -- -- -- Physical Exam Constitutional: He is oriented to person, place, and time. He appears well- developed and well-nourished. He appears distressed (Mild distress due to pain). HENT: Head: Normocephalic and atraumatic. Nose: Nose normal. Mouth/Throat: Oropharynx is clear and moist. Eyes: Conjunctivae and EOM are normal. Neck: Normal range of motion. Neck supple. Cardiovascular: Normal rate, regular rhythm, normal heart sounds and intact distal pulses. Pulmonary/Chest: Effort normal and breath sounds normal. No respiratory distress. He has no wheezes. Abdominal: Soft. Bowel sounds are normal. He exhibits no distension. There is no tenderness. There is no guarding. Musculoskeletal: Normal range of motion. He exhibits tenderness. He exhibits no edema or deformity. No C/T/L spine tenderness. TTP to left SI joint. + left SLR. Able to dorsiflex without difficulty. Equal strength and sensation in BLE. Neurological: He is alert and oriented to person, place, and time. No sensory deficit. He exhibits normal muscle tone. Skin: Skin is warm and dry. No pallor. Psychiatric: He has a normal mood and affect. His behavior is normal. Judgment and thought content normal. Nursing note and vitals reviewed. MDM MDM Number of Diagnoses or Management Options Diagnosis management comments: 68-year-old male presents the ED for evaluation of left low back pain that radiates down the left posterior leg. Analgesics, muscle relaxant, Toradol, consult with PCP, probable admission for MRI tomorrow and pain control. Amount and/or Complexity of Data Reviewed Review and summarize past medical records: yes (Reviewed the patient's past medical history and this is summarized in the HPI.) Discuss the patient with other providers: yes ED Course as of Sep 12 1936 Time: 09/12 1824 Comment: Patient states he has gotten some relief from the pain medication. He is aware that I am still awaiting a call back from his PCP and that multiple calls have been placed. I will be and update him as soon is a here back. By: Ashley Manning NP Time: 09/12 1826 Comment: Spoke with Dr. Ferrera, he agrees with admission for pain control an MRI tomorrow, he wouldlike me to admit the patient to Dr. Wallis. By: Ashley Manning NP Time: 09/12 1853 Comment: Updated patient on plan for admission, pain control, MRI tomorrow. He verbalizes understanding and agrees. By: Ashley Manning NP Time: 09/12 1932 Comment: Spoke with Dr. [facility] who accepts for admission. By: Ashley Manning NP Lumbar radiculopathy Ashley Manning NP 09/12/181936 * Luis Fernando Garibay RN - 09/12/2018 3:47 PM CDT Patient came in with left back pain that radiates down his legs. documented in this encounter Miscellaneous Notes * Plan of Care - Farzad Marroquin RN - 09/14/2018 2:18 PM CDT Goals: Clinical Goals for the Shift: pain control, no falls/injuries, VSS. Problem: Health Behavior: Goal: Understanding of discharge needs will improve Outcome: Progressing Problem: Bowel/Gastric: Goal: Ability to achieve a regular elimination pattern will improve Outcome: Progressing Goal: Control of bowel function will improve Outcome: Progressing Goal: Will not experience complications related to bowel motility Outcome: Progressing Problem: Lack of Knowledge: Goal: Verbalization of understanding of the causes of altered bowel function will improve Outcome: Progressing Goal: Knowledge of the prescribed therapeutic regimen will improve Outcome: Progressing Problem: Nutritional: Goal: Maintenance of adequate nutrition will improve Outcome: Progressing Summary: Pt had no falls/injuries during shift. Pt had no N/V/D. No SOB. Pt complaining of pain this morning, pt stating that tylenol helps a lot. Pt supposed to be having an injection with pain management today. VSS. A&Ox4. * Plan of Care - Vick Stewart - 09/14/2018 4:14 AM CDT Problem: Health Behavior: Goal: Understanding of discharge needs will improve Outcome: Progressing Problem: Bowel/Gastric: Goal: Ability to achieve a regular elimination pattern will improve Outcome: Progressing Goal: Control of bowel function will improve Outcome: Progressing Goal: Will not experience complications related to bowel motility Outcome: Progressing Problem: Lack of Knowledge: Goal: Verbalization of understanding of the causes of altered bowel function will improve Outcome: Progressing Goal: Knowledge of the prescribed therapeutic regimen will improve Outcome: Progressing Problem: Nutritional: Goal: Maintenance of adequate nutrition will improve Outcome: Progressing Goals: Clinical Goals for the Shift: use call light, monior pain, injection tomorrow Summary: Patient having regular bowel movements. No blood noted in stool. * Plan of Care - Farzad Marroquin RN - 09/13/2018 2:04 PM CDT Goals: Clinical Goals for the Shift: no falls/injuries, MRI, pain control. Problem: Health Behavior: Goal: Understanding of discharge needs will improve Outcome: Progressing Summary: Pt had no falls/injuries during shift. Pt resting most of the shift. Complaining of pain in his left buttock that radiates down his leg, requiring prns. Still waiting on MRI to be completed.A&Ox4. VSS. Will continue to monitor. * Plan of Care - Jade Taylor RN - 09/13/2018 3:00 AM CDT Problem: Health Behavior: Goal: Understanding of discharge needs will improve Outcome: Progressing Goals: Clinical Goals for the Shift: admit to unit, pain control, prepare for MRI tomorrow, rest Summary: Oriented to unit, pain controlled with PRN [place] and Flexaril, ambulates without assist, MRI today, rested in bed after arrival from ER, will continue to monitor * Plan of Care - Re Lynne RN - 09/12/2018 7:47 PM CDT Evaluated for initial discharge planning needs. Living Situation: living w/spouse. Functional Status: Independent, continues to work. High Risk criteria applied:Yes Social Service Consult:NO Anticipated Discharge need: no needs at this time. Will continue to monitor patient???s progress and assess for discharge needs. documented in this encounter Plan of Treatment Not on file documented as of this encounter Procedures Procedure Name Priority Date/Time Associated Diagnosis Comments FLUORO GUIDED NEEDLE PLACEMENT IP Routine 09/14/2018 3:50 PM CDT MRI LUMBAR SPINE WO CONTRAST Pending Discharge 09/13/2018 3:27 PM CDT EGFR Routine 09/13/2018 5:36 AM CDT DIFFERENTIAL AUTO Routine 09/13/2018 5:3 6 AM CDT CBC WITH AUTO DIFFERENTIAL Routine 09/13/2018 5:36 AM CDT BASIC METABOLIC PANEL Routine 09/13/2018 5:36 AM CDT documented in this encounter Results * FL Fluoro Guided Needle Placement (09/14/2018 3:50 PM CDT) Narrative [facility] - 09/14/2018 3:50 PM CDT The images from this study are not interpreted by Radiology. ??Please refer to the physician's procedure / OR operative note. us Ebony Santiago MD IMG FLUOROSCOPY PROCEDURES Final Result RAD_PACS_[facility] * MRI Lumbar Spine WO Contrast (09/13/2018 3:27 PM CDT) Anatomical Region Laterality Modality Spine N/A Magnetic Resonan ce 09/13/2018 3:59 PM CDT Impressions 09/13/2018 4:49 PM CDT 1. ??Bilateral L5 pars defects with grade 1 anterolisthesis of L5 on S1. ??Moderate/severe bilateral foraminal stenosis at this level, left greater than right. 2. ??In addition, at L5-S1, there is a cystic lesion projecting medially from the right facet joint, favored to represent a synovial cyst. ??This partially effaces the right lateral recess, possibly displacing the traversing right S1 nerve root. ??Clinical correlation is recommended. 3. ??Indeterminate 1.6 cm right adrenal nodule. Electronically signed by: Fredrick Gasca MD Narrative 09/13/2018 4:49 PM CDT EXAMINATION: Magnetic resonance imaging (MRI) of the lumbar spine without contrast HISTORY: Left lumbar radiculopathy. TECHNIQUE: Multiplanar multi-weighted MRI of the lumbar spine was performed without intravenous contrast using the standard lumbar spine protocol. COMPARISON: None FINDINGS: Grade 1 anterolisthesis of L5 on S1. No focal suspicious marrow replacing lesion. ??Bilateral L5 pars defects noted. ??Hemangioma noted in the left sacrum. ??Marrow edema noted adjacent at the bilateral L4-L5 facet joints. Conus medullaris terminates at the level of T12-L1. Normal distal spinal cord signal intensity and morphology. 1.6 cm right adrenal nodule noted, indeterminate. ??Otherwise, unremarkable visualized intra-abdominal contents. L1-L2: Normal disc and facets. ??No spinal canal or foraminal stenosis. L2-L3: Normal disc and facets. ??No spinal canal or foraminal stenosis. L3-L4: Mild diffuse disc bulge, asymmetric to the left. ??Unremarkable facet joints. ??Mild degree of spinal canal stenosis. ??Mild right and mild/moderate left foraminal stenosis. L4-L5: Unremarkable configuration of the disc. ??Mild/moderate bilateral facet arthropathy. ??Mild spinal canal stenosis. ??No foraminal stenosis. L5-S1: Uncovered disc. ??Superimposed bulge. ??Mild bilateral facet arthropathy. ??Cystic lesion projects medially from the right facet joint, measuring 8-9 mm maximum dimension. ??This partially effaces the right lateral recess, possibly displacing the traversing right S1 nerve root. ??Mild degree of spinal canal stenosis at this level. Moderate/severe bilateral foraminal stenosis, left greater than right. Procedure Note Fredrick Gasca MD - 09/13/2018 EXAMINATION: Magnetic resonance imaging (MRI) of the lumbar spine without contrast HISTORY: Left lumbar radiculopathy. TECHNIQUE: Multiplanar multi-weighted MRI of the lumbar spine was performed without intravenous contrast using the standard lumbar spine protocol. COMPARISON: None FINDINGS: Grade 1 anterolisthesis of L5 on S1. No focal suspicious marrow replacing lesion. Bilateral L5 pars defects noted. Hemangioma noted in the left sacrum. Marrow edema noted adjacent at the bilateral L4-L5 facet joints. Conus medullaris terminates at the level of T12-L1. Normal distal spinal cord signal intensity and morphology. 1.6 cm right adrenal nodule noted, indeterminate. Otherwise, unremarkable visualized intra-abdominal contents. L1-L2: Normal disc and facets. No spinal canal or foraminal stenosis. L2-L3: Normal disc and facets. No spinal canal or foraminal stenosis. L3-L4: Mild diffuse disc bulge, asymmetric to the left. Unremarkable facet joints. Mild degree of spinal canal stenosis. Mild right and mild/moderate left foraminal stenosis. L4-L5: Unremarkable configuration of the disc. Mild/moderate bilateral facet arthropathy. Mild spinal canal stenosis. No foraminal stenosis. L5-S1: Uncovered disc. Superimposed bulge. Mild bilateral facet arthropathy. Cystic lesion projects medially from the right facet joint, measuring 8-9 mm maximum dimension. This partially effaces the right lateral recess, possibly displacing the traversing right S1 nerve root. Mild degree of spinal canal stenosis at this level. Moderate/severe bilateral foraminal stenosis, left greater than right. IMPRESSION: 1. Bilateral L5 pars defects with grade 1 anterolisthesis of L5 on S1. Moderate/severe bilateral foraminal stenosis at this level, left greater than right. 2. In addition, at L5-S1, there is a cystic lesion projecting medially from the right facet joint, favored to represent a synovial cyst. This partially effaces the right lateral recess, possibly displacing the traversing right S1 nerve root. Clinical correlation is recommended. 3. Indeterminate 1.6 cm right adrenal nodule. Electronically signed by: Fredrick Gasca MD Ashley Manning NP IMG MRI PROCEDURES Final Result * eGFR (09/13/2018 5:36 AM CDT) eGFR 60 mL/min/1.7 3 m2 [facility] Comment: Interpretive Data Reference Interval Normal ?>/= 90 mL/min/1.73m2 Mildly decreased* ? 60 - 89 mL/min/1.73m2 Mildly to moderately decreased ?45 - 59 mL/min/1.73m2 Moderately to severely decreased ??30 - 44 mL/min/1.73m2 Severely decreased ?15 - 29 mL/min/1.73m2 Kidney Failure ?< 15 ??mL/min/1.73m2 *Relative to young adult level If -Norwegian multiply value by 1.16. Estimated glomerular filtration rate is determined by the CKD-EPI equation recommended by the National Kidney Foundation (KDIGO 2012 Clinical Practice Guideline for the Evaluation and Management of Chronic Kidney Disease. Kidney Intnl Suppl Apr 2012;3:1). The CKD-EPI equation should not be used for patients with unstable renal function and has not been validated in children and those over 70. Current interpretive data was last reviewed 2016. Blood specimen (specimen) 09/13/2018 5:36 AM CDT 09/13/2018 6:17 AM CDT Narrative [facility] - 09/13/2018 6:43 AM CDT Ashley Manning NP LAB BLOOD ORDERABLE S Final Result [facility] [address] Department [place] [address] * Differential, auto (09/13/2018 5:36 AM CDT) Pathologist [facility] Neutrophil abs 2.7 1.7 - 6.5 K/cumm [facility] Imm gran abs 0.0 0.0 - 0.1 K/cumm [facility] Lymphocyte abs 1.4 0.8 - 3.3 K/cumm [facility] Monocyte abs 0.5 0.2 - 0.8 K/cumm [facility] Eosinophil abs 0.1 0.0 - 0.5 K/cumm [facility] Basophil abs 0.0 0.0 - 0.1 K/cumm [facility] Neutrophil pct 57.0 % [facility] Comment: Interpretive Data Percent cell count reference ranges are not reported, since discordance with absolute values may lead to misinterpretation of CBC data. Current Interpretive Data was last revised on 2017. Imm gran pct 0.6 % [facility] Comment: Interpretive Data Percent cell count reference ranges are not reported, since discordance with absolute values may lead to misinterpretation of CBC data. Current Interpretive Data was last revised on 2017. Lymphocyte pct 30.2 % [facility] Comment: Interpretive Data Percent cell count reference ranges are not reported, since discordance with absolute values may lead to misinterpretation of CBC data. Current Interpretive Data was last revised on 2017. Monocyte pct 10.1 % [facility] Comment: Interpretive Data Percent cell count reference ranges are not reported, since discordance with absolute values may lead to misinterpretation of CBC data. Current Interpretive Data was last revised on 2017. Eosinophil pct 1.5 % [facility] Comment: Interpretive Data Percent cell count reference ranges are not reported, since discordance with absolute values may lead to misinterpretation of CBC data. Current Interpretive Data was last revised on 2017. Basophil pct 0.6 % [facility] Comment: Interpretive Data Percent cell count reference ranges are not reported, since discordance with absolute values may lead to misinterpretation of CBC data. Current Interpretive Data was last revised on 2017. Blood specimen (specimen) 09/13/2018 5:36 AM CDT 09/13/2018 6:18 AM CDT Narrative [facility] - 09/13/2018 6:26 AM CDT us Ashley Manning NP LAB BLOOD ORDERABLE S Final Result [facility] [address] Department [place] [address] * Basic metabolic panel (09/13/2018 5:36 AM CDT) Pathologist [facility] Sodium 142 135 - 145 mmol/L [facility] Potassium, pl 3.6 3.3 - 4.9 mmol/L [facility] Chloride 100 97 - 110 mmol/L [facility] CO2 31 22 - 32 mmol/L [facility] Anion gap 11 2 - 15 mmol/L [facility] BUN 18 8 - 25 mg/dL [facility] Creatinine 1.25 0.80 - 1.30 mg/dL [facility] Glucose 150 70 - 199 mg/dL [facility] Comment: Interpretive Data Fasting glucose >/= 126 [...] classification and Diagnosis of Diabetes Diabetes Care 2017;40 (Suppl. 1):S11. Current interpretive data was last revised 2017. Calcium 9.3 8.5 - 10.3 mg/dL [facility] Blood specimen (specimen) 09/13/2018 5:36 AM CDT 09/13/2018 6:17 AM CDT Narrative [facility] - 09/13/2018 6:43 AM CDT us Ashley Manning NP LAB BLOOD ORDERABLE S Final Result [facility] [address] [place] [address] * (ABNORMAL) CBC with auto differential (09/13/2018 5:36 AM CDT) [facility] WBC 4.7 3.8 - 9.9 K/cumm [facility] Hgb 14.0 13.0 - 17.5 g/dL [facility] Hct 41.6 38.9 - 50.3 % [facility] Plt 141(L) 150 - 400 K/cumm [facility] MPV 11.0 9.1 - 12.3 fL [facility] RBC 4.60 4.30 - 5.80 M/cumm [facility] MCV 90.4 81.3 - 96.4 fL [facility] MCH 30.4 27.1 - 33.3 pg [facility] MCHC 33.7 32.3 - 35.7 g/dL [facility] RDW CV 12.7 11.1 - 14.9 % [facility] RDW SD 41.5 35.7 - 48.1 fL [facility] NRBC abs 0.00 0.00 - 0.01 K/cumm [facility] Blood specimen (specimen) 09/13/2018 5:36 AM CDT 09/13/2018 6:18 AM CDT Narrative [facility] - 09/13/2018 6:26 AM CDT us Ashley Manning NP LAB BLOOD ORDERABLE S Final Result [facility] [address] Department [place] [address] documented in this encounter Visit Diagnoses Diagnosis Lumbar radiculopathy- Primary Thoracic or lumbosacral neuritis or radiculitis, unspecified Acute pain Acute left-sided low back pain with left-sided sciatica Muscle spasm Spasm of muscle documented in this encounter Administered Medications Inactive Administered Medications - up to 3 most recent administrations Medication Order MAR Action Action Date Dose Rate Site acetaminophen (TYLENOL) tablet 650 mg 650 mg, oral, Every 8 hours scheduled, First dose on 09/13/18 at 1445 Given 09/14/2018 7:46 AM CDT 650 mg Given 09/13/2018 10:20 PM CDT 650 mg Given 09/13/2018 3:38 PM CDT 650 mg amLODIPine (NORVASC) tablet 10 mg 10 mg, oral, Nightly, First dose on Thu09/12/18 at 2130 Given 09/13/2018 10:21 PM CDT 10 mg Given 09/12/2018 9:37 PM CDT 10 mg atorvastatin (LIPITOR) tablet 40 mg 40 mg, oral, Nightly, First dose on 09/12/18 at 2130 Given 09/13/2018 10:20 PM CDT 40 mg Given 09/12/2018 9:37 PM CDT 40 mg cyclobenzaprine (FLEXERIL) tablet 10 mg 10 mg, oral, Once, On Thu09/12/18 at 1655, For 1 dose Given 09/12/2018 4:59 PM CDT 10 mg cyclobenzaprine (FLEXERIL) tablet 10 mg 10 mg, oral, 3 times daily PRN, muscle spasms, Starting on Thu09/12/18 at 2052 Given 09/13/2018 4:30 AM CDT 10 mg Given 09/12/2018 9:36 PM CDT 10 mg enoxaparin (LOVENOX) syringe 40 mg 40 mg, subcutaneous, Daily (for enoxaparin), First dose on Thu09/12/18 at 2130, Indications: Deep Vein Thrombosis PreventionIndications:Deep Vein Thrombosis Prevention Given 09/12/2018 9:36 PM CDT 40 mg Left Lower Abdomen gabapentin (NEURONTIN) capsule 300 mg 300 mg, oral, Nightly, First dose on Thu09/13/18 at 2100 Given 09/13/2018 10:22 PM CDT 300 mg hydroCHLOROthiazide (HYDRODIURIL) tablet 25 mg 25 mg, oral, Nightly, First dose on 09/12/18 at 2130 Given 09/13/2018 10:22 PM CDT 25 mg Given 09/12/2018 9:37 PM CDT 25 mg HYDROcodone-acetaminophen (NORCO) 5-325 mg per tablet 1 tablet 1 tablet, oral, Once, On 09/12/18 at 1656, For 1 dose, Indications: PainIndications:Pain Given 09/12/2018 4:59 PM CDT 1 tablet HYDROcodone-acetaminophen (NORCO) 5-325 mg per tablet 1 tablet 1 tablet, oral, Every 4 hours PRN, 1st line for pain, Starting on 09/12/18 at 2052, May repeat in 1 hour if pain is uncontrolled or increasing. Max 2 doses within 1 dosing interval., Indications: PainIndications:Pain Given 09/13/2018 1:12 PM CDT 1 tablet Given 09/13/2018 4:30 AM CDT 1 tablet Given 09/12/2018 9:37 PM CDT 1 tablet ketorolac (TORADOL) injection 30 mg 30 mg, intramuscular, Once, On 09/12/18 at 1656, For 1 dose, For Adult IV push, administer over 15 seconds Given 09/12/2018 4:59 PM CDT 30 mg Le ft Deltoid metFORMIN (GLUCOPHAGE) tablet 1,000 mg 1,000 mg, oral, 2 times daily, First dose on 09/12/18 at 2130, Take with food Given 09/14/2018 7:43 AM CDT 1,000 mg Given 09/13/2018 10:22 PM CDT 1,000 mg Given 09/13/2018 8:34 AM CDT 1,000 mg nateglinide (STARLIX) tablet 120 mg 120 mg, oral, Nightly, First dose on 09/12/18 at 2130, Take with food, Indications: type 2 diabetes mellitusIndications:type 2 diabetes mellitus Given 09/13/2018 10:20 PM CDT 120 mg Given 09/12/2018 9:36 PM CDT 120 mg ondansetron (ZOFRAN) injection 4 mg 4 mg, intravenous, Administer over 2 Minutes, Every 6 hours PRN, nausea, vomiting, if not tolerating PO, Starting on 09/12/18 at 2051, Indications: Nausea and VomitingIndications:Nausea and Vomiting ondansetron ODT (ZOFRAN-ODT) disintegrating tablet 4 mg 4 mg, oral, Every 6 hours PRN, nausea, vomiting, Starting on 09/12/18 at 2051, Indications: Nausea and VomitingIndications:Nausea and Vomiting documented in this encounter Historical Medications * This list may reflect changes made after this encounter. atorvastatin (LIPITOR) 40 mg tablet Take 1 tablet (40 mg total) by mouth nightly nateglinide (STARLIX) 120 mg tabletIndications :type 2 diabetes mellitus Take 1 tablet (120 mg total) by mouth nightly metFORMIN (GLUCOPHAGE) 500 mg tablet Take 2 tablets (1,000 mg total) by mouth 2 (two) times a day hydroCHLOROthiazi de (HYDRODIURIL) 25 mg tablet Take 1 tablet (25 mg total) by mouth nightly tiZANidine (ZANAFLEX) 2 mg tablet Take 2 mg by mouth every 8 (eight) hours as needed for muscle spasms 11/01/2018 ibuprofen (ADVIL,MOTRIN) 200 mg tab/cap Take 800 mg by mouth every 8 (eight) hours as needed for pain 11/01/2018 amLODIPine (NORVASC) 10 mg tablet Take 10 mg by mouth nightly 05/20/2023 added in this encounter Active and Recently Administered Medications Times are shown in CDT. Scheduled Medication Order 09/12/2018 09/13/2018 09/14/2018 acetaminophen (TYLENOL) tablet 650 mg 650 mg, oral, Every 8 hours scheduled, First dose on 09/13/18 at 1445 1538 (Given - Provider: Farzad Marroquin RN)2220 (Given - Provider: Vick Stewart) 0606 (Not Given - Provider: Vick Stewart - Reason: Patient/family refused)0746 (Given - Provider: Farzad Marroquin RN)1332 (Not Given - Provider: Farzad Marroquin RN - Reason: Patient/family refused) amLODIPine (NORVASC) tablet 10 mg 10 mg, oral, Nightly, First dose on 09/12/18 at 2130 2137 (Given - Provider: Jade Taylor RN) 222 (Given - Provider: Vick Stewart) atorvastatin (LIPITOR) tablet 40 mg 40 mg, oral, Nightly, First dose on 09/12/18 at 2130 2137 (Given - Provider: Jade Taylor RN) 222 (Given - Provider: Vick Stewart - Comment: does not take anymore) cyclobenzaprine (FLEXERIL) tablet 10 mg (COMPLETED) 10 mg, oral, Once, On 09/12/18 at 1655, For 1 dose 165 (Given - Provider: Armando Monge RN) enoxaparin (LOVENOX) syringe 40 mg (CANCELED) 40 mg, subcutaneous, Daily (for enoxaparin), First dose on 09/12/18 at 2130, Indications: Deep Vein Thrombosis Prevention 2135 (Given - Provider: Jade Taylor RN) 2222 (Not Given - Provider: Vick Stewart - Reason: Patient/family refused) gabapentin (NEURONTIN) capsule 300 mg 300 mg, oral, Nightly, First dose on 09/13/18 at 2100 2221 (Given - Provider: Vick Stewart) hydroCHLOROthiazide (HYDRODIURIL) tablet 25 mg 25 mg, oral, Nightly, First dose on 09/12/18 at 2130 213 (Given - Provider: Jade Taylor RN) 2221 (Given - Provider: Vick Stewart) HYDROcodone-acetamino phen (NORCO) 5-325 mg per tablet 1 tablet (COMPLETED) 1 tablet, oral, Once, On 09/12/18 at 165, For 1 dose, Indications: Pain 1658 (Given - Provider: Armando Monge RN) ketorolac (TORADOL) injection 30 mg (COMPLETED) 30 mg, intramuscular, Once, On 09/12/18 at 165, For 1 dose, For Adult IV push, administer over 15 seconds 1658 (Given - Provider: Armando Monge RN) metFORMIN (GLUCOPHAGE) tablet 1,000 mg 1,000 mg, oral, 2 times daily, First dose on 09/12/18 at 0, Take with food 2135 (Given - Provider: Jade Taylor RN) 0834 (Given - Provider: Farzad Marroquin RN)2221 (Given - Provider: Vick Stewart) 0743 (Given - Provider: Farzad Marroquin RN) nateglinide (STARLIX) tablet 120 mg 120 mg, oral, Nightly, First dose on 09/12/18 at 2130, Take with food, Indications: type 2 diabetes mellitus 2135 (Given - Provider: Jade Taylor RN) 2219 (Given - Provider: Vick Stewart) PRN Medication Order 09/12/2018 09/13/2018 09/14/2018 cyclobenzaprine (FLEXERIL) tablet 10 mg 10 mg, oral, 3 times daily PRN, muscle spasms, Starting on 09/12/18 at 2051 2135 (Given - Provider: Jaed Taylor RN) 0430 (Given - Provider: Jade Taylor RN) HYDROcodone-acetaminophen (NORCO) 5-325 mg per tablet 1 tablet 1 tablet, oral, Every 4 hours PRN, 1st line for pain, Starting on 09/12/18 at 2051, May repeat in 1 hour if pain is uncontrolled or increasing. Max 2 doses within 1 dosing interval., Indications: Pain 2136 (Given - Provider: Jade Taylor RN) 043 (Given - Provider: Jade Taylor RN)1312 (Given - Provider: Farzad Marroquin RN) ibuprofen (ADVIL,MOTRIN) tablet 800 mg 800 mg, oral, Every 8 hours PRN, 1st line for pain, Starting on 09/12/18 at 2051 ondansetron (ZOFRAN) injection 4 mg(Linked Group 1) 4 mg, intravenous, Administer over 2 Minutes, Every 6 hours PRN, nausea, vomiting, if not tolerating PO, Starting on 09/12/18 at 2051, Indications: Nausea and Vomiting ondansetron ODT (ZOFRAN-ODT) disintegrating tablet 4 mg(Linked Group 1) 4 mg, oral, Every 6 hours PRN, nausea, vomiting, Starting on 09/12/18 at 2051, Indications: Nausea and Vomiting Linked Groups Order Group 1: ondansetron ODT (ZOFRAN-ODT) disintegrating tablet 4 mgJump to med 4 mg, oral, Every 6 hours PRN, nausea, vomiting, Starting on 09/12/18 at 2051, Indications: Nausea and Vomiting Or ondansetron (ZOFRAN) injection 4 mgJump to med 4 mg, intravenous, Administer over 2 Minutes, Every 6 hours PRN, nausea, vomiting, if not tolerating PO, Starting on 09/12/18 at 2051, Indications: Nausea and Vomiting documented in this encounter Orders Medications Ordered That John ht Not Have Been Administered Count Last Ordered Date First Ordered Date ibuprofen (ADVIL,MOTRIN) tablet 800 mg 1 ondansetron (ZOFRAN) injection 4 mg 1 09/12 ondansetron ODT (ZOFRAN-ODT) disintegrating tablet 4 mg 1 09/12/2018 Diet Count Last Ordered Date First Orde red Date ADULT DISCHARGE DIET 1 09/14/2018 Nursing Count Last Ordered Date First Orde red Date DISCHARGE ACTIVITY 1 09/14/2018 FOLLOW UP PRIMARY PHYSICIAN 1 09/14/2018 WEIGH PATIENT 1 09/12/2018 Consult Count Last Ordered Date First Orde red Date IP CONSULT TO PAIN MANAGEMENT 1 09/13/2018 Admission Count Last Ordered Date First Orde red Date ASSIGN PATIENT STATUS 1 09/12/2018 ADT Patient Update Count Last Ordered Date Firs t Ordered Date ED IP DECISION TO ADMIT 1 09/12/2018 documented in this encounter 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
--- OUTSIDE RECORDS SUMMARY | 2024-04-13 18:33 | XMS_ITS | Encounter Summary ---
Author Organization [facility] Healthcare Address [facility] [place] [address] Care Team Providers Care Visual Communications Instructor Name Role Phone Igor Ferrera MD Primary Care Provider [phone] Reason for Visit * Reason Onset Date Comments Appointment 09/21/2018 Encounter Details Date Type Department Care Team (Late st Contact Info) Description 09/21/2018 Telephone [facility] [address] [facility] [address] [place] [phone] Ebony Santiago MD [address] [place] [address] Appointment Social History Tobacco Use Types Packs/Day Years Used Date Smoking Tobacco: Never Alcohol Use Standard Drinks/Week Comments Yes 0 (1 standard drink = 0.6 oz pur e alcohol) Sex and Gender Information Value Date Recorded Sex Assigned at Not on file 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 - 09/21/2018 4:13 PM CDT Called to schedule, pt was actually seen by Dr. Santiago while inpatient in hospital. He'll need to schedule as a new patient. He is aware of this and has contacted his primary for referral. documented in this encounter Plan of Treatment Not on file documented as of this encounter Visit Diagnoses Not on filedocumented in this encounter Care Teams Visual Communications Instructor Relationship Specialty Start Date End Date Igor Ferrera MD PCP - General 09/12/18 documented as of this encounter
--- OUTSIDE RECORDS SUMMARY | 2024-04-13 18:33 | XMS_ITS | Encounter Summary ---
Author Organization [facility] Healthcare Address [address] [place] [address] Care Team Providers Care Database Administrator Name Role Phone Igor Ferrera MD Primary Care Provider [phone] Encounter Details Date Type Department Care Team (Latest Contact Info) Description 09/14/2018 2:15 PM CDT - 09/14/2018 11:59 PM CDT Hospital Encounter [facility] [place] [address] [facility] 1st [place] [phone] Ebony Santiago MD [address] [place] [phone] Left sided sciatica; Spondylosis of lumbar region without myelopathy or radiculopathy Discharge Disposition: Discharge to home or self care Social History Tobacco Use Types Packs/Day Years Used Date Smoking Tobacco: Never Alcohol Use Standard Drinks/Week Comments Yes 0 (1 standard drink = 0.6 oz pur e alcohol) Sex and Gender Information Value Date Recorded Sex Assigned at Not on file 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 Gender Identity Not on file Sexual Orientation Not on file documented as of this encounter Last Filed Vital Signs Vital Sign Reading Time Taken Comments Blood Pressure 137/83 09/14/2018 3:31 PM CDT Pulse 77 09/14/2018 3:31 PM CDT Temperature 36.8 ??C (98.2 ??F) 09/14/2018 2:47 PM CD T Respiratory Rate 17 09/14/2018 3:31 PM CDT Oxygen Saturation 96% 09/14/2018 3:31 PM CDT Inhaled Oxygen Concentration - - Weight - - Height - - Body Mass Index - - documented in this encounter Discharge Instructions * Patient Instructions* Martita Vines RN - 09/14/2018 3:33 PM CDT Please see attached post-procedure sheet. Lumber selective nerve root May shower today. No swimming pools, hot tubs, bathtubs or soaking for 24 hours. Activity as tolerated today. May return to normal activities tomorrow. No driving today. May return to driving tomorrow. Follow up in 4-6 weeks documented in this encounter Medications at Time of Discharge atorvastatin (LIPITOR) 40 mg tablet Take 1 tablet (40 mg total) by mouth nightly gabapentin (NEURONTIN) 300 mg capsule Take 1 capsule (300 mg total) by mouth nightly 30 capsule 11 09/14/2018 hydroCHLOROthiazi de (HYDRODIURIL) 25 mg tablet [...] spasms 11/01/2018 documented as of this encounter Discharge Disposition Disposition Code Departure Means Destination Discharge to home or self care documented in this encounter Miscellaneous Notes * Addendum Note - Leslie Saldaña R-RT - 09/14/2018 4:32 PM CDTEncounter addended by: RT Shoshana on: 09/14/2018 4:32 PM Actions taken: Procedure log completed * Op Note - Ebony Santiago MD - 09/14/2018 3:10 PM CDT Patient ID Patient Name: Jfefrey Grajeda : 1950 DOS: 09/14/2018 PCP: Igor Ferrera MD Surgeon SURGEON: Ebony Santiago MD, RANDOLPH APARTMENT LOCATOR SURGEON: None Procedures NAME OF PROCEDURE: Lumbar Transforaminal Epidural Steroid Injection (Selective Nerve Root Injection) at Left L4, L5 under Fluoroscopy. PRE-PROCEDURE DIAGNOSES: Other Chronic Pain, Lumbosacral Spondylosis, Lumbar Spinal Canal Stenosis,Displaced Lumbar Disc and Left Sciatica. POST-PROCEDURE DIAGNOSES:Other Chronic Pain, Lumbosacral Spondylosis, Lumbar Spinal Canal Stenosis,Displaced Lumbar Disc and Left Sciatica . INDICATION FOR PROCEDURE:Other Chronic Pain, Lumbosacral Spondylosis, Lumbar Spinal Canal Stenosis,Displaced Lumbar Disc and Left Sciatica. INFORMED CONSTENT: After reviewing the procedure with [...] The above procedure was repeated at left L5 level. The procedure was well tolerated, and there were no apparent complications. The patient had moderate relief of pain from the injected local anesthetic. DISPOSITION: Patient was discharged home in stable condition. I performed the procedure described above myself. Ebony Santiago MD, RANDOLPH Director of Pain Field Recorder Professor [facility] documented in this encounter Plan of Treatment Not on file documented as of this encounter Visit Diagnoses Diagnosis Left sided sciatica Sciatica Spondylosis of lumbar region without myelopathy or radiculopathy documented in this encounter Administered Medications Inactive Administered Medications - up to 3 most recent administrations Medication Order MAR Action Action Date Dose Rate Site bupivacaine (MARCAINE) 0.25 % (2.5 mg/mL) preservative free injection As needed, Starting on 09/14/18 at 1523, Intra-Op Given 09/14/2018 3:23 PM CDT 3 mL dexamethasone (DECADRON) injection solution Administer over 2 Minutes, As needed, Starting on 09/14/18 at 1523, Intra-Op Given 09/14/2018 3:23 PM CDT 10 mg iohexol (OMNIPAQUE) 300 mg iodine/mL injection solution As needed, Starting on 09/14/18 at 1523, Intra-Op Given 09/14/2018 3:23 PM CDT 0.5 mL lidocaine PF (XYLOCAINE) 10 mg/mL (1 %) preservative free injection As needed, Starting on 09/14/18 at 1522, Intra-Op Given 09/14/2018 3:22 PM CDT 10 mL documented in this encounter Care Teams Database Administrator Relationship Specialty Start Date End Date Igor Ferrera MD PCP - General 09/12/18 documented as of this encounter
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
--- OUTSIDE RECORDS SUMMARY | 2024-04-13 18:33 | XMS_ITS | Encounter Summary ---
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 Gender Identity Not on file Sexual Orientation Not on file documented as of this encounter Plan of Treatment Not on file documented as of this encounter Procedures Procedure Name Priority Date/Time Associated Diagnosis Comments BLOOD GLUCOSE Routine 08/01/2015 11:00 AM CDT FLEXIBLE SIGMOIDOSCOPY REPORT 08/01/2015 DISCHARGE LABORATORY CUMULATIVE REPORT 08/01/2015 documented in this encounter Results * Blood glucose (08/01/2015 11:00 AM CDT) Glucose, POC, bld 113 70 - 140 mg/dl HISTORICAL RESULTS Blood specimen (specimen) 08/01/2015 11:00 AM CDT Sandy Bateman MD LAB BLOOD ORDERABLES Final Result HISTORICAL RESULTS * DISCHARGE LABORATORY CUMULATIVE REPORT (08/01/2015) Narrative 08/01/2015 Ordered by an unspecified provider. us Historical Provider LAB BLOOD ORDERABLES Maty l Result * FLEXIBLE SIGMOIDOSCOPY REPORT (08/01/2015) Anatomical Region Laterality Modality Other Narrative 08/01/2015 Ordered by an unspecified provider. us Historical Provider GI PROCEDURE ORDERABLES F inal Result documented in this encounter Visit Diagnoses Diagnosis Melena Blood in stool Other hemorrhoids documented in this encounter
--- OUTSIDE RECORDS SUMMARY | 2024-04-13 21:58 | XMS_ITS | Encounter Summary ---
Author Organization [facility] Address [address] [place] [address] Care Team Providers Care Middle School Director Name Role Phone Unavailable Primary Care Provider Unavailabl e Encounter Details Date Type Department Care Team (Late st Contact Info) Description 04/10/2021 Lab Requisition [facility] [address] [place] [address] James Tripathi MD [address] [place] [address] [place] [address] Social History Tobacco Use Types Packs/Day Years Used Date Smoking Tobacco: Never Assessed Sex and Gender Information Value Date Recorded Sex Assigned at Not on file 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
--- OUTSIDE RECORDS SUMMARY | 2024-04-13 21:58 | XMS_ITS | Encounter Summary ---
Author Organization [facility] Address [address] [facility] [place] [address] Care Team Providers Care Security Operations Analyst Name Role Phone Unavailable Primary Care Provider Unavailabl e Encounter Details Date Type Department Care Team (Late st Contact Info) Description 03/30/2019 Lab Requisition [facility] [address] [facility] [place] [phone] Sunitha Portillo MD [address] [facility] [address] [place] [address] Social History Tobacco Use Types Packs/Day Years [...] Comments DERMATOPATHOLOGY Routine 03/29/2019 12:0 0 AM BUSINESS SERVICES TECH documented in this encounter Results * DERMATOPATHOLOGY (03/29/2019 12:00 AM BUSINESS SERVICES TECH) Case Report Dermatopathology Report ? Case: [id number] ? Authorizing Provider: ??Sunitha Portillo MD ? Collected: ? 03/29/2019 12:00 AM ? Ordering Location: ? [facility] ?Received: ?03/30/2019 07:40 AM ? Pathologist: ? Kourtney Jain MD ? Specimen: ?Skin, right dorsal hand ? 11:07 AM [facility] Final Diagnosis Specimen A. SKIN, right dorsal hand: SQUAMOUS CELL CARCINOMA, WELL DIFFERENTIATED (C44.622) 11:07 AM [facility] Clinical History R/O SCC, irritated, non-healing. 11:07 AM [facility] Gross Description Specimen A: Received is one formalin filled container labeled with the patient's name and designated right dorsal hand. The specimen consists of a shave measuring 5l9s8br. Jar 0. 11:07 AM [facility] Microscopic Description Specimen A. SKIN, right dorsal hand: Arising in the epidermis and extending into the dermis there are irregularly shaped aggregates of keratinocytes showing evidence of premature cornification. 11:07 AM [facility] Disclaimer An external and internal positive and negative controls are appropriate for the histochemical, immunohistochemical and immunofluorescence stain(s) in this case (if any), except where stated explicitly. The performance characteristics of the stain(s) cited in this report were developed and its performance characteristic determined by the Dermatopathology Laboratory at [facility], directed by Dr. Parker Mir. These tests need not be, and therefore are not, approved by the [place] Food and Drug Administration. The tests are used for clinical purposes. Billing Codes Specimen Charges Stain Charges 56334 1 9 11:07 AM BUSINESS SERVICES TECH DERMATOPATHOLOGY LABORATORY Embedded Images 9 11:07 AM BUSINESS SERVICES TECH DERMATOPATHOLOGY LABORATORY Pathology/Cytolog y TISSUE SPECIMEN FROM SKIN / Unknown 03/29/2019 03/30/2019 7:40 AM BUSINESS SERVICES TECH Sunitha Portillo MD LAB - PATHOLOGY/CYT OLOGY ORDERABLES DERMATOPATHOLOGY LABORATORY [facility] - Department of Dermatology [address] [place] [address], 5th Floor Lab [address] [phone] documented in this encounter Visit Diagnoses Not on filedocumented in this encounter
--- OUTSIDE RECORDS SUMMARY | 2024-04-13 21:58 | XMS_ITS | Patient Health Summary ---
Author Organization [facility] Address [address] [facility] [place] [address] Care Team Providers Care Carbon Grinder Name Role Phone Unavailable Primary Care Provider Unavailabl e Note from [facility],non-owned Affiliates and Associated Physician Practices is amultiple site organization consisting of ambulatory clinics and hospital sitesin [place], [place], [place] and [place]. This disclosure is being madepursuant to the Care Everywhere program and may not contain all information available regarding this patient. Last updated 18.[facility] Allergies No known active allergies Medications * [...] * DERMATOPATHOLOGY(Performed 08/03/2023) * DERMATOPATHOLOGY(Performed 05/08/2023) * GA REMOVE CERUMEN IMPACTED W INSTR ALONSO(Performed 01/14/2022) Performed for Impacted cerumen of left ear, Excessive cerumen in ear canal, right, Ear itching, Earfullness, left * AUDIOLOGY/TYMPANOMETRY ORDER(Performed 01/14/2022) * DERMATOPATHOLOGY(Performed 05/06/2019) * DERMATOPATHOLOGY(Performed 03/29/2019) * DERMATOPATH TECHNICAL REPORT(Performed 05/25/2018) Results * DERMATOPATHOLOGY (08/03/2023 8:11 AM CDT) Only the most recent of4 resultswithin the time period is included. Case Report Dermatopathology Report ? Case: [id number] ? Authorizing Provider: ??Sunitha Portillo MD ? [...] specimen consists of a shave biopsy measuring 33a31e0 mm. Jar 0. 4 3:06 PM CDT [...] characteristic determined by the Dermatopathology Laboratory at [facility], directed by Dr. Parker Mir. These tests need not be, and therefore are not, approved by the [place] Food and Drug Administration. The tests are used for clinical purposes. Billing Codes Specimen Charges Stain Charges 25980 1 75235 02335 76397 1 1 1 4 3:06 PM CDT DERMATOPATHOLOGY LABORATORY Embedded Images 4 3:06 PM CDT DERMATOPATHOLOGY LABORATORY Pathology/Cytolo gy TISSUE SPECIMEN FROM SKIN / Unknown 08/03/2023 8:11 AM CDT 08/04/2023 12:37 PM CDT Sunitha Portillo MD LAB - PATHOLOGY/CYT OLOGY ORDERABLES DERMATOPATHOLOGY LABORATORY [facility] - Department of Dermatology [address], [address] Floor [address] [phone] * GA REMOVE CERUMEN IMPACTED W INSTR ALONSO (01/14/2022 [...] bilateral TM's were found to be intact. KTAIUSKA bilaterally. Boric acid powder applied bilaterally. I [...] change in hearing is suspected. Aileen Kumar. [facility]-A Clinical Gold Cutter [facility]-Department of Otolaryngology/Audiology [facility] [address] [place] [address] ([facility]) [place] [address] Kaylie Kunz Aileen AUDIOLOGY SERVICES O RDERABLES * DERMATOPATH TECHNICAL REPORT (05/25/2018 12:00 AM CUTTING MACHINE FIXER) Case Report Dermatopathology Report ? Case: [id number] ? Authorizing Provider: ??Sunitha Portillo MD ? Collected: ? 05/25/2018 12:00 AM ? Pathologist: ? Bella Mir MD ? Received: ?05/27/2018 07:17 AM ? Specimen: ?Skin, left cheek ? 9 2:33 PM [facility] DERMATOPATHOLOGY LABORATORY Clinical History [facility] vs [facility] 9 2:33 PM [facility] DERMATOPATHOLOGY LABORATORY Gross Description Specimen A: Received is one formalin filled container labeled with the patient's name and designated left cheek. The specimen consists of a shave biopsy measuring 6x5x2 mm. Jar 0. [facility] Dermatopathology Laboratory performed the technical component only. 9 2:33 PM [facility] DERMATOPATHOLOGY LABORATORY Embedded Images 9 2:33 PM [facility] DERMATOPATHOLOGY LABORATORY DISCLAIMER An external and internal positive and negative controls are appropriate for the histochemical, immunohistochemical and immunofluorescence stain(s) in this case (if any), except where stated explicitly. The performance characteristics of the stain(s) cited in this report were developed and its performance characteristic determined by the Dermatopathology Laboratory at [facility], directed by Dr. Parker Mir. These tests need not be, and therefore are not, approved by the [place] Food and Drug Administration. The tests are used for clinical purposes. 9 2:33 PM CUTTING MACHINE FIXER DERMATOPATHOLOGY LABORATORY Pathology/Cytolog y TISSUE SPECIMEN FROM SKIN / Unknown 05/25/2018 05/27/2018 7:17 AM CUTTING MACHINE FIXER Sunitha Portillo MD LAB - PATHOLOGY/CYT OLOGY ORDERABLES DERMATOPATHOLOGY LABORATORY [facility] - Department of Dermatology [address] [place] [address] 5th Floor Lab [place], [place] [id number] [place] [address]
--- OUTSIDE RECORDS SUMMARY | 2024-04-13 21:58 | XMS_ITS | Clinical Summary ---
Author Organization [facility] Address [address] [facility] [place] [address] Care Team Providers Care Client Support Analyst Name Role Phone Unavailable Primary Care Provider Unavailabl e Source Comments [facility],non-owned Affiliates and Associated Physician Practices is amultiple site organization consisting of ambulatory clinics and hospital sitesin [place], [place], [place] and [place]. This disclosure is being madepursuant to the Care Everywhere program and may not contain all information available regarding this patient. Last updated 18.[facility] Allergies No known active allergies Medications * [...] this topic Jeffrey Grajeda Personal/Family Self 1950 [facility] [address] [place] [address]
--- OUTSIDE RECORDS SUMMARY | 2024-04-13 21:58 | XMS_ITS | Encounter Summary ---
Author Organization [facility] Address [facility] [facility] [place] [address] Care Team Providers Care Pick Pulling Machine Tender Name Role Phone Unavailable Primary Care Provider Unavailabl e Reason for Visit * Reason Comments Establish Care Ear Problem Hearing Problem WAX IN EAR Encounter Details Date Type Department Care Team (Late st Contact Info) Description 01/14/2022 10:00 AM CDT Office Visit [facility] [address] [place] [phone] Victor M Zamarripa, DISPLAY SPECIALIST-[facility] [address] [facility] [address] [place] [address] Chronic diffuse otitis externa of both ears [...] 10:15 AM CDT Thank you for visiting [facility] Otolaryngology - Head & Neck Surgery. [...] an appointment, please call our office at [phone] Thursday through Thursday from 8:30 am to4:30 pm. You can also request a routine appointment through your [employer] account. Prescription Refills Contact your pharmacy to [...] call the medical exchangeat and ask the stave saw operator to page the ENT physician environmental compliance engineer. *Caller ID blocking service will need to be turned off for your call to be returned. We also specialize in Hearing Aids, Allergy testing, swallowing disorders, voice problems, cancer diagnosis, and so much more. Visit our website at [email or web address].[email or web address] for information about our practice and an interactive health encyclopedia. Thank you for visiting [facility] Otolaryngology - Head & Neck Surgery. [...] an appointment, please call our office at [phone] Thursday through Thursday from 8:00 am to4:30 pm. You can also request a routine appointment through your [employer] account. Prescription Refills Contact your pharmacy to [...] the medical exchange at and ask the stave saw operator to page the ENT physician environmental compliance engineer. *Caller ID blocking service will need to be turned off for your call to be returned. We also specialize in Hearing Aids, Allergy testing, swallowing disorders, voice problems, cancer diagnosis, and so much more. Visit our website at [email or web address].[email or web address] for information about our practice and an interactive health encyclopedia. Thank you for visiting [facility] Otolaryngology - Head & Neck Surgery. [...] an appointment, please call our office at [phone] Thursday through Thursday from 8:00 am to4:30 pm. You can also request a routine appointment through your [email or web address] account. Prescription Refills Contact your pharmacy to [...] the medical exchange at and ask the stave saw operator to page the ENT physician environmental compliance engineer. *Caller ID blocking service will need to be turned off for your call to be returned. We also specialize in Hearing Aids, Allergy testing, swallowing disorders, voice problems, cancer diagnosis, and so much more. Visit our website at [email or web address].[email or web address] for information about our practice and an interactive health encyclopedia. 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 Additionally, they will utilize a humanities division chair for 20-30 seconds on low/medium heat afterremoving the cotton ball to control any moisture. Follow up as needed Victor M Zamarripa APRN-VEHICLE UPHOLSTERER 01/14/2022 11:14 AM documented in this encounter Procedure Notes * Victor M Zamarripa APRN-CNP - 01/14/2022 10:55 AM CDTAssociated Order(s): PROC CERUMEN REMOVAL Procedure(s): MI REMOVE CERUMEN IMPACTED W INSTR ALONSO Pre-Procedure [...] Procedure Name Priority Date/Time Associated Diagnosis Comments MI REMOVE CERUMEN IMPACTED W INSTR ALONSO Routine 01/14/2022 10:55 AM CDT Impacted cerumen of left ear Excessive cerumen in ear canal, right Ear itching Ear fullness, left documented in this encounter Results * MI REMOVE CERUMEN IMPACTED W INSTR ALONSO (01/14/2022 [...] tolerated the procedure well. Victor M Zamarripa DISPLAY SPECIALIST-VEHICLE UPHOLSTERER PROCEDURE/ MINOR SURGICAL ORDERABLES documented in this encounter Visit Diagnoses Diagnosis Chronic diffuse otitis externa of both ears- Primary Impacted cerumen of left ear Impacted cerumen Excessive cerumen in ear canal, right Ear itching Unspecified pruritic disorder Ear fullness, left documented in this encounter
--- OUTSIDE RECORDS SUMMARY | 2024-04-13 21:58 | XMS_ITS | Encounter Summary ---
Author Organization [facility] Address [address] [place] [address] Care Team Providers Care Shelf Filler Name Role Phone Unavailable Primary Care Provider Unavailabl e Encounter Details Date Type Department Care Team (Late st Contact Info) Description 04/11/2020 Lab Requisition [facility] Community Testing [facility] [address] [place] [address] [place], [place] [address] [place] [address] Social History Tobacco Use Types Packs/Day Years Used Date Smoking Tobacco: Never Assessed Sex and Gender Information Value Date Recorded Sex Assigned at Not on file Legal Sex Male 1:23 PM LINE DIRECTOR Gender Identity Not on file Sexual Orientation Not on file documented as of this encounter Plan of Treatment Not on file documented as of this encounter Procedures Procedure Name Priority Date/Time Associated Diagnosis Comments SARS-COV-2 PCR [facility] ONLY Routine 04/11/2020 8:14 AM LINE DIRECTOR documented in this encounter Visit Diagnoses Not on filedocumented in this encounter
--- OUTSIDE RECORDS SUMMARY | 2024-04-13 21:58 | XMS_ITS | Clinical Summary ---
Author Organization [facility] Address [address] [place] [phone] Care Team Providers Care Dietary Internship Name Role Phone Unavailable Primary Care Provider Unavailabl e Social History Tobacco Use Types Packs/Day Years Used Date Smoking Tobacco: Never Assessed Sex and Gender Information Value Date Recorded Sex Assigned at Not on file Legal Sex Male 1:23 PM AQUATICS LIFEGUARD Gender Identity Not on file Sexual Orientation [...]
--- OUTSIDE RECORDS SUMMARY | 2024-04-13 21:58 | XMS_ITS | Encounter Summary ---
Author Organization [facility] Address [address] [place] [address] Care Team Providers Care Audiovisual Lead Technician Name Role Phone Unavailable Primary Care Provider Unavailabl e Encounter Details Date Type Department Care Team (Late st Contact Info) Description 04/10/2021 1:30 PM DEVIL DOG Rapid Evaluation [place] [facility] Community Testing [address] [address] Social History Tobacco Use Types Packs/Day Years Used Date Smoking Tobacco: Never Assessed Sex and Gender Information Value Date Recorded Sex Assigned at Not on file Legal Sex Male 1:23 PM DEVIL DOG Gender Identity Not on file Sexual Orientation Not on file documented as of this encounter Plan of Treatment Not on file documented as of this encounter Visit Diagnoses Not on filedocumented in this encounter
--- OUTSIDE RECORDS SUMMARY | 2024-04-13 21:58 | XMS_ITS | Encounter Summary ---
Author Organization [facility] Address [address] [place] [address] Care Team Providers Care Commercial Reporter Name Role Phone Unavailable Primary Care Provider Unavailabl e Encounter Details Date Type Department Care Team (Late st Contact Info) Description 04/11/2020 8:30 AM MEDICAL LABORATORY SPECIALIST Rapid Evaluation [place] [facility] Community Testing [address] [address] Social History Tobacco Use Types Packs/Day Years Used Date Smoking Tobacco: Never Assessed Sex and Gender Information Value Date Recorded Sex Assigned at Not on file Legal Sex Male 1:23 PM MEDICAL LABORATORY SPECIALIST Gender Identity Not on file Sexual Orientation Not on file documented as of this encounter Plan of Treatment Not on file documented as of this encounter Visit Diagnoses Not on filedocumented in this encounter
--- OUTSIDE RECORDS SUMMARY | 2024-04-13 21:58 | XMS_ITS | Encounter Summary ---
Author Organization [facility] Address [address] [facility] [place] [address] Care Team Providers Care Ventilating Expert Name Role Phone Unavailable Primary Care Provider Unavailabl e Encounter Details Date Type Department Care Team (Late st Contact Info) Description 05/09/2019 Lab Requisition [facility] [address] [facility], [place] [phone] Wilda Gray MD [address] [facility] 3 [place] [address] Social History Tobacco Use Types Packs/Day Years [...] Comments DERMATOPATHOLOGY Routine 05/06/2019 12:0 0 AM ANGLE ROLL OPERATOR documented in this encounter Results * DERMATOPATHOLOGY (05/06/2019 12:00 AM ANGLE ROLL OPERATOR) Case Report Dermatopathology Report ? Case: [id number] ? Authorizing Provider: ??Wilda Gray MD ?Collected: ? 05/06/2019 12:00 AM ? Ordering Location: ? [facility] ?Received: ?05/09/2019 07:01 AM ? Pathologist: ? Bella Mir MD ? Specimen: ?Skin, right dorsal hand ? 0 11:24 AM [facility] DERMATOPATHOLOGY LABORATORY Final Diagnosis Specimen A. SKIN, right dorsal hand: DERMAL SCAR RESIDUAL SQUAMOUS CELL CARCINOMA NOT IDENTIFIED (L90.5) 0 11:24 AM [facility] DERMATOPATHOLOGY LABORATORY Clinical History R/O SCC, well differentiated, bx proven. Previous Bx: [id number]. 0 11:24 AM [facility] DERMATOPATHOLOGY LABORATORY Gross Description Specimen A: Received is one formalin filled container labeled with the patient's name and designated right dorsal hand.The specimen consists of an ellipse measuring [id number] and is oriented with the notch at [...] cassettes 3-4. Jar 0. 0 11:24 AM [facility] DERMATOPATHOLOGY LABORATORY Microscopic Description Specimen A. SKIN, right dorsal hand: There are fibroblasts and collagen bundles oriented parallel to the skin surface. There are elongated blood vessels, some of which are oriented perpendicular to the skin surface. No residual squamous cell carcinoma is identified. 0 11:24 AM [facility] DERMATOPATHOLOGY LABORATORY Disclaimer An external and internal positive and negative controls are appropriate for the histochemical, immunohistochemical and immunofluorescence stain(s) in this case (if any), except where stated explicitly. The performance characteristics of the stain(s) cited in this report were developed and its performance characteristic determined by the Dermatopathology Laboratory at [facility], directed by Dr. Parker Mir. These tests need not be, and therefore are not, approved by the [place] Food and Drug Administration. The tests are used for clinical purposes. Billing Codes Specimen Charges Stain Charges 84365 1 0 11:24 AM [facility] DERMATOPATHOLOGY LABORATORY Embedded Images 0 11:24 AM [facility] DERMATOPATHOLOGY LABORATORY Pathology/Cytolog y TISSUE SPECIMEN FROM SKIN / Unknown 05/06/2019 05/09/2019 7:01 AM ANGLE ROLL OPERATOR Wilda Gray MD LAB - PATHOLOGY/CYTO LOGY ORDERABLES DERMATOPATHOLOGY LABORATORY [facility] - Department of Dermatology [address] [facility], 5th [place] [address], [facility] [phone] documented in this encounter Visit Diagnoses Not on filedocumented in this encounter
--- OUTSIDE RECORDS SUMMARY | 2024-04-13 21:58 | XMS_ITS | Encounter Summary ---
Author Organization [facility] Address [address] [place] [address] Care Team Providers Care Valet Service Attendant Name Role Phone Unavailable Primary Care Provider Unavailabl e Encounter Details Date Type Department Care Team (Late st Contact Info) Description 03/07/2020 2:00 PM MANDARIN TUTOR Rapid Evaluation [place] [facility] Community Testing [facility] [address] [place] [address] Social History Tobacco Use Types Packs/Day Years Used Date Smoking Tobacco: Never Assessed Sex and Gender Information Value Date Recorded Sex Assigned at Not on file Legal Sex Male 1:23 PM MANDARIN TUTOR Gender Identity Not on file Sexual Orientation Not on file documented as of this encounter Plan of Treatment Not on file documented as of this encounter Visit Diagnoses Not on filedocumented in this encounter
--- OUTSIDE RECORDS SUMMARY | 2024-04-13 21:58 | XMS_ITS | Encounter Summary ---
Author Organization [facility] Address [address] [facility] [place] [address] Care Team Providers Care Snow Maker Name Role Phone Unavailable Primary Care Provider Unavailabl e Encounter Details Date Type Department Care Team (Late st Contact Info) Description 05/08/2023 Lab Requisition [facility] [address] [facility], [place] [address] Sunitha Portillo MD [address] [place] [address] Social History Tobacco Use Types Packs/Day Years [...] Diagnosis Comments DERMATOPATHOLOGY Routine 05/08/2023 9:14 AM WELDING PROCESS SPECIALIST documented in this encounter Results * DERMATOPATHOLOGY (05/08/2023 9:14 AM WELDING PROCESS SPECIALIST) Case Report Dermatopathology Report ? Case: [id number] ? Authorizing Provider: ??Sunitha Portillo MD ? Collected: ? 05/08/2023 09:14 AM ? Ordering Location: ? [facility] ? Received: ?05/11/2023 12:54 PM ? Pathologist: ? Bobbi Hickey, ? MD ? Specimen: ?Skin, mid ant scalp ? 4 4:19 PM [facility] DERMATOPATHOLOGY LABORATORY Final Diagnosis Specimen A. SKIN, mid ant scalp: SQUAMOUS PROLIFERATION (D48.5) (see microscopic description and comment) 4 4:19 PM [facility] DERMATOPATHOLOGY LABORATORY Clinical History R/O HAK vs. SCC 4 4:19 PM [facility] DERMATOPATHOLOGY LABORATORY Gross Description Specimen A: Received is one formalin filled container labeled with the patient's name and designated mid ant scalp. The specimen consists of a shave biopsy measuring [id number] mm. Jar 0. 4 4:19 PM [facility] DERMATOPATHOLOGY [...] and squamous cell carcinoma. 4 4:19 PM [facility] DERMATOPATHOLOGY LABORATORY Disclaimer An external and internal positive and negative controls are appropriate for the histochemical, immunohistochemical and immunofluorescence stain(s) in this case (if any), except where stated explicitly. The performance characteristics of the stain(s) cited in this report were developed and its performance characteristic determined by the Dermatopathology Laboratory at [facility], directed by Dr. Parker Mir. These tests need not be, and therefore are not, approved by the [place] Food and Drug Administration. The tests are used for clinical purposes. Billing Codes Specimen Charges Stain Charges 60977 1 4 4:19 PM [facility] DERMATOPATHOLOGY LABORATORY Embedded Images 4 4:19 PM [facility] DERMATOPATHOLOGY LABORATORY Pathology/Cytolo gy TISSUE SPECIMEN FROM SKIN / Unknown 05/08/2023 9:14 AM WELDING PROCESS SPECIALIST 05/11/2023 12:54 PM WELDING PROCESS SPECIALIST Sunitha Portillo MD LAB - PATHOLOGY/CYT OLOGY ORDERABLES DERMATOPATHOLOGY LABORATORY [facility] Department of Dermatology [address], [address] [phone] documented in this encounter Visit Diagnoses Not on filedocumented in this encounter
--- OUTSIDE RECORDS SUMMARY | 2024-04-13 21:58 | XMS_ITS | Referral Summary ---
Author Organization [facility] Address [address] [place] [address] Care Team Providers Care Ad Operations Coordinator Name Role Phone Unavailable Primary Care Provider Unavailabl e Source Comments [facility],non-owned Affiliates and Associated Physician Practices is amultiple site organization consisting of ambulatory clinics and hospital sitesin [place], [place], [place] and [place]. This disclosure is being madepursuant to the Care Everywhere program and may not contain all information available regarding this patient. Last updated 18.[facility] [employer] Allergies No known active allergies Medications * [...]
--- OUTSIDE RECORDS SUMMARY | 2024-04-13 21:58 | XMS_ITS | Encounter Summary ---
Author Organization [facility] Address [address] [facility] [place] [address] Care Team Providers Care Galley Boy Name Role Phone Unavailable Primary Care Provider Unavailabl e Encounter Details Date Type Department Care Team (Late st Contact Info) Description 01/14/2022 10:30 AM CDT Testing Visit [facility] [address] [facility], [place] [phone] Kaylie Kunz AuD [address] [facility] [address] [place] [address] Tinnitus of both ears Social History Tobacco [...] change in hearing is suspected. Aileen Kumar. [facility]-A Clinical [place] Setter [facility]-Department of Otolaryngology/Aud[facility] [address] [place] [address] ([facility] [place] [address] Kaylie Gallagher [facility]UD[facility] O HIRENERACORTNEY documented in this encounter Visit Diagnoses Diagnosis Tinnitus of both ears- Primary Unspecified tinnitus documented in this encounter
--- OUTSIDE RECORDS SUMMARY | 2024-04-13 21:58 | XMS_ITS | Encounter Summary ---
Author Organization [facility] Address [address] [place] [address] Care Team Providers Care Statistician Name Role Phone Unavailable Primary Care Provider Unavailabl e Encounter Details Date Type Department Care Team (Late st Contact Info) Description 03/07/2020 Lab Requisition [facility] Community Testing [facility] [address] [place] [address] [place] [address] [place] [address] Social History Tobacco Use Types Packs/Day Years Used Date Smoking Tobacco: Never Assessed Sex and Gender Information Value Date Recorded Sex Assigned at Not on file Legal Sex Male 1:23 PM SALESFORCE CONSULTANT Gender Identity Not on file Sexual Orientation Not on file documented as of this encounter Plan of Treatment Not on file documented as of this encounter Procedures Procedure Name Priority Date/Time Associated Diagnosis Comments SARS-COV-2 PCR [facility] ONLY Routine 03/07/2020 1:25 PM SALESFORCE CONSULTANT documented in this encounter Visit Diagnoses Not on filedocumented in this encounter
--- OUTSIDE RECORDS SUMMARY | 2024-04-13 21:58 | XMS_ITS | Encounter Summary ---
Author Organization [facility] Address [address] [facility] [place] [address] Care Team Providers Care Certified Histologic Technician Name Role Phone Unavailable Primary Care Provider Unavailabl e Encounter Details Date Type Department Care Team (Late st Contact Info) Description 08/03/2023 Lab Requisition [facility] - [facility] Lab [address] [facility], [place] [address] Sunitha Portillo MD [address] [place] [address] Social History Tobacco Use Types Packs/Day Years [...] CDT) Case Report Dermatopathology Report ? Case: [id number] ? Authorizing Provider: ??Sunitha Portillo MD ? Collected: ? 08/03/2023 08:11 AM ? Ordering Location: ? [facility] - ??Received: ?08/04/2023 12:37 PM [...] specimen consists of a shave biopsy measuring 51k42o3 mm. Jar 0. 4 3:06 PM CDT [...] characteristic determined by the Dermatopathology Laboratory at [facility], directed by Dr. Parker Mir. These tests need not be, and therefore are not, approved by the [place] Food and Drug Administration. The tests are used for clinical purposes. Billing Codes Specimen Charges Stain Charges 07170 1 [id number] 67023 1 1 1 4 3:06 PM CDT DERMATOPATHOLOGY LABORATORY Embedded Images 4 3:06 PM CDT DERMATOPATHOLOGY LABORATORY Pathology/Cytolo gy TISSUE SPECIMEN FROM SKIN / Unknown 08/03/2023 8:11 AM CDT 08/04/2023 12:37 PM CDT Sunitha Portillo MD LAB - PATHOLOGY/CYT OLOGY ORDERABLES DERMATOPATHOLOGY LABORATORY [facility] - Department of Dermatology [address], [address] Floor [address] [phone] documented in this encounter Visit Diagnoses Not on filedocumented in this encounter
--- OUTSIDE RECORDS SUMMARY | 2024-04-13 21:58 | XMS_ITS | Encounter Summary ---
Author Organization [facility] Address [address] [facility] [place] [address] Care Team Providers Care Boxing Trainer Name Role Phone Unavailable Primary Care Provider Unavailabl e Encounter Details Date Type Department Care Team (Late st Contact Info) Description 05/27/2018 Lab Requisition [facility] [address] [facility], [place] [phone] Sunitha Portillo MD [address] [facility] 3 [place] [address] Social History Tobacco Use Types Packs/Day Years [...] DERMATOPATH TECHNICAL REPORT Routine 05/25/2018 12:00 AM ASSEMBLING INSPECTOR documented in this encounter Results * DERMATOPATH TECHNICAL REPORT (05/25/2018 12:00 AM ASSEMBLING INSPECTOR) Case Report Dermatopathology Report ? Case: [id number] ? Authorizing Provider: ??Sunitha Portillo MD ? Collected: ? 05/25/2018 12:00 AM ? Pathologist: ? Bella Mir MD ? Received: ?05/27/2018 07:17 AM ? Specimen: ?Skin, left cheek ? 2:33 PM [facility] DERMATOPATHOLOGY LABORATORY Clinical History [facility] vs [facility] 2:33 PM [facility] DERMATOPATHOLOGY LABORATORY Gross Description Specimen A: Received is one formalin filled container labeled with the patient's name and designated left cheek. The specimen consists of a shave biopsy measuring 6x5x2 mm. Jar 0. [facility] Dermatopathology Laboratory performed the technical component only. 2:33 PM [facility] DERMATOPATHOLOGY LABORATORY Embedded Images 2:33 PM [facility] DERMATOPATHOLOGY LABORATORY DISCLAIMER An external and internal positive and negative controls are appropriate for the histochemical, immunohistochemical and immunofluorescence stain(s) in this case (if any), except where stated explicitly. The performance characteristics of the stain(s) cited in this report were developed and its performance characteristic determined by the Dermatopathology Laboratory at [facility], directed by Dr. Parker Mir. These tests need not be, and therefore are not, approved by the [place] Food and Drug Administration. The tests are used for clinical purposes. 2:33 PM [facility] DERMATOPATHOLOGY LABORATORY Pathology/Cytolog y TISSUE SPECIMEN FROM SKIN / Unknown 05/25/2018 05/27/2018 7:17 AM ASSEMBLING INSPECTOR Sunitha Portillo MD LAB - PATHOLOGY/CYT OLOGY ORDERABLES DERMATOPATHOLOGY LABORATORY [facility] - Department of Dermatology [address] [place] [address] [address] [phone] documented in this encounter Visit Diagnoses Not on filedocumented in this encounter
--- OUTSIDE RECORDS SUMMARY | 2024-04-13 21:59 | XMS_ITS | Encounter Summary ---
Author Organization [facility] Healthcare Address [address] [place] [address] Care Team Providers Care Heavy Forging Machine Operator Name Role Phone Igor Ferrera MD Primary Care Provider Reason for Visit * Reason Comments Follow-up Encounter Details Date Type Department Care Team ([facility] st Contact Info) Description 05/20/2023 3:00 PM TRUCKSMITH Office Visit [facility] Medical Group Cardiology at [place] [address] [place] [address] Nancy Srivastava MD [address] [place] [address] Precordial pain (Primary Dx); Primary hypertension; Type 2 diabetes mellitus without complication, unspecified whether correction insulin use (HCC) Social History Tobacco Use [...] on file Legal Sex Male 1:39 PM TRUCKSMITH Gender Identity Not on file Sexual Orientation Not on file documented as of this encounter Last Filed Vital Signs Vital Sign Reading Time Taken Comments Blood Pressure 122/78 05/20/2023 3:27 PM TRUCKSMITH Pulse 64 05/20/2023 3:27 PM TRUCKSMITH Temperature - - Respiratory Rate 16 05/20/2023 3:27 PM TRUCKSMITH Oxygen Saturation 98% 05/20/2023 3:27 PM TRUCKSMITH Inhaled Oxygen Concentration - - Weight 96.6 kg (213 lb) 05/20/2023 3:27 PM TRUCKSMITH Height 180.3 cm (5' 10.98 ) 05/20/2023 3:[address] Body Mass Index 29.72 05/20/2023 3:27 PM TRUCKSMITH documented in this encounter Progress Notes * [...] A1c was 5.7 Andres Srivastava MD, FSCAI KSMITH documented in this encounter Plan of Treatment Not on file documented as of this encounter Visit Diagnoses Diagnosis Precordial pain- Primary Primary hypertension Unspecified essential hypertension Type 2 diabetes mellitus without complication, unspecified whether correction insulin use (HCC) documented in this encounter [...] 05/15/2023 added in this encounter Care Teams Heavy Forging Machine Operator Relationship Specialty Start Date End Date Igor Ferrera MD PCP - General 09/12/18 documented as of this encounter
--- OUTSIDE RECORDS SUMMARY | 2024-04-13 21:59 | XMS_ITS | Encounter Summary ---
Author Organization [facility] Address [address] [place] [address] Phone Care Team Providers Care Cosmetic Sales Assistant Name Role Phone Igor Ferrera MD Primary Care Provider Reason for Referral * Diagnostic Imaging (Routine) - Closed Specialty Diagnoses / Procedures Referred By Contac t Referred To Contact Diagnoses Low back pain, non-specific Procedures XR Scoliosis 6 or More Views Kevyn Logan PA [address] [place] [address] Phone: tel: fax: [address] [address] Referral ID Status Reason Start Date Expiration Date Visits Re quested Visits Authorized [id number] Closed 08/05/2022 09/04/2023 1 1 Encounter Details Date Type Department Care Team (Late st Contact Info) Description 08/05/2022 Orders Only [facility] Neurosurgery [address] [facility] [address] [place] [address] Kevyn Logan PA [address] [place] [address] Low back pain, non-specific (Primary Dx) Social History Tobacco Use Types Packs/Day Years Used Date Smoking Tobacco: Never Smokeless Tobacco: Never Alcohol Use Standard Drinks/Week Comments Yes 0 (1 standard drink = 0.6 oz pur e alcohol) Sex and Gender Information Value Date Recorded Sex Assigned at Not on file Legal Sex Male 1:39 PM RN FLIGHT Gender Identity Not on file Sexual Orientation [...] it. Electronically signed by: Isaias Bach MD [facility] Matt CORONADO IMG XR PROCEDURES Maty l Result documented in this encounter Visit Diagnoses Diagnosis Low back pain, non-specific- Primary Low back pain, non-specific documented in this encounter Care Teams Cosmetic Sales Assistant Relationship Specialty Start Date End Date Igor Ferrera MD PCP - General 09/12/18 documented as of this encounter
--- OUTSIDE RECORDS SUMMARY | 2024-04-13 21:59 | XMS_ITS | Encounter Summary ---
Author Organization [facility] Healthcare Address [address] [place] [address] Care Team Providers Care Microbiological Laboratory Technician Name Role Phone Igor Ferrera MD Primary Care Provider [phone] Encounter Details Date Type Department Care Team (Latest Contact Info) Description 10/12/2023 9:43 PM CDT - 10/12/2023 11:59 PM CDT Hospital Encounter [facility] [address] [place] [address] Discharge Disposition: Discharge to home or self [...] on file Legal Sex Male 1:39 PM IMAGING SERVICES DIRECTOR Gender Identity Not on file Sexual [...] only and have not been reviewed by [facility] Radiology. ??There will be no report generated by a [facility] Radiologist. Narrative RAD_PACS_[facility] - 10/12/2023 9:43 PM CDT EXAMINATION: ??Images For Reference Purposes Only Kevyn CORONADO IMG XR PROCEDURES Maty l Result [facility]PACS[facility] documented in this encounter Visit Diagnoses Not on filedocumented in this encounter Care Teams Microbiological Laboratory Technician Relationship Specialty Start Date End Date Igor Ferrera MD PCP - General 09/12/18 documented as of this encounter
--- OUTSIDE RECORDS SUMMARY | 2024-04-13 21:59 | XMS_ITS | Encounter Summary ---
Author Organization [facility] Healthcare Address [address] [place] [address] Care Team Providers Care Manager Distribution Name Role Phone Igor Ferrera MD Primary Care Provider [phone] Reason for Visit * Reason Comments Hiccups Encounter Details Date Type Department Care Team (Late st Contact Info) Description 06/11/2022 12:41 AM PARBOILER - 06/11/2022 3:20 AM PARBOILER Emergency [facility] Emergency Department [address] [place] [address] Lenny Peralta MD [address] [place] [address] Kailey Marte MD [address] [place] [address] Hiccups (Primary Dx) Discharge Disposition: Discharge to home or self care Social History Tobacco Use Types Packs/Day Years Used Date Smoking Tobacco: Never Smokeless Tobacco: Never Alcohol Use Standard Drinks/Week Comments Yes 0 (1 standard drink = 0.6 oz pur e alcohol) Sex and Gender Information Value Date Recorded Sex Assigned at Not on file Legal Sex Male 1:39 PM PARBOILER Gender Identity Not on file Sexual Orientation Not on file documented as of this encounter Last Filed Vital Signs Vital Sign Reading Time Taken Comments Blood Pressure 133/83 06/11/2022 3:15 AM PARBOILER Pulse 69 06/11/2022 3:15 AM PARBOILER Temperature 36.3 ??C (97.4 ??F) 06/10/2022 10:[address] Respiratory Rate 16 06/11/2022 3:15 AM PARBOILER Oxygen Saturation 100% 06/11/2022 3:15 AM PARBOILER Inhaled Oxygen Concentration - - Weight 99.3 kg (219 lb) 06/10/2022 10:51 PM PARBOILER Height 180.3 cm (5' 11 ) 06/10/2022 10:51 PM PARBOILER Body Mass Index 30.54 06/10/2022 10:51 PM PARBOILER documented in this encounter Discharge Instructions * Attachments The following attachments cannot be sent through Care Everywhere. * Hiccups (AfterCare(R) Instructions(ER/ED)) (Northern Irish) documented in this encounter Medications at Time [...] Final diagnoses: Hiccups Lenny Peralta MD 06/13/222302 OILER * Fernanda Perla, LUCIEN - 06/10/2022 10:50 PM CST Pt reports he was seen earlier today for hiccups and continues to hiccup. OILER documented in this encounter Plan of Treatment Not on file documented as of this encounter Procedures Procedure Name Priority Date/Time Associated Diagnosis Comments TROPONIN T HIGH-SENSITIVITY 2-HOUR Timed 06/11/2022 1:54 AM PARBOILER ECG 12-LEAD STAT 06/11/2022 12:06 AM PARBOILER TROPONIN T HIGH-SENSITIVITY SERIES (BASELINE, 2HR, 4HR, 6HR) STAT 06/10/2022 11:52 PM PARBOILER EGFR STAT 06/10/2022 11:52 PM PARBOILER DIFFERENTIAL AUTO STAT 06/10/2022 11: 52 PM PARBOILER CBC WITH AUTO DIFFERENTIAL STAT 06/10/2022 11:52 PM PARBOILER COMPREHENSIVE METABOLIC PANEL STAT 06/10/2022 11:52 PM PARBOILER documented in this encounter Results * Troponin T high-sensitivity 2-hour (06/11/2022 1:54 AM PARBOILER) Trop T hs 14 <=22 ng/L [facility] Comment: Interpretive Data For further hscTnT resources including the diagnostic algorithm and an aid in interpretation, copy and paste this link: https://nrl.testcatalog.org/show/hsTrop Current Interpretive Data last revised 2020. Trop T hs delta 1 ng/L [facility] Trop T hs interp Insignificant [facility] Blood 06/11/2022 1:54 AM PARBOILER 06/11/2022 2:01 AM PARBOILER us Lenny Peralta MD LAB BLOOD ORDERABLES Fin al Result [facility] [address] Department of [employer] [place] [address] * ECG 12 lead (06/11/2022 12:06 AM PARBOILER) 06/11/2022 12:0 6 AM PARBOILER Narrative [facility] - 06/11/2022 11:13 AM PARBOILER Vent Rate: 63 bpm RR Interval: 946 msec [place] Interval: 192 msec QRS Duration: 169 msec QT Interval: 438 msec QTC Interval: 445 msec P-R-T [place]: 35 - -64 - 21 degrees SINUS RHYTHM RIGHT BUNDLE BRANCH BLOCK ??[120+ ms QRS DURATION, UPRIGHT V1, 40+ ms S IN I/aVL/V4/V5/V6] LEFT ANTERIOR FASCICULAR BLOCK ??[QRS AXIS <= -45, QR IN I, RS IN II] VOLTAGE CRITERIA FOR LVH ??[MEETS CRITERIA IN ONE OF: R(aVL), S(V1), R(V5), R(V5/V6)+S(V1)] ABNORMAL ECG Electronically Signed By: Satish Levin MD [facility] us Angel Lomeli MD ECG ORDERABLES Final Result [facility] * Troponin T high-sensitivity series (baseline, 2hr, 4hr, 6hr) (06/10/2022 11:52 PM PARBOILER) Trop T hs 13 <=22 ng/L [facility] Comment: Interpretive Data For further hscTnT resources including the diagnostic algorithm and an aid in interpretation, copy and paste this link: https://nrl.testcatalog.org/show/hsTrop Current Interpretive Data last revised 2020. Blood 06/10/2022 11:5 2 PM PARBOILER 06/10/2022 11:57 PM PARBOILER us Lenny Peralta MD LAB BLOOD ORDERABLES Fin al Result [facility] [address] Department [place] [address] * eGFR (06/10/2022 11:52 PM PARBOILER) eGFR 87 mL/min/1. 73 m2 [facility] Comment: Interpretive Data Reference Interval [...] reviewed 2021. Blood 06/10/2022 11:5 2 PM PARBOILER 06/10/2022 11:57 PM PARBOILER us Angel Lomeli MD LAB BLOOD ORDERABLES Final R esult [facility] [address] Department [place] [address] * Differential, auto (06/10/2022 11:52 PM PARBOILER) Pathologist [facility] Neutrophil abs 4.7 1.7 - 6.5 K/cumm [facility] Imm gran abs 0.0 0.0 - 0.1 K/cumm [facility] Lymphocyte abs 1.9 0.8 - 3.3 K/cumm [facility] Monocyte abs 0.5 0.2 - 0.8 K/cumm [facility] Eosinophil abs 0.0 0.0 - 0.5 K/cumm [facility] Basophil abs 0.0 0.0 - 0.1 K/cumm [facility] Neutrophil pct 65.0 % [facility] Comment: Interpretive Data Percent cell count reference ranges are not reported, since discordance with absolute values may lead to misinterpretation of CBC data. Current Interpretive Data was last revised on 2017. Imm gran pct 0.6 % [facility] Comment: Interpretive Data Percent cell count reference ranges are not reported, since discordance with absolute values may lead to misinterpretation of CBC data. Current Interpretive Data was last revised on 2017. Lymphocyte pct 26.1 % [facility] Comment: Interpretive Data Percent cell count reference ranges are not reported, since discordance with absolute values may lead to misinterpretation of CBC data. Current Interpretive Data was last revised on 2017. Monocyte pct 7.3 % [facility] Comment: Interpretive Data Percent cell count reference ranges are not reported, since discordance with absolute values may lead to misinterpretation of CBC data. Current Interpretive Data was last revised on 2017. Eosinophil pct 0.6 % [facility] Comment: Interpretive Data Percent cell count reference ranges are not reported, since discordance with absolute values may lead to misinterpretation of CBC data. Current Interpretive Data was last revised on 2017. Basophil pct 0.4 % [facility] Comment: Interpretive Data Percent cell count reference ranges are not reported, since discordance with absolute values may lead to misinterpretation of CBC data. Current Interpretive Data was last revised on 2017. Blood 06/10/2022 11:5 2 PM PARBOILER 06/10/2022 11:57 PM PARBOILER us Angel Lomeli MD LAB BLOOD ORDERABLES Final R esult [facility] [address] Department [place] [address] * Comprehensive metabolic panel (06/10/2022 11:52 PM PARBOILER) Sodium 138 135 - 145 mmol/L [facility] Potassium, pl 3.9 3.3 - 4.9 mmol/L [facility] Chloride 98 97 - 110 mmol/L [facility] CO2 25 22 - 32 mmol/L [facility] Anion gap 15 2 - 15 mmol/L [facility] BUN 15 8 - 25 mg/dL [facility] Creatinine 0.94 0.80 - 1.30 mg/dL [facility] Glucose 146 70 - 199 mg/dL [facility] Comment: Interpretive Data Fasting glucose >/= [...] 2022. Calcium 9.4 8.5 - 10.3 mg/dL [facility] Bilirubin, total 0.5 0.1 - 1.2 mg/dL [facility] Protein, pl 6.5 6.5 - 8.5 g/dL [facility] Albumin 4.4 3.5 - 5.0 g/dL [facility] Alk phos 52 40 - 130 Units/L [facility] ALT 17 7 - 55 Units/L [facility] AST 21 10 - 50 Units/L [facility] Comment:Slightly Hemolyzed S pecimen Blood 06/10/2022 11:5 2 PM PARBOILER 06/10/2022 11:57 PM PARBOILER us Angel Lomeli MD LAB BLOOD ORDERABLES Final R esult [facility] [address] Department [place] [address] * CBC with auto differential (06/10/2022 11:52 PM PARBOILER) WBC 7.2 3.8 - 9.9 K/cumm [facility] Hgb 13.7 13.0 - 17.5 g/dL [facility] Hct 41.6 38.9 - 50.3 % [facility] Plt 178 150 - 400 K/cumm [facility] MPV 10.5 9.1 - 12.3 fL [facility] RBC 4.40 4.30 - 5.80 M/cumm [facility] MCV 94.5 81.3 - 96.4 fL [facility] MCH 31.1 27.1 - 33.3 pg [facility] MCHC 32.9 32.3 - 35.7 g/dL [facility] RDW CV 12.7 11.1 - 14.9 % [facility] RDW SD 44.0 35.7 - 48.1 fL [facility] NRBC abs 0.00 0.00 - 0.01 K/cumm [facility] Blood 06/10/2022 11:5 2 PM PARBOILER 06/10/2022 11:57 PM PARBOILER us Angel Lomeli MD LAB BLOOD ORDERABLES Final R esult [facility] [address] Department [place] [address] documented in this encounter Visit Diagnoses Diagnosis Hiccups- Primary documented in this encounter Administered Medications Inactive Administered Medications - up to 3 most recent administrations Medication Order MAR Action Action Date Dose Rate Site al & mag hydroxide simethicone-lidocaine oral suspension mixture 40 mL, oral, Once, On Thu06/10/22 at 2255, For 1 dose Given 06/11/2022 12:02 AM PARBOILER 40 mL sodium chloride 0.9% bolus 1,000 mL 1,000 mL, intravenous, at 1,000 mL/hr, Administer over 1 Hours, Once, On Thu06/10/22 at 2336, For 1 dose New Bag 06/11/2022 12:01 AM PARBOILER 1,000 mL 1000 mL/hr documented in this encounter Active and Recently Administered Medications Times are shown in PARBOILER. Scheduled Medication Order 06/09/2022 06/10/2022 06/11/2022 al [...] dose 0001 (New Bag - Prov ider: Fernanad Perla RN)[id number] (Stopped - Provider: Shayy Mckeon RN) documented in this encounter Orders Lab Orders Without Results Count Last Ordered D ate First Ordered Date POCT GLUCOSE DEVICE 1 06/10/2022 Nursing Count Last Ordered Date First Orde red Date MISCELLANEOUS NURSING CARE ORDER (SPECIFY) 1 06/10/2022 documented in this encounter Care Teams Manager Distribution Relationship Specialty Start Date End Date Igor Ferrera MD PCP - General 09/12/18 documented as of this encounter
--- OUTSIDE RECORDS SUMMARY | 2024-04-13 21:59 | XMS_ITS | Encounter Summary ---
Author Organization [facility] Healthcare Address [address] [place] [address] Care Team Providers Care Dean Of Men Name Role Phone Igor Ferrera MD Primary Care Provider [phone] Reason for Visit * Reason Comments Back Pain Leg Pain Hip Pain Encounter Details Date Type Department Care Team (Latest Contact Info) Description 11/01/2018 1:54 PM CDT - 11/01/2018 11:59 PM CDT Hospital Encounter [facility] [place] [address] [facility] 1st [place] [phone] Ebony Santiago MD [facility] [place] [address] Chronic bilateral low back pain with left-sided [...] on file Legal Sex Male 1:39 PM OFFSET PRESS ASSISTANT Gender Identity Not on file Sexual Orientation [...] up today. He was recently hospitalized in [facility] due to pain, pain was 4-10; affecting [...] file Gets together: Not on file Attends jewish service: Not on file Active member of [...] PRN -- NSAIDS: DC ibuprofen -- Cont [id number] QHS for one month, if pain controlled OK to DC it. Imaging: -- L-spine MRI reviewed -- No new images needed at this time. Referral: -- Physical therapy , HEP and phuong loss discussed. Follow-up: PRN for LSNR, patient to call. Ebony Santiago MD, RANDOLPH Automotive Worker Foreman Director of Pain Medicine [facility] 11/01/2018 2:53 PM documented in this encounter [...] MD Surgeon SURGEON: Ebony Santiago MD, RANDOLPH CLAM GRADER SURGEON: None Procedures NAME OF PROCEDURE: Lumbar [...] Ebony Santiago MD, RANDOLPH Director of Pain Estate Planning Attorney Professor [facility] documented in this encounter Plan of Treatment [...] 4 added in this encounter Care Teams Dean Of Men Relationship Specialty Start Date End Date Igor Ferrera MD PCP - General 09/12/18 documented as of this encounter
--- OUTSIDE RECORDS SUMMARY | 2024-04-13 21:59 | XMS_ITS | Encounter Summary ---
Author Organization [facility] Address [address] [place] [address] Phone Care Team Providers Care Fiberglass Roller Name Role Phone Igor Ferrera MD Primary Care Provider [phone] Encounter Details Date Type Department Care Team (Late st Contact Info) Description 10/12/2023 Telephone [facility] Neurosurgery [address] [facility] Advanced Medicine 6th [place] [address] [place] [address] Kevyn Logan PA [address] [place] [address] Social History Tobacco Use Types Packs/Day Years Used Date Smoking Tobacco: Never Smokeless Tobacco: Never Alcohol Use Standard Drinks/Week Comments Yes 0 (1 standard drink = 0.6 oz pur e alcohol) Personal Safety Answer Date Recorded Getting School Help Needed Not on file 06/12 Sex and Gender Information Value Date Recorded Sex Assigned at Not on file Legal Sex Male 1:39 PM OPEN HEARTH MELTER Gender Identity Not on file Sexual Orientation Not on file documented as of this encounter Miscellaneous Notes * Telephone Encounter - Mark Little - 10/12/2023 9:34 AM CDT Imaging uploaded to [email or web address] and pushed to PACS. documented in this encounter Plan of Treatment Not on file documented as of this encounter Visit Diagnoses Not on filedocumented in this encounter Care Teams Fiberglass Roller Relationship Specialty Start Date End Date Igor Ferrera MD PCP - General 09/12/18 documented as of this encounter
--- OUTSIDE RECORDS SUMMARY | 2024-04-13 21:59 | XMS_ITS | Encounter Summary ---
Author Organization [facility] Healthcare Address [facility] [place] [address] Care Team Providers Care Curatorial Specialist Name Role Phone Igor Ferrera MD Primary Care Provider [phone] Reason for Visit * Reason Onset Date Comments Appointment 09/21/2018 Encounter Details Date Type Department Care Team (Late st Contact Info) Description 09/21/2018 Telephone [facility] [place] [facility] [address] [facility] Advanced Medicine [address] [place] [phone] Ebony Santiago MD [address] [place] [address] Appointment Social History Tobacco Use Types Packs/Day Years Used Date Smoking Tobacco: Never Alcohol Use Standard Drinks/Week Comments Yes 0 (1 standard drink = 0.6 oz pur e alcohol) Sex and Gender Information Value Date Recorded Sex Assigned at Not on file Legal Sex Male 1:39 PM ABORIGINAL LIAISON OFFICER Gender Identity Not on file Sexual Orientation [...] on filedocumented in this encounter Care Teams Curatorial Specialist Relationship Specialty Start Date End Date Igor Ferrera MD PCP - General 09/12/18 documented as of this encounter
--- OUTSIDE RECORDS SUMMARY | 2024-04-13 21:59 | XMS_ITS | Encounter Summary ---
Author Organization [facility] Care Team Providers Care Word Processing Operator Name Role Phone Igor Ferrera MD Primary Care Provider [phone] Encounter Details Date Type Department Care Team (Latest Contact Info) Description 11/01/2018 Travel Social History Tobacco Use Types Packs/Day Years Used Date Smoking Tobacco: Never Smokeless Tobacco: Never Alcohol Use Standard Drinks/Week Comments Yes 0 (1 standard drink = 0.6 oz pur e alcohol) Sex and Gender Information Value Date Recorded Sex Assigned at Not on file Legal Sex Male 1:39 PM CORRECTIONAL OFFICER CHIEF Gender Identity Not on file Sexual Orientation Not on file documented as of this encounter Plan of Treatment Not on file documented as of this encounter Visit Diagnoses Not on filedocumented in this encounter Care Teams Word Processing Operator Relationship Specialty Start Date End Date Igor Ferrera MD PCP - General 09/12/18 documented as of this encounter
--- OUTSIDE RECORDS SUMMARY | 2024-04-13 21:59 | XMS_ITS | Encounter Summary ---
Author Organization [facility] Address [address] [place] [address] Phone Care Team Providers Care Vacuum Frame Operator Name Role Phone Igor Ferrera MD Primary Care Provider [phone] Encounter Details Date Type Department Care Team (Late st Contact Info) Description 11/18/2022 Orders Only [facility] Neurosurgery [address] [facility] Advanced Medicine 6th [place] [address] [place] [phone] Kevyn Logan PA [address] [place] [address] Social History Tobacco Use Types Packs/Day Years Used Date Smoking Tobacco: Never Smokeless Tobacco: Never Alcohol Use Standard Drinks/Week Comments Yes 0 (1 standard drink = 0.6 oz pur e alcohol) Sex and Gender Information Value Date Recorded Sex Assigned at Not on file Legal Sex Male 1:39 PM TRAINING ANALYST Gender Identity Not on file Sexual Orientation [...] on filedocumented in this encounter Care Teams Vacuum Frame Operator Relationship Specialty Start Date End Date Igor Ferrera MD PCP - General 09/12/18 documented as of this encounter
--- OUTSIDE RECORDS SUMMARY | 2024-04-13 21:59 | XMS_ITS | Encounter Summary ---
Author Organization [facility] Healthcare Address [address] [place] [address] Care Team Providers Care Vehicle Upholsterer Name Role Phone Igor Ferrera MD Primary Care Provider [phone] Reason for Visit * Auth/Cert (Routine) Specialty Diagnoses / Procedures Referred By Opal vasques Referred To Contact Diagnoses Special screening for malignant neoplasms, colon Z12.11 colon screening for malignant neoplasms Procedures COLONOSCOPY Referral ID Status Reason Start Date Expiration Date Visits Re quested Visits Authorized [id number] 1 1 Encounter Details Date Type Department Care Team (Late st Contact Info) Description 11/05/2023 12:00 PM CDT - 11/05/2023 12:30 PM CDT Surgery [facility] GI Lab [address] [place] [address] Sandy Bateman MD [address] [place] [address] COLON REMOVAL SNARE Surgery Details Date/Time Status [...] on file Legal Sex 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 Procedure Date: 11/05/2023 Procedure: Colonoscopy Indications: Screening for colorectal malignant neoplasm Providers: Sandy Bateman M.D., PACO Elias (Anesthesia Staff), Kourtney Olivares RN, Doni Morgan, Waterproofing Mixer Referring MD: Igor Ferrera M.D. Medicines: Monitored [...] 2 weeks. Procedure Code(s): --- Professional --- 28645, Colonoscopy, flexible; with removal of tumor(s), polyp(s), or other lesion(s) by snare technique Diagnosis Code(s): --- Professional --- Z12.11, Encounter for screening for malignant neoplasm of colon D12.5, Benign neoplasm of sigmoid colon D12.3, Benign neoplasm of transverse colon (hepatic flexure or splenic flexure) CPT copyright 2020 [employer]. All rights reserved. The codes documented in this report are preliminary and upon bookkeeping teacher review may be revised to meet current [...] Bateman MD - 11/05/2023 1:30 PM CDT [facility] Endoscopy Lab Patient Name: Jami Grajeda Procedure Date: 11/05/2023 1:30 PM Date of : 1950 Admit Type: Outpatient Age: 73 Gender: Male Note Status: Finalized Attending MD: Sandy Bateman M.D. Procedure Date: 11/05/2023 Procedure: Colonoscopy Indications: Screening for colorectal malignant neoplasm Providers: Sandy Bateman M.D., PACO Elias (Anesthesia Staff), Kourtney Olivares RN, Sergey, Waterproofing Mixer Referring MD: Igor Ferrera M.D. Medicines: Monitored [...] 2 weeks. Procedure Code(s): --- Professional --- 95527, Colonoscopy, flexible; with removal of tumor(s), polyp(s), or other lesion(s) by snare technique Diagnosis Code(s): --- Professional --- Z12.11, Encounter for screening for malignantneoplasm of colon D12.5, Benign neoplasm of sigmoid colon D12.3, Benign neoplasm of transverse colon (hepatic flexure or splenic flexure) CPT copyright 2020 [employer]. All rights reserved. The codes documented in this report are preliminary and upon bookkeeping teacher reviewmay be revised to meet current compliance [...] [facility] Final Result Performing Organization Address City/State/[facility] Co de Phone Number STELLA [address] Department [place] [address] * Surgical pathology (11/05/2023 9:31 AM CDT) Tissue (Polyp(s), colon/colorectal, esophageal, gastric) 11/05/2023 1:50 PM CDT Narrative PATHOLOGY CH - 11/09/2023 1:04 PM CDT EPIC results best viewed via link to PDF [facility] Department of Pathology [address] [place] [address] Note to Patients: This report may [...] Report Patient Name: ??JAMI GRAJEDA Address: ??[address] [facility], ??[place], [place] [address] Gender: ??M : ??1950 (Age: 73) Service: ??Gastro Location: ?? GI Lab Hospital #: ??[id number] Patient Type: ?? SDS Accession # ?[id number] Taken: ??11/05/2023 Received: ??11/06/2023 Accessioned: ??11/06/2023 Reported: [...] determined by the Surgical Pathology Department at [facility] as part of an ongoing air quality specialist program and in compliance with federally mandated [...] characteristics determined by the Surgical Pathology Department [facility]. ??It has not been cleared or approved by the U. S. Food and Drug Administration. Note for decalcified specimens: This assay has not been validated on decalcified tissues. Results should be interpreted with caution given the possibility of false negativity on decalcified specimens Sandy Bateman MD LAB PATHOLOGY ORDERABLES F inal Result PATHOLOGY [address] [place] [address] documented in this encounter Visit Diagnoses Diagnosis Special screening for malignant neoplasms, colon Special screening for malignant neoplasms, colon documented in this encounter Orders Discharge Count Last Ordered Date First Orde red Date DISCHARGE PATIENT 1 11/05/2023 documented in this encounter Care Teams Vehicle Upholsterer Relationship Specialty Start Date End Date Igor Ferrera MD PCP - General 09/12/18 documented as of this encounter
--- OUTSIDE RECORDS SUMMARY | 2024-04-13 21:59 | XMS_ITS | Encounter Summary ---
Author Organization [facility] Healthcare Address [address] [place] [address] Care Team Providers Care Early Childhood Education Instructor Name Role Phone Igor Ferrera MD Primary Care Provider [phone] Reason for Visit * Auth/Cert (Routine) Specialty Diagnoses / Procedures Referred By Opal vasques Referred To Contact Diagnoses Special screening for malignant neoplasms, colon Z12.11 colon screening for malignant neoplasms Procedures COLONOSCOPY Referral ID Status Reason Start Date Expiration Date Visits Re quested Visits Authorized [id number] 1 1 Encounter Details Date Type Department Care Team (Latest Contact Info) Description 11/05/2023 10:46 AM CDT - 11/05/2023 2:30 PM CDT Hospital Encounter [facility] GI Lab [address] [place] [address] Sandy Bateman MD [address] [place] [address] Special screening for malignant neoplasms, colon Discharge [...] on file 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 Procedure Date: 11/05/2023 Procedure: Colonoscopy Indications: Screening for colorectal malignant neoplasm Providers: Sandy Bateman M.D., PACO Elias (Anesthesia Staff), Kourtney Olivares RN, Doni Morgan, Watch Case Polisher Referring MD: Igor Ferrera M.D. Medicines: Monitored [...] 2 weeks. Procedure Code(s): --- Professional --- 90484, Colonoscopy, flexible; with removal of tumor(s), polyp(s), or other lesion(s) by snare technique Diagnosis Code(s): --- Professional --- Z12.11, Encounter for screening for malignant neoplasm of colon D12.5, Benign neoplasm of sigmoid colon D12.3, Benign neoplasm of transverse colon (hepatic flexure or splenic flexure) CPT copyright 2020 [employer]. All rights reserved. The codes documented in this report are preliminary and upon printed circuit board panels deburrer review may be revised to meet current [...] Bateman MD - 11/05/2023 1:30 PM CDT [facility] Endoscopy Lab Patient Name: Jami Grajeda Procedure Date: 11/05/2023 1:30 PM Date of : 1950 Admit Type: Outpatient Age: 73 Gender: Male Note Status: Finalized Attending MD: Sandy Bateman M.D. Procedure Date: 11/05/2023 Procedure: Colonoscopy Indications: Screening for colorectal malignant neoplasm Providers: Sandy Bateman M.D., PACO Elias (Anesthesia Staff), Kourtney Olivares RN, Sergey, Watch Case Polisher Referring MD: Igor Ferrera M.D. Medicines: Monitored [...] 2 weeks. Procedure Code(s): --- Professional --- 54724, Colonoscopy, flexible; with removal of tumor(s), polyp(s), or other lesion(s) by snare technique Diagnosis Code(s): --- Professional --- Z12.11, Encounter for screening for malignantneoplasm of colon D12.5, Benign neoplasm of sigmoid colon D12.3, Benign neoplasm of transverse colon (hepatic flexure or splenic flexure) CPT copyright 2020 [employer]. All rights reserved. The codes documented in this report are preliminary and upon printed circuit board panels deburrer reviewmay be revised to meet current compliance [...] [facility] Final Result Performing Organization Address [facility]/State/[facility] Co de Phone Number [address] Department [place] [address] * Surgical pathology (11/05/2023 9:31 AM CDT) Tissue (Polyp(s), colon/colorectal, esophageal, gastric) 11/05/2023 1:50 PM CDT Narrative PATHOLOGY CH - 11/09/2023 1:04 PM CDT EPIC results best viewed via link to PDF [facility] Department of Pathology [address] [place] [address] Note to Patients: This report may [...] Final Report Patient Name: ??JAMI GRAJEDA Address: ??[address] [place] [address], ??[place], [place] [address] Gender: ??M : ??1950 (Age: 73) Service: ??Gastro Location: ?? GI Lab Hospital #: ??[id number] Patient Type: ??[facility] Accession # ?[id number] Taken: ??11/05/2023 Received: ??11/06/2023 Accessioned: ??11/06/2023 Reported: ??11/09/2023 Physician(s):Murali Nicolas M.D. Diagnosis: Colon, polyps, polypectomy: ? - Fragments of tubular adenoma ? - No evidence of high-grade dysplasia or malignancy Erik Edwards M.D. Report Electronically Reviewed and Signed Out By ??Erik Ewdards M.D. ??11/09/2023 13:04:01 Specimen(s) Received: A: Colon [...] determined by the Surgical Pathology Department at [facility] as part of an ongoing quality compliance coordinator program and in compliance with federally mandated [...] characteristics determined by the Surgical Pathology Department [facility]. ??It has not been cleared or approved by the U. S. Food and Drug Administration. Note for decalcified specimens: This assay has not been validated on decalcified tissues. Results should be interpreted with caution given the possibility of false negativity on decalcified specimens Sandy Bateman MD LAB PATHOLOGY [place] [address] [place] [id number] documented in this encounter Visit Diagnoses Diagnosis Special screening for malignant neoplasms, colon documented in this encounter Orders Discharge Count Last Ordered Date First Orde red Date DISCHARGE PATIENT 1 11/05/2023 documented in this encounter Care Teams Early Childhood Education Instructor Relationship Specialty Start Date End Date Igor Ferrera MD PCP - General 09/12/18 documented as of this encounter
--- OUTSIDE RECORDS SUMMARY | 2024-04-13 21:59 | XMS_ITS | Encounter Summary ---
Author Organization [facility] Healthcare Address [address] [place] [address] Care Team Providers Care Wood Hacker Name Role Phone Igor Ferrera MD Primary Care Provider [phone] Reason for Visit * Reason Comments Leg Pain Encounter Details Date Type Department Care Team (Late st Contact Info) Description 06/08/2022 1:27 PM APPLICATION PROGRAMMER ANALYST - 06/08/2022 3:35 PM APPLICATION PROGRAMMER ANALYST Emergency [facility] Emergency Department [address] [place] [address] Angel Lomeli MD [address] [place], [place] [id number] Sciatica of right side without back pain [...] on file Legal Sex Male 1:39 PM APPLICATION PROGRAMMER ANALYST Gender Identity Not on file Sexual Orientation Not on file documented as of this encounter Last Filed Vital Signs Vital Sign Reading Time Taken Comments Blood Pressure 131/70 06/08/2022 3:33 PM APPLICATION PROGRAMMER ANALYST Pulse 70 06/08/2022 3:33 PM APPLICATION PROGRAMMER ANALYST Temperature 36.7 ??C (98.1 ??F) 06/08/2022 3:33 PM CS T Respiratory Rate 16 06/08/2022 3:33 PM APPLICATION PROGRAMMER ANALYST Oxygen Saturation 100% 06/08/2022 3:33 PM APPLICATION PROGRAMMER ANALYST Inhaled Oxygen Concentration - - Weight 108.9 kg (240 lb 1.3 oz) 06/08/2022 1:21 PM APPLICATION PROGRAMMER ANALYST Height 180.3 cm (5' 10.98 ) 06/08/2022 1:21 PM C Body Mass Index 33.5 06/08/2022 1:21 PM APPLICATION PROGRAMMER ANALYST documented in this encounter Discharge Instructions * Discharge Instructions* Angel Lomeli MD - 06/08/2022 3:14 PM APPLICATION PROGRAMMER ANALYST Your symptoms are most consistent with sciatic [...] you feel need to be emergently evaluated. ICATION PROGRAMMER ANALYST * Attachments The following attachments cannot be sent through Care Everywhere. * Sciatica (Discharge Care) (Belarusian) documented in this encounter Medications at Time [...] Lumbar disc disease Angel Lomeli MD 06/08/22 8587 ICATION PROGRAMMER ANALYST * Nickie Swan RN - 06/08/2022 1:39 PM CST Pt c/o sciatic type pn, sees chiropractor regularly, does stretching exercises regularly for low back and hamstring. PT awoke this morning with 10 out of 10 back/hamstring pn. Unable to get comfortable. Took 2 Ibuprophen at 0800 this morning with no relief. Nickie Swan, LUCIEN 06/08/22 1341 ICATION PROGRAMMER ANALYST * Anayeli Duque - 06/08/2022 1:20 PM CST Pt to ER with complaints of pain that starts in the right buttocks and radiates down his leg. Pt has pain in lower back as well. Pt reports it started at 7:00 this morning and is the first time in years it has flared up. ICATION PROGRAMMER ANALYST documented in this encounter Plan of Treatment [...] For 1 dose Given 06/08/2022 2:31 PM APPLICATION PROGRAMMER ANALYST 650 mg dexAMETHasone (DECADRON) preservative free solution 10 mg 10 mg, intravenous, Administer over 2 Minutes, Once, On 06/08/22 at 1422, For 1 dose Given 06/08/2022 2:53 PM APPLICATION PROGRAMMER ANALYST 10 mg HYDROcodone-acetaminophen (NORCO) 5-325 mg per tablet 1 tablet 1 tablet, oral, Once, On 06/08/22 at 1422, For 1 dose, Indications: PainIndications:Pain Given 06/08/2022 2:31 PM APPLICATION PROGRAMMER ANALYST 1 tablet ketorolac (TORADOL) 30 mg/mL (1 mL) injection 15 mg 15 mg, intravenous, Once, On 06/08/22 at 1422, For 1 dose, For Adult IV push, administer over 15 seconds Given 06/08/2022 2:31 PM APPLICATION PROGRAMMER ANALYST 15 mg methocarbamoL (ROBAXIN) tablet 750 mg 750 mg, oral, Once, On 06/08/22 at 1422, For 1 dose Given 06/08/2022 2:53 PM APPLICATION PROGRAMMER ANALYST 750 mg documented in this encounter Active and Recently Administered Medications Times are shown in APPLICATION PROGRAMMER ANALYST. Scheduled Medication Order 06/06/2022 06/07/2022 06/08/2022 acetaminophen [...] seconds 1431 (Given - Provid er: Nickie Congregation, RN) methocarbamoL (ROBAXIN) tablet 750 mg (COMPLETED) 750 mg, oral, Once, On 06/08/22 at 1422, For 1 dose 1453 (Given - Provid er: Nickie Swan RN) documented in this encounter Care Teams Wood Hacker Relationship Specialty Start Date End Date Igor Ferrera MD PCP - General 09/12/18 documented as of this encounter
--- OUTSIDE RECORDS SUMMARY | 2024-04-13 21:59 | XMS_ITS | Encounter Summary ---
Author Organization [facility] Healthcare Address [address] [place] [address] Care Team Providers Care Field Crop Farming Supervisor Name Role Phone Igor Ferrera MD Primary Care Provider [phone] Reason for Referral * MRI/CAT/PET Scan (Routine) - Closed Specialty Diagnoses / Procedures Referred By Contac t Referred To Contact Radiology Diagnoses Spondylolisthesis of lumbar region Procedures MRI Lumbar Spine WO Contrast Kevyn Logan PA [address] [place] [address] Phone: tel: fax: [address] [phone] Referral ID Status Reason Start Date Expiration Date Visits Re quested Visits Authorized [id number] Closed 08/15/2022 02/11/2023 1 1 Reason for Visit * MRI/CAT/PET Scan (Routine) - Closed Specialty Diagnoses / Procedures Referred By Contac t Referred To Contact Radiology Diagnoses Spondylolisthesis of lumbar region Procedures MRI Lumbar Spine WO Contrast Kevyn Logan PA [address] [place] [address] Phone: tel: fax: [address] [phone] Referral ID Status Reason Start Date Expiration Date Visits Re quested Visits Authorized [id number] Closed 08/15/2022 02/11/2023 1 1 Encounter Details Date Type Department Care Team (Latest Contact Info) Description 08/28/2022 11:55 AM CDT - 08/28/2022 11:59 PM CDT Hospital Encounter [facility] MRI [address] [place] [address] Spondylolisthesis of lumbar region Discharge Disposition: Discharge to home or self care Social History Tobacco Use Types Packs/Day Years Used Date Smoking Tobacco: Never Smokeless Tobacco: Never Alcohol Use Standard Drinks/Week Comments Yes 0 (1 standard drink = 0.6 oz pur e alcohol) Sex and Gender Information Value Date Recorded Sex Assigned at Not on file 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 5 wwa-luh-llskkwm lumbar type vertebral bodies. ALIGNMENT: ?? Chronic [...] on both sides. ?? Mild right and xihu-ug-eittvwlq left neural foraminal narrowing. ??Portion of the disc contacting the undersurface of the exiting L3 nerve roots. L4-L5: Disc bulge with marginal spur formation. ??Thickened ligamentum flavum and facet arthropathy. ??Uzhd-rl-sebqpkwo spinal canal stenosis. ??Left greater than right [...] D: ??08/28/2022 2:07 PM T: Report ID: [id number] Reading Location: ??[id number] Procedure Note Shashank Childs, DO - 08/28/2022 [...] spine MRI dated 09/13/2018 FINDINGS: SEGMENTATION: 5 lsp-mzl-cwxwxnh lumbar type vertebral bodies. ALIGNMENT: Chronic bilateral [...] effacement on both sides. Mild right and lbpc-vs-mbjtfpce left neural foraminal narrowing. Portionof the disc contacting the undersurface of the exiting L3 nerve roots. L4-L5: Disc bulge with marginal spur formation. Thickened ligamentumflavum and facet arthropathy. Udex-fj-odtkwzuk spinal canal stenosis. Leftgreater than right lateral [...] signed by Shashank LOONEY T: Report ID: [id number] Reading Location: [id number] Kevyn CORONADO IMG MRI PROCEDURES Fin al Result documented in this encounter Visit Diagnoses Diagnosis Spondylolisthesis of lumbar region documented in this encounter Care Teams Field Crop Farming Supervisor Relationship Specialty Start Date End Date Igor Ferrera MD PCP - General 09/12/18 documented as of this encounter
--- OUTSIDE RECORDS SUMMARY | 2024-04-13 21:59 | XMS_ITS | Encounter Summary ---
Author Organization [facility] Address [address] [place] [address] Phone Care Team Providers Care River And Lakes Boatman Name Role Phone Igor Ferrera MD Primary Care Provider [phone] Encounter Details Date Type Department Care Team (Latest Contact Info) Description 08/14/2022 9:30 AM CDT Office Visit [facility] Neuro[facility] Medical Office Building [address] [place] [address] Kevyn Logan PA [address] [place], [place] [id number] Spondylolisthesis of lumbar region (Primary Dx) Social History Tobacco Use Types Packs/Day Years Used Date Smoking Tobacco: Never Smokeless Tobacco: Never Alcohol Use Standard Drinks/Week Comments Yes 0 (1 standard drink = 0.6 oz pur e alcohol) Sex and Gender Information Value Date Recorded Sex Assigned at Not on file Legal Sex Male 1:39 PM 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 He reports completing physical therapy, chiropractic, and has had epidural injections over the past few yearsto keep his symptoms at [place]. He denies bowel/bladder incontinence, denies saddle anesthesia. [...] 24 added in this encounter Care Teams [place] Boatman Relationship Specialty Start Date End Date Igor Ferrera MD PCP - General 09/12/18 documented as of this encounter
--- OUTSIDE RECORDS SUMMARY | 2024-04-13 21:59 | XMS_ITS | Clinical Summary ---
Author Organization [place] [id number] [facility] Address [facility] [place] [address] Care Team Providers Care Mold Washer Name Role Phone Igor Ferrera MD Primary Care Provider [phone] Allergies No known active allergies Medications hydroCHLOROthia [...] on file Legal Sex Male 1:39 PM SUPPORT ASSOCIATE Gender Identity Not on file Sexual Orientation [...] PM CDT EGFR STAT 06/10/2022 11:52 PM SUPPORT ASSOCIATE from Last 3 Months or Most Recently Relevant to Health Maintenance Results * Colonoscopy (11/05/2023 1:30 PM CDT) Anatomical Region Laterality Modality Other Narrative Procedure Note Sandy Bateman MD - 11/05/2023 1:30 PM CDT [facility] Endoscopy Lab Patient Name: Jeffrey Grajeda Procedure Date: 11/05/2023 1:30 PM Date of : 1950 Admit Type: Outpatient Age: 73 Gender: Male Note Status: Finalized Attending MD: Sandy Bateman M.D. Procedure Date: 11/05/2023 Procedure: Colonoscopy Indications: Screening for colorectal malignant neoplasm Providers: Sandy Bateman M.D., PACO Elias (Anesthesia Staff), Kourtney Olivares RNSergey, Condenser Winder Referring MD: Igor Ferrera M.D. Medicines: Monitored [...] 2 weeks. Procedure Code(s): --- Professional --- 45451, Colonoscopy, flexible; with removal of tumor(s), polyp(s), or other lesion(s) by snare technique Diagnosis Code(s): --- Professional --- Z12.11, Encounter for screening for malignantneoplasm of colon D12.5, Benign neoplasm of sigmoid colon D12.3, Benign neoplasm of transverse colon (hepatic flexure or splenic flexure) CPT copyright 2020 [employer]. All rights reserved. The codes documented in this report are preliminary and upon corncob pipe supervisor reviewmay be revised to meet current compliance requirements. This report is electronically signed by Dr Bradford Bateman Sandy Bateman M.D. 11/05/2023 2:03:42 PM This report has been electronically signed by the physician. Number of Addenda: 0 Note Initiated On: 11/05/2023 1:30 PM Sandy Bateman MD ENDOSCOPY PROCEDURES Final Result * eGFR (06/10/2022 11:52 PM SUPPORT ASSOCIATE) eGFR 87 mL/min/1. 73 m2 [facility] Comment: Interpretive Data Reference Interval Normal [...] reviewed 2021. Blood 06/10/2022 11:5 2 PM SUPPORT ASSOCIATE 06/10/2022 11:57 PM SUPPORT ASSOCIATE Angel Lomeli MD LAB BLOOD ORDERABLES Final R esult [facility] [address] Department [place] [address] from Last 3 Months or Most Recently Relevant to Health Maintenance Insurance [facility] MEDICARE [facility] CHOICE PLUS MEDICARE MEDICARE AETNA MEDICARE AET MEDICARE Advance Directives For more information, please contact: [phone] * Full Code (Latest Code Status on File) Date Activated Date Inactivated Comments 09/12/2018 8:52 PM 09/14/2018 9:20 PM Care Teams Mold Washer Relationship Specialty Start Date End Date Igor Ferrera MD PCP - General 09/12/18
--- OUTSIDE RECORDS SUMMARY | 2024-04-13 21:59 | XMS_ITS | Encounter Summary ---
Author Organization [facility] Address [address] [place] [address] Phone Care Team Providers Care Coal Feeder Operator Name Role Phone Igor Ferrera MD Primary Care Provider [phone] Reason for Referral * MRI/CAT/PET Scan (Routine) - Closed Specialty Diagnoses / Procedures Referred By Contac t Referred To Contact Radiology Diagnoses Spondylolisthesis of lumbar region Procedures MRI Lumbar Spine WO Contrast Kevyn Logan PA [address] [place] [address] Phone: tel: fax: [address] [address] Referral ID Status Reason Start Date Expiration Date Visits Re quested Visits Authorized [id number] Closed 08/15/2022 02/11/2023 1 1 Encounter Details Date Type Department Care Team (Latest Contact Info) Description 08/14/2022 Orders Only [facility] Neurosurgery [address] [facility] [address] [place] [address] Kevyn Logan PA [address] [place] [address] Spondylolisthesis of lumbar region (Primary Dx) Social History Tobacco Use Types Packs/Day Years Used Date Smoking Tobacco: Never Smokeless Tobacco: Never Alcohol Use Standard Drinks/Week Comments Yes 0 (1 standard drink = 0.6 oz pur e alcohol) Sex and Gender Information Value Date Recorded Sex Assigned at Not on file Legal Sex Male 1:39 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 5 ajz-cpx-oipyybf lumbar type vertebral bodies. ALIGNMENT: ?? Chronic [...] on both sides. ?? Mild right and nwxh-hy-kqtnybag left neural foraminal narrowing. ??Portion of the disc contacting the undersurface of the exiting L3 nerve roots. L4-L5: Disc bulge with marginal spur formation. ??Thickened ligamentum flavum and facet arthropathy. ??Vcni-fh-wizyscew spinal canal stenosis. ??Left greater than right [...] D: ??08/28/2022 2:07 PM T: Report ID: [id number] Reading Location: ??[id number] Procedure Note Shashank Childs DO - 08/28/2022 [...] spine MRI dated 09/13/2018 FINDINGS: SEGMENTATION: 5 tlr-hxd-muuvqnq lumbar type vertebral bodies. ALIGNMENT: Chronic bilateral [...] effacement on both sides. Mild right and cpnj-na-eaqpwwok left neural foraminal narrowing. Portionof the disc contacting the undersurface of the exiting L3 nerve roots. L4-L5: Disc bulge with marginal spur formation. Thickened ligamentumflavum and facet arthropathy. Gcps-ry-invjdbrs spinal canal stenosis. Leftgreater than right lateral [...] signed by Shashank LOONEY T: Report ID: [id number] Reading Location: [id number] Kevyn Matt [place] IMG MRI PROCEDURES Fin al Result documented in this encounter Visit Diagnoses Diagnosis Spondylolisthesis of lumbar region- Primary Spondylolisthesis of lumbar region documented in this encounter Care Teams Coal Feeder Operator Relationship Specialty Start Date End Date Igor Ferrera MD PCP - General 09/12/18 documented as of this encounter
--- OUTSIDE RECORDS SUMMARY | 2024-04-13 21:59 | XMS_ITS | Encounter Summary ---
Author Organization [facility] Healthcare Address [address] [place] [address] Care Team Providers Care Supervisor Felling Bucking Name Role Phone Igor Ferrera MD Primary Care Provider [phone] Reason for Referral * Diagnostic Imaging (Routine) - Closed Specialty Diagnoses / Procedures Referred By Contac t Referred To Contact Diagnoses Low back pain, non-specific Procedures XR Scoliosis 6 or More Views Kevyn Logan PA [address] [place] [address] Phone: tel: fax: [address] [address] Referral ID Status Reason Start Date Expiration Date Visits Re quested Visits Authorized [id number] Closed 08/05/2022 09/04/2023 1 1 Reason for Visit * Diagnostic Imaging (Routine) - Closed Specialty Diagnoses / Procedures Referred By Contac t Referred To Contact Diagnoses Low back pain, non-specific Procedures XR Scoliosis 6 or More Views Kevyn Logan PA [address] [place] [address] Phone: tel: fax: [address] [place] [address] Referral ID Status Reason Start Date Expiration Date Visits Re quested Visits Authorized [id number] Closed 08/05/2022 09/04/2023 1 1 Encounter Details Date Type Department Care Team (Latest Contact Info) Description 08/14/2022 8:51 AM CDT - 08/14/2022 11:59 PM CDT Hospital Encounter [id number] Radiology [address] [facility] [address] [place] [address] Low [...] on file 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
--- OUTSIDE RECORDS SUMMARY | 2024-04-13 21:59 | XMS_ITS | Encounter Summary ---
Author Organization [facility] Healthcare Address [address] [place] [address] Care Team Providers Care Quality Control Microbiologist Name Role Phone Igor Ferrera MD Primary Care Provider [phone] Reason for Visit * Reason Comments Hiccups Encounter Details Date Type Department Care Team (Late st Contact Info) Description 06/10/2022 4:38 PM SENIOR PIPING DESIGNER - 06/10/2022 6:17 PM SENIOR PIPING DESIGNER Emergency [facility] Emergency Department [address] [place] [address] Angel Lomeli MD [address] [place], [place] [id number] Hiccups (Primary Dx) Discharge Disposition: Discharge to home or self care Social History Tobacco Use Types Packs/Day Years Used Date Smoking Tobacco: Never Smokeless Tobacco: Never Alcohol Use Standard Drinks/Week Comments Yes 0 (1 standard drink = 0.6 oz pur e alcohol) Sex and Gender Information Value Date Recorded Sex Assigned at Not on file Legal Sex Male 1:39 PM SENIOR PIPING DESIGNER Gender Identity Not on file Sexual Orientation Not on file documented as of this encounter Last Filed Vital Signs Vital Sign Reading Time Taken Comments Blood Pressure 154/74 06/10/2022 3:21 PM SENIOR PIPING DESIGNER Pulse 67 06/10/2022 3:20 PM SENIOR PIPING DESIGNER Temperature 36.7 ??C (98.1 ??F) 06/10/2022 3:22 PM CS T Respiratory Rate 18 06/10/2022 3:20 PM SENIOR PIPING DESIGNER Oxygen Saturation 100% 06/10/2022 3:20 PM SENIOR PIPING DESIGNER Inhaled Oxygen Concentration - - Weight 108.9 kg (240 lb) 06/10/2022 5:00 PM SENIOR PIPING DESIGNER Height - - Body Mass Index 33.49 06/08/2022 1:21 PM SENIOR PIPING DESIGNER documented in this encounter Discharge Instructions * Discharge Instructions* Angel Lomeli MD - 06/10/2022 5:43 PM SENIOR PIPING DESIGNER Your hiccups could be related to recent steroids and acid reflux. Continue famotidine, 40 mg daily for the duration of your steroid taper. Please call your primary care doctor if your hiccups or occur. Return to the emergency room seek emergent medical care for any worsening symptoms, nausea, vomiting, or any other concerning symptoms you feel need to be emergently evaluated OR PIPING DESIGNER * Attachments The following attachments cannot be sent through Care Everywhere. * Hiccups (Discharge Care) (Icelandic) documented in this encounter Medications at Time [...] time. Psychiatric: Mood and Affect: Mood normal. [facility] Medical Decision Making 72-year-old male presenting [...] Final diagnoses: Hiccups Angel Lomeli MD 06/10/222030 OR PIPING DESIGNER OR PIPING DESIGNER * Fredy Ramos RN - 06/10/2022 5:46 PM CST D/c paperwork reviewed with pt including pain management and follow up. Pt verbalized understanding, esign not available d/t hospital wide covid precautions. Pt able to ambulate out of ER without anysign of distress. Fredy Ramos RN 06/10/22 684 OR PIPING DESIGNER * Wilda Ambriz RN - 06/10/2022 3:16 PM CST Patient to ED with reports of continuous hiccups starting yesterday morning around 0800. Patient airway intact, able to speak in full sentences during intake. Patient frequently hiccupping. OR PIPING DESIGNER documented in this encounter Plan of Treatment [...] For 1 dose Given 06/10/2022 5:03 PM SENIOR PIPING DESIGNER 40 mL famotidine (PEPCID) tablet 40 mg 40 mg, oral, Once, On Thu06/10/22 at 1752, For 1 dose Given 06/10/2022 5:53 PM SENIOR PIPING DESIGNER 40 mg documented in this encounter Active and Recently Administered Medications Times are shown in SENIOR PIPING DESIGNER. Scheduled Medication Order 06/08/2022 06/09/2022 06/10/2022 al [...] RN) documented in this encounter Care Teams Quality Control Microbiologist Relationship Specialty Start Date End Date Igor Ferrera MD PCP - General 09/12/18 documented as of this encounter
--- OUTSIDE RECORDS SUMMARY | 2024-04-13 21:59 | XMS_ITS | Encounter Summary ---
Author Organization [facility] Healthcare Address [address] [place] [address] Care Team Providers Care Park Attendant Name Role Phone Igor Ferrera MD Primary Care Provider [phone] Reason for Visit * Auth/Cert (Routine) Specialty Diagnoses / Procedures Referred By Opal vasques Referred To Contact Diagnoses Special screening for malignant neoplasms, colon Z12.11 colon screening for malignant neoplasms Procedures COLONOSCOPY Referral ID Status Reason Start Date Expiration Date Visits Re quested Visits Authorized [id number] 1 1 Encounter Details Date Type Department Care Team (Late st Contact Info) Description 11/05/2023 1:26 PM CDT Anesthesia Event [facility] GI Lab [address] [place] [address] Jed Sevilla Jr., MD [address] [facility] [address] [place] [address] Satish Oneil, [address] [facility] [address] [place] [address] Anesthesia Record Procedure Summary Procedure Name Responsible [...] on file Legal Sex Male 1:39 PM PHYS THERAPIST Gender Identity Not on file Sexual Orientation [...] - patient participated Level of consciousness: arouses boston cutter Pain score: 0 Pain management: adequate Airway [...] (LIPITOR) 40 mg tablet Unknown -- -- Monique Weinstein MD dilTIAZem CD 240 mg 24 [...] is Outpatient. Informed Consent: Discussed plan with MORTGAGE PROFESSIONAL, attending and AA. Anesthesia plan and risks [...] CDT documented in this encounter Care Teams Park Attendant Relationship Specialty Start Date End Date Igor Ferrera MD PCP - General 09/12/18 documented as of this encounter
--- OUTSIDE RECORDS SUMMARY | 2024-04-13 21:59 | XMS_ITS | Encounter Summary ---
Author Organization [facility] Address [address] [place] [address] Phone Care Team Providers Care Insole Channeler Name Role Phone Igor Ferrera MD Primary Care Provider [phone] Encounter Details Date Type Department Care Team (Late st Contact Info) Description 06/26/2022 Telephone [facility] Scheduling [address] [place], [place] [id number] Emelyn Small Social History Tobacco Use Types Packs/Day Years Used Date Smoking Tobacco: Never Smokeless Tobacco: Never Alcohol Use Standard Drinks/Week Comments Yes 0 (1 standard drink = 0.6 oz pur e alcohol) Sex and Gender Information Value Date Recorded Sex Assigned at Not on file 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 * Telephone Encounter - Jade Medina - 06/26/2022 8:21 AM CDT Department of Neurological Surgery at [facility] Spine Intake 06/26/22 Jeffrey Grajeda 1950 [id number] Igor Ferrera MD Referring physician Self Referred to: Asked For Dr. Lomeli and Dr Cullen Second Opinion: No Insurance: Yes: Type of insurance Medicare Litigation: No Has the patient had spinal surgery within the last year? No Diagnosis: Back Pain Location (Spinal Area): Lumbar Imaging Done within Last Year: Yes List ALL X Ray June 2022 Imaging Location: [facility] PH [id number] FAX [id number] Records Requested: Yes HT: 5,11 WT: 217 BMI: 30.3 Weakness: No Numbness: No Spinal Pain: Dull pain, Shooting Pain, lower extremity(ies)both , lower back, and both leg(s) Incontinence: No Duration of symptoms: past few months Spine surgery - within last 10 years: No Physical therapy within last year Yes Location: [facility] [id number] FAX Records Requested: Yes Injections within last year No Are you a current smoker: No Reason for visit: New Pt Appt Date: 08/14/2022 Time: 9:30am Location: [facility] ([facility]) Provider RN TRANSITION - Kevyn Logan Routed: Directly to RN TRANSITION documented in this encounter Plan of Treatment Not on file documented as of this encounter Visit Diagnoses Not on filedocumented in this encounter Care Teams Insole Channeler Relationship Specialty Start Date End Date Igor Ferrera MD PCP - General 09/12/18 documented as of this encounter
--- OUTSIDE RECORDS SUMMARY | 2024-04-13 21:59 | XMS_ITS | Encounter Summary ---
Author Organization [facility] Healthcare Address [address] [place] [address] Care Team Providers Care Ladler Name Role Phone Igor Ferrera MD Primary Care Provider Reason for Visit * Diagnostic Imaging (Routine) - Closed Specialty Diagnoses / Procedures Referred By Opal vasques Referred To Contact Diagnoses Low back pain Procedures FL Fluoro Guided Needle Placement Ebony Santiago MD Phone: tel: fax: [address] [address] Referral ID Status Reason Start Date Expiration Date Visits Re quested Visits Authorized [id number] Closed 10/20/2018 04/30/2020 1 1 Encounter Details Date Type Department Care Team (Late st Contact Info) Description 11/01/2018 2:20 PM CDT Ancillary Procedure [facility] at [address] [id number] Ebony Santiago MD [address] [place] [phone] Low back pain Social History Tobacco Use Types Packs/Day Years Used Date Smoking Tobacco: Never Smokeless Tobacco: Never Alcohol Use Standard Drinks/Week Comments Yes 0 (1 standard drink = 0.6 oz pur e alcohol) Sex and Gender Information Value Date Recorded Sex Assigned at Not on file Legal Sex Male 1:39 PM TOE PULLER Gender Identity Not on file Sexual Orientation [...] Needle Placement (11/01/2018 3:09 PM CDT) Narrative [facility] - 11/01/2018 3:10 PM CDT The images from this study are not interpreted by Radiology. ??Please refer to the physician's procedure / OR operative note. Ebony Santiago MD IMG FLUOROSCOPY PROCEDURES Final Result [facility] documented in this encounter Visit Diagnoses Diagnosis Low back pain Lumbago documented in this encounter Care Teams Ladler Relationship Specialty Start Date End Date Igor Ferrera MD PCP - General 09/12/18 documented as of this encounter
--- OUTSIDE RECORDS SUMMARY | 2024-04-13 21:59 | XMS_ITS | Encounter Summary ---
Author Organization [facility] Healthcare Address [address] [place] [address] Care Team Providers Care Manager Ccu Name Role Phone Igor Ferrera MD Primary Care Provider [phone] Encounter Details Date Type Department Care Team (Late st Contact Info) Description 09/14/2018 2:50 PM CDT Ancillary Procedure [address] [address] Ebony Santiago MD [address] [place] [address] Social History Tobacco Use Types Packs/Day Years Used Date Smoking Tobacco: Never Alcohol Use Standard Drinks/Week Comments Yes 0 (1 standard drink = 0.6 oz pur e alcohol) Sex and Gender Information Value Date Recorded Sex Assigned at Not on file 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 ??Please refer to the physician's procedure / OR operative note. Ebony Santiago MD IMG FLUOROSCOPY PROCEDURES Final Result [facility] documented in this encounter Visit Diagnoses Not on filedocumented in this encounter Care Teams Manager Ccu Relationship Specialty Start Date End Date Igor Ferrera MD PCP - General 09/12/18 documented as of this encounter
--- OUTSIDE RECORDS SUMMARY | 2024-04-13 21:59 | XMS_ITS | Encounter Summary ---
Author Organization [facility] Address [address] [place] [address] Phone Care Team Providers Care Commercial Fisher Name Role Phone Igor Ferrera MD Primary Care Provider [phone] Encounter Details Date Type Department Care Team (Late st Contact Info) Description 08/28/2022 Telephone [place] [id number] [facility] [address] [place] [address] Kevyn Logan PA [address] [place], [place] [id number] Social History Tobacco Use Types Packs/Day Years Used Date Smoking Tobacco: Never Smokeless Tobacco: Never Alcohol Use Standard Drinks/Week Comments Yes 0 (1 standard drink = 0.6 oz pur e alcohol) Sex and Gender Information Value Date Recorded Sex Assigned at Not on file 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 * Telephone Encounter - Farideh Melo - 11/13/2022 10:31 AM CDT Returning pt of LICENSED SOCIAL WORKER - Kevyn Logan, Last OV 08/14/2022 with LICENSED SOCIAL WORKER - Kevyn Logan. Pt diagnosis is Back Pain Plan: [employer] Pt called schedule Reason for visit: Return Pt Date: 01/02/2023 Time: 14:30pm Location: [facility] ([facility]) Provider MURIEL Logan Routed: Directly to LICENSED SOCIAL WORKER Patient is wondering if he can be [...] if any symptoms worsen. Kevyn Logan PA-C [facility] Neurosurgery documented in this encounter Plan of Treatment Not on file documented as of this encounter Visit Diagnoses Not on filedocumented in this encounter Care Teams Commercial Fisher Relationship Specialty Start Date End Date Igor Ferrera MD PCP - General 09/12/18 documented as of this encounter
--- OUTSIDE RECORDS SUMMARY | 2024-04-13 21:59 | XMS_ITS | Referral Summary ---
Author Organization [place] [id number] [facility] Address [facility] [place] [address] Care Team Providers Care Drupal Php Developer Name Role Phone Igor Ferrera MD Primary Care Provider Allergies No known active allergies Medications hydroCHLOROthia [...] on file Legal Sex Male 1:39 PM VEGETABLE TIER Gender Identity Not on file Sexual Orientation [...] PM CDT EGFR STAT 06/10/2022 11:52 PM VEGETABLE TIER from Last 3 Months or Most Recently Relevant to Health Maintenance Results * Colonoscopy (11/05/2023 1:30 PM CDT) Anatomical Region Laterality Modality Other Narrative Procedure Note Sandy Bateman MD - 11/05/2023 1:30 PM CDT [facility] Patient Name: Jeffrey Grajeda Procedure Date: 11/05/2023 1:30 PM Date of : 1950 Admit Type: Outpatient Age: 73 Gender: Male Note Status: Finalized Attending MD: Sandy Bateman M.D. Procedure Date: 11/05/2023 Procedure: Colonoscopy Indications: Screening for colorectal malignant neoplasm Providers: Sandy Bateman M.D., PACO Elias (Anesthesia Staff), Kourtney Olivares RN, Sergey, Intellectual Property Legal Assistant Referring MD: Igro Ferrera M.D. Medicines: Monitored Anesthesia Care Complications: [...] 2 weeks. Procedure Code(s): --- Professional --- 62610, Colonoscopy, flexible; with removal of tumor(s), polyp(s), or other lesion(s) by snare technique Diagnosis Code(s): --- Professional --- Z12.11, Encounter for screening for malignantneoplasm of colon D12.5, Benign neoplasm of sigmoid colon D12.3, Benign neoplasm of transverse colon (hepatic flexure or splenic flexure) CPT copyright 2020 [employer]. All rights reserved. The codes documented in this report are preliminary and upon retail greeter reviewmay be revised to meet current compliance requirements. This report is electronically signed by Dr Bradford Bateman Sandy Bateman M.D. 11/05/2023 2:03:42 PM This report has been electronically signed by the physician. Number of Addenda: 0 Note Initiated On: 11/05/2023 1:30 PM Sandy Bateman MD ENDOSCOPY PROCEDURES Final Result * eGFR (06/10/2022 11:52 PM VEGETABLE TIER) eGFR 87 mL/min/1. 73 m2 [facility] Comment: Interpretive Data Reference Interval Normal [...] reviewed 2021. Blood 06/10/2022 11:5 2 PM VEGETABLE TIER 06/10/2022 11:57 PM VEGETABLE TIER us Angel Lomeli MD LAB BLOOD ORDERABLES Final R esult [facility] [address] [place] [address] from Last 3 Months or Most Recently Relevant to Health Maintenance Insurance [facility] MEDICARE [facility] CHOICE PLUS MEDICARE MEDICARE [facility] MEDICARE Advance Directives For more information, please contact: [phone] * Full Code (Latest Code Status on File) Date Activated Date Inactivated Comments 09/12/2018 8:52 PM 09/14/2018 9:20 PM Care Teams Drupal Php Developer Relationship Specialty Start Date End Date Igor Ferrera MD PCP - General 09/12/18
--- OUTSIDE RECORDS SUMMARY | 2024-04-13 21:59 | XMS_ITS | Encounter Summary ---
Author Organization [facility] Healthcare Address [address] [place] [address] Care Team Providers Care Senior Investigator Name Role Phone Igor Ferrera MD Primary Care Provider Encounter Details Date Type Department Care Team (Late st Contact Info) Description 10/28/2018 Telephone [facility] [address] [facility] 1[address] [place] [address] Ebony Santiago MD [address] [place] [address] Social History Tobacco Use Types Packs/Day Years Used Date Smoking Tobacco: Never Alcohol Use Standard Drinks/Week Comments Yes 0 (1 standard drink = 0.6 oz pur e alcohol) Sex and Gender Information Value Date Recorded Sex Assigned at Not on file Legal Sex Male 1:39 PM ASSESSMENT RN Gender Identity Not on file Sexual Orientation [...] on filedocumented in this encounter Care Teams Senior Investigator Relationship Specialty Start Date End Date Igor Ferrera MD PCP - General 09/12/18 documented as of this encounter
--- OUTSIDE RECORDS SUMMARY | 2024-04-13 21:59 | XMS_ITS | Encounter Summary ---
Author Organization [facility] Healthcare Address [address] [place] [address] Care Team Providers Care Record Keeper Name Role Phone Igor Ferrera MD Primary Care Provider [phone] Encounter Details Date Type Department Care Team (Latest Contact Info) Description 06/30/2022 5:24 PM CDT - 06/30/2022 11:59 PM CDT Hospital Encounter [facility] [address] [place] [address] Discharge Disposition: Discharge to home or self care Social History Tobacco Use Types Packs/Day Years Used Date Smoking Tobacco: Never Smokeless Tobacco: Never Alcohol Use Standard Drinks/Week Comments Yes 0 (1 standard drink = 0.6 oz pur e alcohol) Sex and Gender Information Value Date Recorded Sex Assigned at Not on file Legal Sex Male 1:39 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 ??There will be no report generated by a [facility] Radiologist. Narrative [facility] - 06/30/2022 5:24 PM CDT EXAMINATION: ??Images For Reference Purposes Only Kevyn CORONADO IMG XR PROCEDURES Maty l Result [facility] documented in this encounter Visit Diagnoses Not on filedocumented in this encounter Care Teams Record Keeper Relationship Specialty Start Date End Date Igor Ferrera MD PCP - General 09/12/18 documented as of this encounter
--- OUTSIDE RECORDS SUMMARY | 2024-04-13 22:00 | XMS_ITS | Encounter Summary ---
Author Organization [facility] Healthcare Address [address] [place] [address] Care Team Providers Care Live Truck Operator Name Role Phone Igor Ferrera MD Primary Care Provider [phone] Encounter Details Date Type Department Care Team (Latest Contact Info) Description 09/14/2018 2:15 PM CDT - 09/14/2018 11:59 PM CDT Hospital Encounter [facility] [place] [address] [facility] 1st [place] [phone] Ebony Santiago MD [address] [place] [address] Left sided sciatica; Spondylosis of lumbar region [...] on file Legal Sex Male 1:39 PM THERAPIST SPEECH Gender Identity Not on file Sexual Orientation [...] 3:10 PM CDT Patient ID Patient Name: Jeffrey Grajeda : 1950 DOS: 09/14/2018 PCP: Igor Ferrera MD Surgeon SURGEON: Ebony Santiago MD, RANDOLPH SLAUGHTERER RELIGIOUS RITUAL SURGEON: None Procedures NAME OF PROCEDURE: Lumbar [...] Ebony Santiago MD, RANDOLPH Director of Pain Border Inspector Professor [facility] documented in this encounter Plan of [...] mL documented in this encounter Care Teams Live Truck Operator Relationship Specialty Start Date End Date Igor Ferrera MD PCP - General 09/12/18 documented as of this encounter
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
--- OUTSIDE RECORDS SUMMARY | 2024-04-13 22:00 | XMS_ITS | Encounter Summary ---
Author Organization [facility] Healthcare Address [address] [place] [address] Care Team Providers Care Loftsman Name Role Phone Igor Ferrera MD Primary Care Provider [phone] Reason for Visit * Reason Comments Back Pain Encounter Details Date Type Department Care Team (Late st Contact Info) Description 09/12/2018 3:49 PM CDT - 09/14/2018 4:30 PM CDT Emergency [facility] [address] [place] [phone] Bradford Wallis MD [address] [place] [address] Lumbar radiculopathy (Primary Dx); Acute pain; Acute [...] on file Legal Sex Male 1:39 PM DELIVERY DIRECTOR Gender Identity Not on file Sexual [...] CVS: S1, S2. Abdomen: Bowel sounds positive. SLOT TAG INSERTER: Patient is alert, awake, oriented x3. There is no gross focal neurological deficit. Extremities: There is no pedal edema. Plan Will be to continue present medications, send the patient home, and follow up with primary care physician in 2 weeks. Job ID/VF Job ID: [id number] documented in this encounter Medications at Time [...] -- PT -- Conitnue current pain regimen. halfway opioids not indicated. -- Ok to d/c [...] L5 LSNR done today. Follow up in [facility] as outpatient in 5-6 weeks. Ebony Santiago MD, RANDOLPH Early Childhood Services Coordinator Director of Pain Medicine [facility] Department of Anesthesiology and Pain 3:39 PM [...] S1, S2. Abdomen: Soft. Bowel sounds positive. SLOT TAG INSERTER: Patient alert, awake, oriented x3. There is [...] taken care of. Job ID/VF Job ID: [id number] documented in this encounter Consult Notes * Jasmyne Wylie, NFL PLAYER - 09/13/2018 2:01 PM CDTAssociated Order(s): IP [...] with minimal benefit. He currently is taking Vermilion 5/325 Q4H PRN, took 2 doses and [...] scheduled. 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 -- Hold any anticoagulation [...] LSNR injection tomorrow. Ebony Santiago MD, RANDOLPH Early Childhood Services Coordinator Director of Pain Medicine [facility] Department of Anesthesiology and Pain 4:00 PM [...] [facility]. He denies any [...] Oriented to unit, pain controlled with PRN Vermilion and Flexaril, ambulates without assist, MRI today, [...] Needle Placement (09/14/2018 3:50 PM CDT) Narrative RAD[facility]ACS[facility] - 09/14/2018 3:50 PM CDT The images from this study are not interpreted by Radiology. ??Please refer to the physician's procedure / OR operative note. us Ebony Santiaog MD IMG FLUOROSCOPY PROCEDURES Final Result RAD_PACS_[facility] [...] AM CDT) eGFR 60 mL/min/1.7 3 m2 [facility] Comment: Interpretive Data Reference Interval Normal ?>/= 90 mL/min/1.73m2 Mildly decreased* ? 60 - 89 mL/min/1.73m2 Mildly to moderately decreased ?45 - 59 mL/min/1.73m2 Moderately to severely decreased ??30 - 44 mL/min/1.73m2 Severely decreased ?15 - 29 mL/min/1.73m2 Kidney Failure ?< 15 ??mL/min/1.73m2 *Relative to young adult level If -Tunisian multiply value by 1.16. Estimated glomerular filtration [...] AM CDT 09/13/2018 6:17 AM CDT Narrative [facility] - 09/13/2018 6:43 AM CDT Ashley Manning NP LAB BLOOD ORDERABLE S Final Result [facility] [address] Department [place] [address] * Differential, auto (09/13/2018 5:36 AM CDT) Pathologist [facility] Neutrophil abs 2.7 1.7 - 6.5 K/cumm [facility] Imm gran abs 0.0 0.0 - 0.1 K/cumm [facility] Lymphocyte abs 1.4 0.8 - 3.3 K/cumm [facility] Monocyte abs 0.5 0.2 - 0.8 K/cumm [facility] Eosinophil abs 0.1 0.0 - 0.5 K/cumm [facility] Basophil abs 0.0 0.0 - 0.1 K/cumm [facility] Neutrophil pct 57.0 % [facility] Comment: Interpretive Data Percent cell count reference ranges are not reported, since discordance with absolute values may lead to misinterpretation of CBC data. Current Interpretive Data was last revised on 2017. Imm gran pct 0.6 % [facility] Comment: Interpretive Data Percent cell count reference ranges are not reported, since discordance with absolute values may lead to misinterpretation of CBC data. Current Interpretive Data was last revised on 2017. Lymphocyte pct 30.2 % [facility] Comment: Interpretive Data Percent cell count reference ranges are not reported, since discordance with absolute values may lead to misinterpretation of CBC data. Current Interpretive Data was last revised on 2017. Monocyte pct 10.1 % [facility] Comment: Interpretive Data Percent cell count reference ranges are not reported, since discordance with absolute values may lead to misinterpretation of CBC data. Current Interpretive Data was last revised on 2017. Eosinophil pct 1.5 % [facility] Comment: Interpretive Data Percent cell count reference ranges are not reported, since discordance with absolute values may lead to misinterpretation of CBC data. Current Interpretive Data was last revised on 2017. Basophil pct 0.6 % [facility] Comment: Interpretive Data Percent cell count reference ranges are not reported, since discordance with absolute values may lead to misinterpretation of CBC data. Current Interpretive Data was last revised on 2017. Blood specimen (specimen) 09/13/2018 5:36 AM CDT 09/13/2018 6:18 AM CDT Narrative [facility] - 09/13/2018 6:26 AM CDT us Ashley Manning NP LAB BLOOD ORDERABLE S Final Result [facility] [address] Department [place] [address] * Basic metabolic panel (09/13/2018 5:36 AM CDT) Pathologist [facility] Sodium 142 135 - 145 mmol/L [facility] Potassium, pl 3.6 3.3 - 4.9 mmol/L [facility] Chloride 100 97 - 110 mmol/L [facility] CO2 31 22 - 32 mmol/L [facility] Anion gap 11 2 - 15 mmol/L [facility] BUN 18 8 - 25 mg/dL [facility] Creatinine 1.25 0.80 - 1.30 mg/dL [facility] Glucose 150 70 - 199 mg/dL [facility] Comment: Interpretive Data Fasting glucose [...] 2017. Calcium 9.3 8.5 - 10.3 mg/dL [facility] Blood specimen (specimen) 09/13/2018 5:36 AM CDT 09/13/2018 6:17 AM CDT Narrative [facility] - 09/13/2018 6:43 AM CDT us Ashley Manning NP LAB BLOOD ORDERABLE S Final Result [facility] [address] [place] [address] * (ABNORMAL) CBC with auto differential (09/13/2018 5:36 AM CDT) [facility] WBC 4.7 3.8 - 9.9 K/cumm [facility] Hgb 14.0 13.0 - 17.5 g/dL [facility] Hct 41.6 38.9 - 50.3 % [facility] Plt 141(L) 150 - 400 K/cumm [facility] MPV 11.0 9.1 - 12.3 fL [facility] RBC 4.60 4.30 - 5.80 M/cumm [facility] MCV 90.4 81.3 - 96.4 fL [facility] MCH 30.4 27.1 - 33.3 pg [facility] MCHC 33.7 32.3 - 35.7 g/dL [facility] RDW CV 12.7 11.1 - 14.9 % [facility] RDW SD 41.5 35.7 - 48.1 fL [facility] NRBC abs 0.00 0.00 - 0.01 K/cumm [facility] Blood specimen (specimen) 09/13/2018 5:36 AM CDT 09/13/2018 6:18 AM CDT Narrative [facility] - 09/13/2018 6:26 AM CDT us Ashley Manning NP LAB BLOOD ORDERABLE S Final Result [facility] [address] Department [place] [address] documented in this encounter Visit Diagnoses Diagnosis [...] at [phone] (Given - Provider: Jade aTylor RN) 222 (Given - Provider: Vick Stewart) [...] 09/12/18 at 2051 2135 (Given - Provider: Jade Taylor RN) 0430 (Given - Provider: Jade [...] 09/12/2018 documented in this encounter Care Teams Loftsman Relationship Specialty Start Date End Date Igor Ferrera MD PCP - General 09/12/18 documented as of this encounter
--- OUTSIDE RECORDS SUMMARY | 2024-04-13 22:00 | XMS_ITS | Encounter Summary ---
Author Organization 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
--- OUTSIDE RECORDS SUMMARY | 2024-04-13 22:00 | XMS_ITS | Encounter Summary ---
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
--- OUTSIDE RECORDS SUMMARY | 2024-04-13 22:00 | XMS_ITS | Encounter Summary ---
Author Organization [facility] Facility Care Team Providers Care Photoengraving Retoucher Name Role Phone Unavailable Primary Care Provider Unavailabl e Encounter Details Date Type Department Care Team (Latest Contact Info) Description 11/04/2013 10:08 AM CDT - 11/04/2013 12:15 PM CDT Hospital Encounter [facility] Mihai Rivas MD [address] [place] [address] Blood in stool; Internal hemorrhoids; Essential hypertension; Type 2 or unspecified type diabetes mellitus; Esophageal reflux; Obesity; Encounter for long-term (current) use of other medications Social History Tobacco Use Types Packs/Day Years Used Date Smoking Tobacco: Never Assessed Sex and Gender Information Value Date Recorded Sex Assigned at Not on file 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 [facility] Provider LAB BLOOD ORDERABLES Maty l Result * COLONOSCOPY REPORT (11/04/2013) Anatomical Region Laterality Modality Other Narrative 11/04/2013 Ordered by an unspecified provider. [facility] Provider GI PROCEDURE ORDERABLES F inal Result documented in this encounter Visit Diagnoses Diagnosis Blood in stool Internal hemorrhoids Internal hemorrhoids without mention of complication Essential hypertension Unspecified essential hypertension Type 2 or unspecified type diabetes mellitus Esophageal reflux Obesity Obesity, unspecified Encounter for long-term (current) use of other medications documented in this encounter
== END 2024-04-06 21:09 | disposition home or self-care (01) ==
PROVIDERS: Emergency Provider Physician Assistant
DX: M79.10 Myalgia, unspecified site (principal); B34.9 Viral infection, unspecified; E86.0 Dehydration; Z20.822 Contact with and (suspected) exposure to COVID-19; E11.9 Type 2 diabetes mellitus without complications; I10 Essential (primary) hypertension; E78.5 Hyperlipidemia, unspecified; Z79.84 Long term (current) use of oral hypoglycemic drugs
CPT/HCPCS: 36415; 71046; 80053; 81001; 83605; 83690; 85025; 87637; 93005; 96360; 99283; A9270; J7030

== ENCOUNTER 2024-05-30 02:23 | Emergency (ER) | payer MEDICARE, SELFPAY ==
[2024-05-30 02:27] VITALS: BP 145/72; PULSE 64; RESP 18; TEMP 36.9; O2SAT 97
--- OUTSIDE RECORDS SUMMARY | 2024-05-30 02:27 | XMS_ITS | Encounter Summary ---
Author Organization [facility] Address [facility] [place] [address] Care Team Providers Care Ammonia Box Tender Name Role Phone Unavailable Primary Care Provider Unavailabl e Encounter Details Date Type Department Care Team (Late st Contact Info) Description 08/03/2023 Lab Requisition [facility] - DermPath Lab [address] [facility] [place] [phone] Sunitha Portillo MD [address] [place] [address] Social History Tobacco Use Types Packs/Day Years [...] 8:11 AM CDT) Case Report Dermatopathology Report Case: [id number] Authorizing Provider: Sunitha Portillo MD Collected: 08/03/2023 08:11 AM Ordering Location: [facility] - Received: 08/04/2023 12:37 PM DermPath Lab Pathologist: Kourtney Jain MD Specimen: Skin, anterior mid scalp 3:06 PM CDT DERMATOPATHOLOGY LABORATORY Final Diagnosis Specimen A. 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 3:06 PM [facility] DERMATOPATHOLOGY LABORATORY Gross Description Specimen A: Received is one formalin filled container labeled with the patient's name and designated anterior mid scalp. The specimen consists of a shave biopsy measuring 88c45o0 mm. Jar 0. 3:06 PM [facility] DERMATOPATHOLOGY LABORATORY Microscopic Description Specimen A. [...] pustular dermatosis in the correct clinical setting. 3:06 PM [facility] DERMATOPATHOLOGY LABORATORY Disclaimer An external and internal positive and negative controls are appropriate for the histochemical, immunohistochemical and immunofluorescence stain(s) in this case (if any), except where stated explicitly. The performance characteristics of the stain(s) cited in this report were developed and its performance characteristic determined by the Dermatopathology Laboratory at [facility], directed by Dr. Parker Mir. These tests need not be, and therefore are not, approved by the [place] Food and Drug Administration. The tests are used for clinical purposes. Billing Codes Specimen Charges Stain Charges 69758 1 87540 35550 89087 1 1 1 4 3:06 PM T DERMATOPATHOLOGY LABORATORY Embedded Images 4 3:06 PM CDT DERMATOPATHOLOGY LABORATORY Pathology/Cytolo gy TISSUE SPECIMEN FROM SKIN / Unknown 08/03/2023 8:11 AM CDT 08/04/2023 12:37 PM CDT Sunitha Portillo MD LAB - PATHOLOGY/CYT OLOGY ORDERABLES DERMATOPATHOLOGY LABORATORY [facility] - Department of Dermatology Specialized Medicine [address] [place] [address], [address] [phone] documented in this encounter Visit Diagnoses Not on filedocumented in this encounter
--- OUTSIDE RECORDS SUMMARY | 2024-05-30 02:27 | XMS_ITS | Referral Summary ---
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 Gender Identity Not on file Sexual Orientation Not on file Last Filed Vital Signs Vital Sign Reading Time Taken Comments Blood Pressure 104/72 11/05/2023 2:20 PM CDT Pulse 71 11/05/2023 2:20 PM CDT Temperature 37 C (98.6 F) 11/05/2023 12:09 PM CDT Respiratory Rate 23 [...] PM CDT EGFR STAT 06/10/2022 11:52 PM OPTIMIZATION ENGINEER from Last 3 Months or Most Recently Relevant to Health Maintenance Results * Colonoscopy (11/05/2023 1:30 PM CDT) Anatomical Region Laterality Modality Other Narrative Procedure Note Sandy Bateman MD - 11/05/2023 1:30 PM CDT [facility] Endoscopy Lab Patient Name: Jeffrey Grajeda Procedure Date: 11/05/2023 1:30 PM Date of : 1950 Admit Type: Outpatient Age: 73 Gender: Male Note Status: Finalized Attending MD: Sandy Bateman M.D. Procedure Date: 11/05/2023 Procedure: Colonoscopy Indications: Screening for colorectal malignant neoplasm Providers: Sandy Bateman M.D., PACO Elias (Anesthesia Staff), Kourtney Olivares RN, Sergey, Tobacco Sorter Referring MD: Igor Ferrera M.D. Medicines: Monitored [...] 2 weeks. Procedure Code(s): --- Professional --- 24172, Colonoscopy, flexible; with removal of tumor(s), polyp(s), or other lesion(s) by snare technique Diagnosis Code(s): --- Professional --- Z12.11, Encounter for screening for malignantneoplasm of colon D12.5, Benign neoplasm of sigmoid colon D12.3, Benign neoplasm of transverse colon (hepatic flexure or splenic flexure) CPT copyright 2020 [employer]. All rights reserved. The codes documented in this report are preliminary and upon assistant football coach reviewmay be revised to meet current compliance requirements. This report is electronically signed by Dr Bradford Bateman Sandy Bateman M.D. 11/05/2023 2:03:42 PM This report has been electronically signed by the physician. Number of Addenda: 0 Note Initiated On: 11/05/2023 1:30 PM Sandy Bateman MD ENDOSCOPY PROCEDURES Final Result * eGFR (06/10/2022 11:52 PM OPTIMIZATION ENGINEER) eGFR 87 mL/min/1. 73 m2 [facility] Comment: Interpretive Data Reference Interval Normal >/= 90 mL/min/1.73m2 Mildly decreased* 60 - 89 mL/min/1.73m2 Mildly to moderately decreased 45 - 59 mL/min/1.73m2 Moderately to severely decreased 30 - 44 mL/min/1.73m2 Severely decreased 15 - 29 mL/min/1.73m2 Kidney Failure < 15 mL/min/1.73m2 *Relative to young adult level Estimated glomerular [...] reviewed 2021. Blood 06/10/2022 11:5 2 PM OPTIMIZATION ENGINEER 06/10/2022 11:57 PM OPTIMIZATION ENGINEER Angel Lomeli MD LAB BLOOD ORDERABLES Final R esult [facility] [address] Department [place] [address] from Last 3 Months or Most Recently Relevant to Health Maintenance Insurance [employer] MEDICARE MEDICARE MEDICARE [facility] MEDICARE Advance Directives For more information, please contact: [phone] * Full Code (Latest Code Status on File) Date Activated Date Inactivated Comments 09/12/2018 8:52 PM 09/14/2018 9:20 PM Care Teams Butt [place] Relationship Specialty Start Date End Date Igor Ferrera MD PCP - General 09/12/18
--- OUTSIDE RECORDS SUMMARY | 2024-05-30 02:27 | XMS_ITS | Clinical Summary ---
Author Organization [place] [id number] [facility] Address [facility] [place] [address] Care Team Providers Care Ballistics Expert Forensic Name Role Phone Igor Ferrera MD Primary Care Provider [phone] Allergies No known active allergies Medications hydroCHLOROthia [...] on file Legal Sex Male 1:39 PM FRONT OFFICE AGENT Gender Identity Not on file Sexual Orientation [...] 07/21/2017 eGFR 06/10/2023 06/10/2022, 09/13/2018 Covid-19 Vaccine (6 - 2023-2 5 season) 2023 01/19/2022, 07/16/2021, [...] PM CDT EGFR STAT 06/10/2022 11:52 PM FRONT OFFICE AGENT from Last 3 Months or Most Recently Relevant to Health Maintenance Results * Colonoscopy (11/05/2023 1:30 PM CDT) Anatomical Region Laterality Modality Other Narrative Procedure Note Sandy Bateman MD - 11/05/2023 1:30 PM CDT [facility] Endoscopy Lab Patient Name: Jeffrey Grajeda Procedure Date: 11/05/2023 1:30 PM Date of : 1950 Admit Type: Outpatient Age: 73 Gender: Male Note Status: Finalized Attending MD: Sandy Bateman M.D. Procedure Date: 11/05/2023 Procedure: Colonoscopy Indications: Screening for colorectal malignant neoplasm Providers: Sandy Bateman M.D., PACO Elias (Anesthesia Staff), Kourtney Olviares RN, Sergey, Wafer Slicer Referring MD: Igor Ferrera M.D. Medicines: Monitored [...] 2 weeks. Procedure Code(s): --- Professional --- 36542, Colonoscopy, flexible; with removal of tumor(s), polyp(s), [...] in this report are preliminary and upon board of education secretary reviewmay be revised to meet current compliance requirements. This report is electronically signed by Dr Bradford Bateman Sandy Bateman M.D. 11/05/2023 2:03:42 PM This report has been electronically signed by the physician. Number of Addenda: 0 Note Initiated On: 11/05/2023 1:30 PM Sandy Bateman MD ENDOSCOPY PROCEDURES Final Result * eGFR (06/10/2022 11:52 PM FRONT OFFICE AGENT) eGFR 87 mL/min/1. 73 m2 [facility] Comment: Interpretive Data Reference Interval Normal >/= [...] reviewed 2021. Blood 06/10/2022 11:5 2 PM FRONT OFFICE AGENT 06/10/2022 11:57 PM FRONT OFFICE AGENT Angel Lomeli MD LAB BLOOD ORDERABLES Final R esult [facility] [address] [place] [address] from Last 3 Months or Most Recently Relevant to Health Maintenance Insurance [facility] MEDICARE [facility] CHOICE PLUS MEDICARE MEDICARE [employer] MEDICARE AET MEDICARE Advance Directives For more information, please contact: [phone] * Full Code (Latest Code Status on File) Date Activated Date Inactivated Comments 09/12/2018 8:52 PM 09/14/2018 9:20 PM Care Teams Ballistics Expert Forensic Relationship Specialty Start Date End Date Igor Ferrera MD PCP - General 09/12/18
--- OUTSIDE RECORDS SUMMARY | 2024-05-30 02:27 | XMS_ITS | Continuity of Care Document ---
Author Organization [facility] Address [address] [place] [address] Insurance Providers Payer Plan Claims Address Claims Phone Policy Number Group Number Relation Employer Guarantor Name Guarantor Guarantor Address Guarantor Phone JANNA CEHN FORMER[employer] [facility], [address] [address], [place] [address] tel:[phone] [id number] Self Jeffrey Grajeda 1950 [address], [place] [address] IDPH COMME RCIAL GENER IC [id number] Self Jeffrey Maldonadowald 1950 [address], [place] [address] [employer] ADV [address], [place] [address] tel:[phone] Self Jeffrey Grajeda 1950 [address], [place] [address] Problems Condition ICD9 code ICD10 [...]
--- OUTSIDE RECORDS SUMMARY | 2024-05-30 02:27 | XMS_ITS | Clinical Summary ---
Author Organization [facility] [employer] Address [address] [place] [address] Care Team Providers Care Extractor Puller Name Role Phone Unavailable Primary Care Provider Unavailabl e Source Comments [facility],non-owned Affiliates and Associated Physician Practices is amultiple site organization consisting of ambulatory clinics and hospital sitesin [place], [place], [place] and [place]. This disclosure is being madepursuant to the Care Everywhere program and may not contain all information available regarding this patient. Last updated 18.[facility] [employer] Allergies No known active allergies Medications * [...] 01/19/1970 DTAP/TDAP/TD VACCINES (1 - Tdap) 01/23/1971 PNEUMOCOCCAL VACCINE 50+ (1 of 1 - PCV) 01/23/2002 ZOSTER VACCINE (1 of 2) 01/23/2002 SCREENING FOR DIABETES 01/14/2022 COVID-19 VACCINE (1 - 2023-2 5 season) 2023 INFLUENZA VACCINE (#1) 2023 DEPRESSION SCREENING 04/13/2024 MEDICARE AWV CALENDAR YEAR 2024 Respiratory Syncytial Virus (RSV) Vaccine Pt: or [...] patient's age to complete this topic MENINGOCOCCAL (Group B) VACCINE Aged Out No longer eligible based on patient's age to complete this topic MENINGOCOCCAL VACCINE Aged Out No marilee kavin eligible based on patient's age to complete this topic Jeffrey Grajeda Personal/Family Self 1950 [address] [place] [address]
--- OUTSIDE RECORDS SUMMARY | 2024-05-30 02:27 | XMS_ITS | Referral Summary ---
Author Organization [facility] Address [address] [place] [address] Care Team Providers Care Oracle Ebs Developer Name Role Phone Unavailable Primary Care Provider Unavailabl e Source Comments [facility],non-owned Affiliates and Associated Physician Practices is amultiple site organization consisting of ambulatory clinics and hospital sitesin [place], [place], [place] and [place]. This disclosure is being madepursuant to the Care Everywhere program and may not contain all information available regarding this patient. Last updated 18.[facility] [employer] Allergies No known active allergies Medications * [...]
--- OUTSIDE RECORDS SUMMARY | 2024-05-30 02:27 | XMS_ITS | Encounter Summary ---
Author Organization [facility] Address [address] [place] [address] Care Team Providers Care Business Sales Consultant Name Role Phone Unavailable Primary Care Provider Unavailabl e Encounter Details Date Type Department Care Team (Late st Contact Info) Description 05/27/2018 Lab Requisition [facility] [address] [place] [address] Sunitha Portillo MD [address] [place] [address] Social History Tobacco Use Types Packs/Day Years [...] DERMATOPATH TECHNICAL REPORT Routine 05/25/2018 12:00 AM DESIGN TECHNOLOGY TEACHER documented in this encounter Results * DERMATOPATH TECHNICAL REPORT (05/25/2018 12:00 AM DESIGN TECHNOLOGY TEACHER) Case Report Dermatopathology Report Case: [id number] Authorizing Provider: Sunitha Portillo MD Collected: 05/25/2018 12:00 AM Pathologist: Bella Mir MD Received: 05/27/2018 07:17 AM Specimen: Skin, left cheek 9 2:33 PM DESIGN TECHNOLOGY TEACHER DERMATOPATHOLOGY LABORATORY Clinical History [facility] vs [facility] 9 2:33 PM DESIGN TECHNOLOGY TEACHER DERMATOPATHOLOGY LABORATORY Gross Description Specimen A: Received is one formalin filled container labeled with the patient's name and designated left cheek. The specimen consists of a shave biopsy measuring 6x5x2 mm. Jar 0. [facility] Dermatopathology Laboratory performed the technical component only. 9 2:33 PM [facility] DERMATOPATHOLOGY [facility]ORATORY Embedded Images 2:33 PM [facility] DERMATOPATHOLOGY [facility]ORATORY DISCLAIMER An external and internal positive and negative controls are appropriate for the histochemical, immunohistochemical and immunofluorescence stain(s) in this case (if any), except where stated explicitly. The performance characteristics of the stain(s) cited in this report were developed and its performance characteristic determined by the Dermatopathology Laboratory at [facility], directed by Dr. Parker Mir. These tests need not be, and therefore are not, approved by the [place] Food and Drug Administration. The tests are used for clinical purposes. 9 2:33 PM [facility] DERMATOPATHOLOGY LABORATORY Pathology/Cytolog y TISSUE SPECIMEN FROM SKIN / Unknown 05/25/2018 05/27/2018 7:17 AM DESIGN TECHNOLOGY TEACHER Sunitha Portillo MD LAB - PATHOLOGY/CYT OLOGY ORDERABLES DERMATOPATHOLOGY LABORATORY [facility] - Department of Dermatology [address] [place] [address], [facility] [phone] documented in this encounter Visit Diagnoses Not on filedocumented in this encounter
--- OUTSIDE RECORDS SUMMARY | 2024-05-30 02:27 | XMS_ITS | Data Portability ---
Author Organization NICOLLE Grayson MD, [facility] Address [address] [facility] NICOLLE Paz [address] Care Team Providers Care Pharmacy Messenger Name Role Phone PREETI YANG Primary Care Provider Assessment Encounter Date Assessment Date Assessment LastModified by Organization Details LastModified Time 04/03/2023 04/03/2023 Patient is doing very well with following meal plan, also HbA1c now below 6.0. Will adjust medication dose. [email or web address] Not available 04/03/2023 12:44:32 10/09/2023 10/09/2023 For short period of time was on a temporary dose of prednisone after had a bee sting which increased hi BS level. Otherwise doing well and no increase in weight since last visit. Not available 10/09/2023 12:12:53 05/13/2024 05/13/2024 Patient is doing well with diet and control of diabeties. Today his BP is elevated advised patient to check BP at home and call his PCP if elevated to consider treatment, possibly with lisinopril 10mg. [email or web address] Not available 05/13/2024 11:23:22 Plan of Treatment Reminders Order Date Submit Date Provider Last Modified By Organization Details Last Modified Time Details Appointments Establish ed Patient 2024 08:45A Bella Grayson M.D. Not available Not available Not available Lab glucose, fingersti ck, blood 2022 023 [email or web address] [place], [address], [address], [place], [address], 04/03/2023 12:45:27 HbA1c (hemoglob in A1c), blood 2022 023 [email or web address] [place], [address] [facility], [address], [place], [address], 04/03/2023 12:45:28 Referral None recorded. Procedures None recorded. Surgeries None recorded. Imaging None recorded. Medication Orders metformin [address] [facility], [facility], [place], [address], 07/06/2023 10:40:32 Ozempic 1 mg/dose (4 mg/3 mL) subcutane ous pen injector 2023 024 [facility], [facility], [place], [address], 07/06/2023 10:40:32 Patient TargetsNo targets recorded. Patient Instructions Encounter Date Encounter Id Patient Instructions Last Modified By Organization Details Last Modified Time 07/03/2023 [id number] type 2 diabetes: care instructions [email or web address] Not available 07/06/2023 10:40:30 Reason for Referral None Reported. Results Created Date Observation Date Name Description Value Unit Range Abnormal Flag Note LastModifiedBy Organization Detail LastModifiedTime 04/03/20 23 04/03/2023 HbA1c (hemo globi n A1c), blood HbA1c 5.7 [place] [address] [facility] [address], [place], [address], 04/03/2023 12:45:00 04/03/20 23 04/03/2023 gluco se, finge rstic k, blood Glucose 127 [place] [address] [facility] [address], [place], [address], 04/03/2023 12:44:59 Result Notes None recorded. Problems Name Problem SNOMED Code Status Onset Date Resolution Date Notes Provider Name and Address Organization Details Recorded Time Uncontrolled type 2 diabetes mellitus 928706725 Active 2017 NICOLLE Golden MD 8 12:39:38 Hypertensive disorder 56939420 Active 2017 NICOLLE Golden MD 8 12:39:43 Hyperlipidemia 53825584 Active 2017 NICOLLE Golden MD 8 12:39:48 Chronic low back pain 078977451 Active 2022 Mya NICOLLE Fiore MD 3 15:17:54 Erectile dysfunction 200976661 Active 2024 NICOLLE Dent MD 5 11:23:37 Problem Notes None recorded. Medical Equipment None [...] n 40 mg tablet TAKE 1 TABLET DAILY active Not Available Not Available No t Available metformin 500 mg tablet TAKE 1 TABLET TWICE A DAY active Not Available Not [...] 1 TABLET DAILY FOR 4 DAYS DIRECTED 05/16 completed Not Available Not Available Not Available [...] 240 mg capsule,ext ended release 24 hr TAKE 1 CAPSULE DAILY active Not Available Not Available No t Available glipizide ER 10 mg tablet, extended release 24 hr 09/14 completed Not Available Not Available Not Available famotidine 40 mg tablet TAKE 1 TABLET BY MOUTH NIGHTLY NEEDED FOR HEARTBURN . 01/28 completed Not Available Not Available Not Available fluorouraci l 5 % topical cream 05/09 completed Not Available Not Available Not Available Ferrex 150 mg iron capsule TAKE CAP BY MOUTH ONCE DAILY active Not Available Not Available No t Available glipizide ER 5 mg tablet, extended release 24 hr 09/14 completed Not Available Not Available Not Available pimecrolimu s 1 % topical cream 09/14 completed Not Available Not Available Not Available clobetasol 0.05 % topical cream APPLY TO SCALP DAILY 05/09 completed Not Available Not Available Not Available triamcinolo ne acetonide 0.5 % topical ointment APPLY 1 APPLICATI ON ONTO THE AFFECTED AREA(S) ON THE SKIN TWICE DAILY 05/09 completed Not Available Not Available Not Available acyclovir 400 mg tablet TAKE 1 TABLET TWICE A DAY active Not Available Not [...] BY MOUTH EVERY DAY FOR 7 DAYS 05/09 completed Not Available Not Available Not Available amoxicillin 875 mg tablet 09/14 completed [...] DOSE OF 2 TABS FOR CHRONIC PAIN 05/09 completed Not Available Not Available Not Available tamsulosin 0.4 mg capsule TAKE 1 CAPSULE BY MOUTH EVERYDAY AT BEDTIME 05/09 completed Not Available Not Available Not Available amlodipine 10 mg tablet 01/28 completed Not Available Not Available Not Available benzonatate 100 mg capsule TAKE 1 CAPSULE BY MOUTH THREE TIMES A DAY NEEDED FOR COUGH 01/28 completed Not Available Not Available Not Available econazole nitrate 1 % topical cream APPLY TO FEET TWICE DAILY 09/14 completed Not Available Not Available Not Available oseltamivir 75 mg capsule TAKE 1 CAPSULE BY MOUTH EVERY 12 HOURS FOR 5 DAYS 01/28 completed Not Available Not Available Not Available clotrimazol e-betametha sone 1 %-0.05 % topical cream APPLY TOPICALLY 2 TIMES A DAY X2 WEEKS 05/09 completed Not Available Not Available Not Available lidocaine 5 % topical patch PLACE [...] BY MOUTH EVERY DAY FOR CHRONIC PAIN 05/09 completed Not Available Not Available Not Available hydroxyzine HCl 25 mg tablet TAKE 1 TABLET BY MOUTH THREE TIMES A DAY 05/09 completed Not Available Not Available Not Available bisacodyl 5 mg tablet,wesly yed release 4 TABS ORALLY DIRECTED 05/09 completed Not Available Not Available Not Available hydrochloro thiazide 25 mg tablet TAKE 1 TABLET BY MOUTH DAILY active Not Available Not Available No t Available mupirocin 2 % topical ointment APPLY TO SPOT TWICE DAILY 09/14 completed Not Available Not Available Not Available methylpredn isolone 4 mg tablets in a dose pack TAKE 6 TABLETS ON DAY 1 DIRECTED ON PACKAGE AND DECREASE BY 1 TAB EACH DAY FOR A TOTAL OF 6 DAYS 05/09 completed Not Available Not Available Not Available ketoconazol e 2 % topical cream APPLY TO AFFECTED AREA TWICE A DAY 05/09 completed Not Available Not Available Not Available fluticasone propionate 50 mcg/actuati on nasal spray,suspe nsion INSTILL 2 SPRAYS INTO EACH NOSTRIL ONCE A DAY NEEDED 01/28 completed Not Available Not Available Not Available metronidazo le 0.75 % topical gel 01/28 completed Not Available Not Available Not Available doxycycline hyclate 100 mg tablet TAKE 1 TABLET DAILY active Not Available Not Available No [...] % lotion APPLY TO SCALP EVERY DAY 05/09 completed Not Available Not Available Not Available tadalafil 10 mg tablet 09/14 completed [...] gram-6.74 gram-5.86 gram oral solution TAKE DIRECTED 05/09 completed Not Available Not Available Not Available OneTouch Verio test strips USE TO CHECK BLOOD SUGAR ONCE DAILY active Not Available Not Available No t Available Ozempic 0.25 mg or 0.5 mg (2 mg/1.5 mL) subcutaneou s pen injector Inject 0.5 mg every week by subcutane ous route for 90 days. 01/28 completed Not Available Not Available Not Available OneTouch Delica Plus Lancet 33 gauge USE TO CHECK BLOOD SUGAR ONCE DAILY active Not Available Not Available No t Available ID NOW COVID-19 Test Kit TEST DIRECTED 09/14 completed Not Available Not Available Not Available COVID-19 test specimen collection TEST DIRECTED TODAY 01/28 completed Not Available Not Available Not Available Dentalink COVID-19 Vaccine (PF) 30 mcg/0.3 mL IM susp (purple) ADMINISTE R 0.3ML IN THE MUSCLE DIRECTED 09/14 completed Not Available Not Available Not Available Ozempic 1 mg/dose (4 mg/3 mL) subcutaneou s pen injector INJECT 1MG SUBCUTANE OUSLY EVERY WEEK active Not Available Not Available No t Available Vitals Date Recorded Body height Body mass index (BMI) Body weight Systolic blood pressure Diastolic blood pressure Provider Name and Address Organization Details Last Updated DateTime 04/03/2023 182.88 cm 28.3 kg/m2 75175.81 g 134 mm[Hg] 82 mm[Hg] Mya Grayson MD 3 12:43:51 Date Recorded Body height Body mass index (BMI) Body weight Systolic blood pressure Diastolic blood pressure Provider Name and Address Organization Details Last Updated DateTime 07/03/2023 182.88 cm 28.5 kg/m2 04220.4 g 122 mm[Hg] 65 mm[Hg] Josephine Grayson MD 4 10:38:28 Date Recorded Body height Body mass index (BMI) Body weight Systolic blood pressure Diastolic blood pressure Provider Name and Address Organization Details Last Updated DateTime 10/09/2023 182.88 cm 28.5 kg/m2 45078.4 g 118 mm[Hg] 70 mm[Hg] Cher Grayson MD 4 12:10:46 Date Recorded Body height Body mass index (BMI) Body weight Systolic blood pressure Diastolic blood pressure Provider Name and Address Organization Details Last Updated DateTime 01/29/2024 182.88 cm 29.2 kg/m2 37963.36 g 140 mm[Hg] 62 mm[Hg] Martine Grayson MD 4 11:39:08 Date Recorded Body height Body mass index (BMI) Body weight Systolic blood pressure Diastolic blood pressure Provider Name and Address Organization Details Last Updated DateTime 05/13/2024 182.88 cm 28.8 kg/m2 46277.58 g 160 mm[Hg] 80 mm[Hg] Jackeline Grayson MD 5 11:07:54 Social History None recorded. Functional Status None recorded. Mental Status None recorded. Family History Nothing Reported. Medical History No medical history recorded. Immunizations Vaccine Type Date Status Note Provider Roman stringer and Address Organization Details Recorded Time SARS-COV-2 (COVID-19) vaccine, UNSPECIFIED 06/11/2020 completed AngélicaNICOLLE Moraes MD 09/14/2020 12:57:25 Past Encounters Encounter ID Performer Location Encounter Start Date Encounter Closed Date Diagnosis/Indication Diagnosis SNOMED-CT Code Diagnosis ICD10 Code Diagnosis Note [id number] Ann Grayson MD Main Office [address] [place] [address] 03/12/2018 09:48:59 03/12/2018 10:51:56 Uncontrolled type 2 diabetes mellitus [id number] E11.65 BS today is 151 and HbA1c was 7.7 on 02/20/18 Metformin 500mg bid Glucotrol Xl 10mg qpm Patient was educated on how to check BS at home. He was advised to check BS 3 times daily and return [facility] record of BS levels. Then we will adjust or change his treatment for Diabetes Hypertensive disorder 38 451921 I10 Norvasc 10mg HCTZ 25mg Hyperlipidemia 16308551 E78.2 Lipitor 40mg f/u in 1 week [id number] Ann Grayson MD [place] [address] [place] [address] 03/18/2018 15:03:45 03/18/2018 16:27:20 Uncontrolled type 2 diabetes mellitus [id number] E11.65 BS today is 86 Increase Metformin 500mg bid to 2 tabs BID Decrease Glucotrol Xl 10mg qpm to 5mg PRN if FBS >160 [id number] Ann Grayson MD Main Office [address] [place] [address] 04/23/2018 09:47:44 04/23/2018 10:20:09 Uncontrolled type 2 diabetes mellitus [id number] E11.65 The patient is here today for f/u of DM. Current treatment and HG records were discussed with the patient. The patient is {{complian t* noncomp liant}} with diet and managing diabetes. Today BS is 139. The treatment plan was discussed with patient as follows: Metformin 500mg bid to 2 tabs BID discontinu e Glucotrol Xl 5mg PRN if FBS >160 Start Starlix 120mg TID with dinner f/u in 6 weeks [id number] Ann Grayson MD Main Office [address] [employer] [facility] [address] [place] [address] 06/11/2018 09:56:15 06/11/2018 11:03:38 Uncontrolled type 2 diabetes mellitus [id number] E11.65 The patient is here today for f/u of DM. Current treatment and HG records were discussed with the patient. The patient is {{complian t* noncomp liant}} with diet and managing diabetes. Today BS is 145 and HbA1c is 6.5. Patient checks BS BID. The treatment plan was discussed with patient as follows: Metformin 500mg bid to 2 tabs BID Starlix 120mg with dinner(May take one extra tablet at night if he has large size snack at bedtime) F/U 3 months [id number] Ann Grayson MD Main Office [address] [employer] [facility] [address] [place] [address] 09/17/2018 09:49:32 09/17/2018 10:44:16 Uncontrolled type 2 diabetes mellitus [id number] E11.65 The patient is here today for f/u of DM. Current treatment and HG records were discussed with the patient. The patient is {{complian t* noncomp liant}} with diet and managing diabetes. Patient is testing blood sugar {{1 2* 3 4 5 6 7}} times a day for at least the last 90 days. Today BS is 160 and HbA1c is 6.8. The treatment plan was discussed with patient as follows: Metformin 500mg bid to 2 tabs BID Starlix 120mg TID with dinner No change in treatment at this time f/u in 3 months [id number] Ann Grayson MD Main Office [address] [employer] [facility] [address] [place] [address] 12/17/2018 10:01:11 12/17/2018 10:25:29 Uncontrolled type 2 diabetes mellitus [id number] E11.65 The patient is here today for f/u of DM. Current treatment and HG records were discussed with the patient. The patient is {{complian t* noncomp liant}} with diet and managing diabetes. Patient is testing blood sugar {{1 2* 3 4 5 6 7}} times a day for at least the last 90 days. Today BS is 156 and HbA1c is 6.2. The treatment plan was discussed with patient as follows: Metformin 500mg bid to 2 tabs BID Starlix 120mg TID with dinner f/u in 3 months [id number] Ann Grayson MD Main Office [address] [facility] [address] [place] [address] 03/21/2019 11:51:19 03/21/2019 13:31:58 Uncontrolled type 2 diabetes mellitus [id number] E11.65 The patient is here today for f/u of DM. Current treatment and HG records were discussed with the patient. The patient is {{complian t* noncomp liant}} with diet and managing diabetes. Patient is testing blood sugar {{1 2* 3 4 5 6 7}} times a day for at least the last 90 days. Today BS is 143 and HbA1c is 7.0. The treatment plan was discussed with patient as follows: Metformin 500mg bid to 2 tabs BID Starlix 120mg with dinner f/u in 3 months [id number] Ann Grayson MD Main Office [address] [employer] [facility] [address],[facility] [address] [place] [address] 07/01/2019 10:42:24 07/01/2019 11:51:59 Uncontrolled type 2 diabetes mellitus [id number] E11.65 The patient is here today for f/u of DM. Current treatment and HG records were discussed with the patient. The patient is {{complian t* noncomp liant}} with diet and managing diabetes. Patient is testing blood sugar {{1 2* 3 4 5 6 7}} times a day for at least the last 90 days. Today BS is 141 and HbA1c is 6.3. The treatment plan was discussed with patient as follows: Metformin 500mg bid to 2 tabs BID Starlix 120mg with dinner f/u in 3 months [id number] Ann Grayson MD [place] [address] [facility] [address] [place] [address] 10/06/2019 16:40:35 10/06/2019 17:11:05 Uncontrolled type 2 diabetes mellitus [id number] E11.65 The patient is here today for f/u of DM. Current treatment and HG records were discussed with the patient. The patient is {{complian t* noncomp liant}} with diet and managing diabetes. Patient is testing blood sugar {{1 2* 3 4 5 6 7}} times a day for at least the last 90 days. Today BS is 111 and HbA1c is 6.2. The treatment plan was discussed with patient as follows: Metformin 500mg 2 tabs bid Starlix 120mg with dinner Follow up in 3 months [id number] Ann Grayson MD Main Office [address] [employer] [facility] [address] [place] [address] 01/06/2020 09:44:22 01/06/2020 10:51:45 Uncontrolled type 2 diabetes mellitus [id number] E11.65 The patient is here today for f/u of DM. Current treatment and HG records were discussed with the patient. The patient is {{complian t* noncomp liant}} with diet and managing diabetes. Patient is testing blood sugar {{1 2* 3 4 5 6 7}} times a day for at least the last 90 days. Today BS is 129 and HbA1c is 6.1. The treatment plan was discussed with patient as follows: Metformin 500mg 2 tabs bid Starlix 120mg with dinner Follow up in 3 months 72200 Ann Grayson MD Main Office [address] [employer] [facility] [address],[facility] [address] [place] [address] 04/20/2020 09:43:18 04/20/2020 10:36:18 Uncontrolled type 2 diabetes mellitus [id number] E11.65 The patient is here today for f/u of DM. Current treatment and HG records were discussed with the patient. The patient is {{complian t* noncomp liant}} with diet and managing diabetes. Patient is testing blood sugar {{1 2* 3 4 5 6 7}} times a day for at least the last 90 days. Today BS is 130 and HbA1c is 6.3. The treatment plan was discussed with patient as follows: Metformin 500 mg 2 tabs bid Starlix 120 mg with dinner Follow up in 3 months 72143 Ann Grayson MD Main Office [address] [employer] [facility] [address] [place] [address] 09/14/2020 10:35:57 09/14/2020 10:56:55 Uncontrolled type 2 diabetes mellitus [id number] E11.65 The patient is here today for f/u of DM. Current treatment and HG records were discussed with the patient. The patient is {{complian t* noncomp liant}} with diet and managing diabetes. Patient is testing blood sugar {{1 2* 3 4 5 6 7}} times a day for at least the last 90 days. Today BS is 153 and HbA1c is 6.1. The treatment plan was discussed with patient as follows: Metformin 500mg 2 tabs bid Starlix 120mg with dinner Hypertensive disorder 38 705071 I10 Norvasc 10mg qd HCTZ 25mg qd Hyperlipidemia 02033082 E78.2 Lipitor 40mg Follow up in 3 months 13084 Ann Grayson MD Main Office [address] [address] [place] [address],[address] [address] 12/21/2020 10:21:09 12/21/2020 10:55:01 Uncontrolled type 2 diabetes mellitus [id number] E11.65 The patient is here today for f/u of DM. Current treatment and HG records were discussed with the patient. The patient is {{complian t* noncomp liant}} with diet and managing diabetes. Patient is testing blood sugar {{1 2* 3 4 5 6 7}} times a day for at least the last 90 days. Today BS is 122 and HbA1c is 6.2. The treatment plan was discussed with patient as follows: Metformin 500mg 2 tabs bid Starlix 120mg with dinner Follow up in 3 months 92801 Ann Grayson MD Main Office [address] [address] [facility] [address] [place] [address] 03/22/2021 09:46:52 03/22/2021 10:12:42 Uncontrolled type 2 diabetes mellitus [id number] E11.65 The patient is here today for f/u of DM. Current treatment and HG records were discussed with the patient. The patient is {{complian t* noncomp liant}} with diet and managing diabetes. Patient is testing blood sugar {{1 2* 3 4 5 6 7}} times a day for at least the last 90 days. Today BS is 148 and HbA1c is 6.2. The treatment plan was discussed with patient as follows: Metformin 500mg 2 tabs bid Starlix 120mg with dinner Follow up in 3 months 62581 Maggie Clayton Main Office [address] [facility] [address] [place] [address] 06/21/2021 10:20:22 06/21/2021 10:52:25 Uncontrolled type 2 diabetes mellitus [id number] E11.65 The patient is here today for f/u of DM. Current treatment and HG records were discussed with the patient. The patient is {{complian t* noncomp liant}} with diet and managing diabetes. Patient is testing blood sugar {{1 2* 3 4 5 6 7}} times a day for at least the last 90 days. Today BS is 153 and HbA1c is 6.3. The treatment plan was discussed with patient as follows: Metformin 500mg 2 tabs bid Starlix 120mg with dinner Follow up in 3 months 44888 Ann Grayson MD Main Office [address] [facility] [address] [place] [address] 09/27/2021 11:12:13 09/27/2021 11:13:45 Uncontrolled type 2 diabetes mellitus [id number] E11.65 The patient is here today for f/u of DM. Current treatment and HG records were discussed with the patient. The patient is {{complian t* noncomp liant}} with diet and managing diabetes. Patient is testing blood sugar {{1 2* 3 4 5 6 7}} times a day for at least the last 90 days. Today BS is 146 and HbA1c 6.2. The treatment plan was discussed with patient as follows: Metformin 500mg 2 tabs bid Starlix 120mg with dinner Follow up in 3 months Hypertensive disorder 38 689097 I10 Cardizem 240mghctz 25mg Hyperlipidemia 08716218 E78.2 Lipitor 40mg Follow up in 3 months 14520 Maggie Clayton Main Office [address] [facility] [address] [place] [address] 12/30/2021 10:59:00 12/30/2021 11:38:21 Uncontrolled type 2 diabetes mellitus [id number] E11.65 The patient is here today for f/u of DM. Current treatment and HG records were discussed with the patient. The patient is {{complian t* noncomp liant}} with diet and managing diabetes. Patient is testing blood sugar {{1 2* 3 4 5 6 7}} times a day for at least the last 90 days. Today BS is 140 and HbA1c 6.3. The treatment plan was discussed with patient as follows: Metformin 500mg 2 tabs bid Starlix 120mg with dinnerIn one week will dc starlix and start ozempic 0.25mg for 2 weeks then increase to 0.5mg if toerates.F ollow up in 3 months 02335 Maggie Clayton Main Office [address] [employer] [address] [place] [address] 03/28/2022 10:17:44 03/28/2022 11:22:36 Uncontrolled type 2 diabetes mellitus [id number] E11.65 The patient is here today for f/u of DM. Current treatment and HG records were discussed with the patient. The patient is {{complian t* noncomp liant}} with diet and managing diabetes. Patient is testing blood sugar {{1 2* 3 4 5 6 7}} times a day for at least the last 90 days. Today BS is 136 and HbA1c 6.3. The treatment plan was discussed with patient as follows: Metformin 500mg 2 tabs bid Ozempic 1mg weeklyFU in 3 months 95651 Ann Grayson MD Main Office [address] [employer] [address] [place] [address] 06/27/2022 09:50:57 06/27/2022 10:31:47 Uncontrolled type 2 diabetes mellitus [id number] E11.65 The patient is here today for f/u of DM. Current treatment and HG records were discussed with the patient. The patient is {{complian t* noncomp liant}} with diet and managing diabetes. Patient is testing blood sugar {{1 2* 3 4 5 6 7}} times a day for at least the last 90 days. Today BS is 156 and HbA1c 6.1. The treatment plan was discussed with patient as follows: Metformin 500mg 2 tabs bid Ozempic 1mg weeklyFU in 3 months 53082 Ann Grayson MD Main Office [address] [employer] [address] [place] [address] 10/10/2022 10:45:26 10/10/2022 11:33:44 Uncontrolled type 2 diabetes mellitus [id number] E11.65 The patient is here today for f/u of DM. Current treatment and HG records were discussed with the patient. The patient is {{complian t* noncomp liant}} with diet and managing diabetes. Patient is testing blood sugar {{1 2* 3 4 5 6 7}} times a day for at least the last 90 days. Today BS is 132 and HbA1c 6.2. The treatment plan was discussed with patient as follows: Metformin 500mg 2 tabs bid Ozempic 1mg weeklyFU in 3 months 37126 Ann Grayson MD Main Office [address] [employer] [place] [address] [place] [address] 01/09/2023 10:41:41 01/09/2023 11:20:19 Uncontrolled type 2 diabetes mellitus [id number] E11.65 The patient is here today for f/u of DM. Current treatment and HG records were discussed with the patient. The patient is {{complian t* noncomp liant}} with diet and managing diabetes. Patient is testing blood sugar {{1 2* 3 4 5 6 7}} times a day for at least the last 90 days. Today BS is 138 and HbA1c 6.0. The treatment plan was discussed with patient as follows: Metformin 500mg 2 tabs bid Ozempic 1mg weeklyFU in 3 months Hypertensive disorder 38 [id number] I10 Cardizem 240mghctz 25mg Hyperlipidemia 63111067 E78.2 Lipitor 40mg Follow up in 3 months 80207 Ann Grayson MD Main Office [address] [employer] [facility] [address] [place] [address] 04/03/2023 10:38:39 04/03/2023 11:08:47 Uncontrolled type 2 diabetes mellitus [id number] E11.65 The patient is here today for f/u of DM. Current treatment and HG records were discussed with the patient. The patient is {{complian t* noncomp liant}} with diet and managing diabetes. Patient is testing blood sugar {{1 2* 3 4 5 6 7}} times a day for at least the last 90 days. Today BS is 127 and HbA1c 5.7. The treatment plan was discussed with patient as follows: Lower Metformin 500mg 2 tabs bid to 500mg bid Ozempic 1mg weeklyFU in 3 months Hypertensive disorder 38 792210 I10 Cardizem 240mghctz 25mg Hyperlipidemia 56292275 E78.2 Lipitor 40mg Follow up in 3 months 33679 [facility] Main Office [address] [facility] [address] [place] [address] 07/03/2023 10:46:01 07/03/2023 11:33:14 Uncontrolled type 2 diabetes mellitus [id number] E11.65 The patient is here today for f/u of DM. Current treatment and HG records were discussed with the patient. The patient is {{complian t* noncomp liant}} with diet and managing diabetes. Patient is testing blood sugar {{1 2* 3 4 5 6 7}} times a day for at least the last 90 days. Today BS is 130 and HbA1c 6.3. The treatment plan was discussed with patient as follows: Metformin 500mg 1 tabs bid Ozempic 1mg weeklyFU in 3 months 96691 Cher Spicewood Main Office [address] [facility] [address] [place] [address] 10/09/2023 10:43:47 10/09/2023 11:15:44 Uncontrolled type 2 diabetes mellitus [id number] E11.65 The patient is here today for f/u of DM. Current treatment and HG records were discussed with the patient. The patient is {{complian t* noncomp liant}} with diet and managing diabetes. Today BS is 141 and HbA1c 6.7. The treatment plan was discussed with patient as follows: Metformin 500mg 1 tabs BID Ozempic 1mg weeklyFoll ow Up in 3 months Hypertensive disorder 38 242707 I10 Hyperlipidemia 27892219 E78.2 Lipitor 40mg QPM Chronic low back pain 27 2520905 M54.50 Spinal stensis 7[address] Martine Akers Main Office [address] [facility] [address] [place] [address] 01/29/2024 09:44:22 01/29/2024 10:33:17 Uncontrolled type 2 diabetes mellitus [id number] E11.65 The patient is here today for f/u of DM. Current treatment and HG records were discussed with the patient. The patient is {{complian t* noncomp liant}} with diet and managing diabetes. Today BS is 137 and HbA1c 6.4. The treatment plan was discussed with patient as follows: Metformin 500mg 1 tabs bid Ozempic 1mg weekly Hypertensive disorder 38 377206 I10 Hydrochlor othiazide 25 mg qd Diltizam 240 mg Hyperlipidemia 31082432 E78.2 Lipitor 40mg qpm Chronic low back pain 27 2417093 M54.50 Spinal stenosis F/U in 3 months 95772 Jackeline Preciado Main Office [address] [facility] [address] [place] [address] 05/13/2024 09:41:06 05/13/2024 10:18:38 Uncontrolled type 2 diabetes mellitus [id number] E11.65 The patient is here today for F/U of DM. Current treatment and HG records were discussed with the patient. The patient is {{complian t* non compliant} } with diet and managing diabetes. Today BS is {{ 138#}} and HbA1c is {{ 6.3#}}. The treatment plan is as follows: Metformin 500mg 1 tabs bid Ozempic 1mg weekly Hypertensive disorder 38 149562 I10 Hydrochlor othiazide 25 mg qdDiltizam 240 mg Hyperlipidemia 40776293 E78.2 Lipitor 40mg qpm Chronic low back pain 27 3072493 M54.50 Spinal stenosis Erectile dysfunction 860 733148 F52.21 Viagra PRN Follow up in 3 months Health Concerns Section Related Observation LastModified by Organization Detai ls LastModified Time None Recorded Concern Status LastModified by Organization Details LastModified Time None Recorded Advance Directives Directive None Recorded Payers Encounter Date Sequence Insurance Name Policy Number Policy Samuel Covered Member ID Samuel Member ID Guarantor Name 04/03/2023 1 [employer] ([employer]) [id number] 1 Jeffrey Grajeda [id number] Jeffrey Grajeda 07/03/2023 1 [employer] [id number] 1 Jeffrey Grajeda [id number] Jeffrey Grajeda 10/09/2023 1 [employer]) [id number] 1 Jeffrey Grajeda [id number] Jeffrey Grajeda 01/29/2024 1 [employer]) [id number] 1 Jeffrey Grajeda [id number] Jeffrey Grajeda 05/13/2024 1 [employer]) [id number] 1 Jeffrey Grajeda [id number] Jeffrey Grajeda Notes Date Note Type Note [...] on feet NICOLLE Rodriguez MD 01/29/2024 11:42:08 05/13/2024 text/html Diabetes F/URepo rted bypatient.Context:norm al range of home blood sugars (in the low 100s); seeing eye doctor regularly; checking feet regularly Associated Symptoms:no weight gain; no weight loss; no dizziness; no sweats; no headaches; no confusion; no increased thirst; no increased appetite; no increased urination; no blurred vision; no numbness of feet; no calluses on feet NICOLLE Dent MD 05/13/2024 11:26:09
--- OUTSIDE RECORDS SUMMARY | 2024-05-30 02:27 | XMS_ITS | Encounter Summary ---
Author Organization [facility] Address [address] [facility] [place] [address] Care Team Providers Care Community Manager Name Role Phone Unavailable Primary Care Provider Unavailabl e Encounter Details Date Type Department Care Team (Late st Contact Info) Description 05/09/2019 Lab Requisition [facility] Care DermPath Lab [address] [facility], [place] [address] Wilda Gray MD [address] [facility] 3 [place] [address] Social History Tobacco Use Types Packs/Day Years [...] Comments DERMATOPATHOLOGY Routine 05/06/2019 12:0 0 AM RUCHING MACHINE OPERATOR documented in this encounter Results * DERMATOPATHOLOGY (05/06/2019 12:00 AM RUCHING MACHINE OPERATOR) Case Report Dermatopathology Report Case: [id number] Authorizing Provider: Wilda Gray MD Collected: 05/06/2019 12:00 AM Ordering Location: [facility] Care DermPath Lab Received: 05/09/2019 07:01 AM Pathologist: Bella Mir MD Specimen: Skin, right dorsal hand 0 11:24 AM RUCHING MACHINE OPERATOR DERMATOPATHOLOGY LABORATORY Final Diagnosis Specimen A. SKIN, right dorsal hand: DERMAL SCAR RESIDUAL SQUAMOUS CELL CARCINOMA NOT IDENTIFIED (L90.5) 0 11:24 AM RUCHING MACHINE OPERATOR DERMATOPATHOLOGY LABORATORY Clinical History R/O SCC, well differentiated, bx proven. Previous Bx: [id number]. 0 11:24 AM [facility] DERMATOPATHOLOGY LABORATORY Gross Description Specimen A: Received is one formalin filled container labeled with the patient's name and designated right dorsal hand.The specimen consists of an ellipse measuring 16y09x6sz and is oriented with the notch at [...] cassettes 3-4. Jar 0. 0 11:24 AM [facility] DERMATOPATHOLOGY LABORATORY Microscopic Description Specimen A. SKIN, right dorsal hand: There are fibroblasts and collagen bundles oriented parallel to the skin surface. There are elongated blood vessels, some of which are oriented perpendicular to the skin surface. No residual squamous cell carcinoma is identified. 0 11:24 AM [facility] DERMATOPATHOLOGY LABORATORY Disclaimer An external and internal positive and negative controls are appropriate for the histochemical, immunohistochemical and immunofluorescence stain(s) in this case (if any), except where stated explicitly. The performance characteristics of the stain(s) cited in this report were developed and its performance characteristic determined by the Dermatopathology Laboratory at [facility], directed by Dr. Parker Mir. These tests need not be, and therefore are not, approved by the [place] Food and Drug Administration. The tests are used for clinical purposes. Billing Codes Specimen Charges Stain Charges 33997 1 0 11:24 AM [facility] DERMATOPATHOLOGY LABORATORY Embedded Images 0 11:24 AM [facility] DERMATOPATHOLOGY LABORATORY Pathology/Cytolog y TISSUE SPECIMEN FROM SKIN / Unknown 05/06/2019 05/09/2019 7:01 AM [facility] Wilda Gray MD LAB - PATHOLOGY/CYTO LOGY ORDERABLES DERMATOPATHOLOGY LABORATORY [facility] - Department of Dermatology [address] [place] [address], [facility] [phone] documented in this encounter Visit Diagnoses Not on filedocumented in this encounter
--- OUTSIDE RECORDS SUMMARY | 2024-05-30 02:27 | XMS_ITS | Clinical Summary ---
Author Organization [facility] Address [address] [place] [address] Care Team Providers Care Annual Giving Director Name Role Phone Unavailable Primary Care Provider Unavailabl e Social History Tobacco Use Types Packs/Day Years Used Date Smoking Tobacco: Never Assessed Sex and Gender Information Value Date Recorded Sex Assigned at Not on file Legal Sex Male 1:23 PM M[employer]'S GOL[employer] CO[employer] Gender Identity Not on file Sexual Orientation Not on file Plan of Treatment Health Maintenance Due Date Last Done Comments Hepatitis C Virus (HCV) Screening 1950 Colonoscopy 01/23/1997 Colorectal Cancer Screening 01/23/1997 Cologuard 01/23/2002 Immunochemical Fecal Occult Blood 01/23/2002 Pneumococcal Immunization (50+ years) (1 of 1 - PCV) 01/23/2002 Zoster Immunization (2 of 2) 09/15/2017 07/21/2017 Influenza Immunization (#1) 12/13/202312/12, 02/13/2019, 12/31/2017, Additional history exists SARS-COV-2 Immunization ( season) 2023 11/28/2020, 06/15/2020, 05/18/2020 Respiratory Syncytial Virus (RSV) Immunization (Adult) (1 - 1-dose 75+ series) 01/23/2027 DTaP/Tdap/Td Immunization Discontinued 08/10/2015 TdaP Immunization Completed [...]
--- OUTSIDE RECORDS SUMMARY | 2024-05-30 02:27 | XMS_ITS | Patient Health Summary ---
Author Organization [facility] [employer] Address [address] [facility] [place] [address] Care Team Providers Care Qi Specialist Name Role Phone Unavailable Primary Care Provider Unavailabl e Note from [facility],non-owned Affiliates and Associated Physician Practices is amultiple site organization consisting of ambulatory clinics and hospital sitesin [place], [place], [place] and [place]. This disclosure is being madepursuant to the Care Everywhere program and may not contain all information available regarding this patient. Last updated 18.[facility] Allergies No known active allergies Medications * [...] * DERMATOPATHOLOGY(Performed 08/03/2023) * DERMATOPATHOLOGY(Performed 05/08/2023) * MA REMOVE CERUMEN IMPACTED W INSTR ALONSO(Performed 01/14/2022) Performed for Impacted cerumen of left ear, Excessive cerumen in ear canal, right, Ear itching, Earfullness, left * AUDIOLOGY/TYMPANOMETRY ORDER(Performed 01/14/2022) * DERMATOPATHOLOGY(Performed 05/06/2019) * DERMATOPATHOLOGY(Performed 03/29/2019) * DERMATOPATH TECHNICAL REPORT(Performed 05/25/2018) Results * DERMATOPATHOLOGY (08/03/2023 8:11 AM CDT) Only the most recent of4 resultswithin the time period is included. Case Report Dermatopathology Report Case: [id number] Authorizing Provider: Sunitha Portillo MD Collected: 08/03/2023 08:11 AM Ordering Location: [facility] - Received: 08/04/2023 12:37 PM DermPath Lab Pathologist: Kourtney Jain MD Specimen: Skin, anterior mid scalp 3:06 PM T DERMATOPATHOLOGY LABORATORY Final Diagnosis Specimen A. SKIN, anterior mid scalp: ULCER WITH SUPERFICIAL DERMAL NECROSIS AND IMPETIGINIZED INFLAMED SERUM SCALE CRUST WITH FUNGAL YEAST FORMS (L98.499) FIBROSING GRANULATION TISSUE (L90.5) DERMAL SCAR SQUAMOUS CELL CARCINOMA NOT IDENTIFIED (L90.5) (see microscopic description and comment) 4 3:06 PM [facility] DERMATOPATHOLOGY LABORATORY Clinical History R/O SCC, growing. 4 3:06 PM [facility] DERMATOPATHOLOGY LABORATORY Gross Description Specimen A: Received is one formalin filled container labeled with the patient's name and designated anterior mid scalp. The specimen consists of a shave biopsy measuring 48v67i7 mm. Jar 0. 3:06 PM [facility] DERMATOPATHOLOGY LABORATORY Microscopic Description Specimen [...] in the correct clinical setting. 3:06 PM [facility] DERMATOPATHOLOGY LABORATORY Disclaimer An external and internal positive and negative controls are appropriate for the histochemical, immunohistochemical and immunofluorescence stain(s) in this case (if any), except where stated explicitly. The performance characteristics of the stain(s) cited in this report were developed and its performance characteristic determined by the Dermatopathology Laboratory at [facility], directed by Dr. Parker Mir. These tests need not be, and therefore are not, approved by the [place] Food and Drug Administration. The tests are used for clinical purposes. Billing Codes Specimen Charges Stain Charges 49570 1 17847 54259 81405 1 1 1 4 3:06 PM CDT DERMATOPATHOLOGY LABORATORY Embedded Images 4 3:06 PM CDT DERMATOPATHOLOGY LABORATORY Pathology/Cytolo gy TISSUE SPECIMEN FROM SKIN / Unknown 08/03/2023 8:11 AM CDT 08/04/2023 12:37 PM CDT Sunitha Portillo MD LAB - PATHOLOGY/CYT OLOGY ORDERABLES DERMATOPATHOLOGY LABORATORY [facility] - Department of Dermatology [address], [address] [phone] * MA REMOVE CERUMEN IMPACTED W INSTR ALONSO (01/14/2022 10:55 AM CDT) Narrative Victor M Zamarripa APRN-CNP - 01/14/2022 10:55 AM CDT Victor M Zamarripa APRN-CNP 01/14/2022 11:14 AM Due to the findings [...] Jeffrey Grajeda arrived for a hearing evaluation. Patient reports issues with tinnitus. Prior to having his ears cleaned, he noticed hearing loss and a tunnel sound, particularly in the left ear. After wax removal, he felt he could hear much better and no longer was experiencing the tunnel sound. He denies dizziness and otalgia. There is a history of noise exposure. There is not a family history of hearing loss. There is not a history of surgery on either ear(s). Results: Puretone air/bone conduction testing revealed normal hearing in both ears. Speech understanding was excellent in the right ear and excellent in the left ear. Immittance measures revealed a Type As tympanogram in the right ear, indicating shallow middle ear function. Results for the left ear revealed a Type As tympanogram, indicating shallow middle ear function in that ear. These results were discussed in detail with the patient and all pertinent questions were answered. Recommendations: 1) ENT consult. 2) Hearing evaluation per medical recommendation or if a change in hearing is suspected. Aileen Kumar. [facility]-A Clinical Odd Job Worker [facility]-Department of Otolaryngology/Audiology [place] [facility] [address] [place] [address] Kaylie Gallagher AUDIOLOGY SERVICES O RDERABLES * DERMATOPATH TECHNICAL REPORT (05/25/2018 12:00 AM FUR BLOWING MACHINE OPERATOR) Case Report Dermatopathology Report Case: [id number] Authorizing Provider: Sunitha Portillo MD Collected: 05/25/2018 12:00 AM Pathologist: Bella Mir MD Received: 05/27/2018 07:17 AM Specimen: Skin, left cheek 9 2:33 PM FUR BLOWING MACHINE OPERATOR DERMATOPATHOLOGY LABORATORY Clinical History [facility] vs [facility] 9 2:33 PM FUR BLOWING MACHINE OPERATOR DERMATOPATHOLOGY LABORATORY Gross Description Specimen A: Received is one formalin filled container labeled with the patient's name and designated left cheek. The specimen consists of a shave biopsy measuring 6x5x2 mm. Jar [address] [facility] Dermatopathology Laboratory performed the technical component only. 2:33 PM [facility] DERMATOPATHOLOGY LABORATORY Embedded Images 2:33 PM [facility] DERMATOPATHOLOGY LABORATORY DISCLAIMER An external and internal positive and negative controls are appropriate for the histochemical, immunohistochemical and immunofluorescence stain(s) in this case (if any), except where stated explicitly. The performance characteristics of the stain(s) cited in this report were developed and its performance characteristic determined by the Dermatopathology Laboratory at [facility], directed by Dr. Parker Mir. These tests need not be, and therefore are not, approved by the [place] Food and Drug Administration. The tests are used for clinical purposes. 9 2:33 PM FUR BLOWING MACHINE OPERATOR DERMATOPATHOLOGY LABORATORY Pathology/Cytolog y TISSUE SPECIMEN FROM SKIN / Unknown 05/25/2018 05/27/2018 7:17 AM FUR BLOWING MACHINE OPERATOR Sunitha Portillo MD LAB - PATHOLOGY/CYT OLOGY ORDERABLES DERMATOPATHOLOGY LABORATORY [facility] - Department of Dermatology [address] [place] [address], 5th Floor Lab [address] [phone]
--- OUTSIDE RECORDS SUMMARY | 2024-05-30 02:27 | XMS_ITS | Encounter Summary ---
Author Organization [facility] Address [facility] [place] [address] Care Team Providers Care Digester Operator Helper Name Role Phone Unavailable Primary Care Provider Unavailabl e Encounter Details Date Type Department Care Team (Late st Contact Info) Description 05/08/2023 Lab Requisition [facility] - DermPath Lab [address] [facility], [place] [phone] Sunitha Portillo MD [address] [facility] [address] [place] [address] Social History Tobacco Use Types Packs/Day Years [...] Diagnosis Comments DERMATOPATHOLOGY Routine 05/08/2023 9:14 AM PRODUCT MARKETING ANALYST documented in this encounter Results * DERMATOPATHOLOGY (05/08/2023 9:14 AM PRODUCT MARKETING ANALYST) Case Report Dermatopathology Report Case: [id number] Authorizing Provider: Sunitha Portillo MD Collected: 05/08/2023 09:14 AM Ordering Location: [facility] DermPath Lab Received: 05/11/2023 12:54 PM Pathologist: Bobbi Hickey MD Specimen: Skin, mid ant scalp 4:19 PM PRODUCT MARKETING ANALYST DERMATOPATHOLOGY LABORATORY Final Diagnosis Specimen A. SKIN, mid ant scalp: SQUAMOUS PROLIFERATION (D48.5) (see microscopic description and comment) 4 4:19 PM [facility] DERMATOPATHOLOGY LABORATORY Clinical History R/O HAK vs. SCC 4 4:19 PM [facility] DERMATOPATHOLOGY LABORATORY Gross Description Specimen A: Received is one formalin filled container labeled with the patient's name and designated mid ant scalp. The specimen consists of a shave biopsy measuring 09n17o9 mm. Jar 0. 4 4:19 PM [facility] DERMATOPATHOLOGY LABORATORY Microscopic Description [...] and squamous cell carcinoma. 4 4:19 PM [facility] DERMATOPATHOLOGY LABORATORY Disclaimer An external and internal positive and negative controls are appropriate for the histochemical, immunohistochemical and immunofluorescence stain(s) in this case (if any), except where stated explicitly. The performance characteristics of the stain(s) cited in this report were developed and its performance characteristic determined by the Dermatopathology Laboratory at [facility], directed by Dr. Parker Mir. These tests need not be, and therefore are not, approved by the [place] Food and Drug Administration. The tests are used for clinical purposes. Billing Codes Specimen Charges Stain Charges 08628 1 4 4:19 PM [facility] DERMATOPATHOLOGY LABORATORY Embedded Images 4 4:19 PM [facility] DERMATOPATHOLOGY LABORATORY Pathology/Cytolo gy TISSUE SPECIMEN FROM SKIN / Unknown 05/08/2023 9:14 AM PRODUCT MARKETING ANALYST 05/11/2023 12:54 PM PRODUCT MARKETING ANALYST Sunitha Portillo MD LAB - PATHOLOGY/CYT OLOGY ORDERABLES DERMATOPATHOLOGY LABORATORY [facility] - Department of Dermatology [address] [phone] documented in this encounter Visit Diagnoses Not on filedocumented in this encounter
--- OUTSIDE RECORDS SUMMARY | 2024-05-30 02:27 | XMS_ITS | Encounter Summary ---
Author Organization [facility] Address [address] [facility] [place] [address] Care Team Providers Care Station Examiner Name Role Phone Unavailable Primary Care Provider Unavailabl e Encounter Details Date Type Department Care Team (Late st Contact Info) Description 03/30/2019 Lab Requisition [facility] DermPath Lab [address] [place] [address] Sunitha Portillo MD [address] [facility] 3 [place] [address] Social History Tobacco Use Types Packs/Day Years [...] Comments DERMATOPATHOLOGY Routine 03/29/2019 12:0 0 AM ALARM TECHNICIAN documented in this encounter Results * DERMATOPATHOLOGY (03/29/2019 12:00 AM ALARM TECHNICIAN) Case Report Dermatopathology Report Case: [id number] Authorizing Provider: Sunitha Portillo MD Collected: 03/29/2019 12:00 AM Ordering Location: [facility] DermPath Lab Received: 03/30/2019 07:40 AM Pathologist: Kourtney Jain MD Specimen: Skin, right dorsal hand 9 11:07 AM ALARM TECHNICIAN DERMATOPATHOLOGY LABORATORY Final Diagnosis Specimen A. SKIN, right dorsal hand: SQUAMOUS CELL CARCINOMA, WELL DIFFERENTIATED (C44.622) 9 11:07 AM ALARM TECHNICIAN DERMATOPATHOLOGY LABORATORY Clinical History R/O SCC, irritated, non-healing. 11:07 AM [facility] DERMATOPATHOLOGY LABORATORY Gross Description Specimen A: Received is one formalin filled container labeled with the patient's name and designated right dorsal hand. The specimen consists of a shave measuring 3k1p5qb. Jar 0. 11:07 AM [facility] DERMATOPATHOLOGY LABORATORY Microscopic Description Specimen A. SKIN, right dorsal hand: Arising in the epidermis and extending into the dermis there are irregularly shaped aggregates of keratinocytes showing evidence of premature cornification. 11:07 AM [facility] DERMATOPATHOLOGY LABORATORY Disclaimer An external and internal positive and negative controls are appropriate for the histochemical, immunohistochemical and immunofluorescence stain(s) in this case (if any), except where stated explicitly. The performance characteristics of the stain(s) cited in this report were developed and its performance characteristic determined by the Dermatopathology Laboratory at [facility], directed by Dr. Parker Mir. These tests need not be, and therefore are not, approved by the [place] Food and Drug Administration. The tests are used for clinical purposes. Billing Codes Specimen Charges Stain Charges 29706 1 11:07 AM [facility] DERMATOPATHOLOGY LABORATORY Embedded Images 11:07 AM [facility] DERMATOPATHOLOGY LABORATORY Pathology/Cytolog y TISSUE SPECIMEN FROM SKIN / Unknown 03/29/2019 03/30/2019 7:40 AM ALARM TECHNICIAN Sunitha Portillo MD LAB - PATHOLOGY/CYT OLOGY ORDERABLES DERMATOPATHOLOGY LABORATORY [facility] - Department of Dermatology [address] [place] [address], [address] [place] [address], [facility] [phone] documented in this encounter Visit Diagnoses Not on filedocumented in this encounter
--- OUTSIDE RECORDS SUMMARY | 2024-05-30 02:28 | XMS_ITS | Patient Health Record ---
Author Organization [facility] Address [address] [place] [address] Care Team Providers Care Center Punch Operator Name Role Phone Iban Igor Primary Care Provider Nancy Pickard Unavailable [phone] Allergies No Known Allergies Reason For Referral [...] Hyperglycemia due to type 2 diabetes mellitus (623919490007351) Type 2 diabetes mellitus with hyperglycemia (E11.65) Active confirmed Problem Essential hypertension (89970477) Essential (primary) hypertension (I10) Active confirmed Plan Of Treatment Pending Test Test Name Order Date Stress Mibi [place] 05/23/2019 Stress Mibi [place] 05/20/2021 Echocardiogram 09/15/2022 Echocardiogram 05/20/2021 EKG 05/20/2021 Magnesium, Serum 05/20/2021 Lipid Panel 05/20/2021 CBC, BMP 05/20/2021 TSH reflex to T4F 05/20/2021 Insurance Providers Payer Name Payer Address Payer Phone Subscriber Number Group Number Insured Name Patient Relationship to Insured Coverage Start Date Coverage End Date [employer] MEDICARE PPO [address] [place] [phone] [id number] Jeffrey Davis Self - patient is the [...]
--- OUTSIDE RECORDS SUMMARY | 2024-05-30 02:28 | XMS_ITS ---
Author Organization [facility] Address [address] [facility] [address] [place] [address] Care Team Providers Care Item Processing Clerk Name Role Phone Igor Ferrera Primary Care Provider Nancy Pickard Unavailable [phone] REASON FOR VISIT 6 mos f/u Encounters Encounter Location Date Provider Diagnosis [facility] [address] [place] [address] 05/13/2023 Nancy Srivastava Plan Of Treatment No Information Progress Notes * Jeffrey GRAJEDADOB:[birth year] (74 yo M)Acc No.[id number]:05/13/2023 Progress Notes Patient: Jeffrey ALDRICH Provider: Eladia Srivastava MD :1950 A ge:73 Y S ex:Male Date:05/13/2023 Address:[address] [id number] Pcp:Igor Ferrera Subjective: * Chief Complaints: * 1 . 6 mos f/u. * Medical History: Objective: * Vitals: Assessment: Plan: * Treatment: * * Electronic signature of [place] Srivastava MD on 05/30/2024 at 02:27 AM SHOWCASE TRIMMER Sign off status: Pending * Provider: Eladia Srivastava MD Date: 0 05/13/2023 Generated for Printi ng/Faalmitag/eTransmitting on: 0 05/30/2024 02:27 AM SHOWCASE TRIMMER
[2024-05-30 06:00] VITALS: BP 125/79; PULSE 64; RESP 18; O2SAT 96
--- NOTE | 2024-05-30 07:23 | ED.GENADULT ---
HPI - General Adult General Chief complaint: Neck Pain/Injury Stated complaint: pain in neck Time Seen by Provider: 05/30/24 07:04 History of Present Illness HPI narrative: This patient is a 74-year-old male who presents ER with neck pain. Reports pain in the trapezius muscle on the right side. Began yesterday and was improving with lidocaine pain. He is able to exercise without issue. Pain in gone away and then when he woke up this morning at 1:00 a.m. to use the restroom he felt pain again in his shoulder. His was concern for a stroke but he has no numbness or weakness to an arm or leg. No slurred speech or facial droop. No ataxia. Related Data Home Medications ?Medication ?Instructions ?Recorded ?Confirmed ?Last Taken ?Type amlodipine 10 mg tablet 10 mg DAILY 07/30/21 07/30/21 Unknown History atorvastatin 40 mg tablet 40 mg DAILY 07/30/21 07/30/21 Unknown History diltiazem HCl 240 mg 240 mg PO DAILY 07/30/21 07/30/21 Unknown History capsule,extended release 24 hr hydrochlorothiazide 25 mg tablet 25 mg DAILY 07/30/21 07/30/21 Unknown History metformin 500 mg tablet 1,000 mg BID 07/30/21 07/30/21 Unknown History nateglinide 120 mg tablet 120 mg DAILY 07/30/21 07/30/21 Unknown History Allergies Allergy/AdvReac Type Severity Reaction Status Date / Time No Known Allergies Allergy Verified 05/30/24 02:32 Review of Systems Constitutional: Constitutional: Reports no additional constitutional complaints Musculoskeletal: Musculoskeletal: Reports no additional musculoskeletal complaints PMFSH Past Medical History Medical History Diabetes Hypertension Hypercholesterolemia Surgical History Surgical History H/O cardiac catheterization Social History Social History Smoking status: Never smoker Gender identity (if verbalized by the patient): Male Exam Narrative: GENERAL: Well-appearing, well-nourished, and in no acute distress. HEAD: Normocephalic, atraumatic. ENT: Mucous membranes moist. NECK: Supple. Discomfort of right trapezius muscle w/o spasm. CHEST: Clear to auscultation. No respiratory distress. HEART: Regular rate and rhythm. Normal peripheral pulses. EXTREMITIES: Normal range of motion. No edema. NEURO: Alert and oriented x3. PSYCH: Normal mood and affect. Course Course Emergency Course: Discussed conservative treatment plan. No trauma so no imaging. Vital Signs Vital signs: Vital Signs Temperature 98.4 F 05/30/24 02:27 Pulse Rate 64 05/30/24 02:27 Respiratory Rate 18 05/30/24 02:27 Blood Pressure 145/72 H 05/30/24 02:27 Pulse Oximetry 97 05/30/24 02:27 Oxygen Delivery Room Air 05/30/24 02:27 Temperature 98.0 F 05/30/24 07:35 Pulse Rate 65 05/30/24 07:35 Respiratory Rate 16 05/30/24 07:35 Blood Pressure 147/80 H 05/30/24 07:35 Pulse Oximetry 97 05/30/24 07:35 Oxygen Delivery Room Air 05/30/24 02:27 Medical Decision Making Vital Signs Vital Signs: Vital Signs Temperature 98.4 F 05/30/24 02:27 Pulse Rate 64 05/30/24 02:27 Respiratory Rate 18 05/30/24 02:27 Blood Pressure 145/72 H 05/30/24 02:27 Pulse Oximetry 97 05/30/24 02:27 Oxygen Delivery Room Air 05/30/24 02:27 Temperature 98.0 F 05/30/24 07:35 Pulse Rate 65 05/30/24 07:35 Respiratory Rate 16 05/30/24 07:35 Blood Pressure 147/80 H 05/30/24 07:35 Pulse Oximetry 97 05/30/24 07:35 Oxygen Delivery Room Air 05/30/24 02:27 Discharge Plan Discharge Clinical Impression: Strain of neck muscle Patient Disposition: Home, Self-Care Condition: Stable Instructions: Cervical Strain (ED) Additional Instructions: Please return to the emergency department if you develop severe pain that is not controlled by pain medications or if you are unable to walk because of pain or weakness. Return to the emergency department immediately if you develop fevers, loss of bowel or bladder control (dribbling of urine or having accidents you wouldn't normally have), inability to urinate, numbness of your genital or anal area, or weakness/numbness of your legs or arms as these could all be signs of a serious medical emergency. Patient Language: Yoruba Prescriptions: New naproxen 375 mg tablet 375 mg PO BID Qty: 14 0RF tizanidine 2 mg capsule 2 mg PO Q8H PRN (Reason: muscle spasticity) Qty: 14 0RF No Action nateglinide 120 mg tablet 120 mg DAILY atorvastatin 40 mg tablet 40 mg DAILY metformin 500 mg tablet 1,000 mg BID diltiazem HCl 240 mg capsule,extended release 24hr 240 mg PO DAILY amlodipine 10 mg tablet 10 mg DAILY hydrochlorothiazide 25 mg tablet 25 mg DAILY benzonatate 200 mg capsule 200 mg PO TID PRN (Reason: cough) Qty: 15 0RF ondansetron 4 mg tablet,disintegrating 4 mg PO Q8H PRN (Reason: nausea and vomiting) Qty: 15 0RF Robitussin Cough-Chest [facility] DM 10-200 mg capsule 1 tab-cap PO ONCE PRN (Reason: cough) Qty: 18 0RF acetaminophen 500 mg tablet 1,000 mg PO TID PRN (Reason: veronika) 7 Days Qty: 42 0RF Zyrtec 10 mg capsule 10 mg PO DAILY PRN (Reason: allergy symptoms) Qty: 14 0RF oseltamivir [Tamiflu] 75 mg capsule 75 mg PO Q12H 5 Days Qty: 10 0RF ibuprofen 800 mg tablet 800 mg PO TID PRN (Reason: pain) 7 Days Qty: 21 0RF Follow-up/Referrals: PHYSICIAN,HEMMER CHAINSTITCH [Non-Staff] - Poncho Parra MD [Physician] - 1 Week
[2024-05-30 07:35] VITALS: BP 147/80; PULSE 65; RESP 16; TEMP 36.7; O2SAT 97
--- OUTSIDE RECORDS SUMMARY | 2024-05-30 07:43 | XMS_ITS | Encounter Summary ---
Author Organization [facility] Address [facility] [address] Care Team Providers Care Construction Ironworker Name Role Phone Unavailable Primary Care Provider Unavailabl e Encounter Details Date Type Department Care Team (Late st Contact Info) Description 05/08/2023 Lab Requisition [facility] - DermPath Lab [address] [facility] [place] [phone] Sunitha Portillo MD [address] [facility] [address] [place] [address] Social History Tobacco Use Types Packs/Day Years [...] Diagnosis Comments DERMATOPATHOLOGY Routine 05/08/2023 9:14 AM TELEVISION REPAIRER documented in this encounter Results * DERMATOPATHOLOGY (05/08/2023 9:14 AM TELEVISION REPAIRER) Case Report Dermatopathology Report Case: [id number] Authorizing Provider: Sunitha Portillo MD Collected: 05/08/2023 09:14 AM Ordering Location: [facility] DermPath Lab Received: 05/11/2023 12:54 PM Pathologist: Bobbi Hickey MD Specimen: Skin, mid ant scalp 4:19 PM TELEVISION REPAIRER DERMATOPATHOLOGY LABORATORY Final Diagnosis Specimen A. SKIN, mid ant scalp: SQUAMOUS PROLIFERATION (D48.5) (see microscopic description and comment) 4 4:19 PM [facility] DERMATOPATHOLOGY LABORATORY Clinical History R/O HAK vs. SCC 4 4:19 PM [facility] DERMATOPATHOLOGY LABORATORY Gross Description Specimen A: Received is one formalin filled container labeled with the patient's name and designated mid ant scalp. The specimen consists of a shave biopsy measuring 71d39i4 mm. Jar 0. 4 4:19 PM [facility] DERMATOPATHOLOGY LABORATORY Microscopic Description Specimen [...] and squamous cell carcinoma. 4 4:19 PM [facility] DERMATOPATHOLOGY LABORATORY Disclaimer An external and internal positive and negative controls are appropriate for the histochemical, immunohistochemical and immunofluorescence stain(s) in this case (if any), except where stated explicitly. The performance characteristics of the stain(s) cited in this report were developed and its performance characteristic determined by the Dermatopathology Laboratory at [facility], directed by Dr. Parker Mir. These tests need not be, and therefore are not, approved by the [place] Food and Drug Administration. The tests are used for clinical purposes. Billing Codes Specimen Charges Stain Charges 98210 1 4 4:19 PM [facility] DERMATOPATHOLOGY LABORATORY Embedded Images 4 4:19 PM [facility] DERMATOPATHOLOGY LABORATORY Pathology/Cytolo gy TISSUE SPECIMEN FROM SKIN / Unknown 05/08/2023 9:14 AM TELEVISION REPAIRER 05/11/2023 12:54 PM TELEVISION REPAIRER Sunitha Portillo MD LAB - PATHOLOGY/CYT OLOGY ORDERABLES DERMATOPATHOLOGY LABORATORY [facility] - Department of Dermatology [address] [phone] documented in this encounter Visit Diagnoses Not on filedocumented in this encounter
--- OUTSIDE RECORDS SUMMARY | 2024-05-30 07:43 | XMS_ITS | Encounter Summary ---
Author Organization [facility] Address [address] [facility] [place] [address] Care Team Providers Care Slack Cooper Name Role Phone Unavailable Primary Care Provider Unavailabl e Encounter Details Date Type Department Care Team (Late st Contact Info) Description 05/09/2019 Lab Requisition [facility] Care DermPath Lab [address] [facility], [place] [address] Wilda Gray MD [address] [facility] [address] [place] [address] Social History Tobacco Use Types Packs/Day Years [...] Comments DERMATOPATHOLOGY Routine 05/06/2019 12:0 0 AM HOUSEKEEPING DIRECTOR documented in this encounter Results * DERMATOPATHOLOGY (05/06/2019 12:00 AM HOUSEKEEPING DIRECTOR) Case Report Dermatopathology Report Case: [id number] Authorizing Provider: Wilda Gray MD Collected: 05/06/2019 12:00 AM Ordering Location: [facility] Care DermPath Lab Received: 05/09/2019 07:01 AM Pathologist: Bella Mir MD Specimen: Skin, right dorsal hand 0 11:24 AM HOUSEKEEPING DIRECTOR DERMATOPATHOLOGY LABORATORY Final Diagnosis Specimen A. SKIN, right dorsal hand: DERMAL SCAR RESIDUAL SQUAMOUS CELL CARCINOMA NOT IDENTIFIED (L90.5) 0 11:24 AM HOUSEKEEPING DIRECTOR DERMATOPATHOLOGY LABORATORY Clinical History R/O SCC, well differentiated, bx proven. Previous Bx: [id number]. 0 11:24 AM [facility] DERMATOPATHOLOGY LABORATORY Gross Description Specimen A: Received is one formalin filled container labeled with the patient's name and designated right dorsal hand.The specimen consists of an ellipse measuring [id number] and is oriented with the notch at [...] cassettes 3-4. Jar 0. 0 11:24 AM [facility] DERMATOPATHOLOGY LABORATORY Microscopic Description Specimen A. SKIN, right dorsal hand: There are fibroblasts and collagen bundles oriented parallel to the skin surface. There are elongated blood vessels, some of which are oriented perpendicular to the skin surface. No residual squamous cell carcinoma is identified. 0 11:24 AM [facility] DERMATOPATHOLOGY LABORATORY Disclaimer An external and internal positive and negative controls are appropriate for the histochemical, immunohistochemical and immunofluorescence stain(s) in this case (if any), except where stated explicitly. The performance characteristics of the stain(s) cited in this report were developed and its performance characteristic determined by the Dermatopathology Laboratory at [facility], directed by Dr. Parker Mir. These tests need not be, and therefore are not, approved by the [place] Food and Drug Administration. The tests are used for clinical purposes. Billing Codes Specimen Charges Stain Charges 16639 1 0 11:24 AM [facility] DERMATOPATHOLOGY LABORATORY Embedded Images 0 11:24 AM [facility] DERMATOPATHOLOGY LABORATORY Pathology/Cytolog y TISSUE SPECIMEN FROM SKIN / Unknown 05/06/2019 05/09/2019 7:01 AM [facility] Wilda Gray MD LAB - PATHOLOGY/CYTO LOGY ORDERABLES DERMATOPATHOLOGY LABORATORY [facility] - Department of Dermatology [address] [facility], 5th [place] [address], [facility] [phone] documented in this encounter Visit Diagnoses Not on filedocumented in this encounter
--- OUTSIDE RECORDS SUMMARY | 2024-05-30 07:43 | XMS_ITS | Encounter Summary ---
Author Organization [facility] Address [address] [facility] [address] Care Team Providers Care Roaster Operator Name Role Phone Unavailable Primary Care Provider Unavailabl e Encounter Details Date Type Department Care Team (Late st Contact Info) Description 03/30/2019 Lab Requisition [facility] DermPath Lab [address] [facility] [place] [address] Sunitha Portillo MD [address] [facility] [address] [place] [address] Social History Tobacco Use Types Packs/Day Years [...] Comments DERMATOPATHOLOGY Routine 03/29/2019 12:0 0 AM TRANSPORTATION MECHANIC documented in this encounter Results * DERMATOPATHOLOGY (03/29/2019 12:00 AM TRANSPORTATION MECHANIC) Case Report Dermatopathology Report Case: [id number] Authorizing Provider: Sunitha Portillo MD Collected: 03/29/2019 12:00 AM Ordering Location: [facility] DermPath Lab Received: 03/30/2019 07:40 AM Pathologist: Kourtney Jain MD Specimen: Skin, right dorsal hand 9 11:07 AM TRANSPORTATION MECHANIC DERMATOPATHOLOGY LABORATORY Final Diagnosis Specimen A. SKIN, right dorsal hand: SQUAMOUS CELL CARCINOMA, WELL DIFFERENTIATED (C44.622) 9 11:07 AM TRANSPORTATION MECHANIC DERMATOPATHOLOGY LABORATORY Clinical History R/O SCC, irritated, non-healing. 11:07 AM [facility] DERMATOPATHOLOGY LABORATORY Gross Description Specimen A: Received is one formalin filled container labeled with the patient's name and designated right dorsal hand. The specimen consists of a shave measuring 6x0p3mn. Jar 0. 11:07 AM [facility] DERMATOPATHOLOGY LABORATORY Microscopic Description Specimen A. SKIN, right dorsal hand: Arising in the epidermis and extending into the dermis there are irregularly shaped aggregates of keratinocytes showing evidence of premature cornification. 11:07 AM [facility] DERMATOPATHOLOGY LABORATORY Disclaimer An external and internal positive and negative controls are appropriate for the histochemical, immunohistochemical and immunofluorescence stain(s) in this case (if any), except where stated explicitly. The performance characteristics of the stain(s) cited in this report were developed and its performance characteristic determined by the Dermatopathology Laboratory at [facility], directed by Dr. Parker Mir. These tests need not be, and therefore are not, approved by the [place] Food and Drug Administration. The tests are used for clinical purposes. Billing Codes Specimen Charges Stain Charges 44303 1 11:07 AM [facility] DERMATOPATHOLOGY LABORATORY Embedded Images 11:07 AM [facility] DERMATOPATHOLOGY LABORATORY Pathology/Cytolog y TISSUE SPECIMEN FROM SKIN / Unknown 03/29/2019 03/30/2019 7:40 AM TRANSPORTATION MECHANIC Sunitha Portillo MD LAB - PATHOLOGY/CYT OLOGY ORDERABLES DERMATOPATHOLOGY LABORATORY [facility] - Department of Dermatology [address] [place] [address], [address] [place] [address], [facility] [phone] documented in this encounter Visit Diagnoses Not on filedocumented in this encounter
--- OUTSIDE RECORDS SUMMARY | 2024-05-30 07:43 | XMS_ITS | Patient Health Summary ---
Author Organization [facility] [place] Address [address] [facility] [place] [address] Care Team Providers Care Bindery Assistant Name Role Phone Unavailable Primary Care Provider Unavailabl e Note from [facility],non-owned Affiliates and Associated Physician Practices is amultiple site organization consisting of ambulatory clinics and hospital sitesin [place], [place], [place] and [place]. This disclosure is being madepursuant to the Care Everywhere program and may not contain all information available regarding this patient. Last updated 18.[facility] Allergies No known active allergies Medications [...] * DERMATOPATHOLOGY(Performed 08/03/2023) * DERMATOPATHOLOGY(Performed 05/08/2023) * NV REMOVE CERUMEN IMPACTED W INSTR ALONSO(Performed 01/14/2022) Performed for Impacted cerumen of left ear, Excessive cerumen in ear canal, right, Ear itching, Earfullness, left * AUDIOLOGY/TYMPANOMETRY ORDER(Performed 01/14/2022) * DERMATOPATHOLOGY(Performed 05/06/2019) * DERMATOPATHOLOGY(Performed 03/29/2019) * DERMATOPATH TECHNICAL REPORT(Performed 05/25/2018) Results * DERMATOPATHOLOGY (08/03/2023 8:11 AM CDT) Only the most recent of4 resultswithin the time period is included. Case Report Dermatopathology Report Case: [id number] Authorizing Provider: Sunitha Portillo MD Collected: 08/03/2023 08:11 AM Ordering Location: [facility] - Received: 08/04/2023 12:37 PM [...] microscopic description and comment) 4 3:06 PM [facility] D[facility]AT[facility] Clinical History R/O SCC, growing. 4 3:06 PM [facility] DERMATOPATH[facility]Y LABORATORY Gross Description Specimen A: Received is one formalin filled container labeled with the patient's name and designated anterior mid scalp. The specimen consists of a shave biopsy measuring 97p60o0 mm. Jar 0. 3:06 PM [facility] DERMATOPATHOLOGY LABORATORY Microscopic Description Specimen A. SKIN, [...] in the correct clinical setting. 3:06 PM [facility] DERMATOPATHOLOGY LABORATORY Disclaimer An external and internal positive and negative controls are appropriate for the histochemical, immunohistochemical and immunofluorescence stain(s) in this case (if any), except where stated explicitly. The performance characteristics of the stain(s) cited in this report were developed and its performance characteristic determined by the Dermatopathology Laboratory at [facility], directed by Dr. Parker Mir. These tests need not be, and therefore are not, approved by the [place] Food and Drug Administration. The tests are used for clinical purposes. Billing Codes Specimen Charges Stain Charges 32190 1 00872 61581 98108 1 1 1 4 3:06 PM CDT DERMATOPATHOLOGY LABORATORY Embedded Images 4 3:06 PM CDT DERMATOPATHOLOGY LABORATORY Pathology/Cytolo gy TISSUE SPECIMEN FROM SKIN / Unknown 08/03/2023 8:11 AM CDT 08/04/2023 12:37 PM CDT Sunitha Portillo MD LAB - PATHOLOGY/CYT OLOGY ORDERABLES DERMATOPATHOLOGY LABORATORY [facility] - Department of Dermatology [address] [phone] * [place] REMOVE CERUMEN IMPACTED W INSTR ALONSO (01/14/2022 [...] change in hearing is suspected. Aileen Kumar. [facility]-A Clinical Learning Manager [facility]-Department of Otolaryngology/Audiology [place] for [facility] [address] [place] [address] Kaylie Gallagher AUDIOLOGY SERVICES O RDERABLES * DERMATOPATH TECHNICAL REPORT (05/25/2018 12:00 AM CUSTOM TAILOR) Case Report Dermatopathology Report Case: [id number] Authorizing Provider: Sunitha Portillo MD Collected: 05/25/2018 12:00 AM Pathologist: Bella Mir MD Received: 05/27/2018 07:17 AM Specimen: Skin, left cheek 9 2:33 PM CUSTOM TAILOR DERMATOPATHOLOGY LABORATORY Clinical History [facility] vs [facility] 9 2:33 PM CUSTOM TAILOR DERMATOPATHOLOGY LABORATORY Gross Description Specimen A: Received is one formalin filled container labeled with the patient's name and designated left cheek. The specimen consists of a shave biopsy measuring 6x5x2 mm. Jar 0. [facility] Dermatopathology Laboratory performed the technical component only. 2:33 PM [facility] DERMATOPATHOLOGY LABORATORY Embedded Images 2:33 PM [facility] DERMATOPATHOLOGY LABORATORY DISCLAIMER An external and internal positive and negative controls are appropriate for the histochemical, immunohistochemical and immunofluorescence stain(s) in this case (if any), except where stated explicitly. The performance characteristics of the stain(s) cited in this report were developed and its performance characteristic determined by the Dermatopathology Laboratory at [facility], directed by Dr. Parker Mir. These tests need not be, and therefore are not, approved by the [place] Food and Drug Administration. The tests are used for clinical purposes. 9 2:33 PM CUSTOM TAILOR DERMATOPATHOLOGY LABORATORY Pathology/Cytolog y TISSUE SPECIMEN FROM SKIN / Unknown 05/25/2018 05/27/2018 7:17 AM CUSTOM TAILOR Sunitha Portillo MD LAB - PATHOLOGY/CYT OLOGY ORDERABLES DERMATOPATHOLOGY LABORATORY [facility] - Department of Dermatology [address] [place] [address], [address] Floor Lab [address] [phone]
--- OUTSIDE RECORDS SUMMARY | 2024-05-30 07:43 | XMS_ITS | Clinical Summary ---
Author Organization [facility] Address [address] [place] [phone] Care Team Providers Care Car Scrubber Name Role Phone Unavailable Primary Care Provider Unavailabl e Social History Tobacco Use Types Packs/Day Years Used Date Smoking Tobacco: Never Assessed Sex and Gender Information Value Date Recorded Sex Assigned at Not on file Legal Sex Male 1:23 PM REAL ESTATE ECONOMIST Gender Identity Not on file Sexual Orientation [...]
--- OUTSIDE RECORDS SUMMARY | 2024-05-30 07:43 | XMS_ITS | Encounter Summary ---
Author Organization [facility] Address [facility] [place] [address] Care Team Providers Care Digital Operations Analyst Name Role Phone Unavailable Primary Care Provider Unavailabl e Encounter Details Date Type Department Care Team (Late st Contact Info) Description 08/03/2023 Lab Requisition [facility] - DermPath Lab [address] [facility], [facility] [place] [address] Sunitha Portillo MD [address] [place] [address] Social History Tobacco Use Types Packs/Day Years [...] AM CDT) Case Report Dermatopathology Report Case: [id number] Authorizing Provider: Sunitha Portillo MD Collected: 08/03/2023 08:11 AM Ordering Location: [facility] - Received: 08/04/2023 12:37 PM [...] (see microscopic description and comment) 3:[address] [facility] DERMATOPATHOLOGY LABORATORY Clinical History R/O SCC, growing. 3:[address] [facility] DERMATOPATHOLOGY LABORATORY Gross Description Specimen A: Received is one formalin filled container labeled with the patient's name and designated anterior mid scalp. The specimen consists of a shave biopsy measuring 57o78i4 mm. Jar 0. 3:[address] [facility] DERMATOPATHOLOGY LABORATORY Microscopic Description Specimen A. [...] in the correct clinical setting. 3:[address] [facility] DERMATOPATHOLOGY LABORATORY Disclaimer An external and internal positive and negative controls are appropriate for the histochemical, immunohistochemical and immunofluorescence stain(s) in this case (if any), except where stated explicitly. The performance characteristics of the stain(s) cited in this report were developed and its performance characteristic determined by the Dermatopathology Laboratory at [facility], directed by Dr. Parker Mir. These tests need not be, and therefore are not, approved by the [place] Food and Drug Administration. The tests are used for clinical purposes. Billing Codes Specimen Charges Stain Charges 88177 1 78004 67715 80879 1 1 1 4 3:06 PM T DERMATOPATHOLOGY LABORATORY Embedded Images 4 3:06 PM CDT DERMATOPATHOLOGY LABORATORY Pathology/Cytolo gy TISSUE SPECIMEN FROM SKIN / Unknown 08/03/2023 8:11 AM CDT 08/04/2023 12:37 PM CDT Sunitha Portillo MD LAB - PATHOLOGY/CYT OLOGY ORDERABLES DERMATOPATHOLOGY LABORATORY [facility] - Department of Dermatology [facility] [address] [place] [address], [address] [phone] documented in this encounter Visit Diagnoses Not on filedocumented in this encounter
--- OUTSIDE RECORDS SUMMARY | 2024-05-30 07:43 | XMS_ITS | Encounter Summary ---
Author Organization [facility] Address [address] [facility] [place] [address] Care Team Providers Care Grader Marker Name Role Phone Unavailable Primary Care Provider Unavailabl e Encounter Details Date Type Department Care Team (Late st Contact Info) Description 05/27/2018 Lab Requisition [facility] Care DermPath Lab [address] [facility], [place] [address] Sunitha Portillo MD [address] [facility] 3 [place] [address] Social History Tobacco Use Types Packs/Day Years [...] DERMATOPATH TECHNICAL REPORT Routine 05/25/2018 12:00 AM THROUGH FREIGHT ENGINEER documented in this encounter Results * DERMATOPATH TECHNICAL REPORT (05/25/2018 12:00 AM THROUGH FREIGHT ENGINEER) Case Report Dermatopathology Report Case: [id number] Authorizing Provider: Sunitha Portillo MD Collected: 05/25/2018 12:00 AM Pathologist: Bella Mir MD Received: 05/27/2018 07:17 AM Specimen: Skin, left cheek 9 2:33 PM THROUGH FREIGHT ENGINEER DERMATOPATHOLOGY LABORATORY Clinical History [facility] vs [facility] 9 2:33 PM THROUGH FREIGHT ENGINEER DERMATOPATHOLOGY LABORATORY Gross Description Specimen A: Received is one formalin filled container labeled with the patient's name and designated left cheek. The specimen consists of a shave biopsy measuring 6x5x2 mm. Jar 0. [facility] Dermatopathology [facility] performed the technical component only. 9 2:33 PM [facility] DERMATOPATHOLOGY LABORATORY Embedded Images 2:33 PM [facility] DERMATOPATHOLOGY LABORATORY DISCLAIMER An external and internal positive and negative controls are appropriate for the histochemical, immunohistochemical and immunofluorescence stain(s) in this case (if any), except where stated explicitly. The performance characteristics of the stain(s) cited in this report were developed and its performance characteristic determined by the Dermatopathology Laboratory at [facility], directed by Dr. Parker Mir. These tests need not be, and therefore are not, approved by the [place] Food and Drug Administration. The tests are used for clinical purposes. 9 2:33 PM [facility] DERMATOPATHOLOGY LABORATORY Pathology/Cytolog y TISSUE SPECIMEN FROM SKIN / Unknown 05/25/2018 05/27/2018 7:17 AM THROUGH FREIGHT ENGINEER Sunitha Portillo MD LAB - PATHOLOGY/CYT OLOGY ORDERABLES DERMATOPATHOLOGY LABORATORY [facility] - Department of Dermatology [address] [facility] 5th [place] [address], [facility] [[email or web address]] [phone] documented in this encounter Visit Diagnoses Not on filedocumented in this encounter
--- OUTSIDE RECORDS SUMMARY | 2024-05-30 07:43 | XMS_ITS | Data Portability ---
Author Organization [place] [facility] Address [address] [place] [address] Assessment Encounter Date Assessment Date Assessment LastModified [...] the date of this encounter including the wjhj-vl-afet and xaf-gpgf-vd-face time physician personally spent before, during, and after the visit on the same day. Time included: care coordination, counseling and educating the patient about Peroneal tendonitis , documenting clinical information in the electronic health record, reviewing and/or getting separately obtained history from patient, performing medically appropriate exam and evaluation. [email or web address] Not available 01/20/2022 13:31:41 02/13/2023 02/13/2023 73-year-old [...] the date of this encounter including the vjqf-gg-fvwp and seu-zqil-wp-face time physician personally spent before, during, and after the visit on the same day. Time included: care coordination, counseling and educating the patient about porokeratosis, prominent fifth metatarsal base, right foot pain, documenting clinical information in the electronic health record, reviewing and/or getting separately obtained history from pcp, performing medically appropriate exam and evaluation, and communicating with PCP [email or web address] Not available 02/15/2023 15:54:10 07/20/2023 07/20/2023 73 [...] the date of this encounter including the nyzj-wr-aucv and adx-axdd-ua-face time physician personally spent before, during, and after the visit on the same day. Time included: care coordination, counseling and educating the patient about Transverse Split of Nail, Pain in R1 , documenting clinical information in the electronic health record, reviewing and/or getting separately obtained history from pcp, performing medically appropriate exam and evaluation, and communicating with PCP Not available 07/23/2023 00:24:17 12/21/2023 12/21/2023 73-year-old [...] the date of this encounter including the plij-es-fcxn and oml-eebh-py-face time physician personally spent before, during, and after the visit on the same day. Time included: care coordination, counseling and educating the patient about porokeratosis, prominent fifth metatarsal base, right foot pain, documenting clinical information in the electronic health record, reviewing and/or getting separately obtained history from pcp, performing medically appropriate exam and evaluation, and communicating with PCP [email or web address] Not available 12/31/2023 00:39:14 01/20/2024 01/20/2024 73-year-old [...] the date of this encounter including the ejte-ev-cbmw and eqd-pdgw-vr-face time physician personally spent before, during, and after the visit on the same day. Time included: care coordination, counseling and educating the patient about Plantar fasciitis, porokeratosis, prominent fifth metatarsal base, right foot pain, documenting clinical information in the electronic health record, reviewing and/or getting separately obtained history from pcp, performing medically appropriate exam and evaluation, and communicating with PCP [email or web address] Not available 02/10/2024 02:13:53 Plan of Treatment [...] By Organization Details Last Modified Time 01/20/2022 [id number] peroneal tendon strain: rehab exercises [email or web address] Not available 01/20/2022 13:34:54 07/20/2023 [id number] type 2 diabetes: care instructions [email or web address] Not available 07/23/2023 00:24:57 01/20/2024 [id number] plantar fasciitis: care instructions Not available 02/10/2024 02:14:53 plantar fasciitis: exercises [email or web address] Not available 02/10/2024 02:14:53 Reason for Referral None Reported. Results Created Date Observation Date Name Description Value Unit Range Abnormal Flag Note LastModifiedBy Organization Detail LastModifiedTime 01/17/2001/15/2022 XR, foot, 3 or more view No observ ation record ed. [email or web address] [address] [address] [place], [address], 01/20/2022 14:59:42 01/21/20 22 XR, foot, 3 or more view No observ ation record ed. [email or web address] [facility] [place], [address], 01/20/2022 01:52:18 01/21/20 22 XR, foot, 3 or more view No observ ation record ed. [email or web address] [facility] [place], [address], 01/20/2022 01:52:19 01/21/20 22 XR, foot, 3 or more view No observ ation record ed. [email or web address] [facility] [address] [place], [address], 01/20/2022 01:52:19 01/21/20 22 XR, foot, 3 or more view No observ ation record ed. [facility] [address] [place], [address], 01/20/2022 01:52:20 01/21/20 22 XR, foot, 3 or more view No observ ation record ed. [email or web address] [facility] [address] [place], [address], 01/20/2022 01:52:20 01/21/20 22 XR, foot, 3 or more view No observ ation record ed. [email or web address] [facility] [address] [place], [address], 01/20/2022 01:52:21 Result Notes None recorded. Problems Name Problem SNOMED Code Status Onset Date Resolution Date Notes Provider Name and Address Organization Details Recorded Time Peroneal tendiniti s of right lower limb 799901864629 109 Completed 202007/22/2023 Destinee Greer DPM [address] [facility], [place], [address], [facility] Foot [facility] 4 00:23:08 Closed fracture of fifth metatarsa l bone 54029888 Completed 202007/22/2023 Destinee Greer DPM [address] [facility], [place], [address], [facility] 4 00:22:58 Pain in right foot 125217244021 107 Completed 202007/22/2023 Destinee Greer DPM [address] [facility], [place], [address], [facility] 4 00:23:05 Porokerat osis 867105050 Completed 202207/22/2023 Destinee Greer DPM [address] [facility], [place], [address], [facility] 4 00:23:16 Disorder of bone 96563651 Completed 202207/22/2023 Destinee Greer DPM [address] [facility], [place], [address], [place] [facility] 4 00:23:03 Transvers e split nail 194220872 Active 2023 Destinee Greer DPM [address], [place], [address], [facility] 4 00:23:19 Pain of toe of right foot 048647819640 101 Active 2023 MELO Ledesma [place], [place], [address], [facility] 4 00:23:21 Problem Notes None recorded. Procedures Surgical History Date Name Laterality Status Provider Name and Address Organization Details Recorded Time 12/21/19 24 98323 Wart-Curettage completed Destinee Greer DPM [address], [address], [facility] 12/31/2023 00:39:47 02/14/20 23 36249 Wart-Curettage completed MELO Ledesma [place], [place], [address], [facility] 02/15/2023 15:49:23 01/21/20 22 L1906- Multiligamentous ankle brace completed Destinee Greer DPM [address] [place], [address], [facility] 01/20/2022 13:26:46 01/21/20 22 99987 Tendon Injection [place], [address], [facility] 01/20/2022 13:25:16 01/11/20 21 04280 X-rays 2v Feet Normal completed MELO Ledesma [place], [place], [address], [facility] 01/15/2021 01:46:42 09/30/ Tendon Injection completed Destinee Greer DPM [address] [facility], [place], [address], [facility] 01/15/2021 01:48:59 01/21/20 03 Foot Surgery completed Destinee Greer DPM [address] [facility], [place], [address], [facility] 01/14/2021 22:14:07 11/20/18 91 Other completed Destinee Greer DPM [address] [facility], [place], [address], [facility] 01/14/2021 22:14:07 Imaging Results Imaging Date Name Status LastModified by [email or web address] Details LastModified Time 01/15/2022 XR, foot, 3 or more view completed [email or web address] [facility] [address] [place] [address], [address], 01/20/2022 14:59:42 01/20/2022 XR, foot, 3 or more view completed [facility] [address] [place], [address], 01/20/2022 01:52:18 01/20/2022 XR, foot, 3 or more view completed [email or web address] [facility] [address] [place], [address], 01/20/2022 01:52:19 01/20/2022 XR, foot, 3 or more view completed [email or web address] [facility] [address] [place], [address], 01/20/2022 01:52:19 01/20/2022 XR, foot, 3 or more view completed [email or web address] [facility] [address] [place], [address], 01/20/2022 01:52:20 01/20/2022 XR, foot, 3 or more view completed [email or web address] [facility] [address] [place], [address], 01/20/2022 01:52:20 01/20/2022 XR, foot, 3 or more view completed [email or web address] [facility] [address] [facility], [place], [address], 01/20/2022 01:52:21 Procedure Notes None recorded. Medical [...] Available Not Available No t Available econazole nitrate 1 % topical cream [...] Updated DateTime 01/20/2022 182.88 cm 30.1 kg/m2 213749.51 g Raya Schw[facility] 01/20/2022 10:08:48 Date Recorded Body height Body mass index (BMI) Body weight Provider Name and Address Organization Details Last Updated DateTime 02/13/2023 182.88 cm 30.1 kg/m2 579559.51 g Amarilys Lang [facility] 02/13/2023 09:14:20 Date Recorded Body height Body mass index (BMI) Body weight Provider Name and Address Organization Details Last Updated DateTime 07/20/2023 182.88 cm 30.1 kg/m2 073363.51 g Amarilys Lang [facility] 07/20/2023 12:09:05 Date Recorded Body height Body mass index (BMI) Body weight Provider Name and Address Organization Details Last Updated DateTime 12/21/2023 182.88 cm 30.1 kg/m2 878981.51 g Tawnya Contreras [facility] 12/21/2023 14:14:19 Date Recorded Body height Body mass index (BMI) Body weight Provider Name and Address Organization Details Last Updated DateTime 01/20/2024 182.88 cm 30.1 kg/m2 669872.51 g Leslie Raycraft [facility] 01/20/2024 12:30:03 Social History Question Answer Notes LastModified by Organizat ion Details LastModified Time Tobacco Smoking Status Never Smoker Destinee Greer DPM [address] [place], [address] 01/14/2021 22:14:01 Which Illicit Or Recreational Drugs Have You Used? None [email or web address] Information not available 01/14/2021 What Is Your Occupation? Retired [email or web address] Information not available 01/14/2021 Size Of Shoes 12 [email or web address] Information not available 01/14/2021 What Types Of Sporting Activities Do You Participate In? Exercise Weights Biking [employer] [email or web address] Information not available 01/14/2021 Sex: Unknown Functional Status Question Answer Note LastModified by Organization D etails LastModified Time What is your exercise level? Heavy [email or web address] Information not available 01/14/2021 Mental Status None recorded. Family History Relationship Description Onset Age of this Age Resolved Age Notes LastModified by Organization Details LastModified Time Father No current problems or disability [email or web address] Not available 01/19 12:27:05 Father Heart disease 62 90 Not available 2020 22:13:48 Mother No current problems or disability [email or web address] Not available 01/19 12:27:05 Mother Heart disease 80 85 [email or web address] Not available 2020 22:13:48 Medical History Condition Response Tuberculosis or TB N Heart Problems N Ulcers on Legs or Feet N Coronary Artery Disease N HIV or AIDS N Seizure Disorder N Gout N High Blood Pressure Y Clot in Lung or Pulmonary Embolism N Menopause N Lung Condition N Phlebitis or Venous Blood Clot N Migraines N Depression N Pacemaker N Anemia N Back Pain Y Neurologic Disease N Sciatica N Heart Attack ([place]) N Diabetes Y Anxiety Disorder N Urinary Tract Infections N Bleeding Disorder N Arthritis Y Abuse of Alcohol or Drugs N Back injury N Ear Problems N Cancer N Dementia N Eye Problems N Stroke N Stomach Problems N Peripheral Vascular Disease N Sinus Conditions N Broken Bone N Thyroid Disorder N High Cholesterol Y Hepatitis N Liver Disease N Heart Disease N Rheumatoid Arthritis N Rash N Osteoporosis N Kidney Disease N Past Encounters Encounter ID Performer Location Encounter Start Date Encounter Closed Date Diagnosis/Indication Diagnosis SNOMED-CT Code Diagnosis ICD10 Code Diagnosis Note [id number] MELO Ledesma [address] [place] [address] 01/10/2021 10:22:23 01/10/2021 11:03:12 Peroneal tendinitis of right lower limb 6198600326 43093 M76.71 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 Pain in right foot 34329 03022 27655 M79.671 [id number] MELO Ledesma [address] [place] [address] 02/26/2021 11:26:01 02/26/2021 11:51:47 Pain in right foot 7874592340 80592 M79.671 Peroneal t endinitis of right lower limb 4033824377 53581 M76.71 Closed fra cture of fifth metatarsal bone 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 [id number] CHIRAG MOTA DPM [facility] [address] [place] [address] 10/17/2021 10:47:13 10/17/2021 11:01:33 Sciatica 58625649 M54.32 Left foot neuritis 33877 08155 44308 G57.82 [id number] MELO [address] [place] [address] 01/20/2022 09:59:03 01/20/2022 10:58:33 Pain in right foot 9495679065 71974 M79.671 Peroneal t endinitis of right lower limb 5606067917 20461 M76.71 [id number] MELO LedesmaANH RAA [address] [place] [address] 8 02/13/2023 08:52:27 02/13/2023 09:37:41 Pain in right foot 6201222532 65248 M79.671 Disorder of bone 7979463 3 M89.9 Porokeratosis 834260178 L85.1 [id number] Destinee Greer DPM K[facility]ILLA ARA [address] [place] [address] 07/20/2023 12:06:03 07/20/2023 12:26:41 Pain of toe of right foot 4328789828 06901 M79.674 Transverse split nail 29 9749122 L60.8 Type 2 eb betes mellitus without complication 688583746 E11.9 [id number] MELO LedesmaANH ARA [address] [place] [address] 8 12/21/2023 14:10:34 12/21/2023 14:42:29 Porokeratosis 613955975 L85.1 Disorder of bone 9038019 3 M89.9 Pain in right foot 55558 21303 36587 M79.671 [id number] MELO LedesmaANH ARA [address] [place] [address] 01/20/2024 12:26:55 01/20/2024 12:41:34 Pain in right foot 0541156616 95982 M79.671 Porokeratosis 898966919 L85.1 Plantar fasciitis 640548 003 M72.2 Health Concerns Section Related Observation LastModified by Organization Detai ls LastModified Time None Recorded Concern Status LastModified by Organization Details LastModified Time None Recorded Advance Directives Directive None Recorded Payers Encounter Date Sequence Insurance Name Policy Number Policy Samuel Covered Member ID Samuel Member ID Guarantor Name 01/20/2022 1 [facility] (MEDICARE REPLACEMENT/A DVANTAGE - PPO) Jeffrey Grajeda [id number] Jeffrey Grajeda 02/13/2023 1 [employer] (MEDICARE REPLACEMENT PPO) [id number] Jeffrey Grajeda [id number] Jeffrey Grajeda 07/20/2023 1 [employer] (MEDICARE REPLACEMENT PPO) [id number] 1 Jeffrey Grajeda [id number] Jeffrey Grajeda 12/21/2023 1 [employer] (MEDICARE REPLACEMENT PPO) [id number] 1 Jeffrey Grajeda [id number] Jeffrey Grajeda 01/20/2024 1 [employer] (MEDICARE REPLACEMENT PPO) [id number] 1 Jeffrey Grajeda [id number] Jeffrey Grajeda Notes Date Note Type Note [...] (Corticosteriod injection 01/10/21) Destinee Greer DPM [address] [place], [address], [facility] 01/20/2022 13:34:57 02/13/2023 text/html Foot Pain--Repor [...] that it feels very hard underneath the site.[place]/ Callus / UlcersReported bypatient.Location:f oot: right: midfoot Quality:aching; raised; firm Current Severity:moderate Duration:x weeks Onset/Timing:pain: worse with weightbearing Context:deformity (prominent 5th metatarsal base.); discomfort Aggravating factors:standing; going from sit to stand; pressure; walking; weightbearing; shoes Alleviating factors:rest Destinee Greer DPM [address] [place] [address], [address], [facility] 02/15/2023 15:55:08 07/20/2023 text/html Nails--Reported bypatient.Location:t oenails [...] and play golf. Destinee Greer DPM [address] [place], [address], [facility] 07/23/2023 00:25:00 12/21/2023 text/html [place]/ Callus / UlcersReported bypatient.Location:f oot: right: midfoot (lateral) Quality:aching; raised; firm; deep Current Severity:moderate Duration:x weeks Onset/Timing:pain: worse with weightbearing Context:deformity (prominent 5th metatarsal base.); discomfort Aggravating factors:standing; going from sit to stand; pressure; walking; weightbearing; shoes Alleviating factors:rest Destinee Greer DPM [address] [place], [address], [facility] 12/31/2023 00:42:44 01/20/2024 text/html Heel Pain--Repor ross bypatient.Location:r ight bottom of the heel Nature of Pain:sharp and stabbing; pain level 1/10 Duration:2 weeks Onset:denies any injury; just started [...] States pain resolved. Destinee Greer DPM [address] [place], [address], [facility] 02/10/2024 02:14:56
--- OUTSIDE RECORDS SUMMARY | 2024-05-30 07:43 | XMS_ITS | Referral Summary ---
Author Organization [facility] Address [address] [place] [address] Care Team Providers Care Doll Surgeon Name Role Phone Unavailable Primary Care Provider Unavailabl e Source Comments [facility],non-owned Affiliates and Associated Physician Practices is amultiple site organization consisting of ambulatory clinics and hospital sitesin [place], [place], [place] and [place]. This disclosure is being madepursuant to the Care Everywhere program and may not contain all information available regarding this patient. Last updated 18.[facility] [employer] Allergies No known active allergies Medications * [...]
--- OUTSIDE RECORDS SUMMARY | 2024-05-30 07:43 | XMS_ITS | Clinical Summary ---
Author Organization [facility] [employer] Address [address] [place] [address] Care Team Providers Care Photo Editor Name Role Phone Unavailable Primary Care Provider Unavailabl e Source Comments [facility],non-owned Affiliates and Associated Physician Practices is amultiple site organization consisting of ambulatory clinics and hospital sitesin [place], [place], [place] and [place]. This disclosure is being madepursuant to the Care Everywhere program and may not contain all information available regarding this patient. Last updated 18.[facility] [employer] Allergies No known active allergies Medications * [...] this topic Jeffrey Grajeda Personal/Family Self 1950 [facility] [address] [place] [address]
--- OUTSIDE RECORDS SUMMARY | 2024-05-30 07:44 | XMS_ITS | Clinical Summary ---
Author Organization [place] [id number] [facility] Address [facility] [place] [address] Care Team Providers Care Monotype Mechanic Name Role Phone Igor Ferrera MD Primary Care Provider [phone] Allergies No known active allergies Medications hydroCHLOROthia [...] on file Legal Sex Male 1:39 PM MANAGER BILINGUAL Gender Identity Not on file Sexual Orientation [...] PM CDT EGFR STAT 06/10/2022 11:52 PM MANAGER BILINGUAL from Last 3 Months or Most Recently Relevant to Health Maintenance Results * Colonoscopy (11/05/2023 1:30 PM CDT) Anatomical Region Laterality Modality Other Narrative Procedure Note Sandy Bateman MD - 11/05/2023 1:30 PM CDT [facility] Endoscopy Lab Patient Name: Jeffrey Grajeda Procedure Date: 11/05/2023 1:30 PM Date of : 1950 Admit Type: Outpatient Age: 73 Gender: Male Note Status: Finalized Attending MD: Sandy Bateman M.D. Procedure Date: 11/05/2023 Procedure: Colonoscopy Indications: Screening for colorectal malignant neoplasm Providers: Sandy Bateman M.D., PACO Elias (Anesthesia Staff), Kourtney Olivares RN, Sergey, Collator Referring MD: Igor Ferrera M.D. Medicines: Monitored [...] 2 weeks. Procedure Code(s): --- Professional --- 86960, Colonoscopy, flexible; with removal of tumor(s), polyp(s), or other lesion(s) by snare technique Diagnosis Code(s): --- Professional --- Z12.11, Encounter for screening for malignantneoplasm of colon D12.5, Benign neoplasm of sigmoid colon D12.3, Benign neoplasm of transverse colon (hepatic flexure or splenic flexure) CPT copyright 2020 [employer]. All rights reserved. The codes documented in this report are preliminary and upon electric stove mechanic reviewmay be revised to meet current compliance requirements. This report is electronically signed by Dr Bradford Bateman Sandy Bateman M.D. 11/05/2023 2:03:42 PM This report has been electronically signed by the physician. Number of Addenda: 0 Note Initiated On: 11/05/2023 1:30 PM Sandy Bateman MD ENDOSCOPY PROCEDURES Final Result * eGFR (06/10/2022 11:52 PM MANAGER BILINGUAL) eGFR 87 mL/min/1. 73 m2 [facility] Comment: Interpretive Data Reference Interval Normal >/= [...] reviewed 2021. Blood 06/10/2022 11:5 2 PM MANAGER BILINGUAL 06/10/2022 11:57 PM MANAGER BILINGUAL Angel Lomeli MD LAB BLOOD ORDERABLES Final R esult [facility] [address] [place] [address] from Last 3 Months or Most Recently Relevant to Health Maintenance Insurance [facility] MEDICARE [facility] CHOICE PLUS MEDICARE MEDICARE [employer] MEDICARE AET MEDICARE Advance Directives For more information, please contact: [phone] * Full Code (Latest Code Status on File) Date Activated Date Inactivated Comments 09/12/2018 8:52 PM 09/14/2018 9:20 PM Care Teams Monotype Mechanic Relationship Specialty Start Date End Date Igor Ferrera MD PCP - General 09/12/18
--- OUTSIDE RECORDS SUMMARY | 2024-05-30 07:44 | XMS_ITS | Referral Summary ---
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 Procedure Date: 11/05/2023 Procedure: Colonoscopy Indications: Screening for colorectal malignant neoplasm Providers: Sandy Bateman M.D., PACO Elias (Anesthesia Staff), Kourtney Olivares RN, Sergey, Sixth Grade Teacher Referring MD: Igor Ferrera M.D. Medicines: Monitored [...] 2 weeks. Procedure Code(s): --- Professional --- 41893, Colonoscopy, flexible; with removal of tumor(s), polyp(s), or other lesion(s) by snare technique Diagnosis Code(s): --- Professional --- Z12.11, Encounter for screening for malignantneoplasm of colon D12.5, Benign neoplasm of sigmoid colon D12.3, Benign neoplasm of transverse colon (hepatic flexure or splenic flexure) CPT copyright 2020 [employer]. All rights reserved. The codes documented in this report are preliminary and upon mathematics technician reviewmay be revised to meet current compliance requirements. This report is electronically signed by Dr Bradford Bateman Sandy Bateman M.D. 11/05/2023 2:03:42 PM This report has been electronically signed by the physician. Number of Addenda: 0 Note Initiated On: 11/05/2023 1:30 PM Sandy Bateman MD ENDOSCOPY PROCEDURES Final Result * eGFR (06/10/2022 11:52 PM SHRIMP PEELING MACHINE OPERATOR) eGFR 87 mL/min/1. 73 m2 [facility] Comment: Interpretive Data Reference Interval Normal >/= [...] reviewed 2021. Blood 06/10/2022 11:5 2 PM SHRIMP PEELING MACHINE OPERATOR 06/10/2022 11:57 PM SHRIMP PEELING MACHINE OPERATOR Angel Lomeli MD LAB BLOOD ORDERABLES Final R esult [facility] [address] Department [place] [address] from Last 3 Months or Most Recently Relevant to Health Maintenance Insurance [employer] MEDICARE MEDICARE MEDICARE [facility] MEDICARE Advance Directives For more information, please contact: [phone] * Full Code (Latest Code Status on File) Date Activated Date Inactivated Comments 09/12/2018 8:52 PM 09/14/2018 9:20 PM Care Teams Real Estate Representative Relationship Specialty Start Date End Date Igor Ferrera MD PCP - General 09/12/18
== END 2024-05-30 07:35 | disposition home or self-care (01) ==
LOC: ANHED 07:40
PROVIDERS: Emergency Provider Emergency Medicine
DX: S16.1XXA Strain of muscle, fascia and tendon at neck level, initial encounter (principal); E11.9 Type 2 diabetes mellitus without complications; I10 Essential (primary) hypertension; E78.5 Hyperlipidemia, unspecified; X58.XXXA Exposure to other specified factors, initial encounter
CPT/HCPCS: 99283